=== PATIENT | male | born 1950 | race Caucasian/White ===

== ENCOUNTER 2017-08-27 09:49 | Day surgery (SDC) | payer OTHER ==
--- NOTE | 2017-08-22 14:22 | RAD REPORT ---
EXAM DESCRIPTION: Elier Mckenna And Cheyanne (2 Views)08/22/2017 2:11 pm CLINICAL HISTORY: Preop for bladder biopsy COMPARISON: None FINDINGS: Mild to moderate bilateral reticular opacities are present within the lungs. A lung consol idation is not seen. The heart is normal size IMPRESSION: Eizb-et-iidtpnsq bilateral interstitial lung opacities. These may be chronic or represen t an acute process such as pneumonitis. An unenhanced CT scan of the chest would be helpful for furth er evaluation
[2017-08-22 14:56] LABS: Urine Appearance CLEAR; Urine Bilirubin NEGATIVE (NEG); Urine Blood NEGATIVE (NEG); Urine Color YELLOW; Urine Glucose NEGATIVE (NEG); Urine Protein NEGATIVE (NEG); Urine Specific Gravity 1.015 (1.005-1.030); Urine pH 6.5 (5.0-7.0)
[2017-08-22 14:59] LABS: Urine Microscopic Reflex ORDER UMIC
[2017-08-22 15:00] LABS: Absolute Lymphocytes (CBC) 1.7 K/uL (0.7-4.9); Absolute Monocytes 0.5 K/uL (0.1-1.3); Absolute Neutrophil 4.6 K/uL (1.8-8.0); Basophils % 1.2 % (0-1.3); Eosinophils % 4.1 % (0-4.4); Hematocrit 49.5 % (39.6-49.0); Lymphocytes % 23.4 % (15.3-44.8); MCH 31.2 pg (27.0-35.0); MCV 94.6 fL (80-100); MPV 9.7 fL (7.6-11.3); Monocytes % 6.9 % (3.3-12.3); RBC Red Blood Cell Count 5.23 M/uL (4.33-5.43)
[2017-08-22 15:04] LABS: Protime INR 1.05
[2017-08-22 15:16] LABS: Potassium 4.8 mmol/L (3.5-5.1)
[2017-08-22 15:21] LABS: Urine Bacteria <20 /HPF (NONE SEEN); Urine Culture Reflex Order NOT NEEDED; Urine Mucus 1+ /HPF (NONE SEEN); Urine RBC <5 /HPF (NONE SEEN)
--- NOTE | 2017-08-23 06:26 | EKG ---
Test Date: 2017-08-22 Test Time: 13:44:54 [employer]er Operator: MEMO MEASUREMENT RESULTS: Intervals: Rate: 57 NH: 172 QRSD: 98 QT: 442 QTc: 430 [place]: P: 31 NH: 172 QRS: -9 T: 37 INTERPRETIVE STATEMENTS: Sinus bradycardia Otherwise normal ECG Compared to ECG 04/07/1991 08:19:00 T-wave abnormality no longer present Electronically Signed On 08-23-17 06:25:26 CDT by Jose Linton
[~2017-08-27 09:49] MED LIST: GENTAMICIN 100 MG/100 ML BAG 100 MG/100 ML BAG IV SCH
--- OUTSIDE RECORDS SUMMARY | 2017-08-27 10:08 | XMS REPORT | Clinical Summary ---
:1950 Author Organization [facility] Address [address] [place] [address] Care Team Providers Name Role Phone Rae Spann MD Primary Care Provider Allergies Active Allergy Reactions Severity Noted Date Comments Penicillins 09/28/2016 Only tablet form Current Medications Prescription Sig. Disp. Refills Start Date End Date Status citalopram (CeleXA) 20 MG Take 20 mg by Active tablet mouth daily. aspirin (ECOTRIN) 81 MG Take 81 mg by Active enteric coated tablet mouth daily. Active Problems Problem Noted Date Sleep apnea in adult 09/28/2016 Encounters Date Type Specialty Care Team Description 09/28/2016 Office Visit Otolaryngology Vu Castro MD Sleep apnea in adult (Primary Dx) after 08/26/2016 Social History Tobacco Use Types Packs/Day Years Used Date Current Every Day Smoker Alcohol Use Drinks/Week oz/Week Comments No Sex Assigned at Date Recorded Not on file Last Filed Vital Signs Vital Sign Reading Time Taken Blood Pressure 150/76 09/28/2016 11:59 AM CDT Pulse 55 09/28/2016 11:59 AM CDT Temperature - - Respiratory Rate - - Oxygen Saturation - - Inhaled Oxygen Concentration - - Weight 89.4 kg (197 lb) 09/28/2016 11:59 AM CDT Height 167.6 cm (5' 6") 09/28/2016 11:59 AM CDT Body Mass Index 31.8 09/28/2016 11:59 AM CDT Plan of Treatment Health Maintenance Due Date Last Done Comments COLON CANCER SCREENING 12/22/1999 SHINGRIX VACCINE (#1) 12/22/1999 ZOSTER VACCINE 2009 PNEUMOCOCCAL POLYSACCHARIDE VACCINE AGE 65 AND OVER 2014 PNEUMOCOCCAL-13 2014 INFLUENZA VACCINE 09/25/2017 Results Not on fileafter 08/26/2016 Insurance Payer Benefit Plan / Group Subscriber ID Type Phone Address AETNA AETNA HMO,POS,EPO, MC/EC xxxxxxxxx O MEDICARE MEDICARE PART A AND B xxxxxxxxxx Medicare [place], [place] Home: [facility] ALAN LUDWIG [phone] [place], [place] [phone]
[2017-08-27] MEDS ORDERED: Ringers Lactate 1,000 ML IV ONE (10:12)
[2017-08-27] MEDS ORDERED: GENTAMICIN 100 MG/100 ML BAG 100 MG/100 ML BAG IV ONE (10:12)
[2017-08-27] MEDS ORDERED: mitoMYcin 40 MG in WATER FOR INJ,STERILE 50 ML IRR ONE (11:00)
[2017-08-27] MEDS ORDERED: PROPOFOL 200 MG/20 ML VIAL IV ONE ×3 (11:09→12:02)
[2017-08-27] MEDS ORDERED: MIDAZOLAM HCL 2 MG/2 ML INJ ONE ×2 (11:10→11:31)
[2017-08-27] MEDS ORDERED: FENTANYL CITR 100 MCG/2 ML ONE ×2 (11:10→11:31)
[2017-08-27] MEDS ORDERED: LIDOCAINE 2% MPF 5 ML VIAL ONE (11:31)
[2017-08-27] MEDS ORDERED: ONDANSETRON HCL 40 MG/20 ML VIAL ONE (11:31)
[2017-08-27] MEDS ORDERED: GLYCOPYRROLATE 0.2 MG/ML SYR ONE (12:04)
[2017-08-27] MEDS ORDERED: EPHEDRINE SULF 50 MG/5 ML SYR ONE (12:05)
[2017-08-27] MEDS ORDERED: OXYBUTYNIN CHLORIDE 5 MG TAB ONE (13:29)
[2017-08-27] MEDS ORDERED: HYDROCODONE/APAP 5/325 MG TAB ONE (13:29)
== END 2017-08-27 14:40 | disposition home or self-care (01) ==
LOC: OR 09:49
PROVIDERS: ATTEND Urology
PROC: 0TBB8ZX Excision of Bladder, Via Natural or Artificial Opening Endoscopic, Diagnostic (ICD-10-PCS; principal; 2017-08-27 11:00)
DX: C67.4 Malignant neoplasm of posterior wall of bladder (principal); N32.81 Overactive bladder; R97.20 Elevated prostate specific antigen [PSA]; I10 Essential (primary) hypertension; G47.33 Obstructive sleep apnea (adult) (pediatric); I69.898 Other sequelae of other cerebrovascular disease; Z87.891 Personal history of nicotine dependence; Z88.0 Allergy status to penicillin
CPT/HCPCS: 36415; 52240; 71046; 80048; 85025; 85610; 85730; 87086; 87088; 88305; 93005; J1580; J2250; J2405; J3010; J9280; 81003; 81015

== ENCOUNTER 2020-06-09 10:50 | Day surgery (SDC) | payer OTHER ==
[2020-06-08 13:05] LABS: Absolute Lymphocytes (CBC) 1.5 K/uL (0.7-4.9); Basophils % 0.6 % (0-1.3); Lymphocytes % 13.6 % (15.3-44.8); MPV 7.9 fL (7.6-11.3); RBC Red Blood Cell Count 4.05 M/uL (4.33-5.43)
[2020-06-08 13:31] LABS: Potassium 4.2 mmol/L (3.5-5.1)
[2020-06-09] MEDS ORDERED: Ringers Lactate 1,000 ML IV ONE (11:28)
[2020-06-09] MEDS ORDERED: LIDOCAINE 1% MPF 5 ML VIAL ONE (11:37)
[2020-06-09] MEDS ORDERED: dexAMETHasone 10 MG/ML VIAL ONE (11:37)
[2020-06-09] MEDS ORDERED: ROCURONIUM 50 MG/5 ML VIAL IV ONE (11:37)
[2020-06-09] MEDS ORDERED: propofoL 200 MG/20 ML VIAL IV ONE (11:37)
[2020-06-09] MEDS ORDERED: FENTANYL CITR 250 MCG/5 ML ONE (11:37)
[2020-06-09] MEDS ORDERED: MIDAZOLAM HCL 2 MG/2 ML INJ ONE (11:37)
[2020-06-09] MEDS: CEFAZOLIN/SWI 1gm 1 GM/10 ML SYR ONE ×2 (11:51→12:00)
[2020-06-09] MEDS ORDERED: NA CHLORIDE 0.9% 1,000 ML ONE (12:02)
[2020-06-09] MEDS: BUPIVACAINE 0.25% PF 30 ML VIAL ONE ×2 (12:10→12:17)
[2020-06-09] MEDS ORDERED: EPHEDRINE SULF 50 MG/ML VIAL ONE (12:24)
--- NOTE | 2020-06-09 12:34 | P.OP ---
Preoperative diagnosis: End Stage Renal Disease Postoperative diagnosis: End Stage Renal Disease Primary procedure: Laparoscopic Peritoneal Dialysis Catheter placement Anesthesia: GETA + Local Estimated blood loss: <5cc Specimen: none Findings: minimal adjhesions Complications: None Drain(s): Other (Harden Double Cuff Peritoneal Dialysis Catheter) Transferred to: Recovery Room Condition: Good
[2020-06-09] MEDS ORDERED: GLYCOPYRROLATE 0.2 MG/ML SYR ONE (12:48)
[2020-06-09] MEDS ORDERED: NEOSTIGMINE 1 MG/ML -5 ML ONE (12:48)
[2020-06-09] MEDS ORDERED: ONDANSETRON 4 MG/2 ML VIAL ONE (13:11)
--- NOTE | 2020-06-09 13:47 | RAD REPORT ---
EXAM DESCRIPTION: Elier Single View06/09/2020 1:22 pm CLINICAL HISTORY: Abdominal pain COMPARISON: 2019 FINDINGS: Pneumoperitoneum is present. Bilateral pulmonary opacities without obvious change. Heart is normal size IMPRESSION: Pneumoperitoneum. The patient is status post recent peritoneal dialysis catheter placeme nt which could explain the pneumoperitoneum
[2020-06-09 14:07] VITALS: BP 122/56; TEMP 97.6; O2SAT 99
--- NOTE | 2020-06-09 14:59 | OP ---
Date of Procedure: 06/09/2020 Surgeon: Donato Montes MD, Preoperative Diagnosis: End-stage renal disease. Postoperative Diagnosis: End-stage renal disease. Procedure Performed: Laparoscopic peritoneal dialysis catheter placement. Anesthesia: General endotracheal plus local 0.25% Marcaine. Estimated Blood Loss: Less than 5 mL. Specimen: None. Findings: Minimal adhesions. Complication: None. Drains: Merit double-cuffed peritoneal dialysis catheter. Disposition: The patient was transferred to recovery room in good condition. Procedure In Detail: After informed consent was obtained, the patient was brought to the operating r oom, prepped and draped in the usual sterile fashion. After adequate anesthesia achieved, the left u pper quadrant area was anesthetized with 0.25% Marcaine, sharply incised and a 5 mm 0-degree optical trocar was introduced into the abdomen without evidence of complication. Insufflation was obtained a t 15 mmHg at this time. The abdomen was inspected and found to have minimal adhesions at this point. A stent was placed on the patient and sized appropriately preoperatively and I had marked the inser tion site on the patient at this point. I made a daniele incision overlying this pre-stenciled sanya on the right periumbilical area down through subcutaneous tissues. I then placed the introducer sheath into the abdomen at a 45-degree angle placing toward the patient's coccyx and removed the introducer sheath. At this point, I dilated the tract using the prefab dilator. I then placed the catheter ont o the introducer trocar and advanced this through the introducer sheath to place the first cuff into the rectus muscle at this point with good tissue apposition. I tested the tube at this point and was found to curl in the pelvis appropriately and flushed quite easily with the stripe pointing posterio rly and the tube curling to the right. At this point, I placed the tunneling device on to the cathet er distal aspect and brought it through a right upper quadrant incision, which was pre-stenciled as w ell using the 2 passing devices. At this point, I pulled the second cuff in and tested the system on ce again and fluid flushed quite easily into the abdomen. It was withdrawn quite easily. At this po int, the procedure was complete and I decompressed the abdomen under direct visualization without love dence of complication. I then copiously irrigated both skin incisions and closed with an interrupted 3-0 Vicryl suture and the skin was closed with 4-0 Monocryl in a running fashion. Dermabond placed over top. The patient's tube had a cap placed on the end as well and was functioning quite well at t he end of the procedure. The patient tolerated the procedure well without evidence of complication a nd transferred to PACU in good condition. All counts were correct at the end of the case. LEXIE/KAR Voice ID: [id number] Report ID: [id number]
[2020-06-13 19:19] LABS: HBsAG Nonreactive (Nonreactive)
== END 2020-06-09 13:53 | disposition home or self-care (01) ==
LOC: OR 10:50
PROVIDERS: ATTEND Surgery
PROC: 0WHG43Z Insertion of Infusion Device into Peritoneal Cavity, Percutaneous Endoscopic Approach (ICD-10-PCS; principal; 2020-06-09 12:30)
DX: N18.6 End stage renal disease (principal); Z20.822 Contact with and (suspected) exposure to COVID-19
CPT/HCPCS: 85025; 80048; 36415; 80074; 71045; 49324; U0003; J2704; J2250; J3010; J1100; J2710; J0690; J7120; J7030; J2405

== ENCOUNTER 2020-09-29 09:20 | Day surgery (SDC) | payer OTHER ==
[2020-09-29 10:10] LABS: Absolute Lymphocytes (CBC) 1.4 K/uL (0.7-4.9); Basophils % 0.9 % (0-1.3); Hematocrit 33.3 % (39.6-49.0); Lymphocytes % 18.7 % (15.3-44.8); MPV 7.3 fL (7.6-11.3); RBC Red Blood Cell Count 3.71 M/uL (4.33-5.43)
[2020-09-29 10:28] LABS: Potassium 4.2 mmol/L (3.5-5.1)
[2020-09-29] MEDS ORDERED: CEFAZOLIN/SWI 2gm 2 GM/20 ML SYR ONE (10:37)
[2020-09-29] MEDS ORDERED: Ringers Lactate 1,000 ML IV ONE (10:37)
[2020-09-29] MEDS ORDERED: propofoL 200 MG/20 ML VIAL IV ONE (13:10)
[2020-09-29] MEDS ORDERED: FENTANYL CITR 100 MCG/2 ML ONE (13:10)
[2020-09-29] MEDS ORDERED: ROCURONIUM 50 MG/5 ML VIAL IV ONE (13:11)
[2020-09-29] MEDS ORDERED: LIDOCAINE 1% MPF 5 ML VIAL ONE (13:11)
[2020-09-29] MEDS ORDERED: BUPIVACAINE 0.25% PF 30 ML VIAL ONE ×2 (13:26→13:47)
[2020-09-29] MEDS ORDERED: NS 0.9% VIAL 0 ML ONE (13:26)
[2020-09-29] MEDS ORDERED: HEPARIN 500 UNIT/5 ML SYR IV ONE (13:35)
[2020-09-29] MEDS ORDERED: NS 0.9% VIAL 10 ML ONE (13:45)
[2020-09-29] MEDS ORDERED: HEPARIN 5000 UNIT/ML 1 ML VIAL ONE (13:46)
[2020-09-29] MEDS ORDERED: NA CHLORIDE 0.9% 100 ML IV ONE (13:46)
[2020-09-29] MEDS ORDERED: ETOMIDATE 20 MG/10 ML VIAL IV ONE (13:49)
[2020-09-29] MEDS: HEPARIN 5000 UNIT/ML 1 ML VIAL ONE ×2 (14:10→14:25)
[2020-09-29] MEDS ORDERED: NA CHLORIDE 0.9% 1,000 ML ONE (14:26)
[2020-09-29] MEDS ORDERED: EPHEDRINE SULF 50 MG/ML VIAL ONE (14:36)
--- NOTE | 2020-09-29 15:00 | RAD REPORT ---
EXAM DESCRIPTION: RAD - Fluoroscopy <1 Hour - 09/29/2020 2:33 pm FINDINGS: There were 9 portable fluoroscopic C-arm views obtained during fluoroscopic assisted place ment of a right-sided dialysis catheter. No suspicious or unexpected findings observed. Fluoro time was 1.2 minutes. Cumulative dose was 7.48 mGy.
--- NOTE | 2020-09-29 15:04 | P.OP ---
Preoperative diagnosis: End Stage Renal Disease / Peritoneal Dialysis Catheter Dysfunction Postoperative diagnosis: End Stage Renal Disease / Peritoneal Dialysis Catheter Dysfunction Primary procedure: Laparoscopic Peritoneal Dialysis catheter replacement / revision Secondary procedure: Placement of Tunnelled RIGHT internal jugular HD catheter using ultrasound Other procedure(s): Flouroscopy used Anesthesia: GETA Estimated blood loss: <10cc Specimen: none Findings: Dark, non-pulsatile blood returned, catheter placed, 900 cc returned Complications: None Drain(s): Other (Harden PD Catheter) Implants: 24cm Hemosplit HD catheter Transferred to: Recovery Room Condition: Good
[2020-09-29] MEDS ORDERED: SUGAMMADEX SODIUM 200 MG/2 ML VIAL IV ONE (15:23)
--- NOTE | 2020-09-29 16:10 | RAD REPORT ---
EXAM DESCRIPTION: RAD - Chest Single View - 09/29/2020 3:36 pm CLINICAL HISTORY: S/P HEMODIALYSIS CATHETER PLACEMENT COMPARISON: June 09 TECHNIQUE: AP portable chest image was obtained 09/29/2020 3:36 pm . FINDINGS: Exam is limited by technique and shallow inspiration. No pneumothorax is identified. Right-sided double-lumen dialysis catheter has been placed. Short arm is in the mid SVC with the long arm at the SVC atrial junction. Heart and vasculature are normal. No measurable pleural effusion and no pneumothorax. No acute bony abnormality seen. Pneumoperitoneum again noted. This was present on t may study and attributed to peritoneal dialysis. IMPRESSION: Right-sided double-lumen dialysis catheter in satisfactory position. No pneumothorax. Pneumoperitoneum is evident. This was present on the May study and attributed to peritoneal dialysi s. This needs clinical correlation.
[2020-09-29 16:52] VITALS: BP 134/66; TEMP 97.1; O2SAT 97
--- NOTE | 2020-09-29 16:57 | OP ---
Date of Procedure: 09/29/2020 Surgeon: Altagracia Montes MD, Indications: The patient is a 69-year-old male who had a peritoneal dialysis catheter placed several months ago. It was functioning well, but he noted erosion of the cuff shortly after initiation of h emodialysis as it got tugged on several times, several traction injuries occurred, and the cuff was e xposed at the skin level. He continued to receive peritoneal dialysis through this. He did not have any intraabdominal complaints, but started to have some redness and cellulitis at the skin level. A s such, I decided to revise the catheter with an exposed cuff to replace the catheter at this point a nd remove this previously placed Merit peritoneal dialysis catheter. In addition, we opted to start hemodialysis in the interim as the patient now has become hemodialysis dependent and as such, I discu ssed placement of a tunneled hemodialysis catheter and peritoneal dialysis catheter with the patient and they agreed to proceed. Preoperative Diagnosis: End-stage renal disease/peritoneal dialysis catheter dysfunction. Postoperative Diagnosis: End-stage renal disease/peritoneal dialysis catheter dysfunction. Procedures Performed: 1.Laparoscopic peritoneal dialysis catheter placement/revision. 2.Placement of tunneled right internal jugular hemodialysis catheter using ultrasound and fluoroscop y. Anesthesia: General endotracheal. Estimated Blood Loss: Less than 10 mL. Specimen: None. Findings: Dark nonpulsatile blood return. Catheter placed. 900 mL and 1 L were returned from the p eritoneal cavity with testing. Complications: None. Drains: Merit peritoneal dialysis catheter. Implants: 24 cm HemoSplit hemodialysis catheter in the right internal jugular vein. Disposition: The patient was transferred to the recovery room in good condition. Procedure In Detail: After informed consent was obtained, the patient was brought to the operating r oom, prepped and draped in the usual sterile fashion after adequate anesthesia was achieved. I place d the patient in steep Trendelenburg position. Using ultrasound guidance, I cannulated the right int ernal jugular vein on the first attempt with a microintroducer set. A microwire was advanced at this point. Fluoroscopy confirmed position of the superior vena cava. At this point, I made a small nghia k incision overlying the wire insertion site and then placed a microintroducer set at this point. Th e wire was found to be in good anatomic position in the internal jugular vein to the confluence of th e SVC. The microwire was removed. Once the microintroducer sheath was removed, a standard wire was advanced at this point under fluoroscopic guidance into the superior vena cava without evidence of co mplication. At this point, I anesthetized the tract on the chest wall to the right side. I then adv anced the catheter using the tunneling device to the insertion site at this point, which was a 24 cm HemoSplit catheter. At this point, sequential dilatation was performed using Seldinger technique ove r the standard wire. The standard wire was removed and the introducer sheath was placed and the gwyn dard wire was removed. I then placed the catheter in through the introducer sheath and removed the s radha at this point, confirmed position with fluoroscopy and the confluence of the superior vena cava . Dark red nonpulsatile blood returned from both ports and it was flushed quite easily with heparini zed saline until clear. At this point, I then packed both catheter ports with heparin super flush, c apped the areas, and the patient was taken out of Trendelenburg position. At this point, all skin in cisions were copiously irrigated and the insertion site at the neck was closed with a single interrup altagracia 2-0 nylon suture and a sterile dressing placed over top. The catheter was then secured to the sk in with the same said 2-0 nylon suture and sterile dressing placed over top. The patient tolerated t he procedure at this point well without evidence of complication. The patient was in neutral positio n. I then turned my attention to the abdominal aspect of the operation. I then re-prepped and drape d at this point and made a small stab incision in the right upper quadrant as the patient had a right upper quadrant peritoneal dialysis catheter placed from previous surgical procedure. The 5 mm optic al trocar was then advanced into the peritoneal cavity without evidence of complication. Insufflatio n was obtained to 15 mmHg at this time. There was no injury to vital structures upon entry into the abdomen. The previously placed catheter was in good anatomic position and still functional; however, due to the cuff erosion, I opted to remove this catheter at the end of the procedure. At this point , I had previously stenciled the patient's abdomen using the preset Merit standard catheter stencil w ith the left abdominal exit. I made a small daniele incision following the stencil set and placed the i ntroducer sheath at an angle toward the patient's sacrococcygeal region. I then performed dilatation over the introducer sheath and advanced the catheter into the peritoneal cavity and into the pelvis at this point with a soft curl to the right toward the midline. I then tunneled the catheter out thr ough the pre-mapped site in the left abdomen using the tunneling device and capped the catheter at th is point. As the patient received previous peritoneal dialysis, some effluent was present in the bod y and easily flushed out through the procedure prior to any intervention. At this point, I placed th e cap on the newly placed peritoneal dialysis catheter and began running 1 L of saline into the patie nt's abdomen at this point. I received back approximately 900 mL of this fluid quite easily without any specific interventions. At this point, the catheter was found to be in good position in the pelv is and I opted to cap the catheter at this point and irrigated the skin incisions and closed them wit h a combination of deep dermal sutures of 3-0 Vicryl and the skin was closed with 4-0 Monocryl in a r unning fashion. At this point, I opted to remove the other previously placed catheter. This one cup was completely exposed and as such did not require intervention. I then cut down on the previously placed cuff in the right lower abdomen. I cut through the previous incision and exposed the catheter at this point. I cut free the cuff, which was well ingrown at this point and cut the catheter in julian lf removing the skin side so as not to track to the body and I then removed the intraperitoneal porti on and the catheter found to be intact at this point on the back table. At this point, I irrigated t he skin incisions copiously and closed the deep peritoneal cuff catheter site using a Simeon-Inocencio suture passer with a #1 Vicryl in interrupted fashion and good approximation tissues. I then irriga atlagracia the track site and exit site copiously and packed this with quarter-inch iodoform packing and a s terile dressing placed on this. At this point, the peritoneal cavity was completely decompressed und er direct visualization and the remaining trocars removed. The skin incision was then copiously irri gated and closed with 4-0 Monocryl in a running fashion. Dermabond placed over top. The patient eric erated the procedure well without evidence of complication and transferred to PACU in good condition. All counts were correct at the end of the case. A stat chest x-ray will be performed to verify the position of the hemodialysis catheter placement. LEXIE/KAR Voice ID: [id number] Report ID: [id number]
== END 2020-09-29 17:16 | disposition home or self-care (01) ==
LOC: OR 09:20
PROVIDERS: ATTEND Surgery
PROC: 0JHD3XZ Insertion of Tunneled Vascular Access Device into Right Upper Arm Subcutaneous Tissue and Fascia, Percutaneous Approach (ICD-10-PCS; 2020-09-29)
PROC: 0WPGX3Z Removal of Infusion Device from Peritoneal Cavity, External Approach (ICD-10-PCS; principal; 2020-09-29 11:30)
DX: N18.6 End stage renal disease (principal); Z45.2 Encounter for adjustment and management of vascular access device; Z20.822 Contact with and (suspected) exposure to COVID-19
CPT/HCPCS: 49422; 36558; 76937; 85025; 80048; 36415; 71045; U0003; J2704; J3010; J1644; J1642; J0690; J7120; J7030; C1752; 76000

== ENCOUNTER 2020-10-01 14:55 | Emergency (ER) | payer OTHER ==
--- OUTSIDE RECORDS SUMMARY | 2020-10-01 14:58 | XMS REPORT | Continuity of Care Document ---
:1950 Author Organization [facility] t Address [address] [place] [address] Care Team Providers Name Role Phone LissetteBradford aguilar Primary Care Physician Kanika BUSBY Attending Clinician Unavailable SCAR Attending Clinician Unavailable Delaney FREIRE Attending Clinician Unavailable SCAR Attending Clinician Unavailable SCAR Admitting Clinician Unavailable Payers Payer Name Policy Type Policy Number Effective Date Expiration Date S evelyn MEDICARE PLAN PPO - [id number] AETNA MEDICARE PART A \\T\\ [id number] - MEDICARE Problems Condition Condition Condition Status Onset Resolution Last Treating Co mments Source Name Details Category Date Date Treatment Clinician Date Bladder Bladder Disease Active [facility] Sleep Sleep Disease Active [facility] apnea in apnea in 09-28 st adult adult 00:00: Hospita 00 l Allergies, Adverse Reactions, Alerts Allergy Allergy Status Severity Reaction(s) Onset Inactive Treating Comm ents Source Name Type Date Date Clinician Penicill Drug Active Other (See Oral [facility] Intol[facility] Comments) 10-01 penicilli Krissy kes - nce 00:00: ns cause Medical 00 hiccups Center Penicill Propensi Active Only Method i ins ty to 09-[address] adverse 00:00: form Hospita reaction 00 l s to drug Social History Social Habit Start Date Stop Date Quantity Comments Source Sex Assigned At [facility] St Krissy zimmer [facility] Cigarettes smoked 2017-10-02 2017-10-02 ABELARDO Sams - current (pack per 00:00:00 00:00:00 Medical Center day) - Reported Cigarette 2017-10-02 2017-10-02 ABELARDO Sams - pack-years 00:00:00 00:00:00 Medical Center Tobacco use and 2017-10-02 2017-10-02 Never used ABELARDO Scanlon - exposure 00:00:00 00:00:00 [facility] Alcohol intake 2017-10-02 2017-10-02 Current drinker ABELARDO Grijalva - 00:00:00 00:00:00 of alcohol [facility] (finding) Alcohol Comment 2017-10-01 2017-10-01 "very rare" ABELARDO Trinidad - 00:00:00 00:00:00 [facility] History of tobacco 2017-09-25 [facility] use [facility]00 [facility] Smoking Status Start Date Stop Date Source Former smoker 2017-10-02 00:00:00 2017-10-02 00:00:00 [facility] [address] Kasie castelan - [facility] Current every day 2016-09-28 00:00:00 [facility] smoker Medications Ordered Filled Start Stop Current Ordering Indication Dosage Frequency Signature Comments Components Source Medication Medication Date Date Medication? Clinician (SIG) Name Name levothyroxi Yes 175ug QD Take [address] ne 8-08 mcg by [facility] - (SYNTHROID, 15:53: mouth Medic al LEVOTHROID) [address] 175 MCG tablet sertraline Yes 100mg QD Take [address] (ZOLOFT) 8-08 mg by [facility] - 100 MG 15:53: mouth Medical tablet 34 nightly . [place] citalopram Yes 40mg QD Take [address] (CELEXA) 40 8-08 by mouth Luke s - MG tablet 15:53: nightly . Med ical 34 [place] atenolol Yes 50mg QD Take [address] (TENORMIN) 8-08 by mouth [facility] - 50 MG 15:53: nightly . Medical tablet 34 [place] cholecalcif Yes QD Take by [facility], 8-08 mouth [facility] - vitamin D3, 15:53: nightly . [place] [facility]iano 2,000 unit 34 Center Cap traMADol Yes 100mg Take [address] (ULTRAM) 50 8-08 tablets [facility] - mg tablet 00:00: (100 mg Medic al 00 total) by Center mouth every 6 (six) hours as needed for Pain. Max Daily Amount: 400 mg citalopram Yes 20mg QD Take 20 mg M ethodi (CeleXA) 20 8-[address] MG tablet 17:01: daily. Hospit a 51 l aspirin Yes 81mg QD Take 81 mg Meth westley (ECOTRIN) 8-[address] 81 MG 17:01: daily. Hospita enteric 51 l coated tablet Procedures This patient has no known procedures. Plan of Care Planned Activity Planned Date Details Comments Source Future Scheduled 2020-10-[address] [facility] - Test 00:00:00 (Season Ended) [code = Medic al Center INFLUENZA VACCINE (Season Ended)] Future Scheduled 2020-02-[address] [facility] - Test 00:00:00 (12+) [code = Medical Center DEPRESSION SCREENING (12+)] Future Scheduled 2015-11-[address] [facility] - Test 00:00:00 WELLNESS (YEAR 2 or Medical Center FIRST YEAR if no IPPE) [code = MEDICARE ANNUAL WELLNESS (YEAR 2 or FIRST YEAR if no IPPE)] Future Scheduled 2014 PNEUMOCOCCAL 65+ YRS [facility] - Test 00:00:00 (1 of 1 - Medical Center [id number]) [code = PNEUMOCOCCAL 65+ YRS (1 of 1 - [id number] PCV13)] Future Scheduled 1999-12-22 SHINGLES VACCINES ([address] [facility] - Test 00:00:00 of 2) [code = SHINGLES Medic al Center VACCINES (1 of 2)] Future Scheduled 1968 DTAP/TDAP/TD VACCINES [facility] - Test 00:00:00 (1 - Tdap) [code = Medical C enter DTAP/TDAP/TD VACCINES (1 - Tdap)] Future Scheduled 1967-12-22 HEPATITIS C SCREENING [facility] - Test 00:00:00 [code = HEPATITIS C Medical Center SCREENING] Future Scheduled 1961 COVID-19 VACCINE (1) [facility] - Test 00:00:00 [code = COVID-[address] VACCINE (1)] Future Scheduled [address] [facility] - Test 00:00:00 malignant neoplasm of Medica l Center colon (procedure) [code = 048825866] Future Scheduled [facility] [code = COLONOSCOPY SCREENING] Future Scheduled SHINGLES VACCINES (#1) [facility] Test [code = SHINGLES VACCINES (#1)] Future Scheduled 65+ [facility]UMOCOCCAL [facility] Test VACCINE (1 of 1 - PPSV23) [code = 65+ PNEUMOCOCCAL VACCINE (1 of 1 - PPSV23)] Future Scheduled INFLUENZA VACCINE [facility] Test [code = INFLUENZA VACCINE] Future Scheduled COVID-19 VACCINE (1) [facility] Test [code = COVID-19 VACCINE (1)] Encounters Start End Encounter Admission Attending Care Care Encounter Source Date/Time Date/Time Type Type Clinicians Facility Department ID 2020-09-08 2020-09-08 Outpatient [facility] [id number] [facility] 11:52:06 11:52:06 [facility] 2020-09-01 2020-09-01 Outpatient [facility] [id number] [facility] 11:51:06 16:51:45 [facility] 2020-08-25 2020-08-25 Outpatient [facility] [id number] [facility] 11:46:42 14:30:58 [facility] 2020-08-17 2020-08-17 Outpatient [facility] [id number] [facility] 13:16:39 16:40:55 AURELIO [facility] 2020-04-29 2020-04-29 Transition Italo Baltazar [id number] 00:00:00 00:00:00 of Care Constance Thompson [id number] Genevieve [id number] Results Test Description Test Time Test Comments Results Result [facility] e Comments CT, ABDOMEN 2019-02-03 FINAL REPORT PATIENT 15:15:00 ID: [id number] ABDOMINAL AND PELVIS CT DATED 02/03/2019 CLINICAL INFORMATION: Prostate cancer History of bladder cancer Malignant neoplasm of urinary bladder TECHNIQUE: Axial images of the abdomen and pelvis were obtained from diaphragm to the pubic symphysis without GI or intravenous contrast. This exam was performed according to our departmental dose-optimization program, which includes automated exposure control, adjustment of the mA and/or kV according to patient size and/or use of interactive reconstruction technique. COMMENT: Liver and spleen are normal in size without focal abnormality. Gallbladder is contracted. No gallstone or biliary dilatation is noted. Pancreas and adrenals are unremarkable. Left kidney is atrophic. Right kidney is normal in size. No hydronephrosis, hydroureter, urolithiasis is seen. Diverticular disease is seen in the large bowel without diverticulitis. The small bowel and appendix are normal in caliber. Atherosclerotic calcification is seen in the abdominal aorta and bilateral iliac arteries. Prostate is normal in size. The urinary bladder is contracted. No mass, adenopathy or ascites is present. IMPRESSION: 1. Atrophic left kidney.2. Diverticulosis without diverticulitis.3. No mass or adenopathy in the abdomen or pelvis. Signed: Gwen Espitia MDReport Verified Date/Time: 02/03/2019 15:15:07 Reading Location: [address] Radiology Reading Room -CREATININE 2019-02-03 11:56:00 Test Item Value Reference Range Interpretation Comme [facility] (test 4.0 mg/dL 0.6-1.[address] [facility] 6720 code = 1859) [facility] [address] POC-EGFR (BEAKER) (test code = 15 mL/min/1.73M2 1860) TISSUE [id number] 17:04:00Surgical Pathology Report Case: [id number] Authorizing Provider: Aurelio Calvillo MD Collected: 10/02/2017 1123 Ordering Location: [facility] PERIOPERATIVE Received: 10/02/2017 1403 SERVICES Pathologist: Girish Whiteside MD Specimens: A) -Bladder Tumor, Posterior Wall Tumor B) - Ureter, Right, Right Mid-ureter Lesion A. 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 URETER, RIGHT MID- URETER LESION, BIOPSY: - BLOOD CLOT. - NO UROTHELIUM IDENTIFIED. Signing Pathologist Direct Phone Line: [phone] signed by Girish Whiteside MD on 10/03/2017 at 5:04 [id number], [id number] in situ of bladder A. Posterior wall tumor bladder tumor. B. Right mid ureter lesion Specimen is received intwo containers of formalin both labeled with the patient's information.Specimen A: Labeled "bladder tumor posterior wall" consists of two fragments of multiple arnold hemorrhagic soft tissue measuring 2.5x 2.5 x 1 cm in aggregate submitted entirely in A1 and A2.Specimen B: Labeled "right mid ureter lesion" consists of a 0.1 cm fragment of red soft tissue submitted in B1. CG/ew A-B. Performed.[place], SOCIAL SERVICE DIRECTOR IN OR/30 MINUTE INCREMENTS 2017-10-02 14:44:00Reason for exam:->Intraoperative UseFINAL REPORT Fluoroscopy 70 views intraoperative 10/02/2017 2:43 PM CLINICAL HIS TORY: Instrument localization COMPARISON: None available IMPRESSION: Please correlate imaging reportfindings with the procedure note prepared by Dr. Calvillo, as an intra-procedure imaging consultation was not requested. Reported fluoroscopy time: 96 seconds. Signed: Devin Ramirez Verified Abdiel e/Time: 10/02/2017 14:44:28 Reading Location: [address] Neuro Reading Room
[2020-10-01 18:22] LABS: Absolute Lymphocytes (CBC) 1.2 K/uL (0.7-4.9); Basophils % 0.9 % (0-1.3); Hematocrit 29.6 % (39.6-49.0); Lymphocytes % 20.3 % (15.3-44.8); MPV 7.1 fL (7.6-11.3)
[2020-10-01 18:30] LABS: Protime INR 1.09
--- NOTE | 2020-10-01 18:37 | RAD REPORT ---
EXAM DESCRIPTION: RAD - Chest Single View - 10/01/2020 6:25 pm CLINICAL HISTORY: DYSPNEA COMPARISON: Chest Single View dated 09/29/2020; Chest Single View dated 06/09/2020; Chest Pa And Lat (2 Views) dated 05/13/2018; Chest Pa And Lat (2 Views) dated 08/22/2017; Fluoroscopy <1 Hour dated 09/30/19 21 FINDINGS: Right IJ approach dialysis catheter with tip overlying the SVC. Cardiomegaly. No edema or pneumonia is identified. No fractures are identified. Question small volume of pneumoperitoneum benea th the right hemidiaphragm which was present on prior exams. IMPRESSION: No acute cardiopulmonary disease.
[2020-10-01 18:48] LABS: ALT/SGPT 7 U/L (12-78); AST/SGOT 13 U/L (15-37); Albumin 2.6 g/dL (3.4-5.0); Alkaline Phosphatase 102 U/L (45-117); BUN Blood Urea Nitrogen 47 mg/dL (7-18); Bicarbonate 24 mmol/L (21-32); Bilirubin Direct < 0.1 mg/dL (0-0.2); Bilirubin Total 0.2 mg/dL (0.2-1.0); Glucose Level 83 mg/dL (74-106); Magnesium 2.1 mg/dL (1.8-2.4); NT PRO-BNP 2778 pg/mL (<125); Potassium 4.2 mmol/L (3.5-5.1); Protein, Total 6.9 g/dL (6.4-8.2); Sodium Level 137 mmol/L (136-145); Troponin (Emerg Dept Use Only) < 0.02 ng/mL (0.0-0.045)
--- NOTE | 2020-10-01 21:23 | ER ---
Nurse's Notes [facility] Name: Grady Dasilva Age: 69 yrs Sex: Male : 1950 Arrival Date: 10/01/2020 Time: 14:56 Bed IV Therapy Private MD: Diagnosis: End stage renal disease-on HD;Other complication of vascular dialysis catheter-BLOCKED PORT, UNBLOCKED;Anemia, unspecified Presentation: 10/01 15:04 Chief complaint: Patient states: Sent over by Dr. Amos sent him over because his kg dialysis port is clotted off and unable to do dialysis today. Coronavirus screen: Client denies travel out of the [place] in the last 14 days. At this time, unable to obtain information related to travel outside the [place] At this time, the client does not indicate any symptoms associated with coronavirus-19. Ebola Screen: Patient negative for fever greater than or equal to 101.5 degrees Fahrenheit, and additional compatible Ebola Virus Disease symptoms Patient denies exposure to infectious person. Patient denies travel to an Ebola-affected area in the 21 days before illness onset. Initial Sepsis Screen: Does the patient meet any 2 criteria? No. Patient's initial sepsis screen is negative. Does the patient have a suspected source of infection? No. Patient's initial sepsis screen is negative. Risk Assessment: Do you want to hurt yourself or someone else? Patient reports no desire to harm self or others. Onset of symptoms was October 01, 2020. 15:04 Method Of Arrival: Ambulatory kg 15:04 Acuity: MADI 4 kg 15:37 Acuity: MADI 3 iw Triage Assessment: 15:06 General: Appears in no apparent distress. Behavior is calm, cooperative, appropriate kg for age, quiet. Pain: Denies pain. Historical: - Allergies: 15:06 PENICILLINS; kg 15:06 Codeine; kg - Home Meds: 15:06 levothyroxine 200 mcg tab 1 tab once daily [Active]; citalopram 40 mg tab 1 tab once kg daily [Active]; carvedilol 12.5 mg oral tab 2 times per day [Active]; amlodipine 10 mg tab 1 tab once daily [Active]; simvastatin 10 mg Oral tab 1 tab once daily [Active]; aspirin 81 mg Oral TbEC 1 tab once daily [Active]; Lasix 10 mg/mL oral soln once daily [Active]; Bactrim DS 800-160 mg Oral tab 1 tab once daily [Active]; Vitamin D3 125 mcg (5,000 unit) oral tab daily [Active]; 15:13 Reglan 5 mg Oral tab 1 tab once daily [Active]; kg - PMHx: 15:06 Bladder CA; Prostate CA; kg - PSHx: 15:06 PD dialysis cather placement; HD cathater placement; kg - Immunization history:: Adult Immunizations up to date, Client reports having NOT received the Covid vaccine. - Social history:: Smoking status: Patient reports the use of cigarette tobacco products, smokes one-half pack cigarettes per day. - Family history:: not pertinent. Screenin:12 Abuse screen: Denies threats or abuse. Denies injuries from another. Nutritional kg screening: No deficits noted. Tuberculosis screening: No symptoms or risk factors identified. Fall Risk None identified. No fall in past 12 months (0 pts). No secondary diagnosis (0 pts). No IV (0 pts). Ambulatory Aid- None/Bed Rest/Nurse Assist (0 pts). Gait- Normal/Bed Rest/Wheelchair (0 pts) Mental Status- Oriented to own ability (0 pts). Total Lezama Fall Scale indicates No Risk (0-24 pts). Assessment: 17:15 General: Appears in no apparent distress. comfortable, Behavior is calm, cooperative. iw Pain: Denies pain. Neuro: Level of Consciousness is awake, alert, obeys commands, Oriented to person, place, time, situation, Moves all extremities. Full function. Cardiovascular: Patient's skin is warm and dry. Respiratory: Respiratory effort is even, unlabored, Respiratory pattern is regular, symmetrical. Derm: Skin is intact, is healthy with good turgor. Musculoskeletal: Range of motion: intact in all extremities. 18:17 Reassessment: Patient appears in no apparent distress at this time. Patient and/or iw family updated on plan of care and expected duration. Pain level reassessed. Patient is alert, oriented x 3, equal unlabored respirations, skin warm/dry/pink. 18:39 Reassessment: pt transported to 2nd floor for 90 minute dialysis to make sure port is iw functioning, with pt. Pt will be brought back to ER for discharge after completion of dialysis. 20:58 Reassessment: patient back from dialysis. ms4 Vital Signs: 15:04 BP 144 / 70; Pulse 73; Resp 20; Temp 99.1(TE); Pulse Ox 100% on R/A; Weight 72.12 kg; kg Height 5 ft. 6 in. (167.64 cm); Pain 0/10; 21:41 BP 160 / 74; Pulse 84; Resp 18; Temp 97.4; Pulse Ox 97% ; Pain 0/10; ms4 15:04 Body Mass Index 25.66 (72.12 kg, 167.64 cm) kg ED Course: 14:56 Patient arrived in ED. as 15:06 Triage completed. kg 15:06 Arm band placed on left wrist. kg 15:12 Patient has correct armband on for positive identification. kg 15:12 No provider procedures requiring assistance completed. kg 17:14 Raman Chen MD is Attending Physician. yadi 18:16 Awilda Johnson, RN is Primary Nurse. iw 18:25 XRAY Chest (1 view) In Process Unspecified. EDMS 18:40 Patient did not have IV access during this emergency room visit. iw Administered Medications: No medications were administered Outcome: 21:22 Discharge ordered by . cp 21:42 Discharged to home ambulatory. ms4 21:42 Condition: stable 21:42 Discharge instructions given to patient, Instructed on discharge instructions, follow up and referral plans. Demonstrated understanding of instructions, follow-up care. 21:42 Patient left the ED. ms4 Signatures: Dispatcher [employer] EDWI Raman Chen MD MD cha Martinez, Amelia as Awilda Johnson, RN RN iw Raman Kwon PA PA cp Graham, Kristen, RN RN kg Michelle Davis RN RN ms4
--- NOTE | 2020-10-01 21:23 | EDPHYS ---
Physician Documentation [facility] Name: Grady Dasilva Age: 69 yrs Sex: Male : 1950 Arrival Date: 10/01/2020 Time: 14:56 Bed IV Therapy Private MD: ED Physician Raman Chen HPI: 10/01 17:35 This 69 yrs old Male presents to ER via Ambulatory with complaints of chemo yadi port clogged. 17:35 steven on , blocked today, khadijah dowell. Onset: The symptoms/episode yadi began/occurred 1 day(s) ago. Severity of symptoms: At their worst the symptoms were very mild in the emergency department the symptoms are unchanged. The patient has not experienced similar symptoms in the past. Historical: - Allergies: 15:06 PENICILLINS; kg 15:06 Codeine; kg - Home Meds: 15:06 levothyroxine 200 mcg tab 1 tab once daily [Active]; citalopram 40 mg tab 1 tab once kg daily [Active]; carvedilol 12.5 mg oral tab 2 times per day [Active]; amlodipine 10 mg tab 1 tab once daily [Active]; simvastatin 10 mg Oral tab 1 tab once daily [Active]; aspirin 81 mg Oral TbEC 1 tab once daily [Active]; Lasix 10 mg/mL oral soln once daily [Active]; Bactrim DS 800-160 mg Oral tab 1 tab once daily [Active]; Vitamin D3 125 mcg (5,000 unit) oral tab daily [Active]; 15:13 Reglan 5 mg Oral tab 1 tab once daily [Active]; kg - PMHx: 15:06 Bladder CA; Prostate CA; kg - PSHx: 15:06 PD dialysis cather placement; HD cathater placement; kg - Immunization history:: Adult Immunizations up to date, Client reports having NOT received the Covid vaccine. - Social history:: Smoking status: Patient reports the use of cigarette tobacco products, smokes one-half pack cigarettes per day. - Family history:: not pertinent. ROS: 17:35 Constitutional: Negative for fever, chills, and weight loss, Eyes: Negative for injury, yadi pain, redness, and discharge, ENT: Negative for injury, pain, and discharge, Neck: Negative for injury, pain, and swelling, Cardiovascular: Negative for chest pain, palpitations, and edema, Respiratory: Negative for shortness of breath, cough, wheezing, and pleuritic chest pain, Abdomen/GI: Negative for abdominal pain, nausea, vomiting, diarrhea, and constipation, Back: Negative for injury and pain, : Negative for injury, bleeding, discharge, and swelling, MS/Extremity: Negative for injury and deformity, Skin: Negative for injury, rash, and discoloration, Neuro: Negative for headache, weakness, numbness, tingling, and seizure, Psych: Negative for depression, anxiety, suicide ideation, homicidal ideation, and hallucinations, Allergy/Immunology: Negative for hives, rash, and allergies, Endocrine: Negative for neck swelling, polydipsia, polyuria, polyphagia, and marked weight changes, Hematologic/Lymphatic: Negative for swollen nodes, abnormal bleeding, and unusual bruising. Exam: 17:35 Constitutional: This is a well developed, well nourished patient who is awake, alert, yadi and in no acute distress. Head/Face: Normocephalic, atraumatic. Eyes: Pupils equal round and reactive to light, extra-ocular motions intact. Lids and lashes normal. Conjunctiva and sclera are non-icteric and not injected. Cornea within normal limits. Periorbital areas with no swelling, redness, or edema. ENT: Nares patent. No nasal discharge, no septal abnormalities noted. Tympanic membranes are normal and external auditory canals are clear. Oropharynx with no redness, swelling, or masses, exudates, or evidence of obstruction, uvula midline. Mucous membranes moist. Neck: Trachea midline, no thyromegaly or masses palpated, and no cervical lymphadenopathy. Supple, full range of motion without nuchal rigidity, or vertebral point tenderness. No Meningismus. Chest/axilla: Normal chest wall appearance and motion. Nontender with no deformity. No lesions are appreciated. Cardiovascular: Regular rate and rhythm with a normal S1 and S2. No gallops, murmurs, or rubs. Normal PMI, no JVD. No pulse deficits. Abdomen/GI: Soft, non-tender, with normal bowel sounds. No distension or tympany. No guarding or rebound. No evidence of tenderness throughout. Back: No spinal tenderness. No costovertebral tenderness. Full range of motion. Male : Normal genitalia with no discharge or lesions. Skin: Warm, dry with normal turgor. Normal color with no rashes, no lesions, and no evidence of cellulitis. MS/ Extremity: Pulses equal, no cyanosis. Neurovascular intact. Full, normal range of motion. Neuro: Awake and alert, GCS 15, oriented to person, place, time, and situation. Cranial nerves II-XII grossly intact. Motor strength 5/5 in all extremities. Sensory grossly intact. Cerebellar exam normal. Normal gait. Psych: Awake, alert, with orientation to person, place and time. Behavior, mood, and affect are within normal limits. 17:35 Respiratory: the patient does not display signs of respiratory distress, Respirations: normal, Breath sounds: bronchial sounds, that are mild, rhonchi, that are mild. Vital Signs: 15:04 BP 144 / 70; Pulse 73; Resp 20; Temp 99.1(TE); Pulse Ox 100% on R/A; Weight 72.12 kg; kg Height 5 ft. 6 in. (167.64 cm); Pain 0/10; 21:41 BP 160 / 74; Pulse 84; Resp 18; Temp 97.4; Pulse Ox 97% ; Pain 0/10; ms4 15:04 Body Mass Index 25.66 (72.12 kg, 167.64 cm) kg MDM: 17:14 Patient medically screened. [facility] 17:38 Data reviewed: vital signs, nurses notes, lab test result(s), EKG, radiologic studies, yadi plain films. Data interpreted: groundwater monitoring technician: rate is 73 beats/min, rhythm is regular, Pulse oximetry: on room air is 100 %. Test interpretation: by ED physician or midlevel provider: ECG, plain radiologic studies. Counseling: I had a detailed discussion with the patient and/or guardian regarding: the historical points, exam findings, and any diagnostic results supporting the discharge/admit diagnosis, lab results, radiology results, the need for outpatient follow up, for definitive care, 10/01 17:30 Order name: Basic Metabolic Panel; Complete Time: 19:33 [facility] 10/01 20:41 Interpretation: Reviewed. 10/01 17:30 Order name: CBC with Diff; Complete Time: 18:34 [facility] 10/01 20:42 Interpretation: Reviewed. 10/01 17:30 Order name: LFT's; Complete Time: 19:33 [facility] 10/01 20:42 Interpretation: Reviewed. 10/01 17:30 Order name: Magnesium; Complete Time: 19:33 [facility] 10/01 20:42 Interpretation: Reviewed. 10/01 17:30 Order name: NT PRO-BNP; Complete Time: 19:33 [facility] 10/01 20:42 Interpretation: Reviewed. 10/01 17:30 Order name: PT-INR; Complete Time: 19:30 [facility] 10/01 20:43 Interpretation: Reviewed. 10/01 17:30 Order name: Troponin (emerg Dept Use Only); Complete Time: 19:33 [facility] 10/01 20:43 Interpretation: Reviewed. 10/01 17:30 Order name: XRAY Chest (1 view); Complete Time: 19:30 [facility] 10/01 17:30 Order name: EKG; Complete Time: 17:31 [facility] 10/01 17:30 Order name: Cardiac monitoring; Complete Time: 07:52 [facility] 10/01 17:30 Order name: EKG - Nurse/Tech; Complete Time: 07:52 [facility] 10/01 18:56 Order name: Hep B Surface AG w/ Confirm EDTN 10/01 18:56 Order name: Hepatitis B Core IgM Antibody [facility] 10/01 18:56 Order name: Hepatitis B Surface Ab,Quant EDTN 10/01 17:30 Order name: IV Saline Lock; Complete Time: 07:52 [facility] 10/01 17:30 Order name: Labs collected and sent; Complete Time: 18:18 [facility] 10/01 17:30 Order name: O2 Per Protocol; Complete Time: 18:18 [facility] 10/01 17:30 Order name: O2 Sat Monitoring; Complete Time: 18:18 [facility] 10/01 17:35 Order name: Misc. Order: flush cath; Complete Time: 07:52 [facility] Administered Medications: No medications were administered Disposition Summary: 10/01/20 21:22 Discharge Ordered Location: Home cp Problem: new cp Symptoms: have improved cp Condition: Stable cp Diagnosis - End stage renal disease - on HD cp - Other complication of vascular dialysis catheter - BLOCKED PORT, UNBLOCKED cp - Anemia, unspecified cp Followup: yadi - With: Emergency Department - When: 2 - 3 days - Reason: Recheck today's complaints, Continuance of care, Re-evaluation by your physician Discharge Instructions: - Discharge Summary Sheet yadi - Anemia yadi - Dialysis yadi - Vascular Access for Hemodialysis yadi - Hemodialysis yadi - Hemodialysis, Care After yadi - Peritoneal Dialysis Catheter Placement yadi - Hemodialysis, [id number] yadi Forms: - Medication Reconciliation Form cp - Thank You Letter cp - Antibiotic Education cp - Prescription Opioid Use cp Signatures: Dispatcher [employer] Raman Henning MD MD cha Page, Corey, PA PA Julieth Posadas, RN RN kg
[2020-10-01 21:56] VITALS: BP 160/74; TEMP 97.4; O2SAT 97
[2020-10-05 18:57] LABS: HBsAG Nonreactive (Nonreactive)
== END 2020-10-01 21:42 | disposition home or self-care (01) ==
LOC: ER 14:55
DX: T82.49XA Other complication of vascular dialysis catheter, initial encounter (principal); N18.6 End stage renal disease; Z99.2 Dependence on renal dialysis; D64.9 Anemia, unspecified; Z79.82 Long term (current) use of aspirin; Z85.46 Personal history of malignant neoplasm of prostate; Z85.51 Personal history of malignant neoplasm of bladder; Z88.0 Allergy status to penicillin; Z88.5 Allergy status to narcotic agent
CPT/HCPCS: 85025; 80048; 36415; 83735; 85610; 80076; 84484; 86705; 86317; 83880; 87340; 71045; 99283; J1644 ×2

== ENCOUNTER 2021-08-23 13:31 | Inpatient (IN) | payer OTHER ==
--- NOTE | 2021-08-23 14:33 | RAD REPORT ---
EXAM DESCRIPTION: [place] Single View08/23/2021 2:23 pm CLINICAL HISTORY: Bladder cancer. Syncope COMPARISON: none FINDINGS: The lungs appear clear of acute infiltrate. The heart is mildly enlarged IMPRESSION: No acute abnormalities displayed
[2021-08-23] MEDS ORDERED: NA CHLORIDE 0.9% 1,000 ML ONE (14:43)
[2021-08-23] MEDS ORDERED: PANTOPRAZOLE 40 MG INJ ONE (14:43)
[2021-08-23 14:57] LABS: Absolute Lymphocytes (CBC) 1.6 K/uL (0.7-4.9); Hematocrit 41.9 % (39.6-49.0); Lymphocytes % 10.8 % (15.3-44.8); MCV 96.4 fL (80-100); MPV 8.3 fL (7.6-11.3); RBC Red Blood Cell Count 4.34 M/uL (4.33-5.43)
--- NOTE | 2021-08-23 14:57 | RAD REPORT ---
EXAM DESCRIPTION: CT - Head C Spine Cap Wo Con - 08/23/2021 2:31 pm CLINICAL HISTORY: Syncope. Head and neck injury with chest and abdominal pain status post fall TECHNIQUE: Computed axial tomography of head, neck, chest, abdomen and pelvis obtained. IV and oral contrast not requested. Coronal and sagittal reconstruction performed. All CT scans are performed using dose optimization technique as appropriate and may include automated exposure control or mA/KV adjustment according to patient size. COMPARISON: CT abdomen 2020 FINDINGS: An intracranial bleed is not seen. The ventricles are normal in caliber. An extra-axial fluid collection is not noted. . Fluid within the sinuses/mastoids is not seen. A cervical fracture is not seen. No dislocation is noted. Spondylosis involves The evaluation of mediastinum, ubaldo, vessels, solid organs and bowel are limited secondary to the lac k of contrast administration. A mediastinal hematoma is not noted. A pleural effusion is not seen. A lung contusion is not present. Moderate pulmonary fibrosis. The liver,spleen, pancreas, adrenals,kidneys and bladder do not demonstrate a traumatic injury Small amount of ascites. This was also present on the prior exam. Peritoneal dialysis catheter in denice ce. Small inguinal hernias. Small left kidney IMPRESSION: No acute intracranial abnormality is seen. A cervical fracture is not visualized. If the patient continues have symptoms to suggest intracrania l/spinal cord pathology MRI be recommended No traumatic abnormality involving the chest/abdomen/pelvis.
[2021-08-23 15:03] LABS: Protime INR 1.05
[2021-08-23 15:23] LABS: ALT/SGPT 11 U/L (12-78); AST/SGOT 6 U/L (15-37); Albumin 2.6 g/dL (3.4-5.0); Alkaline Phosphatase 103 U/L (45-117); BUN Blood Urea Nitrogen 34 mg/dL (7-18); Bicarbonate 26 mmol/L (21-32); Bilirubin Total 0.3 mg/dL (0.2-1.0); Glomerular Filtration Rate 5 ml/min (=/>90); Glucose Level 78 mg/dL (74-106); Lipase 218 U/L (73-393); Magnesium 2.5 mg/dL (1.8-2.4); NT PRO-BNP 949 pg/mL (<125); Potassium 3.8 mmol/L (3.5-5.1); Protein, Total 7.2 g/dL (6.4-8.2); Sodium Level 137 mmol/L (136-145); Troponin High Sensitivity 19.2 pg/mL (<58.9)
[2021-08-23 15:24] LABS: Bilirubin Direct < 0.1 mg/dL (0-0.2)
--- NOTE | 2021-08-23 15:59 | EDPHYS ---
Physician Documentation [facility] Name: Grady Dasilva Age: 70 yrs Sex: Male : 1950 Arrival Date: 08/23/2021 Time: 13:42 Bed 4 Private MD: KIRBY Physician Raman Chen HPI: 08/23 15:46 This 70 yrs old Male presents to ER via EMS with complaints of Syncope. yadi 15:46 The patient has experienced syncope, became unresponsive. Onset: The symptoms/episode yadi began/occurred today. Duration: The patient has had multiple episodes, that last 20 second(s). Context: the episode(s) was witnessed, by family, . Associated injury: The patient did not suffer any apparent associated injury. Associated signs and symptoms: Pertinent positives: weakness. Current symptoms: Currently, the patient is not experiencing any symptoms, the patient feels back to baseline, no decreased level of consciousness, no confusion, no dysphasia, no headache, no paralysis. The patient has experienced similar episodes in the past, several times, but today's symptoms are worse, lasting longer. Historical: - Allergies: 13:45 Codeine; ap3 13:45 PENICILLINS; ap3 - PMHx: 13:45 Bladder CA; PROSTATE CA; End stage renal disease; Possible Brain CA; Hypothyroidism; ap3 - PSHx: 13:45 HD cathater placement; PD dialysis cather placement; ap3 - Immunization history:: Client reports receiving the 2nd dose of the Covid vaccine. - Social history:: Smoking status: Patient reports the use of cigarette tobacco products, smokes one-half pack cigarettes per day. - Family history:: not pertinent. ROS: 15:46 Constitutional: Negative for fever, chills, and weight loss, Eyes: Negative for injury, yadi pain, redness, and discharge, ENT: Negative for injury, pain, and discharge, Neck: Negative for injury, pain, and swelling, Cardiovascular: Negative for chest pain, palpitations, and edema, Respiratory: Negative for shortness of breath, cough, wheezing, and pleuritic chest pain, Abdomen/GI: Negative for abdominal pain, nausea, vomiting, diarrhea, and constipation, Back: Negative for injury and pain, : Negative for injury, bleeding, discharge, and swelling, MS/Extremity: Negative for injury and deformity, Skin: Negative for injury, rash, and discoloration, Psych: Negative for depression, anxiety, suicide ideation, homicidal ideation, and hallucinations, Allergy/Immunology: Negative for hives, rash, and allergies, Endocrine: Negative for neck swelling, polydipsia, polyuria, polyphagia, and marked weight changes, Hematologic/Lymphatic: Negative for swollen nodes, abnormal bleeding, and unusual bruising. 15:46 Neuro: Positive for syncope, weakness. Exam: 15:46 Constitutional: This is a well developed, well nourished patient who is awake, alert, yadi and in no acute distress. Head/Face: Normocephalic, atraumatic. Eyes: Pupils equal round and reactive to light, extra-ocular motions intact. Lids and lashes normal. Conjunctiva and sclera are non-icteric and not injected. Cornea within normal limits. Periorbital areas with no swelling, redness, or edema. ENT: Nares patent. No nasal discharge, no septal abnormalities noted. Tympanic membranes are normal and external auditory canals are clear. Oropharynx with no redness, swelling, or masses, exudates, or evidence of obstruction, uvula midline. Mucous membranes moist. Neck: Trachea midline, no thyromegaly or masses palpated, and no cervical lymphadenopathy. Supple, full range of motion without nuchal rigidity, or vertebral point tenderness. No Meningismus. Chest/axilla: Normal chest wall appearance and motion. Nontender with no deformity. No lesions are appreciated. Cardiovascular: Regular rate and rhythm with a normal S1 and S2. No gallops, murmurs, or rubs. Normal PMI, no JVD. No pulse deficits. Respiratory: Lungs have equal breath sounds bilaterally, clear to auscultation and percussion. No rales, rhonchi or wheezes noted. No increased work of breathing, no retractions or nasal flaring. Abdomen/GI: Soft, non-tender, with normal bowel sounds. No distension or tympany. No guarding or rebound. No evidence of tenderness throughout. Back: No spinal tenderness. No costovertebral tenderness. Full range of motion. Male : Normal genitalia with no discharge or lesions. Skin: Warm, dry with normal turgor. Normal color with no rashes, no lesions, and no evidence of cellulitis. MS/ Extremity: Pulses equal, no cyanosis. Neurovascular intact. Full, normal range of motion. Neuro: Awake and alert, GCS 15, oriented to person, place, time, and situation. Cranial nerves II-XII grossly intact. Motor strength 5/5 in all extremities. Sensory grossly intact. Cerebellar exam normal. Normal gait. Psych: Awake, alert, with orientation to person, place and time. Behavior, mood, and affect are within normal limits. 15:46 ECG was reviewed by the Attending Physician. Vital Signs: 13:42 BP 144 / 84; Pulse 61; Temp 97.8; Pulse Ox 98% ; ap3 13:49 Weight 73.03 kg; Height 5 ft. 6 in. (167.64 cm); ap3 14:30 BP 122 / 85; Pulse 65; Resp 18 S; Pulse Ox 98% on R/A; aa5 15:54 BP 175 / 93; Pulse 65; Resp 13; Pulse Ox 97% on R/A; ld1 17:51 BP 150 / 68; Pulse 65; Resp 18; Pulse Ox 100% on R/A; ld1 18:38 BP 186 / 86; Pulse 77; Resp 18; Pulse Ox 97% on R/A; ld1 13:49 Body Mass Index 25.99 (73.03 kg, 167.64 cm) ap3 MDM: 14:01 Patient medically screened. yadi 15:50 Differential Diagnosis: cardiac arrhythmia, cerebrovascular accident, GI bleed, yadi idiopathic syncope, pseudo seizure, seizure, transient ischemic attack, vasovagal episode. Data reviewed: vital signs, nurses notes, lab test result(s), EKG, radiologic studies, CT scan, plain films. Data interpreted: quality assurance monitor: rate is 65 beats/min, rhythm is regular, Pulse oximetry: on room air is 98 %. Test interpretation: by ED physician or midlevel provider: ECG, plain radiologic studies. Counseling: I had a detailed discussion with the patient and/or guardian regarding: the historical points, exam findings, and any diagnostic results supporting the discharge/admit diagnosis, lab results, radiology results, the need for further work-up and treatment in the hospital. 08/23 14:05 Order name: Basic Metabolic Panel; Complete Time: 15:45 yadi 08/23 14:05 Order name: CBC with Diff; Complete Time: 15:07 [facility] 08/23 14:05 Order name: LFT's; Complete Time: 15:45 [facility] 08/23 14:05 Order name: Magnesium; Complete Time: 15:45 08/23 14:05 Order name: NT PRO-BNP; Complete Time: 15:45 08/23 14:05 Order name: PT-INR; Complete Time: 15:07 08/23 14:05 Order name: Troponin HS; Complete Time: 15:45 08/23 14:05 Order name: Lipase; Complete Time: 15:45 08/23 14:05 Order name: Type And Screen; Complete Time: 15:45 [facility] 08/23 14:05 Order name: SARS-COV-2 RT PCR (Document "Date of Onset" if Symptomatic) [facility] 08/23 16:11 Order name: CBC with Automated Diff [facility] 08/23 16:11 Order name: CBC with Automated Diff [facility] 08/23 16:11 Order name: Comprehensive Metabolic Panel [facility] 08/23 16:11 Order name: Comprehensive Metabolic Panel [facility] 08/23 14:05 Order name: XRAY Chest (1 view); Complete Time: 15:07 [facility] 08/23 14:05 Order name: EKG; Complete Time: 14:06 [facility] 08/23 14:05 Order name: Cardiac monitoring; Complete Time: 14:41 [facility] 08/23 14:05 Order name: EKG - Nurse/Tech; Complete Time: 14:51 08/23 14:05 Order name: IV Saline Lock; Complete Time: 14:41 08/23 14:05 Order name: Labs collected and sent; Complete Time: 14:51 [facility] 08/23 14:05 Order name: O2 Per Protocol; Complete Time: 14:51 08/23 14:05 Order name: O2 Sat Monitoring; Complete Time: 14:51 [facility] 08/23 14:05 Order name: CT Traumagram (Head C Spine CAP wo con); Complete Time: 15:07 [facility] 08/23 15:59 Order name: Echo w/ Doppler [facility] 08/23 16:11 Order name: Renal EDFL 08/23 16:11 Order name: Carotid Artery Bilateral [facility] 08/23 16:12 Order name: CONS Physician Consult EDMS EC:46 Rate is 57 beats/min. QRS [place] is Normal. [place] interval is normal. QRS interval is yadi normal. QT interval is normal. No Q waves. T waves are Normal. ST Segment is depressed in leads I, aVL. Clinical impression: NSR w/ Non-specific ST/T Changes, LVH, and No evidence of ischemia. Interpreted by me. Reviewed by me. Administered Medications: 14:51 Drug: NS 0.9% 1000 ml Route: IV; Rate: 125 ml/hr; Site: right antecubital; aa5 19:36 Follow up: IV Status: Infusion continued kd3 14:51 Drug: ProTONIX (pantoprazole) 40 mg Route: IVP; Site: right antecubital; aa5 18:31 Follow up: Response: No adverse reaction ss Disposition Summary: 08/23/21 15:59 Hospitalization Ordered Hospitalization Status: Observation yadi Provider: Mk Funez cha Location: Telemetry/MedSurg (observation) yadi Condition: Fair yadi Problem: new yadi Symptoms: have improved yadi Bed/Room Type: Standard yadi Room Assignment: 203(08/23/21 19:20) eb1 Diagnosis - Syncope Near yadi - End stage renal disease - on PD yadi Forms: - Medication Reconciliation Form yadi - SBAR form yadi Signatures: Dispatcher [employer] EDRaman Ross MD MD cha Calderon, Audri, RN RN aa5 Lory Neal RN RN ap3 Marjan Ramos RN RN eb1 Katina Ann RN, Kyli RN kd3 Corrections: (The following items were deleted from the chart) 19:20 15:59 yadi eb1
--- NOTE | 2021-08-23 15:59 | ER ---
Nurse's Notes [facility] Name: Grady Dasilva Age: 70 yrs Sex: Male : 1950 Arrival Date: 08/23/2021 Time: 13:42 Bed 4 Private MD: Diagnosis: Syncope Near;End stage renal disease-on PD Presentation: 08/23 13:42 Chief complaint: EMS states: they were called to the patients home by the . It is ap3 reported the patient had 2 syncopal episodes that began around noon. Patient was guided easily to the floor by his that was nearby. Coronavirus screen: At this time, the client does not indicate any symptoms associated with coronavirus-19. Ebola Screen: No symptoms or risks identified at this time. Initial Sepsis Screen: Does the patient meet any 2 criteria? No. Patient's initial sepsis screen is negative. Does the patient have a suspected source of infection? No. Patient's initial sepsis screen is negative. Risk Assessment: Do you want to hurt yourself or someone else? Patient reports no desire to harm self or others. Onset of symptoms was August 23, 2021 at 12:00. Care prior to arrival: IV initiated. 18 GA, in the right antecubital area. 13:42 Method Of Arrival: EMS: [facility] ap3 13:42 Acuity: MADI 3 ap3 Triage Assessment: 13:46 General: Appears in no apparent distress. Behavior is calm, cooperative. Pain: Denies ap3 pain. Neuro: Level of Consciousness is awake, alert, obeys commands, Oriented to person, place, time, situation, Speech is normal. Neuro: Reports dizziness, a syncopal episode. Cardiovascular: Patient's skin is warm and dry. Respiratory: Airway is patent Respiratory effort is even, unlabored, Respiratory pattern is regular, symmetrical. Historical: - Allergies: 13:45 Codeine; ap3 13:45 PENICILLINS; ap3 - PMHx: 13:45 Bladder CA; PROSTATE CA; End stage renal disease; Possible Brain CA; Hypothyroidism; ap3 - PSHx: 13:45 HD cathater placement; PD dialysis cather placement; ap3 - Immunization history:: Client reports receiving the 2nd dose of the Covid vaccine. - Social history:: Smoking status: Patient reports the use of cigarette tobacco products, smokes one-half pack cigarettes per day. - Family history:: not pertinent. Screenin:47 Abuse screen: Denies threats or abuse. Tuberculosis screening: No symptoms or risk ap3 factors identified. Fall Risk Fall in past 12 months (25 points). Secondary diagnosis (15 points) IV access (20 points). Ambulatory Aid- None/Bed Rest/Nurse Assist (0 pts). Gait- Weak (10 pts.). Mental Status- Oriented to own ability (0 pts). Total Lezama Fall Scale indicates High Risk Score (45 or more points). Fall prevention measures have been instituted. Side Rails Up X 2 Placed Close to Nursing Station Frequent Obs/Assessments Occuring Family Present and informed to notify staff if the need to leave the bedside As available patient and family educated on Fall Prevention Program and Strategies. 19:35 Nutritional screening: No deficits noted. kd3 Assessment: 14:30 General: Appears comfortable, Behavior is calm, cooperative. Pain: Denies pain. Neuro: aa5 Level of Consciousness is awake, alert, obeys commands, Oriented to person, place, time, situation, Research Test Engine Operator are equal bilaterally Moves all extremities. Speech is normal, Facial symmetry appears normal, Pupils are PERRLA. Cardiovascular: Denies chest pain, Heart tones S1 S2 present Rhythm is sinus rhythm. Respiratory: Airway is patent Respiratory effort is even, unlabored, Respiratory pattern is regular, symmetrical, Breath sounds are clear bilaterally. GI: Abdomen is round non-distended, Peritoneal dialysis catheter noted Bowel sounds present X 4 quads. Abd is soft and non tender X 4 quads. Patient currently denies diarrhea, nausea, vomiting. : No signs and/or symptoms were reported regarding the genitourinary system. EENT: No signs and/or symptoms were reported regarding the EENT system. Derm: Skin is pink, warm \T\ dry. Musculoskeletal: Range of motion: intact in all extremities. 14:30 Reassessment: Pt back from CT scan. aa5 Vital Signs: 13:42 BP 144 / 84; Pulse 61; Temp 97.8; Pulse Ox 98% ; ap3 13:49 Weight 73.03 kg; Height 5 ft. 6 in. (167.64 cm); ap3 14:30 BP 122 / 85; Pulse 65; Resp 18 S; Pulse Ox 98% on R/A; aa5 15:54 BP 175 / 93; Pulse 65; Resp 13; Pulse Ox 97% on R/A; ld1 17:51 BP 150 / 68; Pulse 65; Resp 18; Pulse Ox 100% on R/A; ld1 18:38 BP 186 / 86; Pulse 77; Resp 18; Pulse Ox 97% on R/A; ld1 13:49 Body Mass Index 25.99 (73.03 kg, 167.64 cm) ap3 ED Course: 13:42 Patient arrived in ED. ap3 13:45 Triage completed. ap3 13:46 Arm band placed on right wrist. ap3 13:46 Patient has correct armband on for positive identification. Bed in low position. Call ap3 light in reach. Side rails up X2. Adult w/ patient. residential monitor on. Pulse ox on. NIBP on. Door closed. Noise minimized. Warm blanket given. 13:58 Martha Mccann, MOUNA is Primary Nurse. aa5 14:01 Raman Chen MD is Attending Physician. yadi 14:25 XRAY Chest (1 view) In Process Unspecified. EDMS 14:33 CT Traumagram (Head C Spine CAP wo con) In Process Unspecified. EDMS 14:38 Maintain EMS IV. Good blood return noted. Site clean \T\ dry. Gauge \T\ site: 18G R AC. aa 5 14:38 Initial lab(s) drawn, by vt, sent to lab. aa5 14:52 COVID swab sent to lab. aa5 15:54 Mk Funez MD is Hospitalizing Provider. [facility] 16:06 Primary Nurse role handed off by Martha Mccann RN ld1 16:06 Ann Marie Shi, MOUNA is Primary Nurse. ld1 19:35 No provider procedures requiring assistance completed. Patient admitted, IV remains in kd3 place. Administered Medications: 14:51 Drug: NS 0.9% 1000 ml Route: IV; Rate: 125 ml/hr; Site: right antecubital; aa5 19:36 Follow up: IV Status: Infusion continued kd3 14:51 Drug: ProTONIX (pantoprazole) 40 mg Route: IVP; Site: right antecubital; aa5 18:31 Follow up: Response: No adverse reaction ss Medication: 19:36 VIS not applicable for this client. kd3 Outcome: 15:59 Decision to Hospitalize by Provider. yadi 19:35 Admitted to Med/surg room 210. kd3 19:35 Condition: stable 19:35 Discharge instructions given to patient, Instructed on the need for admit, Demonstrated understanding of instructions. 19:51 Patient left the ED. cindy Signatures: Dispatcher [employer] EDMS Raman Chen MD MD cha Ballard, Brenda RN RN bb Martha Mccann RN RN aa5 Katina Ann RN RN ss Prokisch, Amanda, RN RN ap3 Ann Marie Shi RN RN ld1 Kaity Sheffield RN RN kd3 Corrections: (The following items were deleted from the chart) 14:56 14:52 Pulse 65bpm; Resp 18bpm; Spontaneous; Pulse Ox 98% RA; aa5 aa5 14:56 14:52 BP 122 / 85; Pulse 65bpm; Resp 18bpm; Spontaneous; Pulse Ox 98% RA; aa5 aa5
[2021-08-23] MEDS ORDERED: ONDANSETRON 4 MG/2 ML VIAL IV PRN (16:06)
[2021-08-23] MEDS ORDERED: ACETAMINOPHEN 500 MG TAB PO PRN (16:06)
--- NOTE | 2021-08-23 16:59 | RAD REPORT ---
EXAM DESCRIPTION: USCarotid Artery Bilateral08/23/2021 4:44 pm CLINICAL HISTORY: syncope COMPARISON: None FINDINGS: The velocity of the right internal carotid artery equals 169 cm/sec. The right ICA/CCA rat io 2.6 The right common carotid artery is tortuous The velocity of the left internal carotid artery equals 196 cm/sec. The left ICA/CCA ratio 5 Appears to be mild to moderate plaque within internal carotid arteries Plaque within the left external carotid artery results in a moderate stenosis. Right vertebral artery demonstrates antegrade flow. Left ovary not seen. IMPRESSION: There has been mild to moderate plaque within the internal carotid arteries. However, th e velocities indicate moderate stenosis. It is recommended that patient have an MRA of the neck for f urther evaluation NASCET criteria used. Mild 0-49% stenosis Moderate 50-69% stenosis Severe 70-99% stenosis
[2021-08-23] MEDS ORDERED: NA CHLORIDE 0.9% 1,000 ML IV SCH (17:00)
[2021-08-23 20:28] VITALS: BMI 25.9
[2021-08-23] MEDS ORDERED: CETIRIZINE HCL 5 MG TABLET PO PRN (20:51)
[2021-08-23] MEDS: ATORVASTATIN 40 MG TAB PO SCH (22:26)
[2021-08-23] MEDS: TAMSULOSIN 0.4 MG SR CAP PO SCH (22:27)
[2021-08-23] MEDS: CALCITROL 0.25 MCG CAP PO SCH (22:27)
[2021-08-23] MEDS: VITAMIN D 5,000 UNIT CAP PO SCH (22:28)
[2021-08-24 05:44] LABS: Absolute Lymphocytes (CBC) 2.5 K/uL (0.7-4.9); Hematocrit 34.5 % (39.6-49.0); Lymphocytes % 23.5 % (15.3-44.8); MCV 96.2 fL (80-100); MPV 8.6 fL (7.6-11.3); RBC Red Blood Cell Count 3.58 M/uL (4.33-5.43)
[2021-08-24 06:06] LABS: AST/SGOT 5 U/L (15-37); Albumin 2.3 g/dL (3.4-5.0); Alkaline Phosphatase 87 U/L (45-117); BUN Blood Urea Nitrogen 42 mg/dL (7-18); Bicarbonate 26 mmol/L (21-32); Bilirubin Total 0.3 mg/dL (0.2-1.0); Glomerular Filtration Rate 4 ml/min (=/>90); Glucose Level 91 mg/dL (74-106); Potassium 3.6 mmol/L (3.5-5.1); Sodium Level 137 mmol/L (136-145)
[2021-08-24 06:07] LABS: ALT/SGPT < 10 U/L (12-78)
[2021-08-24] MEDS: LEVOTHYROXINE SOD 0.1 MG TAB PO SCH (08:17)
[2021-08-24] MEDS: CITALOPRAM 10 MG TABLET PO SCH (08:17)
[2021-08-24] MEDS: TAMSULOSIN 0.4 MG SR CAP PO SCH (08:18)
[2021-08-24] MEDS: CALCITROL 0.25 MCG CAP PO SCH (08:18)
[2021-08-24] MEDS: ATORVASTATIN 40 MG TAB PO SCH (08:18)
[2021-08-24] MEDS: VITAMIN D 5,000 UNIT CAP PO SCH (08:18)
[2021-08-24] MEDS ORDERED: carvediloL 6.25 MG TAB PO SCH (09:00)
[2021-08-24] MEDS ORDERED: HYDRALAZINE HCL 20 MG/ML VIAL IV PRN (11:48)
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
[2021-08-24] MEDS ORDERED: FUROSEMIDE 40 MG/4 ML VIAL IV ONE (13:00)
--- NOTE | 2021-08-24 13:40 | ECHO ---
HEIGHT: 5 ft 6 in WEIGHT: 161 lb 0 oz DATE OF STUDY: 08/24/[address]: Raman Chen MD 2-DIMENSIONAL: YES M.MODE: YES DOPPLER: YES COLOR FLOW: YES TDS: YES PORTABLE: YES DEFINITY: NO BUBBLE STUDY: NO DIAGNOSIS: SYNCOPE CARDIAC HISTORY: CATHERIZATION: NO SURGERY: NO PROSTHETIC VALVE: NO PACEMAKER: NO MEASUREMENTS (cm) DIASTOLIC (NORMALS) SYSTOLIC (NORMALS) IVSd 1.0 (0.6-1.2) LA Diam 2.2 (1.9-4.0) LVEF 59% LVIDd 4.9 (3.5-5.7) LVIDs 3.4 (2.0-3.5) %FS 31% LVPWd 1.0 (0.6-1.2) Ao Diam 2.6 (2.0-3.7) 2 DIMENSIONAL ASSESSMENT: RIGHT ATRIUM: NORMAL LEFT ATRIUM: NORMAL RIGHT VENTRICLE: NORMAL LEFT VENTRICLE: NORMAL TRICUSPID VALVE: NORMAL MITRAL VALVE: NORMAL PULMONIC VALVE: NORMAL AORTIC VALVE: NORMAL PERICARDIAL EFFUSION: NONE AORTIC ROOT: NORMAL LEFT VENTRICULAR WALL MOTION: NORMAL. DOPPLER/COLOR FLOW: NORMAL. COMMENTS: NORMAL LEFT VENTRICULAR EJECTION FRACTION 55-60%. NORMAL WALL MOTION. TECHNOLOGIST: EVIN RAMOS
--- NOTE | 2021-08-24 14:52 | RAD REPORT ---
EXAM DESCRIPTION: CT - Head angio - 08/24/2021 2:33 pm CLINICAL HISTORY: blockage Headache, drowsiness COMPARISON: Neck Angio dated 08/24/2021; Carotid Artery Bilateral dated 08/23/2021 TECHNIQUE: CT angiography of the head was performed with MIPs. All CT scans are performed using dose optimization technique as appropriate and may include automated exposure control or mA/KV adjustment according to patient size. FINDINGS: No evidence of aneurysm is detected. No flow-limiting stenosis or vascular malformation id entified. Antegrade flow is seen in the vertebral arteries. The vertebral arteries are codominant. The visualized dural venous sinuses are patent. IMPRESSION: No significant flow abnormality is detected.
--- NOTE | 2021-08-24 15:03 | RAD REPORT ---
EXAM DESCRIPTION: CT - Neck Angio - 08/24/2021 2:33 pm CLINICAL HISTORY: carotid artery stenosis Headache, drowsiness COMPARISON: No comparisons TECHNIQUE: CT angiography of the neck vessels was performed with MIPs. All CT scans are performed using dose optimization technique as appropriate and may include automated exposure control or mA/KV adjustment according to patient size. FINDINGS: A left aortic arch is identified with normal three vessel configuration of the great vesse ls. Heavy atherosclerosis is present involving both distal common carotid artery is possible artery bulbs . The left proximal internal carotid artery demonstrates near occlusion with reconstitution flow distal to bulbar level. The right proximal internal carotid artery demonstrates moderate stenosis proximall y estimated at 70% based on NASCET criteria. The proximal right internal carotid artery distal to the bulb level demonstrates severe stenosis estimated at 95%. Normal flow is seen within both vertebral arteries. IMPRESSION: There is significant bilateral carotid stenosis identified as detailed. Near occlusion i s present of the proximal left ICA with reconstitution of flow noted. Severe stenosis estimated 95% is present of the post bulbar right ICA.
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
--- NOTE | 2021-08-24 15:49 | P.PN ---
Subjective Date of Service: 08/24/21 Imaging reports are coming back. Patient with severe carotid artery stenosis. 90% of the right carotid artery. Echocardiogram is unremarkable. MRI of the pituitary is pending as patient was having visual problems we will consult cardiology and will discuss with nephrology. Patient will probably need tra nsfer to a tertiary care facility for evaluation of carotid artery stent Review of Systems 10-point ROS is otherwise unremarkable Physical Examination - Vital Signs Temperature: 98.0 F Blood Pressure: 181/96 Pulse: 62 Respirations: 16 Pulse Ox (%): 98 - Physical Exam General: Alert, In no apparent distress HEENT: Atraumatic, PERRLA, EOMI Neck: Supple, JVD not distended Respiratory: Clear to auscultation bilaterally, Normal air movement Cardiovascular: Regular rate/rhythm, Normal S1 S2 Gastrointestinal: Normal bowel sounds, No tenderness Musculoskeletal: No tenderness Integumentary: No rashes Neurological: Normal speech, Normal tone, Normal affect Lymphatics: No axilla or inguinal lymphadenopathy - Studies Medications List Reviewed: Yes Assessment & Plan - Problems (Diagnosis) (1) Near syncope Current Visit: Yes Status: Acute (2) ESRD (end stage renal disease) Current Visit: Yes Status: Acute (3) Peritoneal dialysis status Current Visit: Yes Status: Acute (4) Blindness Current Visit: Yes Status: Acute - Plan Plan: Continue with plan of care as mentioned below: 1. Carotid Doppler revealed moderate stenosis; will get CT angio of the neck 2. Echocardiogram with no significant abnormalities 3. Monitor on telemetry 4. Serial troponins and EKG have been unremarkable 5. Monitor hemodynamics closely 6. GI and DVT prophylaxis Discharge Plan: Home Plan to discharge in: Greater than 2 days - Advance Directives Does patient have a Living Will: No Does patient have a Durable POA for Healthcare: No - Code Status/Comfort Care Code Status: Full Code
--- NOTE | 2021-08-24 17:20 | RAD REPORT ---
EXAM DESCRIPTION: MRI - Pituitary W O Cont - 08/24/2021 4:23 pm CLINICAL HISTORY: BRAIN MASS/SYNCOPE Headache COMPARISON: Head angio dated 08/24/2021 FINDINGS: Moderate brain atrophy is seen. Sella turcica is normal in size. The pituitary gland is gr ossly normal in size. Without contrast, full pituitary evaluation is limited. IMPRESSION: Limited examination without evidence of a pituitary mass grossly seen.
[2021-08-24] MEDS: carvediloL 3.125 MG TAB PO SCH (21:19)
[2021-08-25 03:01] VITALS: O2SAT 98
[2021-08-25] MEDS: CITALOPRAM 10 MG TABLET PO SCH (08:12)
[2021-08-25] MEDS: VITAMIN D 5,000 UNIT CAP PO SCH (08:12)
[2021-08-25] MEDS: ATORVASTATIN 40 MG TAB PO SCH (08:13)
[2021-08-25] MEDS: carvediloL 3.125 MG TAB PO SCH ×2 (08:13→17:52)
[2021-08-25] MEDS: CALCITROL 0.25 MCG CAP PO SCH (08:13)
[2021-08-25] MEDS: LEVOTHYROXINE SOD 0.1 MG TAB PO SCH (08:14)
--- NOTE | 2021-08-25 09:54 | EKG ---
Test Date: 2021-08-23 Test Time: 14:47:38 Container Finishing Inspector: PAULINA MEASUREMENT RESULTS: Intervals: Rate: 57 HI: 154 QRSD: 90 QT: 546 QTc: 531 [place]illiam: P: 41 HI: 154 QRS: 11 T: 164 INTERPRETIVE STATEMENTS: Sinus bradycardia Moderate voltage criteria for LVH, may be normal variant ST & T wave abnormality, consider lateral ischemia Prolonged QT Abnormal ECG Compared to ECG 08/22/2017 13:44:54 Left ventricular hypertrophy now present ST (T wave) deviation now present Possible ischemia now present Prolonged QT interval now present Electronically Signed On 08-25-21 09:49:03 CDT by Rajinder Teran
[2021-08-25] MEDS ORDERED: AMLODIPINE 10 MG TAB PO ONE (10:18)
--- NOTE | 2021-08-25 11:26 | P.PN ---
Date of Service: 08/25/21 Vital Signs Temp Pulse Resp BP Pulse Ox 97.9 F 65 16 196/95 H 98 08/25/21 08:00 08/25/21 08:00 08/25/21 08:00 08/25/21 08:00 08/25/21 08:00 Medications Acetaminophen (Acetaminophen 500 Mg Tab) 500 mg PO Q6H PRN PRN Reason: TEMP > 100.4' F OR MILD PAIN Atorvastatin Calcium (Atorvastatin 40 Mg Tab) 40 mg PO DAILY [facility] Last Admin: 08/25/21 08:13 Dose: 40 mg Documented by: Calcitriol (Calcitrol 0.25 Mcg Cap) 0.25 mcg PO DAILY [facility] Last Admin: 08/25/21 08:13 Dose: 0.25 mcg Documented by: Carvedilol (Carvedilol 3.125 Mg Tab) 3.125 mg PO BID [facility] Last Admin: 08/25/21 08:13 Dose: 3.125 mg Documented by: Cetirizine HCl (Cetirizine Hcl 5 Mg Tablet) 10 mg PO DAILYPRN PRN PRN Reason: ALLERGIES Cholecalciferol (Vitamin D 5,000 Unit Cap) 5,000 unit PO DAILY [facility] Last Admin: 08/25/21 08:12 Dose: 5,000 unit Documented by: Citalopram Hydrobromide (Citalopram 10 Mg Tablet) 40 mg PO DAILY [facility] Last Admin: 08/25/21 08:12 Dose: 40 mg Documented by: Hydralazine HCl (Hydralazine Hcl 20 Mg/Ml Vial) 5 mg IV Q4HP PRN PRN Reason: Indicated for SBP > 170 Levothyroxine Sodium (Levothyroxine Sod 0.1 Mg Tab) 0.2 mg PO ACB [facility] Last Admin: 08/25/21 08:14 Dose: 0.2 mg Documented by: Losartan Potassium (Losartan Potassium 50 Mg Tablet) 50 mg PO DAILY [facility] Ondansetron HCl (Ondansetron 4 Mg/2 Ml Vial) 4 mg IV Q8H PRN PRN Reason: NAUSEA / VOMITING Sodium Chloride (Flush Normal Saline 10 Ml) 10 ml IV BID [facility] Last Admin: 08/25/21 08:14 Dose: 10 ml Documented by: Tamsulosin HCl (Tamsulosin 0.4 Mg Sr Cap) 0.4 mg PO BEDTIME [facility] Last Admin: 08/24/21 21:26 Dose: 0.4 mg Documented by: Assessment/ Plan: (S) Pt was able to do CCPD last night without issues. BP remains elevated with pt supine in bed, orthostatic vitals not checked. CTA neck studies and findings discussed with pt and Dr. Funez General: Alert, In no apparent distress, Oriented x3 HEENT: Atraumatic, Normocephalic, EOMI Neck: Supple Respiratory: Clear to auscultation bilaterally, Normal air movement Cardiovascular: No edema, Normal pulses, Regular rate/rhythm, Normal S1 S2 Gastrointestinal: Normal bowel sounds, Soft and benign, Non-distended (PD catheter present in LLQ, exit site c/d) Musculoskeletal: No clubbing, No swelling Integumentary: No rashes, No breakdown Neurological: Normal speech, Normal affect Laboratory Data (last 24 hrs) Reviewed in EMR Conclusions/Impression: 1. ESRD 2. Syncope with findings of severe b/l carotid stenosis 3. Labile BP, possible secondary HTN unspecified 4. Relative hypotension, other 5. Abnormality of albumin -Pt's metab panel shows acceptable profile and lytes within normal limits and were unlikely to have been contributory to pt's episode Wed. No signs of volume overload on exam or imaging, pt did not complete CCPD night before last but did complete it last night as he had brought in their [employer] cycler and supplies. -Pt' syncope appears to be 2nd to severe b/l carotid stenosis. Case discussed with Dr. Funez, he has reached out to pt's Supervisor [employer] to review, discussed the possibility of transfer to tertiary center with pt and Dr. Funez as well. Episodes of lightheadedness could also be 2nd to meds, he is on Coreg and Tamsulosin both of which are associated with orthostatic hypotension and we also discussed ultrafiltration on CCPD and switching to lower dextrose containing solution such as 1.5% yellow bags when his BP is low. Did adjust Coreg dosing and encourage pt to take with meals, did move alpha nam to bedtime dosing. -Current BP is actually elevated, did add Hydralazine IV PRN and will add ARB. As an OP, may need to investigate for secondary causes of HTN including KARRI (even as a ESRD pt). Daniel Spann MD, [facility]
[2021-08-25] MEDS ORDERED: LOSARTAN POTASSIUM 50 MG TABLET PO SCH ×2 (12:00→12:14)
[2021-08-25] MEDS ORDERED: TAMSULOSIN 0.4 MG SR CAP PO SCH (21:00)
--- NOTE | 2021-08-26 07:13 | P.PN ---
Date of Service: 08/25/21 Subjective Patient blood pressure has been labile. We will keep him in the hospital overnight to make sure it is stable prior to discharging in the morning. Review of Systems 10-point ROS is otherwise unremarkable Physical Examination - Vital Signs Reviewed - Physical Exam General: Alert, In no apparent distress Respiratory: Clear to auscultation bilaterally, Normal air movement Cardiovascular: Regular rate/rhythm, Normal S1 S2 Gastrointestinal: Normal bowel sounds, No tenderness Neurological: Normal speech, Normal tone, Normal affect Assessment & Plan - Problems (Diagnosis) (1) Near syncope Current Visit: Yes Status: Acute (2) ESRD (end stage renal disease) Current Visit: Yes Status: Acute (3) Peritoneal dialysis status Current Visit: Yes Status: Acute (4) Blindness Current Visit: Yes Status: Acute (5) labile hypertension Current Visit: Yes Status: Acute - Plan Plan: Continue with plan of care as mentioned below: 1. Carotid Doppler revealed moderate stenosis; will get CT angio of the neck- revealed 95% lesion. Spoke with cardiology of the patient, Dr. Pereira, who recommended outpatient carotid angiogram which she will schedule on Saturday and plan on doing this on Saturday. Advised discharge with outpatient follow-up 2. Echocardiogram with no significant abnormalities 3. Monitor on telemetry 4. Serial troponins and EKG have been unremarkable 5. Monitor hemodynamics closely; once blood pressure is better controlled then anticipate discharge in the morning. 6. GI and DVT prophylaxis Discharge Plan: Home Plan to discharge in: Greater than 2 days - Advance Directives Does patient have a Living Will: No Does patient have a Durable POA for Healthcare: No - Code Status/Comfort Care Code Status: Full Code
[2021-08-26 08:57] VITALS: BP 125/66; TEMP 97.4
[2021-08-26] MEDS: CALCITROL 0.25 MCG CAP PO SCH (08:59)
[2021-08-26] MEDS: VITAMIN D 5,000 UNIT CAP PO SCH (08:59)
[2021-08-26] MEDS: CITALOPRAM 10 MG TABLET PO SCH (08:59)
[2021-08-26] MEDS: ATORVASTATIN 40 MG TAB PO SCH (09:00)
[2021-08-26] MEDS: LEVOTHYROXINE SOD 0.1 MG TAB PO SCH (09:01)
[2021-08-26] MEDS: carvediloL 3.125 MG TAB PO SCH (09:01)
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
== END 2021-08-26 13:12 | disposition home or self-care (01) | DRG 67 ==
LOC: ER 13:31 → ERHOLD 16:07 → 2ND 19:35 → OBSVTOIN 08-24 15:40
PROVIDERS: ADMIT Hospitalist; ATTEND Hospitalist
DX: I65.23 Occlusion and stenosis of bilateral carotid arteries (principal); N18.6 End stage renal disease; I12.0 Hypertensive chronic kidney disease with stage 5 chronic kidney disease or end stage renal disease; H54.7 Unspecified visual loss; E03.9 Hypothyroidism, unspecified; I95.89 Other hypotension; R09.89 Other specified symptoms and signs involving the circulatory and respiratory systems; Z99.2 Dependence on renal dialysis; Z87.891 Personal history of nicotine dependence; Z88.0 Allergy status to penicillin; Z20.822 Contact with and (suspected) exposure to COVID-19
CPT/HCPCS: 36415; 70450; 70496; 70498; 70551; 71045; 71250; 72125; 80048; 80053; 80076; 83690; 83735; 83880; 84484; 85025; 85610; 86850; 86900; 86901; 93005; 93306; 93880; 96361; 96374; 99285; C9113; G0378; J1940; J7030; Q9967; U0003

== ENCOUNTER 2022-01-04 13:19 | Emergency (ER) | payer OTHER ==
--- OUTSIDE RECORDS SUMMARY | 2022-01-04 13:23 | XMS REPORT | Continuity of Care Document ---
:1950 Author Organization [facility] t Address [address] [place] [address] Care Team Providers Name Role Phone NATANAEL VANESSA FUENTES Primary Care Physician Unavailable GWEN HWANG Attending Clinician Unavailable KAYLEE GARCIA Attending Clinician Unavailable Gwen Hwang MD Attending Clinician [phone] PUNEET CALVILLO Attending Clinician Unavailable Puneet Calvillo MD Attending Clinician Doctor Unassigned, [place] Attending Clinician Unavailable Mikayla Castillo RN Attending Clinician DOUGLAS NEVAREZ Attending Clinician Unavailable Douglas Nevarez MD Attending Clinician Cecilia Lamb MD Attending Clinician CECILIA LAMB Attending Clinician Unavailable Mc Kimbrough MD Attending Clinician Girish Murphy MD Attending Clinician Beena Diaz Attending Clinician [phone] BEENA HALL Attending Clinician Unavailable Danish Cuba MD Attending Clinician Liu MD, Fito Go Attending Clinician Shiv JENNINGS, Mayra Haynes Attending Clinician JAREN BUSBY Attending Clinician Unavailable Delaney FREIRE, Constance Attending Clinician Unavailable PUNEET CALVILLO Attending Clinician Unavailable GWEN HWANG Admitting Clinician Unavailable KAYLEE GARCIA Admitting Clinician Unavailable DOUGLAS NEVAREZ Admitting Clinician Unavailable PUNEET CALVILLO Admitting Clinician Unavailable Payers Payer Name Policy Type Policy Number Effective Date Expiration Date S evelyn MEDICARE A B [id number] 2014 00:00:00 [employer] INDEMNITY [id number] 2015 NON CONTR 00:00:00 AETNA MEDICARE ADV [id number] 2020 00:00:00 [employer]ETNA MEDICARE HMO [id number] 2021 POS 00:00:00 MEDICARE PLAN PPO [id number] AETNA MEDICARE PART A [id number] \\T\\ B - MEDICARE Problems Condition Condition Condition Status Onset Resolution Last Treating Co mments Source Name Details Category Date Date Treatment Clinician Date Carotid Carotid Disease Active [facility] stenosis, stenosis, 08-31 [facility] asymptomat asymptomat 00:00: Me dical ic ic 00 Center Bilateral Bilateral Disease Active [facility] carotid carotid 08-30 [facility] artery artery 00:[facility]: Medical stenosis stenosis 00 Center Prostate Prostate Disease [facility] cancer [facility] Hypothyroi Hypothyroi Disease Active [facility] d d 08-30 [facility] Essential Essential Disease Active [facility] hypertensi hypertensi 08-30 Krissy kes on on 00:00: Medical 00 Center Hyperlipid Hyperlipid Disease Active [facility] emia emia 08-30 [facility] 00[facility] 00 Center Carotid Carotid Disease Active [facility] artery artery 08-30 [facility] stenosis stenosis 00:00: Medica l 00 Center 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 00:00: Hospita neuropathy neuropathy 00 l 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 [facility] scotoma scotoma 2-16 st 00:00: Hospita 00 l Disorder Disorder Disease Active 2020-02 [facility] di of globe of globe 2-16 st 00:00: Hospita 00 l 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 00:00: Hospita 00 l Relative Relative Disease Active 2020-02 [facility] afferent afferent 216 pupillary pupillary 00:00: Hosp jay defect defect 00 l Sector Sector Disease Active 2020-02 [facility] visual visual 216 field field 00:00: Hospita defect defect 00 l Smoker Smoker Disease Active 2020-02 [facility] 2[facility] 00:00: Hospita 00 l Subjective Subjective Disease Active 2020-02 M ethodi visual visual 216 disturbanc disturbanc 00:00: Ho spita e e 00 l Allergic Allergic Disease Active [facility] rhinitis rhinitis 3 due to due to 00:00: Hospita pollen pollen 00 l Benign Benign Disease Active [facility] prostatic prostatic 3 hyperplasi hyperplasi 00:00: Ho spita a with a with 00 l lower lower urinary urinary tract tract symptoms symptoms Cerebrovas Cerebrovas Disease Active M ethodi cular cular [address] [facility] disease disease 00:00: Hospita 00 l Hypothyroi Hypothyroi Disease Active M ethodi dism due dism due 3 st to defect to defect 00:00: Hosp jay in thyroid in thyroid 00 l hormone hormone synthesis synthesis Impaired Impaired Disease Active Meth[facility] di fasting fasting 05-21 glucose glucose 00:00: Hospita 00 l Nephrogeno Nephrogeno Disease Active M ethodi us us 3 st proteinuri proteinuri 00:00: Ho spita a a 00 l Hypertensi Hypertensi Disease Active M ethodi ve heart ve heart 3 st and and 00:00: Hospita chronic chronic 00 l kidney kidney disease disease without without heart heart failure, failure, with stage with stage 5 chronic 5 chronic kidney kidney disease, disease, or end or end stage stage renal renal disease disease Tobacco Tobacco Disease Active Methodi use use 3 st disorder, disorder, 00:00: Hosp jay continuous continuous 00 l Nephrolith Nephrolith Disease Active M ethodi iasis iasis 05-21 00:00: Hospita 00 l Vitamin D Vitamin D Disease Active Met hodi deficiency deficiency 05-21 , , 00:00: Hospita unspecifie unspecifie 00 l d d Hypertensi Hypertensi Disease Active U nivers ve urgency ve urgency 04-28 it y of 00:00: [address] Branch History of History of Disease Active M ethodi bladder bladder 08-20 st cancer cancer 00:00: Hospita 00 l Bladder Bladder Disease Active [facility] cancer cancer 10-02 [facility] 00:[facility] Medical [facility] Center Atypical Atypical Disease Active [facility] di angina angina 09-26 00:00: Hospita 00 l Preoperati Preoperati Disease Active M ethodi ve ve 09-26 evaluation evaluation 00:00: Ho spita to rule to rule 00 l out out surgical surgical contraindi contraindi cation cation Sleep Sleep Disease Active Methodi apnea in apnea in 09-28 adult adult 00:00: Hospita 00 l ESRD on ESRD on Disease Active [facility] St peritoneal peritoneal Krissy kes dialysis dialysis Medica l Center Allergies, Adverse Reactions, Alerts Allergy Allergy Status Severity Reaction(s) Onset Inactive Treating Comm ents Source Name Type Date Date Clinician Penicill Drug Active Other (See Oral [facility] ins Intolera Comments) 10-01 penicilli Krissy kes nce 00:00: ns cause [facility] PENICILL Allergy Active Other [facility] INS 10-01 00:00: 00 Penicill Propensi Active Only Method i ins ty to 09-[address] adverse 00:00: form Hospita reaction 00 l s to drug Penicill Propensi Active Only Method i ins ty to 09-[address] adverse 00:00: form Hospita reaction 00 l s to drug NO KNOWN Drug Active Univers ALLERGIE Class ity of S [facility] Family History Family Member Diagnosis Comments Start Date Stop Date Source Natural brother Heart attack [facility] Natural father Coronary artery [facility] Natural father Heart failure [facility] Natural mother Coronary artery [facility] Natural sister Coronary artery [facility] Social History Social Habit Start Date Stop Date Quantity Comments Source Exposure to Not sure University SARS-CoV-2 (event) [facility] History SDOH [facility] Alcohol Frequency Medical Center History SDIL [facility] Alcohol Std Drinks Medica l Center History SDOH [facility] Alcohol Binge Medical [address] [facility] History SDIL [facility] Housing Places Medical Ce nter Lived Cigarettes smoked 2021-08-30 2021-08-[address] [facility] current (pack per 00:00:00 00:00:00 Medical Center day) - Reported Cigarette 2021-08-30 2021-08-[address] [facility] pack-years 00:00:00 00:00:00 Medical Center Tobacco use and 2021-08-30 2021-08-[address] Krissy kes exposure 00:00:00 00:00:00 Medical Center History [facility] 2021-08-30 2021-08-[address] [facility] Housing Unable to 00:00:00 00:00:00 Medical Center Pay History [facility] 2021-08-30 2021-08-[address] [facility] Housing Homeless 00:00:00 00:00:00 Medical Center Last Year Alcohol intake 2021-02-23 2021-02-23 Current [place] 00:00:00 00:00:00 non-drinker of Hospital alcohol (finding) History [facility] 2017-10-01 2017-10-01 "very rare" [facility] Alcohol Comment 00:00:00 00:00:00 Medical C enter History of tobacco 2017-09-[address] [facility] use 00:00:00 day smoker Medical Center Sex Ass[birth year] At [birth year] [facility] 00:00:00 00:00:00 Hospital Smoking Status Start Date Stop Date Source Current every day smoker 2021-08-30 00:00:[address] [facility] [address] [facility] Never smoked tobacco [facility] Medications Ordered Filled Start Stop Current Ordering Indication Dosage Frequency Signature Comments Components Source Medication Medication Date Date Medication? Clinician (SIG) Name Name citalopram Yes 40mg QD Take [address] (CELEXA) 40 7-21 by mouth Luke s MG tablet 12:55: nightly . Med ical Center atorvastati Yes 40mg Q24H Take [address] n (LIPITOR) 7-21 by mouth Luke s 40 MG 12:55: daily. Medical tablet 44 Center carvediloL Yes 6.25mg Q.5D Take 6.[address] (COREG) 7-21 mg by [facility] 6.25 MG 12:55: mouth 2 Medical tablet 44 (two) Center times daily. levothyroxi Yes 250ug Take [address] ne 7-21 mcg by [facility] (SYNTHROID, 12:55: mouth Medic al LEVOTHROID) 44 Every Center 200 MCG morning on tablet an empty stomach. tamsulosin Yes .4mg QD Take 0.[address] (FLOMAX) 7-21 mg by [facility] 0.4 mg Cap 12:55: mouth Medica l 24 hr 44 daily. [place] capsule aspirin 81 Yes 81mg QD Take [address] MG EC 7-21 by mouth [facility] tablet 12:55: daily. Medical 44 [place] sertraline 2021- No 100mg QD Take [address] (ZOLOFT) 08-30 07-06 mg by [facility] 100 MG 09:50: 00:00 mouth Medical tablet 34 :00 nightly . [place] levothyroxi 2021- No 175ug QD Take [address] ne 08-30 07-06 mcg by Lukes (SYNTHROID, 09:41: 00:00 mouth Medi ameena LEVOTHROID) 15 :[address] 175 MCG tablet cholecalcif 2021- No QD Take by [facility] perri, 08-30- mouth [facility] vitamin D3, 09:41: 00:00 nightly . Medical 2,000 unit 05 :00 [place] Cap atenolol 2021- No 50mg QD Take [address] (TENORMIN) 08-30 by mouth Luke s 50 MG 09:40: 00:00 nightly . Medica l tablet 50 :00 [place] clopidogreL Yes 75mg QD Take [address] (PLAVIX) 75 7-01 by mouth Luke s mg tablet 00:00: daily. Medica l 00 [place] ergocalcife Yes [id number] Q7D Take [facility] rol 5-24 50,000 [facility] (ERGOCALCIF 00:00: Units by Mo dical PERRI) 1,250 00 mouth once Ce nter mcg (50,000 a week . unit) capsule pyrazinamid 1500mg Take 3 M ethodi e 500 mg 02-[address] tablet 00:00: 05:59 (1,500 mg Hospi ta 00 :00 total) by l mouth Every Saturday, Saturday, and Saturday for 30 days. pyridoxine, 50mg QD Take 1 Met hodi vitamin B6, 02-25 tablet (50 s t (vitamin 00:00: 04:59 mg total) Hos tyree B-6) 50 MG 00 :00 by mouth l tablet daily for 180 days. isoniazid 300mg QD Take 1 Meth westley (NYDRAZID) 02-[address] 300 MG 00:00: 05:59 (300 mg Hospita tablet 00 :00 total) by l mouth daily for 30 days. riFAMpin 600mg QD Take 2 Metho di (RIFADIN) 02-[address] 300 MG 00:00: 05:59 (600 mg Hospita capsule 00 :00 total) by l mouth daily for 30 days. moxifloxaci 400mg QD Take 1 Me thodi n (AVELOX) 02-[address] 400 mg 00:00: 05:59 (400 mg Hospita tablet 00 :00 total) by l mouth daily for 30 days. vit B comp 2020-02 Yes 1{tbl} QD Take 1 Met hodi no.3-folic- 2-[address] C-biotin 09:57: mouth Hospita (NEPHRO-VIT 10 daily. l E RX) 1-60-300 mg-mg-mcg tablet aspirin 2020-02 Yes 81mg QD Take 81 mg Meth westley (ECOTRIN) 2-[address] 81 MG 09:56: daily. Hospita enteric 49 l coated tablet amLODIPine 2020-02 Yes 10mg QD Take 10 mg M ethodi (NORVASC) 2-[address] 10 mg 09:56: daily. Hospita tablet 49 l atorvastati 2020-02 Yes 40mg QD Take 40 mg Methodi n (LIPITOR) 2-[address] 40 mg 09:56: daily. Hospita tablet 49 l calcitrioL 2020-02 Yes .25ug QD Take 0.25 M ethodi (ROCALTROL) 2-[address] 0.25 MCG 09:56: mouth Hospita capsule 49 daily. l carvediloL 2020-02 Yes 6.25mg Q.5D Take 6.25 Methodi (COREG) 2-[address] 6.25 MG 09:56: mouth 2 Hospita tablet 49 (two) l times a day with meals. levothyroxi 2020-02 Yes 300ug QD Take 300 M ethodi ne 2-[address] (SYNTHROID) 09:56: mouth Hospi ta 200 mcg 49 daily. l tablet tamsulosin 2020-02 Yes .4mg QD Take 0.4 Met hodi (FLOMAX) 2-[address] 0.4 mg 09:56: mouth Hospita capsule 49 daily with l dinner. acetaminoph 2020-02 Yes acetaminop Methodi en-codeine 2-[address] (TYLENOL 09:56: mg-codeine Hos tyree WITH 49 30 mg l CODEINE #3) tablet 300-30 mg per tablet atenoloL 2020-02 Yes 50mg Take 50 mg Met hodi (TENORMIN) 2-[address] 50 MG 09:56: Hospita tablet 49 l ezetimibe 2020-02 Yes Zetia Methodi (ZETIA 2-30 st ORAL) 09:56: Hospita 49 l HYDROcodone 2020-02 Yes hydrocodon Methodi -acetaminop 2-[address] (NORCO) 09:56: mg-acetami Hospita 5-325 mg 49 nophen 325 l per tablet mg tablet isosorbide 2020-02 Yes Q24H daily. Metho di mononitrate 2-30 st (IMDUR) 30 09:56: Hospita MG 24 hr 49 l tablet mupirocin 2020-02 Yes mupirocin Met hodi (BACTROBAN) 2-30 2 % st 2 % 09:56: topical Hospita ointment 49 ointment l sertraline 2021-1 Yes 100mg Take 100 Me thodi (ZOLOFT) 2-[address] 100 MG 09:56: mouth. Hospita tablet 49 l sulfamethox 2020-02 Yes sulfametho Methodi azole-trime 2-[address] thoprim 09:56: mg-trimeth Hosp jay (BACTRIM 49 oprim 160 l DS) 800-160 mg tablet mg per tablet triamcinolo 2020-02 Yes triamcinol Methodi ne 2-[address] (KENALOG) 09:56: acetonide Hos tyree 0.5 % cream 49 0.5 % l topical cream citalopram 2020-02- No 20mg QD Take 20 mg Methodi (CeleXA) 20 2-30 12-[address] MG tablet 09:55: 00:00 daily. Hospi ta 37 :00 l calcium 2020-02 Yes 1{tbl} QD Take [address] acetate,nanda 2-13 tablet by Damian es sphat bind, 00:00: mouth Medic al (PHOSLO) 00 daily . Center 667 mg capsule calcium 2020-02 Yes Methodi acetate,nanda 2-13 st sphat bind, 00:00: Hospit a (PHOSLO) 00 l 667 mg capsule citalopram 2020-02 Yes Methodi (CeleXA) 40 2-10 st MG tablet 00:00: Hospita 00 l ondansetron 2020-02 Yes Method i (ZOFRAN) 4 0-18 st MG tablet 00:00: Hospita 00 l metoclopram Yes metoclopra Methodi javed 6-[address] (REGLAN) 5 00:00: tablet Hospi ta MG tablet 00 l amLODIPine 2020- No [id number] 10mg Take 1 Univers 10 mg 3-05 04-05 tablet by ity of tablet 00:00: 04:59 mouth [place] 00 :00 daily for Medical 30 days. Branch aspirin 81 Yes 81mg Take 81 mg U nivers mg EC 3-04 by mouth. ity of tablet 23:06: [place] 19 Medical Branch Cholecalcif Yes Take by Uni vers perri, 3-04 mouth. ity of Vitamin D3, 23:06: [place] 50 [facility] 19 Medical (2,000 Branch unit) capsule citalopram Yes 40mg Take 40 mg U nivers 40 mg 3-04 by mouth. ity of tablet 23:06: [place] 19 Medical Branch levothyroxi Yes levothyrox Univers ne 175 mcg 3-04 ine 175 ity of tablet 23:06: mcg tablet [place] [id number] Take 1 Medical tablet Branch every day by oral route. citalopram Yes 40mg Take 40 mg U nivers 40 mg 3-04 by mouth. ity of tablet 17:06: [place] [id number] Medical Branch levothyroxi Yes levothyrox Univers ne 175 mcg 3-04 ine 175 ity of tablet 17:06: mcg tablet [place] [id number] Take 1 Medical tablet Branch every day by oral route. aspirin 81 Yes 81mg Take 81 mg U nivers mg EC 3-04 by mouth. ity of tablet 17:06: [address] Cholecalcif Yes Take by Uni vers perri, 3-04 mouth. ity of Vitamin D3, 17:06: [place] 50 [facility] 19 Medical (2,000 Branch unit) capsule carvediloL 2020- No [id number] 3.125mg Take 1 Univers 3.125 mg 3-04 -04 tablet by ity o f tablet 00:00: 04:59 mouth 2 [place] 00 :00 (two) Medical times Branch daily with meals for 30 days. traMADoL Yes 100mg Take 100 Meth [facility] (ULTRAM) 50 8-[address] mg tablet 00:00: mouth. Hospit a 00 l traMADol 2021- No 100mg Take 2 [facility] t (ULTRAM) 50 8-08 07-06 tablets Luke s mg tablet 00:00: 00:00 (100 mg Medi ameena 00 :00 total) by Center mouth every 6 (six) [...] daily. Hospita enteric 51 l coated tablet Vital Signs Vital Name Observation Time Observation Value Comments Source HEIGHT 2021-09-14 12:42:00 167.6 cm WEIGHT 2021-09-14 12:42:00 72.122 kg HEIGHT 2021-09-14 12:42:00 167.6 cm WEIGHT 2021-09-14 12:42:00 72.122 kg WEIGHT 2021-08-31 18:28:00 74.8 kg HEIGHT 2021-08-30 15:42:00 167.6 cm WEIGHT 2021-08-30 15:42:00 74.844 kg WEIGHT 2021-08-31 18:28:00 74.8 kg HEIGHT 2021-08-30 15:42:00 167.6 cm WEIGHT 2021-08-30 15:42:00 74.844 kg WEIGHT 2021-08-31 18:28:00 74.8 kg HEIGHT 2021-08-30 15:42:00 167.6 cm WEIGHT 2021-08-30 15:42:00 74.844 kg HEIGHT 2021-08-30 09:14:00 167.6 cm WEIGHT 2021-08-30 09:14:00 74.844 kg HEIGHT 2021-08-30 09:14:00 167.6 cm WEIGHT 2021-08-30 09:14:00 74.844 kg HEIGHT 2021-08-30 09:14:00 167.6 cm WEIGHT 2021-08-30 09:14:00 74.844 kg Systolic blood 2021-09-14 12:42:00 112 mm[Hg] [facility] Diastolic blood 2021-09-14 12:42:00 59 mm[Hg] [facility] rate 2021-09-14 12:42:00 85 /min [facility] Body temperature 2021-09-14 12:42:00 36.28 Nancy [facility] Respiratory rate 2021-09-14 12:42:00 15 /min [facility] Body height 2021-09-14 12:42:00 167.6 cm [facility] Body weight 2021-09-14 12:42:00 72.122 kg [facility] BMI 2021-09-14 12:42:00 25.66 kg/m2 [facility] Oxygen saturation in 2021-09-14 12:42:00 98 /min [facility] Arterial blood by Medical Ce nter Pulse oximetry Systolic blood 2021-02-23 15:52:00 145 mm[Hg] [facility] Hospital pressure Diastolic blood 2021-02-23 15:52:00 80 mm[Hg] [facility] pressure Heart rate 2021-02-23 15:52:00 72 /min [facility] Body height 2021-02-23 15:52:00 167.6 cm [facility] Body weight 2021-02-23 15:52:00 70.943 kg [facility] BMI 2021-02-23 15:52:00 25.24 kg/m2 [facility] Procedures Procedure Date / Time Performing Clinician Source Performed CAROTID DOPPLER 2021-12-14 11:00:00 Unknown, Hl7 Doctor [facility] CULTURE, 2021-10-18 11:35:55 [facility] ge of URINE/SENSITIVITY ON ALL Medicin e CYSTOSCOPY 2021-10-18 10:30:00 [facility] BLADDER WASHINGS 2021-10-18 10:22:59 [facility] ege of CYTOLOGY X2 Medicine POCT URINALYSIS DIPSTICK 2021-10-18 00:00:00 [facility] EXTERNAL PROVIDER 2021-09-05 05:01:00 Doctor Unassigned, No Univ [facility] RECORDS Name Medical Branch BASIC METABOLIC PANEL 2021-09-01 05:49:00 Cecilia Lamb CH I [facility] CBC W/PLT COUNT & AUTO 2021-09-01 05:49:00 Cecilia Lamb C [facility] DIFFERENTIAL Center MAGNESIUM 2021-09-01 05:49:00 Cecilia Lamb [facility] CBC W/PLT COUNT & AUTO 2021-09-01 05:49:00 Cecilia Lamba C [facility] DIFFERENTIAL Center SODIUM NA-STAT LAB 2021-08-31 14:58:00 Guerra [facility] POTASSIUM-STAT LAB 2021-08-31 14:58:00 [facility] CALCIUM, IONIZED 2021-08-31 14:58:00 [facility] GLUCOSE-STAT LAB 2021-08-31 14:58:00 [facility] HGB/HCT (H&H) - STAT LAB 2021-08-31 14:58:00 [facility] TISSUE EXAM 2021-08-31 12:29:00 Eri [facility] ABORH, MANUAL 2021-08-31 11:56:00 Glenny Fernández [facility] ENDARTERECTOMY, CAROTID 2021-08-31 11:02:00 Eri [facility] BASIC METABOLIC PANEL 2021-08-31 05:38:00 Cecilia Lamb I [facility] CBC W/PLT COUNT & AUTO 2021-08-31 05:38:00 AdonisCecilia hopper [facility] MAGNESIUM 2021-08-31 05:38:00 [facility] 2021-08-31 05:38:00 Adonis [facility] TSH/FREE T4 IF INDICATED 2021-08-31 05:38:00 Adonis [facility] T4, FREE 2021-08-31 05:38:00 Adonis [facility] CBC W/PLT COUNT & AUTO 2021-08-31 05:38:00 AdonisCeciliaa C [facility] CAROTID DOPPLER 2021-08-30 14:31:00 Beena Hall [facility] ECG 12-LEAD 2021-08-30 10:29:37 Gwen Hwang [facility] ECG 12-LEAD 2021-08-30 10:29:37 Unknown, Hl7 Doctor [facility] BASIC METABOLIC PANEL 2021-08-30 10:28:00 Beena Hall CH I [facility] CBC W/PLT COUNT & AUTO 2021-08-30 10:28:00 Beena Hall [facility] DIFFERENTIAL Center PROTHROMBIN TIME/INR 2021-08-30 10:28:00 Beena Hall [facility] TYPE AND SCREEN, 2021-08-30 10:28:00 Beena Hall [facility] AUTOMATED Center CBC W/PLT COUNT & AUTO 2021-08-30 10:28:00 Beena Hall [facility] DIFFERENTIAL Center SARS-COV2/RT-PCR ([facility] & 2021-08-30 10:17:00 Gwen Hwang [facility] REF LABS) [facility] CT CHEST WO CONTRAST 2021-03-06 15:49:00 Danish Cuba [facility] XR CHEST 2 VW 2021-02-23 17:30:00 Danish [place] [facility] COMPREHENSIVE METABOLIC 2021-02-23 16:51:00 [facility] PANEL CBC WITH PLATELET AND 2021-02-23 16:51:00 [facility] DI[facility] OCT, OPTIC NERVE - OU - 2021-02-13 21:49:[address] [facility] BOTH EYES [facility] AUTOMATED VISUAL FIELD, 2021-02-13 21:49:[address] [facility] EXTENDED - OS - LEFT EYE [place] AUTOMATED VISUAL FIELD, 2021-02-13 21:49:[address] [facility] EXTENDED - OD - RIGHT [place] EYE BLADDER WASHINGS 2021-02-01 11:48:21 [facility] Kris ege of CYTOLOGY X2 Medicine CYSTOSCOPY 2021-02-01 10:47:37 [facility] POCT URINALYSIS DIPSTICK 2021-02-01 00:00:00 [facility] Plan of Care Planned Activity Planned Date Details Comments Source Future Scheduled 2021-12-[address] [facility] Test 01:38:25 (1 of 3 - 3-dose series) [code = HEPATITIS B VACCINES (1 of 3 - 3-dose series)] Future Scheduled 2021-12-28 65+ PNEUMOCOCCAL [facility] Test 01:38:25 VACCINE (1 - PCV) [code = 65+ PNEUMOCOCCAL VACCINE (1 - PCV)] Future Scheduled 2021-12-28 Hepatitis C screening [facility] Test 01:38:25 (procedure) [code = 139764903] Future Scheduled 2021-12-28 SHINGLES VACCINES (1 [facility] Test 01:38:25 of 2) [code = SHINGLES VACCINES (1 of 2)] Future Scheduled 2021-12-28 COLONOSCOPY SCREENING [facility] Test 01:38:25 [code = COLONOSCOPY SCREENING] Future Scheduled 2021-12-28 COVID-19 VACCINE (3 - [facility] Test 01:38:25 Booster for Moderna series) [code = COVID-19 VACCINE (3 - Booster for Moderna series)] Future Scheduled 2021-12-28 INFLUENZA VACCINE Method ist Hospital Test 01:38:25 [code = INFLUENZA VACCINE] Future Scheduled 2021-10-26 INFLUENZA VACCINE (#1) [facility] Test 00:00:00 [code = INFLUENZA Medical Ce nter VACCINE (#1)] Future Scheduled [address] [facility] Test 00:00:00 aneurysm screening Medical C enter (procedure) [code = 685330721] Future Scheduled 1999-12-[address] [facility] Test 00:00:00 malignant neoplasm of Medica l Center lung (procedure) [code = 651672979] Future Scheduled 1999-12-22 SHINGLES VACCINES ([address] [facility] Test 00:00:00 of 2) [code = SHINGLES Medic al Center VACCINES (1 of 2)] Future Scheduled 1968 DTAP/TDAP/TD VACCINES [facility] Test 00:00:00 (1 - Tdap) [code = Medical C enter DTAP/TDAP/TD VACCINES (1 - Tdap)] Future Scheduled 1967-12-22 HEPATITIS C SCREENING [facility] Test 00:00:00 [code = HEPATITIS C Medical Center SCREENING] Future Scheduled 1955-12-22 PNEUMOCOCCAL 65+ YRS [facility] Test 00:00:00 (1 - PCV) [code = Medical Ce nter PNEUMOCOCCAL 65+ YRS (1 - PCV)] Future Scheduled 1950-06-21 COVID-19 VACCINE (#1) [facility] Test 00:00:00 [code = COVID-[address] VACCINE (#1)] Future Scheduled [address] [facility] Test 00:00:00 (combo) [code = CT Medical C enter Colonography (combo)] Future Scheduled [address] [facility] colon (procedure) [code = 322340741] Future Scheduled [address] [facility] Test 00:00:00 [facility] colon (procedure) [code = 487138649] Future Scheduled [address] [facility] Test 00:00:00 [facility] colon (procedure) [code = 043723799] Future Scheduled [address] [facility] Test 00:00:00 [facility] colon (procedure) [code = 285113859] Future Scheduled 1949 Sigmoidoscopy [facility]code = [facility] Medical Cent[facility] r Future Scheduled SHINGLES VACCINES (#1) [facility] [code = SHINGLES VACCINES (#1)] Future Scheduled 65+ [facility] Test VACCINE (1 of 1 - PPSV23) [code = 65+ PNEUMOCOCCAL VACCINE (1 of 1 - PPSV23)] Future Scheduled INFLUENZA VACCINE [facility] [code = INFLUENZA VACCINE] Future Scheduled COVID-19 VACCINE (1) [facility] Test [code = COVID-19 VACCINE (1)] Future Scheduled COLONOSCOPY SCREENING [facility] Test [code = COLONOSCOPY SCREENING] Encounters Start End Encounter Admission Attending Care Care Encounter Source Date/Time Date/Time Type Type Clinicians Facility Department ID 2021-08-30 Inpatient ERI PERRI Surgery [id number] [facility] 10:17:58 GWEN 2020-04-27 Inpatient X JOSE DELMATRACI [facility] [id number] [facility] 12:26:00 KAYLEE bryan [facility] 2021-12-29 2021-12-29 Outpatient EL ERI [facility] [id number] [facility] 16:48:12 16:48:12 GWEN 2021-12-28 2021-12-[address] [facility] [id number] [facility] 14:47:25 14:47:25 Colleaj e of Medicin e 2021-12-14 2021-12-14 Outpatient YULI GARCIA [facility] [id number] [facility] 00:00:00 00:00:00 GWEN 2021-12-14 2021-12-14 Orders Eri, [facility] [id number] 00:00:00 00:00:00 Only [facility] 2021-10-18 2021-10-[address] [facility] [id number] [facility] 09:52:56 13:45:27 PUNEET de [place] of Medicin e 2021-10-18 2021-10-18 Outside Calvillo, [facility] [id number] 00:00:00 00:00:00 Orders [facility] 2021-09-15 2021-09-15 Orders Eri, [facility] [id number] 00:00:00 00:00:00 Only [facility] 2021-09-15 2021-09-15 Orders Eri, [facility] [id number] 00:00:00 00:00:00 Only [facility] 2021-09-15 2021-09-15 Orders Eri, [facility] [id number] 00:00:00 00:00:00 Only [facility] 2021-09-14 2021-09-14 Office Eri, [facility] [id number] 13:00:00 13:30:00 Visit [facility] 2021-09-14 2021-09-14 Outpatient YULI GARCIA SLEKiera [id number] SLE 12:40:51 12:40:51 GWEN 2021-09-05 2021-09-05 Orders Doctor LUONG 1.2.840.114 [id number] Univers 00:00:00 00:00:00 Only SheelassRUBEN fontaine 350.1.13.[address] [facility] 4.2.7.2.686 [facility] as [phone] [place] [address] [address] 2021-09-03 2021-09-03 Telephone Mikayla Castillo [facility] [id number] 00:00[facility]00 00:00:00 [facility] 2021-08-30 2021-09-01 Hospital Douglas Nevarez [facility] [id number] 15:08:00 16:25:00 Encounter Cecilia Lamb [facility] 2021-08-30 2021-09-01 Inpatient EL ADONIS [facility] Surgery [id number] SLE 15:08:00 16:25:00 CECILIA 2021-08-31 2021-08-31 Anesthesia Mc Kimbrough [facility] [id number] 11:19:00 14:45:[address] [facility] 2021-08-31 2021-08-31 Surgery [facility] [id number] 11:15:00 14:38:00 [facility] 2021-08-30 2021-08-[address] [facility] [id number] [place] [address] 15:08:00 23:59:00 Jas 2021-08-30 2021-08-30 [facility] Juan Miguelradha [facility] [id number] 13:51:53 15:07:00 Encounter Beena [facility] 2021-08-30 2021-08-30 Outpatient LALITHA [facility] [id number] SLE 13:51:53 15:07:00 BEENA 2021-08-30 2021-08-30 Office Eri [facility] [id number] 09:30:00 10:00:00 Visit Qing [facility] 2021-08-30 2021-08-30 Outpatient ETHAN MARTINEZWESTLEY [facility] [id number] SLE 09:10:32 09:10:32 GWEN 2021-08-30 2021-08-30 Outpatient ETHAN HWANG, [facility] [id number] SLE 00:00:00 00:00:00 GWEN 2021-08-30 2021-08-30 Orders [facility] [id number] 00:00:00 00:00:[address] [facility] 2021-03-06 2021-03-06 [facility], 1.2.840.1 [id number] Methodi 09:40:18 23:59:00 Encounter Siraya [address]19.1.[address] 3.430.2.7 Hospit a .3.355544 l .8 2021-03-06 2021-03-06 Outpatient [facility] [id number] [place] 00:00:00 00:00:[address] 2021-03-06 2021-03-06 Travel 1.2.840.1 1.2.195.851 [id number] Methodi 00:00:00 00:00:[address] 3.430.2.7 0.2.7.3.698 spita .3.212150 084.8 l .8 2021-02-23 2021-02-23 [facility], 1.2.840.1 [id number] Methodi 11:21:36 23:59:00 Encounter Siraya 30863.1.[address] 3.430.2.7 Hospit a .3.567154 l .8 2021-02-23 2021-02-23 [facility], 1.2.840.1 [id number] Methodi 10:00:00 11:00:00 Visit Siraya 76361.1.[address] 3.430.2.7 Hospit a .3.248009 l .8 2021-02-23 2021-02-23 [facility] [id number] [place] 00:00:00 00:00:00 SIRAYA [address] 2021-02-23 2021-02-23 Outpatient JULISSA [facility] [id number] [place] 00:00:00 00:00:00 SIRAYA 991 Method i 2021-02-23 2021-02-23 Outpatient JULISSA [facility] [id number] [place] 00:00:00 00:00:00 SIRAYA 252 Method i 2021-02-23 2021-02-23 Travel 1.2.840.1 1.2.486.888 [id number] Methodi 00:00:00 00:00:[address] 3.430.2.7 0.2.7.3.698 Ho spita .3.558359 084.8 l .8 2021-02-22 2021-02-22 Documentat Liu Fito 1.2.840.1 [id number] Methodi 00:00:00 00:00:00 ion Go 64155.1.[address] 3.430.2.7 Hospit a .3.199478 l .8 2021-02-13 2021-02-21 Office Shiv, 1.2.840.1 [id number] Methodi 14:15:00 09:34:12 Visit Peter 66141.1.[address] [place] 3.430.2.7 Hospit a .3.842585 l .8 2021-02-13 2021-02-13 Outpatient SHIV [facility] [id number] [place] 00:00:00 00:00:00 MAYRA 898 Method i 2021-02-13 2021-02-13 Travel 1.2.840.1 1.2.815.541 [id number] Methodi 00:00:00 00:00:[address] 3.430.2.7 0.2.7.3.698 Ho spita .3.157289 084.8 l .8 2021-02-01 2021-02-01 Outpatient CLAIRE CALVILLO Pelon [id number] [facility] 10:47:36 13:24:19 PUNEET Kris ege of Medicin e 2020-12-02 2020-12-02 Outpatient SHIV, [facility] [id number] [place] 00:00:00 00:00:00 MAYRA 689 Method i 2020-12-02 2020-12-02 Outpatient SHIV, [facility] 2100 [id number] [place] 00:00:00 00:00:00 MAYRA 691 Method i 2020-11-18 2020-11-18 Outpatient SHIV, [facility] 2100 [id number] [place] 00:00:00 00:00:00 MAYRA [address] 2020-11-18 2020-11-18 Outpatient SHIV, [facility] [id number] [id number] [place] 00:00:00 00:00:00 MAYRA 861 Method i 2020-11-18 2020-11-18 Outpatient SHIV, [facility] 2100 [id number] [place] 00:00:00 00:00:00 MAYRA 756 Method i 2020-11-18 2020-11-18 Outpatient SHIV, [facility] 2100 [id number] [place] 00:00:00 00:00:00 MAYRA 454 Method i 2020-09-08 2020-09-08 Outpatient KEHINDE, [facility] [id number] [facility] 11:52:06 11:52:06 JAREN [facility]in e 2020-09-01 2020-09-01 Outpatient KEHINDE, [facility] [id number] [facility] 11:51:06 16:51:45 JAREN [employer] [facility] 2020-08-25 2020-08-25 Outpatient KEHINDE, [facility] [id number] [facility] 11:46:42 14:30:58 JAREN [employer] [facility]in [facility] 2020-08-17 2020-08-17 Outpatient SCAR, [facility] [id number] [facility] 13:16:39 16:40:55 PUNEET Ponce ege of Medicin e 2020-04-29 2020-04-29 Transition Italo Baltazar 1.2.840.114 [id number] [facility] 00:00:00 00:00:00 of Narda Thompson 350.1.13.10 it [place] [phone] [facility] ameena [address] 2020-04-29 2020-04-29 Transition Italo Baltazar 1.2.840.114 [id number] [id number] 00:00:00 00:00:00 of Care Constance Thompson 350.1.13.10 [place] 4.2.7.2.686 [id number] Results Test Description Test Time Test Comments Results Result Sourc e Comments Carotid doppler 2021-12-[address] [facility]y k[facility] bilateral 17:45:28 [facility] ECHO Medical HEARTLAB [facility] Tissue Exam 2021-09-06 10:48:08 Test Item Value Reference Range Interpretation Comme nts Case Report (test code = 104) Surgical Pathology Report Case: [id number] Authorizing Provider: Gwen Hwang MD Collected: 08/31/2021 12:29 PM Ordering Location: [facility] Received: 08/31/2021 02:30 PM PERIOPERATIVE SERVICES Pathologist: Raegan Man MD Specimen: Plaque, Left Carotid Plaque DIAGNOSIS (test code = 3220) w8usbTVjEZQsz3upPRTezXDfLjNjYuFeBoXlCk pc dWMxIHtccnRmMVxlcGljOTYwMlxhbnNpXHNwbHRw H8HcgvlnVQlaPX6tAA6zwAncfCVwdGBhEJPhWiJs p8eiw871eHNjp9suOGGCvvtxaMm4vQtgD03pt7Y5 TjohG20exKOmYIF9NRQaYAXzcQCyZIVrIBP8GUEf pVKcI0ecRRNnVU1pzlibRAzwHIjxGIMiwJL8QHVd bPRmP4PeZIWoGJjgZETtant3RfJmVg1uhWXelMab MFxwYXJkXHBsYWluXGZzMjAgTEVGVCBDQVJPVElE FRTJUEHPYLglIB3EZBVSGKFXJ7DGSCd9BXsmpjXc UO6pY0BWB4wJMXQKQIHJYDZMX08KDR2NPzGDSQHA MQGamXFprTiqyyKeQFwut8JsGNedPQQaVZ4wvKic VILyOG1aYLQuW3lliC5grqh4ZdAnKULoCdK0KGSr psZ6Syt6WBNqNJyxb7bpw5KgHUHtQUr3wYhyBhWs ASSaf5gjbmXaYmCeJLIdRWBtUEPfrHNlI619d9qa t9hjbjNdgNK6TPUoXQR4PMhyoxOtwnB1CTstiIPn NrF2BHbhmmNuBBdoeuRxqmCqCku5OOBxM799XDZ5 bFocf6khLNY4UKHfZUVpQhUkAc0ggXFdF401YWKr HOJEOIVcaIk3XLTahtVtxjFkaPGXa650N273x3nv MMIptuYbpZjSifvic8cxE863MEZibQZylbOhBpJb UFZhhFQcqJR3WAUhEG2gzqmsCUuwDRhyPGXuvpM2 YVPbdTLnN1RzLBNeBF9gczrgKUL2KHwhKIJpZUN2 IrPpQCYsq9Okkyc4LgQtld5dep54VGX6l8RkyWoi NUM6ARG5ZlUtDk1hmDFoHXCjAZ5wGvYtvWXtWPDv oy37wIwmAPwqYFE7ZEAwcxJdj4Dqm4ysZmKmvmIr M9fqZ7CuYNLzWXVbNJYdRwElydDil3Ofz3NkmVEv hXm6j1wkGJWqRRWpqEqhi8zgMMB4XYXpvFAnN5ay lS2nISAcXD3lzylpe9ncFAshNBhxNUMsdKK7kgQ2 WHGjkKYhB1AgcT8oISCsKRupTVQfkra1SgWiGh1z dGVyeTcyMFxzYmtwYWdlXHBnbmNvbnRccGduZGVj XHBsYWluXHBsYWluXGYwXGZzMjRccWxcbGFuZzEw ZaHivBtirFhjQNdnZqMiJJIzOFwiZ7dwEdQgXbMv Sax8LYVcsZSvNIOfIzx0WURcaZIrPWBIhIuxnW5t YDFgaWllsB3moZV2WKCbiiQxrLSLiG7oNPLSlD7r YsL1AHKoMyk8TCA5ZgRbbACvcL2= CPT Code(s) (test code = 3357) s3zzgXPqJPIwnVM7VgSjLDKmt2dgk5AgrIDx cGFy VMgsmOXrnzRsdj91wSU1rP96KB3iAENwGyJ9EZLl nbF5Jbn8TAWqERKzrJNoH329k2cjg3jgkqQzaOJ5 cSxzLOFztwoqIzN4JSszDBZmzwwiYZv3YSquWXFn dWR2QQZhrYCiU7XcPAZfUD6shlv9RAI7UUcdLCVm RpA3CUYyjUZzPQNgsJwwLYqxr191ERK2QqArSKUe qeHqnYvqvM6lRyLjPQI3PUHnOUfmEGpzYVPxyTXq fQ== CLINICAL HISTORY (test code = 3356) i6rwkLFiSFVjqTF1TvLhKBFtm0yyu0H sdHBncGFy KFxxiUUxjlEifo51eNS2yP72RI2eIDFrLaU9TGBr ufN9Wxc1SVLeFORecPSlE486j8qhz4hutaTyrJU9 zQukSZIvwclrEjW1KUlbKRLvsyjxDVf2VWprUXRb uMI4YMFicXTdF3KmZWZuHG8mlzz8WGE9NGjxQRZp TdE7BKXmlBYsUUOkgCpxARmtn436JGU8EuRkROGd loGewZqpeZ7wBpXaLIZYTUT3CFAlcw10zBSuo5Ri ev5tpGNduEEjfS== SPECIMEN SOURCE (test code = 3377) e1lenAPgWWJvwYZ8PpXvYBMib0nex2Cg dHBncGFy KSlsxRFkdpYlav78mRS1pV11QF6yCPQjPzB6EISf vcS2Mjp0LKXjCPYyxVSpV250r5sxc5oqzcHbqCE4 nSymXJTfsweqXiJ2WZgpJIWlawhgQVt3GSebFXTb qZH2TXTsxCRuM3GxOGZmIU0wfjh7TFU8BBtpBPBa LiX5YMLtyIYxLDJobKqbUVlms850XQI1VpNzZVYw jwKcnRidwP9fJdImMVFJION3OMYhdo73jTPumDxg cXVlXHBhcn0= GROSS DESCRIPTION (test code = m9cpvHRhVKWcsUWXIZAnL6jeqlEzBEZyuZYe [facility] [id number]) wdkzQRfdDZ1vUY2ypJltoAZbjLCxSC8SFZVqAzBu KAQgqZXugpOfJsAeAZOqrHMnzGE2TNIvJH8ekmsw XNrjCJymFGWozyZ5EDUglXEuE5JoVXCsAI4cdayu XBU3UErewD1rogHPOxraVp0gcAConAnaLeHlKhRp VZVnKKXhNKTwaTvtXLCqJQu3hX6WHlrtT49vh4Q5 Ten7EMIdTKUxW4HdPO7oUFJioEJqX51YIgciWCS6 PMAIHdmnSZBuNF2Wl2iaLIZjrXDzRKS9FRyqpGHx FYJbOIIhRRi2AGMaLOzjfGMlFH9bqMwaDzvdxHfd t0RttIVeUAftNMApKSDbHSxsVEXiLB2JJzGcQQO0 Xtg2MhRdQCr8QHi1YT3JKkMfAKLhGFXcBGOiQkEt WRe7KPflXS2QZPM2Etx8NuQwGWQ0VNVzQRReMCAj WxOfORExQQSaXCypITyomEVoLZ5utNypeSXvdbUR LiBQbGFxdWUuXHBhciANClxlcGljTmVzdERvYzEg DQpcbHRycGFyXGxpbjBccmluMCANClxsdHJjaFxj ZjFcZnMyMCBSZWNlaXZlZCBmcmVzaCBsYWJlbGVk WYzroFcytCvtPNKznFgixuYgN5N5tsLnFL9lJNHS Go1rSV9zZSUxaWFyvDUeHSwwTLOdtQKaahglwFZr iRZxkkGid2JoVAK1SkAdCHHyoO0tcRppghSyLsH4 JVdkw1umagBwHPLbFAV0ZMFdMVPdfIRkryfmTa4n RQmbBR1uMEmxLH24VGTqSqh+FLLcHAUxrKJovS5i ktAmweOgOKJyKRzdiLAzNOH4zE3gBEEvrX3sxbY8 YQGqUURejSTaNxwjJKJou43xPZ8vSJU5zlbcYsT5 wMG9fbOeAdAyP18fmE2plKseZ0zlYBFsOym+IFJl dBSzq0KmpAS3jYMuRUPeD9Thd47lHLRlFOVhvGQd rNS5ENIspZ4nGYXlCDKruEdur4wqZnBlJGRvlLNt EksaQRIqx94sMRPotrGFGsabJZQdUXhvX9MyPPAy VvXwYXmdVSILMPC7oWOojpSqNMbcnEbtwH2yLXQt R44rk0OVa4XsTOFlTYjeg3fueXjef9HvxLVmACwg GVSktEBfBIrfhO1oCrUwf2rthZe4MAgnmwI5IUMs ra0TZkdpkY9kDoJyu6hogRz0KKEAXbdejjD6j4hz iSkhc2KtiDTtDU5NOo4= MICROSCOPIC DESCRIPTION (test code = n8nufGTxLUEtqYO6NoJhWLLin7ilt4 BsdHBncGFy 3371) UHcjpQPxnrUuei60hVS3iR12FB4wCMEjRiN8PSKg mgX0Usu0EETdRZEakLBzD120i3dly8dbnnGcwUZ5 nGtpXTEkweekCfT4DMkcYIGvcjscZQw9JVctRSVj yMD8UJYitMQjL6ZlJPHbFS9ojme4DYQ6ZWnpDIXw GyB8JFTuhVHrYODkiSjgUTsmi971KAA4CtNvAHGz tiWytMbkpB9jXiJlVPNZXESiq9TvQZTnjZNavC== Gross assessment was performed at (test [facility] enter, code = 2777) Department of Pathology, [address] [place] [address] 17926, Technical component was performed at [facility] er, (test code = 2778) Department of Pathology, [address] [place] [address] 99992, Professional component was performed at [facility] enter, (test code = 2779) Department of Pathology, [address] [place] [address] 34091, [facility] [id number] 10:48:08Surgical Pathology Report Case: [id number] Authorizing Provider: Gwen Hwang MD Collected: 08/31/2021 12:29 PM Ordering Location: [facility] Received: 08/31/2021 02:30 PM PERIOPERATIVE SERVICES Pathologist: Raegan Mna MD Specimen: Plaque, Left Carotid Plaque LEFT CAROTID PLAQUE, ENDARTERECTOMY: - CALCIFIED ATHEROMATOUS PLAQUE Signing Pathologist Direct Phone Line: [phone], [phone] carotid stenosisLeft carotid plaqueA. Plaque.Received fresh labeled with the patient's name, DON and "plaque" bry previously incised tubular portion of yellow-red plaque measuring 3.0 x 1.2 x 0.9 cm. The specimenis serially sectioned to reveal calcifications measuring up to 0.4 cm in thickness. [employer] sections are submitted in A1, following decalcification.KANU PATEL Student PerformedBaUSC [facility], Department of Pathology, [address] [place] [address] 92094, [facility], [facility] of Pathology, [address] [place] [address] 46674, [facility], Department of Pathology, [address] [place] [address] 20588, QCSWB METABOLIC PANEL 2021-09-01 08:03:24 Test Item Value Reference Range Interpretation Comments SODIUM (BEAKER) 135 meq/L 136-145 L (test code = 381) POTASSIUM (BEAKER) 3.7 meq/L 3.5-5.1 (test code = 379) CHLORIDE (BEAKER) 100 meq/L 98-107 (test code = 382) CO2 (BEAKER) (test 24 meq/L 22-29 code = 355) BLOOD UREA NITROGEN 42 mg/dL 7-21 H (BEAKER) (test code = 354) CREATININE (BEAKER) 10.59 mg/dL 0.57-1.25 H (test code = 358) GLUCOSE RANDOM 147 mg/dL 70-105 H (BEAKER) (test code = 652) CALCIUM (BEAKER) 8.3 mg/dL 8.4-10.2 L (test code = 697) EGFR (BEAKER) (test 5 mL/min/1.73 ESTIMAT ED GFR IS code = 1092) sq m NOT ACCURATE CREATININE CLEARANCE IN PREDICTING GLOMERULAR FILTRATION RATE . ESTIMATED GFR I S NOT APPLICABLE FOR DIALYSIS PATIEN TS. Harness Fitter ID - ABE [id number] 07:48:51 Test Item Value Reference Range Interpretation Comments MAGNESIUM (BEAKER) (test code = 1.8 mg/dL 1.6-2.6 627) Harness Fitter ID - ABE MCBC W/PLT COUNT & AUTO [id number] 07:13:26 Test Item Value Reference Range Interpretation Comments WHITE BLOOD CELL COUNT (BEAKER) 15.3 K/ L 3.5-10.5 H (test code = 775) RED BLOOD CELL COUNT (BEAKER) 3.23 M/ L 4.63-6.08 L (test code = 761) HEMOGLOBIN (BEAKER) (test code = 10.4 GM/DL 13.7-17.5 L 410) HEMATOCRIT (BEAKER) (test code = 31.7 % 40.1-51.0 L 411) MEAN CORPUSCULAR VOLUME (BEAKER) 98.1 fL 79.0-92.2 H (test code = 753) MEAN CORPUSCULAR HEMOGLOBIN 32.2 pg 25.7-32.2 (BEAKER) (test code = 751) MEAN CORPUSCULAR HEMOGLOBIN CONC 32.8 GM/DL 32.3-36.5 (BEAKER) (test code = 752) RED CELL DISTRIBUTION WIDTH 14.3 % 11.6-14.4 (BEAKER) (test code = 412) PLATELET COUNT (BEAKER) (test 213 K/CU MM 150-450 code = 756) MEAN PLATELET VOLUME (BEAKER) 10.7 fL 9.4-12.4 (test code = 754) NUCLEATED RED BLOOD CELLS 0 /100 WBC 0-0 (BEAKER) (test code = 413) NEUTROPHILS RELATIVE PERCENT 85 % (BEAKER) (test code = 429) LYMPHOCYTES RELATIVE PERCENT 7 % (BEAKER) (test code = 430) MONOCYTES RELATIVE PERCENT 7 % (BEAKER) (test code = 431) EOSINOPHILS RELATIVE PERCENT 0 % (BEAKER) (test code = 432) BASOPHILS RELATIVE PERCENT 0 % (BEAKER) (test code = 437) NEUTROPHILS ABSOLUTE COUNT 12.95 K/ L 1.78-5.38 H (BEAKER) (test code = 670) LYMPHOCYTES ABSOLUTE COUNT 1.10 K/ L 1.32-3.57 L (BEAKER) (test code = 414) MONOCYTES ABSOLUTE COUNT (BEAKER) 1.12 K/ L 0.30-0.82 H (test code = 415) EOSINOPHILS ABSOLUTE COUNT 0.01 K/ L 0.04-0.54 L (BEAKER) (test code = 416) BASOPHILS ABSOLUTE COUNT (BEAKER) 0.02 K/ L 0.01-0.08 (test code = 417) IMMATURE GRANULOCYTES-RELATIVE 1 % 0-1 PERCENT (BEAKER) (test code = 2801) HGB/HCT (H&H)-Stat [id number] 15:10:00 Test Item Value Reference Range Interpretation Comments Hemoglobin (test code = 11.5 See_Comment L [Au tomated message] 786-4) The system [employer] generated this result transmitted ref erence range: 13.0 - 1 6.8 GM/DL. The refe rence range was not u sed to interpret this result as normal/abnor mal. Hematocrit (test code = 34.0 % 40.0-50.0 L 4544-3) Lab Interpretation (test Abnormal code = 68689-0) [facility] CenterGlucose-Stat [id number] 15:10:00 Test Item Value Reference Range Interpretation Comments Glucose (test code = 2345-7) 119 mg/dL 70-110 H Lab Interpretation (test code = Abnormal 01106-2) [place] [facility] CenterCALCIUM, [id number] 15:10:00 Test Item Value Reference Range Interpretation Comments CALCIUM IONIZED (BEAKER) (test 1.04 mmol/L 1.12-1.27 L code = 698) PH, BLOOD (BEAKER) (test code = 7.31 1810) GLUCOSE-STAT [id number] 15:10:00 Test Item Value Reference Range Interpretation Comments GLUCOSE RANDOM (BEAKER) (test code 119 mg/dL 70-110 H = 652) HGB/HCT (H&H) - STAT [id number] 15:10:00 Test Item Value Reference Range Interpretation Comments HEMOGLOBIN (BEAKER) (test code = 11.5 GM/DL 13.0-16.8 L 410) HEMATOCRIT (BEAKER) (test code = 34.0 % 40.0-50.0 L 411) Sodium Na-Stat [id number] 15:09:21 Test Item Value Reference Range Interpretation Comments Sodium (test code = 2951-2) 138 meq/L 136-145 Lab Interpretation (test code = Normal 10949-2) [facility] [id number] 15:09:21 Test Item Value Reference Range Interpretation Comments Potassium (test code = 2823-3) 3.8 meq/L 3.6-5.5 Lab Interpretation (test code = Normal 49843-5) [facility] [id number] 15:09:21 Test Item Value Reference Range Interpretation Comments SODIUM (BEAKER) (test code = 381) 138 meq/L 136-145 POTASSIUM-STAT [id number] 15:09:21 Test Item Value Reference Range Interpretation Comments POTASSIUM (BEAKER) (test code = 3.8 meq/L 3.6-5.5 379) T4, [id number] 07:52:33 Test Item Value Reference Range Interpretation Comments FREE T4 (BEAKER) (test code = 655) 0.84 ng/dL 0.70-1.48 [employer] ID - DARLYN LBASIC METABOLIC [id number] 07:07:41 Test Item Value Reference Range Interpretation Comments SODIUM (BEAKER) 140 meq/L 136-145 (test code = 381) POTASSIUM (BEAKER) 3.3 meq/L 3.5-5.1 L (test code = 379) CHLORIDE (BEAKER) 103 meq/L 98-107 (test code = 382) CO2 (BEAKER) (test 24 meq/L 22-29 code = 355) BLOOD UREA NITROGEN 44 mg/dL 7-21 H (BEAKER) (test code = 354) CREATININE (BEAKER) 11.01 mg/dL 0.57-1.25 H (test code = 358) GLUCOSE RANDOM 129 mg/dL 70-105 H (BEAKER) (test code = 652) CALCIUM (BEAKER) 8.8 mg/dL 8.4-10.2 (test code = 697) EGFR (BEAKER) (test 5 mL/min/1.73 ESTIMAT ED GFR IS code = 1092) sq m NOT ACCURATE CREATININE CLEARANCE IN PREDICTING GLOMERULAR FILTRATION RATE . ESTIMATED GFR I S NOT APPLICABLE FOR DIALYSIS PATIEN TS. [employer] ID - DARLYN [id number] 07:04:02 Test Item Value Reference Range Interpretation Comments PHOSPHORUS (BEAKER) (test code = 6.3 mg/dL 2.3-4.7 H 604) [employer] ID - DARLYN [id number] 07:04:01 Test Item Value Reference Range Interpretation Comments MAGNESIUM (BEAKER) (test code = 1.9 mg/dL 1.6-2.6 627) [employer] ID - DARLYN LTSH/FREE T4 IF [id number] 06:52:38 Test Item Value Reference Range Interpretation Comments THYROID STIMULATING HORMONE 20.818 uIU/mL 0.350-4.940 H (BEAKER) (test code = 772) [employer] ID - DARLYN LCBC W/PLT COUNT & AUTO [id number] 06:12:32 Test Item Value Reference Range Interpretation Comments WHITE BLOOD CELL COUNT (BEAKER) 10.3 K/ L 3.5-10.5 (test code = 775) RED BLOOD CELL COUNT (BEAKER) 3.67 M/ L 4.63-6.08 L (test code = 761) HEMOGLOBIN (BEAKER) (test code = 11.9 GM/DL 13.7-17.5 L 410) HEMATOCRIT (BEAKER) (test code = 36.0 % 40.1-51.0 L 411) MEAN CORPUSCULAR VOLUME (BEAKER) 98.1 fL 79.0-92.2 H (test code = 753) MEAN CORPUSCULAR HEMOGLOBIN 32.4 pg 25.7-32.2 H (BEAKER) (test code = 751) MEAN CORPUSCULAR HEMOGLOBIN CONC 33.1 GM/DL 32.3-36.5 (BEAKER) (test code = 752) RED CELL DISTRIBUTION WIDTH 14.2 % 11.6-14.4 (BEAKER) (test code = 412) PLATELET COUNT (BEAKER) (test 229 K/CU MM 150-450 code = 756) MEAN PLATELET VOLUME (BEAKER) 10.3 fL 9.4-12.4 (test code = 754) NUCLEATED RED BLOOD CELLS 0 /100 WBC 0-0 (BEAKER) (test code = 413) NEUTROPHILS RELATIVE PERCENT 63 % (BEAKER) (test code = 429) LYMPHOCYTES RELATIVE PERCENT 20 % (BEAKER) (test code = 430) MONOCYTES RELATIVE PERCENT 8 % (BEAKER) (test code = 431) EOSINOPHILS RELATIVE PERCENT 8 % (BEAKER) (test code = 432) BASOPHILS RELATIVE PERCENT 1 % (BEAKER) (test code = 437) NEUTROPHILS ABSOLUTE COUNT 6.51 K/ L 1.78-5.38 H (BEAKER) (test code = 670) LYMPHOCYTES ABSOLUTE COUNT 2.06 K/ L 1.32-3.57 (BEAKER) (test code = 414) MONOCYTES ABSOLUTE COUNT (BEAKER) 0.81 K/ L 0.30-0.82 (test code = 415) EOSINOPHILS ABSOLUTE COUNT 0.85 K/ L 0.04-0.54 H (BEAKER) (test code = 416) BASOPHILS ABSOLUTE COUNT (BEAKER) 0.07 K/ L 0.01-0.08 (test code = 417) IMMATURE GRANULOCYTES-RELATIVE 0 % 0-1 PERCENT (BEAKER) (test code = 2801) SARS-CoV2/RT-PCR ([facility])2021-08-30 14:03:43 Test Item Value Reference Interpretation Comments Range SARS-COV2/RT-PCR Negative Negative The SARS-Co V-2 (test code = target nucleic 54668-9) acids are not detected in thi s specimen. Negat jana results do not preclude SARS-C oV-2 infection and should not be u sed as the sole bas is for patient management decisions. Nega tive results must be combined with clinical observations, patient history , and epidemiolog ical information. A false negative result may occu r if a specimen is improperly collected, transported or handled. This S ARS CoV-2 test is a rapid, real-hilaria e RT-PCR test intended for th e qualitative detection of nucleic acid fr om SARS-CoV-2 in a nasopharyngeal swab specimen [facility] from individual s suspected of COVID-19 by the ir healthcare provider. LUIS ARMANDO (test code = This test has been LUIS ARMANDO) authorized by FDA under an EUA for use by authorized laboratories. This test is only authorized for the duration of the declaration that circumstances exist justifying the authorization of emergency use of in vitro diagnostic tests for detection and/or diagnosis of COVID-19 under Section 564(b)(1) of the Federal Food, Drug and Cosmetic Act, 21 U.S.C. 360bbb-3(b)(1), unless the authorization is terminated or revoked sooner. Fact Sheet for Healthcare Providers: https://www.[employer]/Documents/Xp ert%20Xpress%20SAR S%20CoV-2/Fact%20S heets/302-3802%20S ARS-COV-2%20HEALTH CARE%20PROVIDERS%2 0FACT%20SHEET.pdf Fact Sheet for Healthcare Patients: https://www.Get In/Documents/Xp ert%20Xpress%20SAR S%20CoV-2/Fact%20S heets/302-3801%20S ARS-COV-2%20PATIEN T%20FACT%20SHEET.p df Lab Interpretation Normal (test code = 10928-3) [facility]2021-08-30 14:03:43 Test Item Value Reference Range Interpretation Comments SARS-COV2/RT-PCR Negative Negative The SARS-Co V-2 target (test code = nucleic acids a re not [id number]) detected in thi s specimen. Negative result s do not preclude SARS-C oV-2 infection and s hould not be used as the krupa e basis for patient managem ent decisions. Nega tive results must be combine d with clinical observ ations, patient history , and epidemiological information. A false negativ e result may occur if a spec imen is improperly kris ected, transported or handled. This SARS CoV-2 test is a rapid, real-time RT-PC R test intended for th e qualitative detection of nu cleic acid from SARS-CoV-2 in a nasopharyngeal swab specimen collected from individuals suspected of CO VID-19 by their healthcar e provider. This test has been authorized by FDA under an EUA for use by authorized laboratories. This test is only authorized for the duration of the declaration that circumstances exist justifying the authorization of emergency use of in vitro diagnostic tests for detection and/or diagnosis of COVID-19 under Section 564(b)(1) of the Federal Food, Drug and Cosmetic Act, 21 U.S.C. 360bbb-3(b)(1), unless the authorization is terminated or revoked sooner. Fact Sheet for Healthcare Providers: https://www.[employer] m/Documents/Xpert%20Xpress%20SARS%20CoV-2/Fact%20Sheets/302-3802%40BVGM-OTA-1%20 HEALTHCARE%20PROVIDERS%20FACT%20SHEET.pdf Fact Sheet for Healthcare Patients: https://www.[employer]/Documents/Xpert%20Xp ress%20SARS%20CoV-2/Fact%20Sheets/302-3801%58LEIT-CWV-5%20PATIENT%20FACT%20SHEET .pdfBASAINT JO[facility]PH [facility] [id number] 11:13:22 Test Item Value Reference Range Interpretation Comments SODIUM (BEAKER) 140 meq/L 136-145 (test code = 381) POTASSIUM (BEAKER) 4.1 meq/L 3.5-5.1 (test code = 379) CHLORIDE (BEAKER) 99 meq/L 98-107 (test code = 382) CO2 (BEAKER) (test 28 meq/L 22-29 code = 355) BLOOD UREA NITROGEN 41 mg/dL 7-21 H (BEAKER) (test code = 354) CREATININE (BEAKER) 11.43 mg/dL 0.57-1.25 H (test code = 358) GLUCOSE RANDOM 99 mg/dL 70-105 (BEAKER) (test code = 652) CALCIUM (BEAKER) 9.1 mg/dL 8.4-10.2 (test code = 697) EGFR (BEAKER) (test 4 mL/min/1.73 ESTIMAT ED GFR IS code = 1092) sq m NOT ACCURATE CREATININE CLEARANCE IN PREDICTING GLOMERULAR FILTRATION RATE . ESTIMATED GFR I S NOT APPLICABLE FOR DIALYSIS PATIEN TS. Harness Fitter ID - PIAYA LPROTHROMBIN [id number] 10:43:35 Test Item Value Reference Range Interpretation Comments PROTIME (BEAKER) 13.9 seconds 11.9-14.2 (test code = 759) INR (BEAKER) (test 1.09 See_Comment [Automat ed message] code = 370) The system [employer] generated this result transmitted ref erence range: <=5.90. The reference range was not used to int erpret this result as normal/abnormal . RECOMMENDED COUMADIN/WARFARIN INR THERAPY RANGESSTANDARD DOSE: 2.0 - 3.0 Includes: PROPHYLAXIS for venous thrombosis, systemic embolization; TREATMENT for venous thrombosis and/or pulmonary embolus.HIGH RISK: Target INR is 2.5-3.5 for patients with mechanical heart valves.CBC W/PLT COUNT & AUTO [id number] 10:40:47 Test Item Value Reference Range Interpretation Comments WHITE BLOOD CELL COUNT (BEAKER) 13.2 K/ L 3.5-10.5 H (test code = 775) RED BLOOD CELL COUNT (BEAKER) 4.02 M/ L 4.63-6.08 L (test code = 761) HEMOGLOBIN (BEAKER) (test code = 12.8 GM/DL 13.7-17.5 L 410) HEMATOCRIT (BEAKER) (test code = 39.7 % 40.1-51.0 L 411) MEAN CORPUSCULAR VOLUME (BEAKER) 98.8 fL 79.0-92.2 H (test code = 753) MEAN CORPUSCULAR HEMOGLOBIN 31.8 pg 25.7-32.2 (BEAKER) (test code = 751) MEAN CORPUSCULAR HEMOGLOBIN CONC 32.2 GM/DL 32.3-36.5 L (BEAKER) (test code = 752) RED CELL DISTRIBUTION WIDTH 14.1 % 11.6-14.4 (BEAKER) (test code = 412) PLATELET COUNT (BEAKER) (test 254 K/CU MM 150-450 code = 756) MEAN PLATELET VOLUME (BEAKER) 10.0 fL 9.4-12.4 (test code = 754) NUCLEATED RED BLOOD CELLS 0 /100 WBC 0-0 (BEAKER) (test code = 413) NEUTROPHILS RELATIVE PERCENT 65 % (BEAKER) (test code = 429) LYMPHOCYTES RELATIVE PERCENT 17 % (BEAKER) (test code = 430) MONOCYTES RELATIVE PERCENT 8 % (BEAKER) (test code = 431) EOSINOPHILS RELATIVE PERCENT 8 % (BEAKER) (test code = 432) BASOPHILS RELATIVE PERCENT 1 % (BEAKER) (test code = 437) NEUTROPHILS ABSOLUTE COUNT 8.61 K/ L 1.78-5.38 H (BEAKER) (test code = 670) LYMPHOCYTES ABSOLUTE COUNT 2.25 K/ L 1.32-3.57 (BEAKER) (test code = 414) MONOCYTES ABSOLUTE COUNT (BEAKER) 1.10 K/ L 0.30-0.82 H (test code = 415) EOSINOPHILS ABSOLUTE COUNT 1.10 K/ L 0.04-0.54 H (BEAKER) (test code = 416) BASOPHILS ABSOLUTE COUNT (BEAKER) 0.12 K/ L 0.01-0.08 H (test code = 417) IMMATURE GRANULOCYTES-RELATIVE 0 % 0-1 PERCENT (BEAKER) (test code = 2801) CT, [id number] 15:15:00FINAL REPORT ABDOMINAL AND PELVIS CT DATED 02/03/2019 CLINICAL [...] Right kidney is normal in size. No hydronephrosis,hydroureter, urolithiasis is seen. Diverticular disease is seen [...] MDReport Verified Date/Time: 02/03/2019 15:15:07 Reading Location: [address] Radiology Reading Room [id number] 11:56:00 Test Item Value Reference Range Interpretation Comments POC-CREATININE 4.0 mg/dL 0.6-1.[address] [facility] [address] ([facility]) (test [place] code = 1859) [address] POC-EGFR (AKER) 15 mL/min/1.73M2 (test code = 1860) TISSUE [id number] 17:04:00Surgical Pathology Report Case: [id number] Authorizing Provider: Puneet Calvillo MD Collected: 10/02/2017 1123 Ordering Location: [facility] PERIOPERATIVE Received: 10/02/2017 1403 SERVICES Pathologist: Girish Doyle MD Specimens: A) - Bladder Tumor, Posterior Wall Tumor B) - Ureter, Right, Right Mid-ureter Lesion A. 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 URETER, RIGHT MID-URETERLESION, BIOPSY: - BLOOD CLOT. - NO UROTHELIUM IDENTIFIED. Signing Pathologist Direct Phone Line: [phone] signed by Girish Whiteside MD on 10/03/2017 at 5:04 [id number], [id number] in situ of bladder A. Posterior wall tumor bladder tumor. B. Right mid ureter lesion Specimen isreceived in two containers of formalin both labeled with the patient's information.Specimen A: Labeled "bladder tumor posterior wall" consists of two fragments of multiple arnold hemorrhagic soft tissue measuring 2.5 x 2.5 x 1 cm in aggregate submitted entirely in A1 and A2.Specimen B: Labeled "right midureter lesion" consists of a 0.1 cm fragment of red soft tissue submitted in B1. CG/ew A-B. Performed.UT, TUBE WINDER IN OR/30 MINUTE INCREMENTS 2017-10-02 14:44:00Reason for exam:->Intraoperative UseFINAL REPORT Fluoroscopy 70 views intraoperative 10/02/2017 2:43 PM CLINICAL HISTO RY: Instrument localization COMPARISON: None available IMPRESSION: Please correlate imaging report findings with the procedure note prepared by Dr. Calvillo, as an intra-procedure imaging consultation wasnot requested. Reported fluoroscopy time: 96 seconds. Signed: Rodolfo Ramirez Verified Date/ Time: 10/02/2017 14:44:28 Reading Location: [facility] C0[facility] Neuro Reading Room
[2022-01-04] MEDS ORDERED: ONDANSETRON 4 MG/2 ML VIAL ONE (13:39)
[2022-01-04 13:52] LABS: Absolute Lymphocytes (CBC) 1.4 K/uL (0.7-4.9); Hematocrit 35.1 % (39.6-49.0); Lymphocytes % 10.5 % (15.3-44.8); MCV 98.6 fL (80-100); MPV 7.5 fL (7.6-11.3); RBC Red Blood Cell Count 3.56 M/uL (4.33-5.43)
--- NOTE | 2022-01-04 14:15 | RAD REPORT ---
EXAM DESCRIPTION: CTAbdomen Pelvis Wo Contrast - 01/04/2022 1:55 pm CLINICAL HISTORY: peritoneal dialysis, weakness, vomiting COMPARISON: Abdomen Pelvis Wo Contrast dated 02/14/2021; Abdomen Pelvis Wo Contrast dated 020; Abdomen Pelvis W/Wo Contrast dated 09/20/2017; CTSTONE PROTOCOL dated 05/28/2014 TECHNIQUE: CT of the abdomen and pelvis was performed without contrast. All CT scans are performed using dose optimization technique as appropriate and may include automated exposure control or mA/KV adjustment according to patient size. FINDINGS: Lower chest: Chronic interstitial lung changes. Multi-vessel coronary artery disease . Liver: No acute abnormality or suspicious lesions. Biliary: No biliary ductal dilatation. Stomach: No significant focal abnormality. Duodenum: No significant focal abnormality. Pancreas: No significant abnormality. Spleen: No significant abnormality. Adrenal: No suspicious lesions. Kidney/ureter: No hydronephrosis. No renal calculi. Atrophic kidneys, left greater than right. Bilate ral renal vascular calcifications. Retroperitoneum: No retroperitoneal adenopathy. Vascular: No aneurysm. Bowel: Diverticulosis. No evidence of acute diverticulitis.. Normal appendix. Peritoneum: Free fluid likely dialysate. Peritoneal dialysis catheter. Bladder: Grossly unremarkable. Reproductive: No adnexal masses. Bones: No acute fracture. Other: n/a IMPRESSION: No acute intra-abdominal or pelvic finding. Incidental findings as noted above.
[2022-01-04 14:18] LABS: Albumin 2.5 g/dL (3.4-5.0); Bilirubin Total 0.5 mg/dL (0.2-1.0); Potassium 3.2 mmol/L (3.5-5.1); Protein, Total 7.6 g/dL (6.4-8.2); Troponin High Sensitivity 17.3 pg/mL (<58.9)
--- NOTE | 2022-01-04 14:36 | RAD REPORT ---
EXAM DESCRIPTION: RAD - Chest Single View - 01/04/2022 2:30 pm CLINICAL HISTORY: weakness COMPARISON: Chest Single View dated 08/23/2021; Chest Single View dated 10/01/2020; Chest Single View d ated 09/29/2020; Chest Single View dated 06/09/2020 FINDINGS: Lines: None. Lungs: Coarsening of the pulmonary interstitium. Pleural: No significant pleural effusions or pneumothorax. Cardiac: The heart size is within normal limits. Mediastinum: Within normal limits. Bones: No acute fractures. Other: None IMPRESSION: Nonspecific coarsening of the pulmonary interstitium could reflect mild infection or inf lammation. No consolidative airspace disease.
[2022-01-04 14:39] LABS: SARS-COV-2 RT PCR NEGATIVE (NEGATIVE)
[2022-01-04 15:49] LABS: Urine Blood 2+ (Negative); Urine Glucose Negative (Negative); Urine Protein 3+ (Negative)
[2022-01-04 16:18] LABS: Urine Bacteria <20 /HPF (<20); Urine RBC 21-50 /HPF (None Seen); Urine WBC Clump Many /HPF (None Seen)
--- NOTE | 2022-01-04 17:12 | ER ---
Nurse's Notes [facility] Name: Grady Dasilva Age: 71 yrs Sex: Male : 1950 Arrival Date: 01/04/2022 Time: 13:27 Bed 2 Private MD: Diagnosis: UTI/ Urinary tract infection, site not specified Presentation: 01/04 13:20 Chief complaint: Patient states: patient states felt dizzy today checked BP and it was db low. states last ate yesterday and did peritoneal dialysis last night. EMS states: Blood glucose 132. patient BP 150's systolic. Coronavirus screen: Vaccine status: Patient reports receiving the 2nd dose of the covid vaccine. Client denies travel out of the [place] in the last 14 days. At this time, the client does not indicate any symptoms associated with coronavirus-19. Ebola Screen: Patient negative for fever greater than or equal to 101.5 degrees Fahrenheit, and additional compatible Ebola Virus Disease symptoms Patient denies exposure to infectious person. Patient denies travel to an Ebola-affected area in the 21 days before illness onset. No symptoms or risks identified at this time. Initial Sepsis Screen: Does the patient meet any 2 criteria? No. Patient's initial sepsis screen is negative. Does the patient have a suspected source of infection? No. Patient's initial sepsis screen is negative. Risk Assessment: Do you want to hurt yourself or someone else? Patient reports no desire to harm self or others. Onset of symptoms was January 04, 2022. 13:20 Method Of Arrival: EMS: [facility] db 13:20 Acuity: MADI 2 db Triage Assessment: 13:34 General: Appears in no apparent distress. comfortable, Behavior is calm, cooperative, db appropriate for age, quiet. Pain: Denies pain. Historical: - Allergies: 13:34 Codeine; db 13:34 PENICILLINS; db - PMHx: 13:34 Bladder CA; End stage renal disease; Hypothyroidism; Possible Brain CA; PROSTATE CA; db - PSHx: 13:34 HD cathater placement; PD dialysis cather placement; db - Immunization history:: Adult Immunizations unknown, Client reports receiving the 2nd dose of the Covid vaccine. - Social history:: Smoking status: Patient reports the use of cigarette tobacco products, smokes one-half pack cigarettes per day. - Family history:: not pertinent. - Hospitalizations: : No recent hospitalization is reported. Screenin:19 Abuse screen: Denies threats or abuse. Denies injuries from another. Nutritional kb3 screening: No deficits noted. Tuberculosis screening: No symptoms or risk factors identified. Fall Risk None identified. No fall in past 12 months (0 pts). No secondary diagnosis (0 pts). IV access (20 points). Ambulatory Aid- None/Bed Rest/Nurse Assist (0 pts). Gait- Normal/Bed Rest/Wheelchair (0 pts) Mental Status- Oriented to own ability (0 pts). Total Lezama Fall Scale indicates No Risk (0-24 pts). Assessment: 13:37 Reassessment: Patient appears in no apparent distress at this time. see triage for db initial assessment. 15:00 Reassessment: Patient appears in no apparent distress at this time. No changes from kb3 previously documented assessment. Patient and/or family updated on plan of care and expected duration. Pain level reassessed. Patient is alert, oriented x 3, equal unlabored respirations, skin warm/dry/pink. General: Appears in no apparent distress. comfortable, Behavior is calm, cooperative, appropriate for age. Neuro: No deficits noted. Level of Consciousness is awake, alert, obeys commands, Oriented to person, place, time, situation, Appropriate for age Speech is normal, Facial symmetry appears normal. 16:00 Reassessment: Patient appears in no apparent distress at this time. No changes from db previously documented assessment. Patient and/or family updated on plan of care and expected duration. Pain level reassessed. Patient is alert, oriented x 3, equal unlabored respirations, skin warm/dry/pink. Patient states feeling better. 17:00 Reassessment: Patient appears in no apparent distress at this time. No changes from db previously documented assessment. Patient and/or family updated on plan of care and expected duration. Pain level reassessed. Patient is alert, oriented x 3, equal unlabored respirations, skin warm/dry/pink. 18:00 Reassessment: Patient appears in no apparent distress at this time. No changes from db previously documented assessment. Patient and/or family updated on plan of care and expected duration. Pain level reassessed. Patient is alert, oriented x 3, equal unlabored respirations, skin warm/dry/pink. 18:00 Reassessment: Patient appears in no apparent distress at this time. No changes from db previously documented assessment. Patient and/or family updated on plan of care and expected duration. Pain level reassessed. Patient is alert, oriented x 3, equal unlabored respirations, skin warm/dry/pink. General: Appears in no apparent distress. comfortable. 19:05 General: discharge pending antibiotic administration . as6 Vital Signs: 13:20 BP 181 / 83; Pulse 82; Resp 20; Temp 98.3; Pulse Ox 99% on R/A; Weight 74.84 kg; Height db 5 ft. 6 in. (167.64 cm); Pain 0/10; 14:00 BP 153 / 80; Pulse 72; Resp 20; Pulse Ox 96% ; kb3 15:00 BP 163 / 88; Pulse 80; Resp 18; Pulse Ox 96% ; kb3 16:30 BP 155 / 90; Pulse 79; Resp 18; Pulse Ox 100% on R/A; db 17:00 BP 167 / 89; Pulse 76; Resp 16; Pulse Ox 98% on R/A; db 18:19 BP 176 / 100; Pulse 88; Resp 16; Temp 98.2(O); Pulse Ox 100% ; db 13:20 Body Mass Index 26.63 (74.84 kg, 167.64 cm) db ED Course: 13:27 Patient arrived in ED. rn 13:27 Craig Lorenz MD is Attending Physician. rn 13:32 Dominique Andrews, MOUNA is Primary Nurse. db 13:34 Triage completed. db 13:34 Arm band placed on left wrist. Patient placed in an exam room. db 13:36 Maintain EMS IV. Site clean \T\ dry. Gauge \T\ site: 18G Right AC. IV is intact, Flushed db right antecubital. 13:56 Abdomen In Process Unspecified. EDMS 14:32 XRAY Chest (1 view) In Process Unspecified. EDMS 15:19 Patient has correct armband on for positive identification. Bed in low position. Call kb3 light in reach. Side rails up X 1. Client placed on continuous cardiac and pulse oximetry monitoring. NIBP monitoring applied. 18:00 No provider procedures requiring assistance completed. db 19:28 IV discontinued, intact, bleeding controlled, No redness/swelling at site. Pressure as6 dressing applied. Administered Medications: 13:35 Drug: Zofran (Ondansetron) 4 mg Route: IVP; Site: right antecubital; db 17:44 Follow up: Response: No adverse reaction db 17:59 Drug: LevaQUIN (levofloxacin) 750 mg Volume: 150 ml; Route: IVPB; Infused Over: 90 db mins; Site: right antecubital; 19:28 Follow up: Response: No adverse reaction; IV Status: Completed infusion; IV Intake: as6 150ml Medication: 18:01 VIS not applicable for this client. db Intake: 19:28 IV: 150ml; Total: 150ml. as6 Outcome: 17:11 Discharge ordered by . rn 18:00 Discharged to home ambulatory, with family. db 18:00 Condition: stable 18:00 Discharge instructions given to patient, significant other, Instructed on discharge instructions, follow up and referral plans. Demonstrated understanding of instructions, Prescriptions given X 1. 19:28 Patient left the ED. as6 Signatures: Dispatcher [employer] EDMS Craig Lorenz MD MD rn Slawson, Ashby, RN RN as6 Farida Merino, RN RN kb3 Dominique Andrews, MOUNA RN db
--- NOTE | 2022-01-04 17:12 | EDPHYS ---
Physician Documentation [facility] Name: Grady Dasilva Age: 71 yrs Sex: Male : 1950 Arrival Date: 01/04/2022 Time: 13:27 Bed 2 Private MD: ED Physician Craig Lorenz HPI: 01/04 14:59 This 71 yrs old Male presents to ER via EMS with complaints of dizziness, weakness. rn 15:01 Pt reports generalized weakness, lightheaded, BP was low but report "low" was 110 rn systolic. NO fever. NO chest pain/sob/abd pain. Vomited once last night but reports emesis every now and then without etiology or diagnosis. No rash. . . Onset: The symptoms/episode began/occurred yesterday. Severity of symptoms: At their worst the symptoms were mild in the emergency department the symptoms have improved. The patient has experienced similar episodes in the past. The patient has not recently seen a physician. Denies abd pain. No change in effluent. . Historical: - Allergies: 13:34 Codeine; db 13:34 PENICILLINS; db - PMHx: 13:34 Bladder CA; End stage renal disease; Hypothyroidism; Possible Brain CA; PROSTATE CA; db - PSHx: 13:34 HD cathater placement; PD dialysis cather placement; db - Immunization history:: Adult Immunizations unknown, Client reports receiving the 2nd dose of the Covid vaccine. - Social history:: Smoking status: Patient reports the use of cigarette tobacco products, smokes one-half pack cigarettes per day. - Family history:: not pertinent. - Hospitalizations: : No recent hospitalization is reported. ROS: 15:01 Constitutional: Negative for fever, chills, and weight loss, Eyes: Negative for injury, rn pain, redness, and discharge, Neck: Negative for injury, pain, and swelling, Cardiovascular: Negative for chest pain, palpitations, and edema, Respiratory: Negative for shortness of breath, cough, wheezing, and pleuritic chest pain, Abdomen/GI: Negative for abdominal pain, diarrhea, and constipation, Back: Negative for injury and pain, MS/Extremity: Negative for injury and deformity, Skin: Negative for injury, rash, and discoloration, Neuro: Negative for headache, numbness, tingling, and seizure. Exam: 15:01 Constitutional: This is a well developed, well nourished patient who is awake, alert, rn and in no acute distress. Head/Face: Normocephalic, atraumatic. Eyes: Periorbital areas with no swelling, redness, or edema. ENT: dry MM Cardiovascular: Regular rate and rhythm. No pulse deficits. Respiratory: No increased work of breathing, no retractions or nasal flaring. Abdomen/GI: Soft, non-tender, no distension Skin: Warm, dry MS/ Extremity: Pulses equal, no cyanosis. Neuro: Awake and alert, GCS 15, oriented to person, place, time, and situation. Cranial nerves II-XII grossly intact. Motor strength 5/5 in all extremities. Sensory grossly intact. 17:22 ECG was reviewed by the Attending Physician. rn Vital Signs: 13:20 BP 181 / 83; Pulse 82; Resp 20; Temp 98.3; Pulse Ox 99% on R/A; Weight 74.84 kg; Height db 5 ft. 6 in. (167.64 cm); Pain 0/10; 14:00 BP 153 / 80; Pulse 72; Resp 20; Pulse Ox 96% ; kb3 15:00 BP 163 / 88; Pulse 80; Resp 18; Pulse Ox 96% ; kb3 16:30 BP 155 / 90; Pulse 79; Resp 18; Pulse Ox 100% on R/A; db 17:00 BP 167 / 89; Pulse 76; Resp 16; Pulse Ox 98% on R/A; db 18:19 BP 176 / 100; Pulse 88; Resp 16; Temp 98.2(O); Pulse Ox 100% ; db 13:20 Body Mass Index 26.63 (74.84 kg, 167.64 cm) db MDM: 13:28 Patient medically screened. rn 17:10 Differential Diagnosis flu, UTI, bacterial infection, pneumonia, cancer, electrolyte rn disorder, dehydration. Data reviewed: vital signs, nurses notes, lab test result(s), EKG, radiologic studies, CT scan, and as a result, I will discharge patient. Counseling: I had a detailed discussion with the patient and/or guardian regarding: the historical points, exam findings, and any diagnostic results supporting the discharge/admit diagnosis, lab results, radiology results, the need for outpatient follow up, to return to the emergency department if symptoms worsen or persist or if there are any questions or concerns that arise at home. Response to treatment: the patient's symptoms have markedly improved after treatment, and as a result, I will discharge patient. Special discussion: I discussed with the patient/guardian in detail that at this point there is no indication for admission to the hospital. It is understood, however, that if the symptoms persist or worsen the patient needs to return immediately for re-evaluation. 01/04 13:29 Order name: CBC with Diff; Complete Time: 14:48 rn 01/04 13:29 Order name: CMP; Complete Time: 14:48 rn 01/04 13:29 Order name: Lipase; Complete Time: 14:48 rn 01/04 13:29 Order name: Urine Microscopic Only; Complete Time: 17:08 01/04 13:29 Order name: COVID-19/FLU A+B/RSV (Document "Date of Onset" if Symptomatic); Complete rn Time: 14:48 01/04 13:29 Order name: BNP; Complete Time: 14:48 01/04 13:29 Order name: XRAY Chest (1 view); Complete Time: 14:48 01/04 13:29 Order name: Troponin High Sensitivity; Complete Time: 14:48 01/04 13:56 Order name: Abdomen ; Complete Time: 14:48 [facility] 01/04 15:49 Order name: Urine Dipstick-Ancillary; Complete Time: 17:08 [facility] 01/04 16:21 Order name: Urine Culture [facility] 01/04 13:29 Order name: IV Saline Lock; Complete Time: 13:36 01/04 13:29 Order name: Labs collected and sent; Complete Time: 14:14 01/04 13:29 Order name: Urine Dipstick-Ancillary (obtain specimen); Complete Time: 16:14 01/04 13:29 Order name: EKG; Complete Time: 13:30 rn 01/04 13:29 Order name: EKG - Nurse/Tech; Complete Time: 14:14 rn EC:22 Rate is 72 beats/min. Rhythm is regular. QRS [place] is Normal. DC interval is normal. QRS rn interval is normal. QT interval is normal. No Q waves. T waves are Normal. No ST changes noted. Clinical impression: NSR w/ Non-specific ST/T Changes. Interpreted by me. Reviewed by me. Administered Medications: 13:35 Drug: Zofran (Ondansetron) 4 mg Route: IVP; Site: right antecubital; db 17:44 Follow up: Response: No adverse reaction db 17:59 Drug: LevaQUIN (levofloxacin) 750 mg Volume: 150 ml; Route: IVPB; Infused Over: 90 db mins; Site: right antecubital; 19:28 Follow up: Response: No adverse reaction; IV Status: Completed infusion; IV Intake: as6 150ml Disposition Summary: 01/04/22 17:11 Discharge Ordered Location: Home rn Problem: new rn Symptoms: have improved rn Condition: Stable rn Diagnosis - UTI/ Urinary tract infection, site not specified rn Followup: rn - With: Private Physician - When: 5 - 6 days - Reason: Recheck today's complaints, Re-evaluation by your physician Discharge Instructions: - Discharge Summary Sheet rn - Urinary Tract Infection, Adult rn Forms: - Medication Reconciliation Form rn - Thank You Letter rn - Antibiotic email marketing intern - Prescription Opioid Use rn Prescriptions: - levofloxacin 500 mg Oral Tablet - take 1 tablet by ORAL route once daily for 10 days; 10 tablet; Refills: 0, rn Product Selection Permitted Signatures: Dispatcher [employer] EDCraig Gonzalez MD MD rn Benton, Danielle, RN RN Carlito Murray RN as6 Corrections: (The following items were deleted from the chart) 13:56 13:33 Abdomen Pelvis W [id number] ordered. EDMS EDMS
[2022-01-04] MEDS ORDERED: levoFLOXacin 750 MG TAB ONE (17:50)
[2022-01-04] MEDS ORDERED: Levofloxacin 750mg IV 750 MG/150 ML BAG IV ONE (17:53)
[2022-01-04 19:58] VITALS: BP 176/100; TEMP 98.2; O2SAT 100
--- NOTE | 2022-01-05 15:59 | EKG ---
Test Date: 2022-01-04 Test Time: 13:34:17 [facility]: [facility]URE[employer] MEASUREMENT RESULTS: Intervals: Rate: 72 CO: 158 QRSD: 94 QT: 464 QTc: 508 [place]: P: 42 CO: 158 QRS: -1 T: 109 INTERPRETIVE STATEMENTS: Normal sinus rhythm ST & T wave abnormality, consider lateral ischemia Prolonged QT Abnormal ECG Compared to ECG 08/23/2021 14:47:38 Sinus bradycardia no longer present Left ventricular hypertrophy no longer present ST (T wave) deviation still present Possible ischemia still present Electronically Signed On 01-05-22 15:57:50 TRACK REPAIR SUPERVISOR by Srikanth Faye
== END 2022-01-04 19:28 | disposition home or self-care (01) ==
LOC: ER 13:19
DX: N39.0 Urinary tract infection, site not specified (principal); E03.9 Hypothyroidism, unspecified; Z85.51 Personal history of malignant neoplasm of bladder; Z85.46 Personal history of malignant neoplasm of prostate; F17.210 Nicotine dependence, cigarettes, uncomplicated; Z20.822 Contact with and (suspected) exposure to COVID-19; Z88.6 Allergy status to analgesic agent; Z88.0 Allergy status to penicillin
CPT/HCPCS: 96365; 93005; 87088; 85025; 87086; 36415; 84484; 83690; 80053; 83880; 0241U; 74176; 71045; 96375; 99284; J2405; 81003; 81015

== ENCOUNTER 2022-04-23 11:54 | Emergency (ER) | payer OTHER ==
--- OUTSIDE RECORDS SUMMARY | 2022-04-23 12:31 | XMS REPORT | Continuity of Care Document ---
:[address] [facility] t Address [address] [place] [address] Care Team Providers Name Role Phone Rae Spann Primary Care Physician PUNEET CALVILLO Attending Clinician Unavailable GWEN HWANG Attending Clinician Unavailable KAYLEE GARCIA Attending Clinician Unavailable Puneet Calvillo MD Attending Clinician Jerry Rodriguez MD Attending Clinician Raegan Augustin CRNA Attending Clinician Arleen Taylor RN Attending Clinician Unavailable Jono Maradiaga MD Attending Clinician PUNEET CALVILLO Attending Clinician Unavailable Gwen Hwang MD Attending Clinician [phone] Doctor Unassigned, [place] Attending Clinician Unavailable Mikayla Castillo RN Attending Clinician Douglas Nevarez MD Attending Clinician Cecilia Lamb MD Attending Clinician CECILIA LAMB Attending Clinician Unavailable Mc Kimbrough MD Attending Clinician Jeffrey JENNINGS, Girish Easley Attending Clinician BEENA HALL Attending Clinician Unavailable Beena Diaz Attending Clinician [phone] Bereket JENNINGS, Danish Attending Clinician Liu JENNINGS, Fito Ford Attending Clinician Shiv JENNINGS, Mayra Haynes Attending Clinician [phone] JAREN BUSBY Attending Clinician Unavailable Delaney FREIRE, Constance Attending Clinician Unavailable PUNEET CALVILLO Admitting Clinician Unavailable GWEN HWANG Admitting Clinician Unavailable KAYLEE GARCIA Admitting Clinician Unavailable DOUGLAS NEVAREZ Admitting Clinician Unavailable Payers Payer Name Policy Type Policy Number Effective Date Expiration Date S evelyn [employer]ETNA MEDICARE HMO [id number] 2021 POS 00:00:00 MEDICARE A B [id number] 2014 00:00:00 [employer]ETNA INDEMNITY [id number] 2015 NON CONTR 00:00:00 AETNA MEDICARE ADV [id number] 2020 00:00:00 MEDICARE PLAN PPO [id number] AETNA MEDICARE PART A [id number] \\T\\ B - MEDICARE Problems Condition Condition Condition Status Onset Resolution Last Treating Co mments Source Name Details Category Date Date Treatment Clinician Date Bladder Bladder Disease [facility] Carotid Carotid Disease Active [facility] stenosis, [...] emia emia 08-30 [facility] 00 Carbon Carotid Carotid Disease Active [facility] artery artery 08-30 [facility] stenosis stenosis 00:00: Medica l 00 Center 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 [facility] scotoma [...] Disease Active 2020-02 [facility] visual visual [address] field field 00:00: Hospita defect defect 00 l Smoker Smoker Disease Active 2020-02 [facility] 00:00: Hospita 00 l Subjective Subjective Disease Active 2020-02 M ethodi visual visual [address] disturbanc disturbanc 00:00: Ho spita e e 00 l 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 00:00: Hospita neuropathy neuropathy 00 l Benign Benign Disease Active [facility] prostatic prostatic 3 st hyperplasi hyperplasi 00:00: Ho spita a with a with 00 l lower lower urinary urinary tract tract symptoms symptoms Cerebrovas Cerebrovas Disease Active M ethodi cular cular [address] disease disease 00:00: Hospita 00 l Hypothyroi Hypothyroi Disease Active M ethodi dism due dism due 05-21 st to defect to defect 00:00: Hosp jay in thyroid in thyroid 00 l hormone hormone synthesis synthesis Impaired Impaired Disease Active [facility] di fasting fasting 3 st glucose glucose 00:00: Hospita 00 l Nephrogeno Nephrogeno Disease Active M ethodi us us 3-27 st proteinuri proteinuri 00:00: Ho spita a [...] Tobacco Tobacco Disease Active [facility] use use 05-21 disorder, disorder, 00:00: Hosp jay continuous continuous 00 l Nephrolith Nephrolith Disease Active M ethodi iasis iasis 05-21 00:00: Hospita 00 l Vitamin D Vitamin D Disease Active Met hodi deficiency deficiency 05-21 , , 00:00: Hospita unspecifie unspecifie 00 l d d Allergic Allergic Disease Active [facility] di rhinitis rhinitis 05-21 due to due to 00:00: Hospita pollen pollen 00 l Hypertensi Hypertensi Disease Active U nivers ve urgency ve urgency 04-28 it y of 00:00: [address] Branch Encounter Encounter Disease Active 2019-02 [facility] 03-29 [place] follow-up follow-up 00:00: of surveillan surveillan 00 Me dicin ce of ce of e prostate prostate cancer cancer Malignant Malignant Disease Active [facility] neoplasm neoplasm 11-24 Colleg e of urinary of urinary 00:00: of bladder bladder 00 Medicin e History of History of Disease Active M [...] out surgical surgical contraindi contraindi cation cation Intraepith Intraepith Disease Active Jennyfer 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 00:00: of 00 Medicin e Encounter Encounter Disease Active [facility] for 09-24 [place] follow-up follow-up 00:00: of surveillan surveillan 00 Me dicin ce of ce of e bladder bladder cancer cancer Prostate Prostate Disease Active [facility] r cancer cancer 09-24 [place] 00:00: of 00 Medicin e Sleep Sleep Disease Active [facility] apnea in apnea in 04 st adult adult 00:00: Hospita 00 l ESRD on ESRD on Disease Active [facility] St peritoneal peritoneal [facility] k[facility] dialysis dialysis Medica l Center ESRD (end ESRD (end Disease Active [facility] stage stage [facility] renal renal Medical disease) disease) Center on on dialysis dialysis Allergies, Adverse Reactions, Alerts Allergy Allergy Status Severity Reaction(s) Onset Inactive Treating Comm ents Source Name Type Date Date Clinician Sulfa Propensi Active Other (See Bayl or Antibiot ty to Comments) 05-24 Colle ge ics adverse 00:00: of reaction 00 Medicin s to e drug PENICILL Allergy Active Other [facility] INS 10-01 00:00: 00 Penicill Drug Active Other (See Oral [facility] ins Intolera Comments) 10-01 penicilli Krissy kes nce 00:00: ns cause Medical 00 hiccups Center Penicill Drug Active Other (See Oral [facility] ins Intolera Comments) 10-01 penicilli Krissy kes nce 00:00: ns cause Medical 00 hiccups Center Penicill Propensi Active Other (See HICCUP [facility] ins ty to Comments) 09-24 College adverse 00:00: of reaction 00 Medicin s to e drug Penicill Propensi Active Only Method i ins ty to [address] adverse 00:00: form Hospita reaction 00 l s to drug Penicill Propensi Active Only Method i ins ty to [address] adverse 00:00: form Hospita reaction 00 l s to drug NO KNOWN Drug Active Univers ALLERGIE Class ity of S [facility] Family History Family Member Diagnosis Comments Start Date Stop Date Source Natural brother Heart attack [facility] Natural father Coronary artery [facility] disease [facility] Natural father Heart failure [facility] Natural mother Coronary artery [facility] disease [facility] Natural sister Coron[facility] artery [facility] S t [facility] Social History Social Habit Start Date Stop Date Quantity Comments Source History of tobacco Cigarette Smoker [facility] use of Medicine History SDOH [facility] Alcohol Frequency Medical Center History SDOH [facility] Alcohol Std Drinks Medica l Center History SDOH [facility] Alcohol Binge Medical [facility] History SDOH [facility] Transport Non-Med Medical Center Alcohol intake 2022-04-04 2022-04-04 [facility]00 of alcohol Medical Center (finding) Exposure to 2022-03-23 2022-04-[address] [facility] SARS-CoV-2 (event) 00:00:00 12:18:00 Medica l Center History [facility] 2022-04-02 2022-04-[address] [facility] Transport Med 00:00:00 00:00:[address] History [facility] 2022-04-02 2022-04-[address] [facility] Housing Unable to 00:00:00 00:00:00 Medical Center Pay History [facility] 2022-04-02 2022-04-[address] [facility] Housing Places 00:00:00 00:00:00 Medical Ce nter Lived History [facility] 2022-04-02 2022-04-[address] [facility] Housing Homeless 00:00:00 00:00:00 Medical Center Last Year Cigarettes smoked 2021-08-30 2021-08-[address] [facility] current (pack per 00:00:00 00:00:00 Medical Center day) - Reported Cigarette 2021-08-30 2021-08-[address] [facility] pack-years 00:00:00 00:00:00 Medical Center Tobacco use and 2021-08-30 2021-08-[address] [facility] exposure 00:00:00 00:00:00 Medical Center History [facility] 2017-10-01 2017-10-01 "very rare" [facility] Alcohol Comment 00:00:00 00:00:00 Medical C enter Sex Assigned At [address] [facility] kes 00:00:00 00:00:00 Medical Center Smoking Status Start Date Stop Date Source Current every day smoker 2021-08-30 00:00:[address] [facility] [address] kes [facility] Never smoked tobacco [facility] Medications Ordered Filled Start Stop Current Ordering Indication Dosage Frequency Signature Comments Components Source Medication Medication Date Date Medication? Clinician (SIG) Name Name citalopram Yes 40mg QD Take [address] (CELEXA) 40 2-08 by mouth Luke s MG tablet 18:22: nightly . Med ical 58 Center atorvastati 0 Yes 40mg Q24H Take [address] n (LIPITOR) 2-08 by mouth Luke s 40 MG 18:22: daily. Medical tablet 58 Center carvediloL 0 Yes 6.25mg Q.5D Take 6.[address] (COREG) 2-08 mg by [facility] 6.25 MG 18:22: mouth 2 Medical tablet 58 (two) Center times daily. levothyroxi 0 Yes 250ug Take [address] ne 2-08 mcg by [facility] (SYNTHROID, 18:22: mouth Medic al LEVOTHROID) 58 Every Center 200 MCG morning on tablet an empty stomach. tamsulosin 0 Yes .4mg QD Take 0.[address] (FLOMAX) 2-08 mg by [facility] 0.4 mg Cap 18:22: mouth Medica l 24 hr 58 daily. Center capsule aspirin 81 0 Yes 81mg QD Take [address] MG EC 2-08 by mouth [facility] tablet 18:22: daily. Medical 58 Center acetaminoph 0 2022- Yes 650mg Take [address] en 2-08 03-10 tablets [facility] (TYLENOL) 00:00: 23:59 (650 mg Medi ameena 325 MG 00 :00 total) by Center tablet mouth every 6 (six) hours as needed for Pain for up to 30 days. oxybutynin 0 2022- No 5mg Take [address] (DITROPAN) 2-08 02-11 tablet (5 Damian es 5 MG tablet 00:00: 23:59 mg total) Medical 00 :00 by mouth 3 Center (three) times daily as needed (for bladder spasms or bladder pain) for up to 3 days. Aspirin 81 0 Yes 81mg Take 81 mg B aylor MG tablet 1-18 by mouth. Colle ge 15:42: of 50 Medicin e carvedilol Yes 6.25mg 6.25 mg. B aylor (COREG) 25 1-18 College MG tablet 15:42: of 50 Medicin e clopidogrel 0 Yes 75mg Take 75 mg [facility] (PLAVIX) 75 1-18 by mouth Kris ege MG Tablet 15:42: daily. of 50 Medicin e Calcium 2023-0 Yes Take by [facility] Acetate, 1-18 mouth. [place] Phos 15:42: of [place], 667 50 Medicin MG CAPS e citalopram Yes 40mg QD Take [address] (CELEXA) 40 7-21 by mouth Luke s MG tablet 12:55: nightly . Med ical 44 Carbon atorvastati Yes 40mg Q24H Take 40 mg [...] mouth Medica l 24 hr 44 daily. Carbon capsule aspirin 81 Yes 81mg QD Take [address] MG EC 7-21 by mouth [facility] tablet 12:55: daily. Medical 44 Carbon sertraline 2021- No 100mg QD Take [address] (ZOLOFT) 7-06 07-06 mg by [facility] 100 MG 09:50: 00:00 mouth Medical tablet 34 :00 nightly . Carbon sertraline 2021- No 100mg QD Take [address] (ZOLOFT) 7-06 07-06 mg by [facility] 100 MG 09:50: 00:00 mouth Medical tablet 34 :00 nightly . Carbon levothyroxi 2021- No 175ug QD Take [address] ne 7- 07-06 mcg by [facility]ukes (SYNTHROID, 09:41: 00:00 mouth Medi ameena LEVOTHROID) 15 :[address] 175 MCG tablet levothyroxi 2021- No 175ug QD Take [address] ne 7- 07-06 mcg by [facility] (SYNTHROID, 09:41: 00:00 mouth Medi ameena LEVOTHROID) 15 :[address] 175 MCG tablet cholecalcif 2021-0 2021- No QD Take by [facility] perri, 08-30 mouth [facility] vitamin D3, 09:41: 00:00 nightly . Medical 2,000 unit 05 :00 Center Cap cholecalcif 2021-0 2- No QD Take by [facility] perri, 08-30 mouth [facility] vitamin D3, 09:41: 00:00 nightly . Medical 2,000 unit 05 :00 Center Cap atenolol 2021-0 202- No 50mg QD Take [address] (TENORMIN) 08-30 by mouth Luke s 50 MG 09:40: 00:00 nightly . Medica l tablet 50 :00 Center atenolol 2021-0 202- No 50mg QD Take [address] (TENORMIN) 08-30 by mouth Luke s 50 MG 09:40: 00:00 nightly . Medica l tablet 50 :00 Center clopidogreL 0 Yes 75mg QD Take [address] (PLAVIX) 75 7-01 by mouth Luke s mg tablet 00:00: daily. Medica l 00 Center clopidogreL 2021-0 Yes 75mg QD Take [address] (PLAVIX) 75 7-01 by mouth Luke s mg tablet 00:00: daily. Medica l 00 Center ergocalcife 2021-0 Yes [id number] Q7D Take [facility] rol 5-24 50,000 [facility] (ERGOCALCIF 00:00: Units by Pr dical PERRI) 1,250 00 mouth once Ce nter mcg (50,000 a week . unit) capsule ergocalcife 2021-0 Yes [id number] Q7D Take [facility] ro[facility] 5-24 50,000 [facility] (ERGOCALCIF 00:00: Units by Pr dical PERRI) 1,250 00 mouth once Ce nter mcg (50,000 a week . unit) capsule pyrazinamid 2021-0 2022- No 1500mg Take 3 M ethodi e 500 mg 02-27 02-[address] tablet 00:00: 05:59 (1,500 mg Hospi ta 00 :00 total) by l mouth Every Saturday, Saturday, and Saturday for 30 days. pyridoxine, No 50mg QD Take 1 Met hodi vitamin B6, 02-25 tablet (50 s t (vitamin 00:00: 04:59 mg total) Hos tyree B-6) 50 MG 00 :00 by mouth l tablet daily for 180 days. pyridoxine, No 50mg QD Take 1 Met hodi vitamin B6, 02-25 tablet (50 s t (vitamin 00:00: 04:59 mg total) Hos tyree B-6) 50 MG 00 :00 by mouth l tablet daily for 180 days. riFAMpin No 600mg QD Take 2 Metho di (RIFADIN) 02-[address] 300 MG 00:00: 05:59 (600 mg Hospita capsule 00 :00 total) by l mouth daily for 30 days. moxifloxaci No 400mg QD Take 1 Me thodi n (AVELOX) 02-[address] 400 mg 00:00: 05:59 (400 mg Hospita tablet 00 :00 total) by l mouth daily for 30 days. isoniazid No 300mg QD Take 1 Meth westley (NYDRAZID) 02-[address] 300 MG 00:00: 05:59 (300 mg Hospita tablet 00 :00 total) by l mouth daily for 30 days. vit B comp 2020-02 Yes 1{tbl} QD Take 1 Met hodi no.3-folic- 2-[address] C-biotin 09:57: mouth Hospita (NEPHRO-VIT 10 daily. l E RX) 1-60-300 mg-mg-mcg tablet vit B comp 2020-02 Yes 1{tbl} QD [...] topical Hospita ointment 49 ointment l sertraline 2020-02 Yes 100mg Take 100 Me thodi (ZOLOFT) [...] cream 49 0.5 % l topical cream aspirin 2020-02 Yes 81mg QD Take 81 [...] topical Hospita ointment 49 ointment l sertraline 2020-02 Yes 100mg Take 100 Me thodi (ZOLOFT) [...] 49 0.5 % l topical cream citalopram 2020-02 No 20mg QD Take 20 mg [facility] (CeleXA) 20 2-30 12-[address] MG tablet 09:55: 00:00 daily. Hospi ta 37 :00 l calcium 2020-02 Yes [facility] acetate,nanda 2-13 st sphat bind, 00:00: Hospit a (PHOSLO) 00 l 667 mg capsule calcium 2020-02 Yes 1{tbl} QD Take [address] acetate,nanda 2-13 tablet by Damian es sphat bind, 00:00: mouth Medic al (PHOSLO) 00 daily . Center 667 mg capsule calcium 2020-02 Yes Methodi acetate,nanda 2-13 st sphat bind, 00:00: Hospit a (PHOSLO) 00 l 667 mg capsule calcium 2020-02 Yes 1{tbl} QD Take [address] acetate,nanda 2-13 tablet by Damian es sphat bind, 00:00: mouth Medic al (PHOSLO) 00 daily . Carbon 667 mg capsule citalopram 2020-02 Yes [facility] (CeleXA) 40 2-10 st MG tablet 00:00: Hospita 00 l citalopram 2020-02 Yes [facility] (CeleXA) 40 2-10 st MG tablet 00:00: Hospita 00 l ondansetron 2020-02 Yes Method i (ZOFRAN) 4 0-18 st MG tablet 00:00: Hospita 00 l ondansetron 2020-02 Yes Method i (ZOFRAN) 4 0-18 st MG tablet 00:00: Hospita 00 l levothyroxi 0 Yes [facility] ne 6-21 College (SYNTHROID) 00:00: of 200 MCG 00 Medicin tablet e metoclopram Yes [facility] javed 6-02 College (REGLAN) 5 00:00: of MG tablet 00 Medicin e metoclopram Yes metoclopra Methodi javed 6-[address] (REGLAN) 5 00:00: tablet Hospi ta MG tablet 00 l metoclopram Yes metoclopra Methodi javed 6-[address] (REGLAN) 5 00:00: tablet Hospi ta MG tablet 00 l Tamsulosin 0 Yes [facility] HCl 0.4 MG 5-10 College CAPS 00:00: of 00 Medicin e citalopram Yes [facility] (CELEXA) 40 5-05 College MG tablet 00:00: of 00 Medicin e amlodipine 0 Yes [facility] (NORVASC) 4-05 College 10 MG 00:00: of tablet 00 Medicin e atorvastati Yes atorvastat [facility] n (LIPITOR) 3-17 in 40 mg Kris ege 40 MG 00:00: tablet of tablet 00 Take 1 Medicin tablet e every day by oral route. amLODIPine 2020- No [id number] 10mg Take 1 Univers 10 mg 3-05 04-05 tablet by ity of tablet 00:00: 04:59 mouth [place] 00 :00 daily for Medical 30 days. Branch aspirin 81 0 Yes 81mg Take 81 mg U nivers mg EC 3-04 by mouth. ity of tablet 23:06: [address] Cholecalcif Yes Take by Uni vers perri, 3-04 mouth. ity of Vitamin D3, 23:06: [place] 50 mcg 19 Medical (2,000 Branch unit) capsule citalopram Yes 40mg Take 40 mg U nivers 40 mg 3-04 by mouth. ity of tablet 23:06: [address] levothyroxi Yes levothyrox Univers ne 175 mcg 3-04 ine 175 ity of tablet 23:06: mcg tablet Take 1 Medical tablet Branch every day by oral route. aspirin 81 Yes 81mg Take 81 mg U nivers mg EC 3-04 by mouth. ity of tablet 17:06: [address] Cholecalcif Yes Take by Uni vers perri, 3-04 mouth. ity of Vitamin D3, 17:06: [place] 50 mcg 19 Medical (2,000 Branch unit) capsule citalopram Yes 40mg Take 40 mg U nivers 40 mg 3-04 by mouth. ity of tablet 17:06: [address] levothyroxi Yes levothyrox Univers ne 175 mcg -04 ine 175 ity of tablet 17:06: mcg tablet Take 1 Medical tablet Branch every day by oral route. carvediloL 2020- No [id number] 3.125mg Take 1 Univers 3.125 mg 3-04 04-04 tablet by ity o f tablet 00:00: 04:59 mouth 2 [place] 00 :00 (two) Medical times [place] daily with meals for 30 days. traMADoL 0 Yes 100mg Take 100 Meth [facility] (ULTRAM) 50 8-[address] mg tablet 00:00: mouth. Hospit a 00 l traMADoL Yes 100mg Take 100 [facility] (ULTRAM) 50 8-[address] mg tablet 00:00: mouth. Hospit a 00 l traMADol No 100mg Take 2 [facility] (ULTRAM) 50 8-08 07-06 tablets Luke s mg tablet 00:00: 00:00 (100 mg Medi ameena 00 :00 total) by Center mouth every 6 (six) hours as needed for Pain. Max Daily Amount: 400 mg traMADol No 100mg Take 2 [facility] (ULTRAM) 50 8-08 07-06 tablets Luke s mg tablet 00:00: 00:00 (100 mg Medi ameena 00 :00 total) by Center mouth every 6 (six) hours as needed for Pain. Max Daily Amount: 400 mg citalopram Yes 20mg QD Take 20 mg M ethodi (CeleXA) [address] MG tablet 17:01: daily. Hospit a 51 l aspirin Yes 81mg QD Take 81 mg [facility] (ECOTRIN) [address] 81 MG 17:01: daily. Hospita enteric 51 l coated tablet Vital Signs Vital Name Observation Time Observation Value Comments Source WEIGHT 2022-04-03 22:00:00 74.4 kg WEIGHT 2022-04-02 18:26:00 74.4 kg HEIGHT 2022-04-02 12:00:00 167.6 cm WEIGHT 2022-04-02 12:00:00 74.39 kg WEIGHT 2022-04-03 22:00:00 74.4 kg WEIGHT 2022-04-02 18:26:00 74.4 kg HEIGHT 2022-04-02 12:00:00 167.6 cm WEIGHT 2022-04-02 12:00:00 74.39 kg WEIGHT 2022-04-03 22:00:00 74.4 kg WEIGHT 2022-04-02 18:26:00 74.4 kg HEIGHT 2022-04-02 12:00:00 167.6 cm WEIGHT 2022-04-02 12:00:00 74.39 kg Systolic blood 2022-03-14 21:41:00 147 mm[Hg] [facility] Diastolic blood 2022-03-14 21:41:00 84 mm[Hg] [facility] Medicine Heart rate 2022-03-14 21:41:00 91 /min [facility] HEIGHT 2021-09-14 12:42:00 167.6 cm WEIGHT 2021-09-14 [...] 167.6 cm WEIGHT 2021-08-30 09:14:00 74.844 kg Heart rate 2022-04-04 16:08:59 79 /min [facility] Respiratory rate 2022-04-04 16:08:59 20 /min [facility] Oxygen saturation in 2022-04-04 16:08:59 95 /min [facility] Arterial blood by Medical Ce nter Pulse oximetry Systolic blood 2022-04-04 16:08:00 165 mm[Hg] [facility] Diastolic blood 2022-04-04 16:08:00 88 mm[Hg] [facility] Body temperature 2022-04-04 16:07:23 36.44 Nancy [facility] Body weight 2022-04-03 22:00:00 74.4 kg [facility] BMI 2022-04-03 22:00:00 26.47 kg/m2 [facility] Body height 2022-04-02 12:00:00 167.6 cm [facility] Systolic blood 2021-09-14 12:42:00 112 mm[Hg] [facility] Diastolic blood 2021-09-14 12:42:00 59 mm[Hg] [facility] Heart rate 2021-09-14 12:42:00 85 /min [facility] Body temperature 2021-09-14 12:42:00 36.28 Nancy [facility] Respiratory rate 2021-09-14 12:42:00 15 /min [facility] Body height 2021-09-14 12:42:00 167.6 cm [facility] Body weight 2021-09-14 12:42:00 72.122 kg [facility] BMI 2021-09-14 12:42:00 25.66 kg/m2 [facility] Oxygen saturation in 2021-09-14 12:42:00 98 /min [facility] Arterial blood by Medical Ce nter Pulse oximetry Systolic blood 2021-02-23 15:52:00 145 mm[Hg] [facility] pressure Diastolic blood 2021-02-23 15:52:00 80 mm[Hg] [facility] pressure Heart rate 2021-02-23 15:52:00 72 /[facility] height 2021-02-23 15:52:00 167[facility]6 [facility] weight 2021-02-23 15:52:00 70.943 kg [facility] BMI 2021-02-23 15:52:00 25.24 kg/m2 [facility] Procedures Procedure Date / Time Performing Source Performed Clinician CBC W/PLT COUNT & AUTO 2022-04-04 04:54:00 Dewey Bond [facility] BASIC METABOLIC PANEL 2022-04-04 04:54:00 Varun [facility] MAGNESIUM 2022-04-04 04:54:[facility] 2022-04-04 04:54:00 [facility] W/PLT COUNT & AUTO 2022-04-04 04:54[facility] 2022-04-03 14:15:00 Puneet Calvillo [facility] CYSTOSCOPY, USING BLUE LIGHT 2022-04-03 12:49:00 Arely Calvillo [facility] AND INTRAVESICULAR Medical Cente r HEXAMINOLEVULINATE CYSTOSCOPY,TRANS URETHRAL 2022-04-03 12:49:00 Puneet Calvillo [facility] BLADDER RESECTION, BIPOLAR Medic al Center SALINE CBC W/PLT COUNT & AUTO 2022-04-03 04:39:00 Varun [facility] BASIC METABOLIC PANEL 2022-04-03 04:39:00 [facility] 2022-04-03 04:39:00 [facility] 2022-04-03 04:39:00 [facility] LIPID PANEL 2022-04-03 04:39:00 Dani Ordonez [facility] CBC W/PLT COUNT & AUTO 2022-04-03 04:39:00 Cecil Dorantes [facility] URINALYSIS W/ REFLEX URINE 2022-04-02 23:05:00 Cecil Dorantes [facility] CULTURE [facility] URINE CULTURE 2022-04-02 23:05:00 Cecil Dorantes [facility] 2D ECHO W/ DOPPLER 2022-04-02 16:35:33 John Sargent [facility] (CW/PW/COLOR) [facility] CBC W/PLT COUNT & AUTO 2022-04-02 15:53:[address] [facility] BASIC METABOLIC PANEL 2022-04-02 15:53:00 Dani Ordonez VMeaghan [facility] MAGNESIUM 2022-04-02 15:53:00 [facility] PHOS[facility]US 2022-04-02 15:53:00 [place] [facility] PT/APTT 2022-04-02 15:53:00 Tomas [place] [facility] CBC W/PLT COUNT & AUTO 2022-04-02 15:53:[address] [facility] 2D ECHO W/ DOPPLER 2022-04-02 15:27:55 Bond [facility] (CW/PW/COLOR) [facility] ECG 12-LEAD 2022-04-02 11:17:21 Varun Palomo [facility] SARS-COV2/RT-PCR ([facility] & REF 2022-04-02 07:31:00 Arely Calvillo [facility] POCT URINALYSIS DIPSTICK 2022-03-14 22:08:00 Puneet Calvillo [facility] PROTIME-INR 2022-03-14 17:17:00 [facility] APTT 2022-03-14 17:17:00 [facility] CBC W/AUTO DIFF WITH 2022-03-14 17:17:00 [facility] PLATELETS [facility] COMPREHENSIVE METABOLIC 2022-03-14 17:17:00 [facility] URINE CULTURE,COMPREHENSIVE 2022-03-14 16:58:29 [facility] PROTIME-INR 2022-03-14 16:58:29 [facility] APTT 2022-03-14 16:58:29 [facility] CBC W/AUTO DIFF WITH 2022-03-14 16:58:29 [facility] PLATELETS [facility] COMPREHENSIVE METABOLIC 2022-03-14 16:58:29 [facility] POCT URINALYSIS DIPSTICK 2022-03-14 16:08:[address] [facility] CAROTID DOPPLER BILATERAL 2021-12-14 11:00:00 Unknown, Hl7 Do[facility] r [facility] CULTURE, URINE/SENSITIVITY 2021-10-18 11:35:55 B [facility] ALL Medicine CYSTOSCOPY 2021-10-18 10:30:00 [facility] BLADDER WASHINGS CYTOLOGY X2 2021-10-18 10:22:59 [facility] POCT URINALYSIS DIPSTICK 2021-10-18 00:00:[address] [facility] EXTERNAL PROVIDER RECORDS 2021-09-05 05:01:00 Doctor Unassigned, [facility] MAGNESIUM 2021-09-01 05:49:00 Cecilia Lamb [facility] CBC W/PLT COUNT & AUTO 2021-09-01 05:49:00 Cecilia Lamb [facility] BASIC METABOLIC PANEL 2021-09-01 05:49:00 Cecilia Lamb [facility] CBC W/PLT COUNT & AUTO 2021-09-01 05:49:00 Cecilia Lamb [facility] SODIUM NA-STAT LAB 2021-08-31 14:58:00 [facility] POTASSIUM-STAT LAB 2021-08-31 14:58:00 [facility] CALCIUM, IONIZED 2021-08-31 14:58:00 [facility] GLUCOSE-STAT LAB 2021-08-31 14:58:00 [facility] HGB/HCT (H&H) - STAT LAB 2021-08-31 14:58:00 [facility] TISSUE EXAM 2021-08-31 12:29:00 Eri [facility] ABORH, MANUAL 2021-08-31 11:56:00 Glenny Fernández [facility] ENDARTERECTOMY, CAROTID 2021-08-31 11:02:00 Eri [facility] CBC W/PLT COUNT & AUTO 2021-08-31 05:38:00 Cecilia Lamb [facility] BASIC METABOLIC PANEL 2021-08-31 05:38:00 Isaura, Cecilia [facility] CBC W/PLT COUNT & AUTO 2021-08-31 05:38:00 Isaura, Cecilia Johnston C [facility] MAGNESIUM 2021-08-31 05:38:00 [facility] 2021-08-31 05:38:00 Isaura, [facility] TSH/FREE T4 IF INDICATED 2021-08-31 05:38:00 Isaura, [facility] T4, FREE 2021-08-31 05:38:00 Isaura, [facility] CAROTID DOPPLER BILATERAL 2021-08-30 14:31:00 Beena Hall [facility] ECG 12-LEAD 2021-08-30 10:29:37 Eri, [facility] ECG 12-LEAD 2021-08-30 10:29:37 Unknown, Hl7 [facility] ECG 12-LEAD 2021-08-30 10:29:37 Unknown, Hl7 [facility] TYPE AND SCREEN, AUTOMATED 2021-08-30 10:28:00 Beena Hall [facility] CBC W/PLT COUNT & AUTO 2021-08-30 10:28:00 Beena Hall [facility] BASIC METABOLIC PANEL 2021-08-30 10:28:00 Beena Hall [facility] CBC W/PLT COUNT & AUTO 2021-08-30 10:28:00 Beena Hall [facility] PROTHROMBIN TIME/INR 2021-08-30 10:28:00 Beena Hall [facility] SARS-COV2/RT-PCR (HS & REF 2021-08-30 10:17:00 Eri [facility] LABS) [facility] CHEST WO CONTRAST 2021-03-06 15:49:00 [facility]ST 2 VW 2021-02-23 17:30:00 [facility] COMPREHENSIVE METABOLIC 2021-02-23 16:51:00 [place] [facility] PANEL CBC WITH PLATELET AND 2021-02-23 16:51:00 [facility] DIFFERENTIAL OCT, OPTIC NERVE - OU - BOTH 2021-02-13 21:49:19 Richard Galvan [facility] EYES [facility] AUTOMATED VISUAL FIELD, 2021-02-13 21:49:15 Mayra Galvan Met [facility] EXTENDED - OS - LEFT EYE [facility] AUTOMATED VISUAL FIELD, 2021-02-13 21:49:09 Mayra Galvan Met [facility] EXTENDED - OD - RIGHT EYE [place] BLADDER WASHINGS CYTOLOGY X2 2021-02-01 11:48:21 [facility] CYSTOSCOPY 2021-02-01 10:47:37 [facility] POCT URINALYSIS DIPSTICK 2021-02-01 00:00:[address] [facility] Plan of Care Planned Activity Planned Date Details Comments Source Future Scheduled 2022-04-23 65+ PNEUMOCOCCAL [facility] Test 12:16:33 VACCINE (1 - PCV) Hospital [code = 65+ PNEUMOCOCCAL VACCINE (1 - PCV)] Future Scheduled 2022-04-23 Hepatitis C [facility] 12:16:33 screening Hospital (procedure) [code = 398563233] Future Scheduled 2022-04-23 SHINGLES VACCINES (1 [facility] Test 12:16:33 of 2) [code = Hospital SHINGLES VACCINES (1 of 2)] Future Scheduled 2022-04-23 COLONOSCOPY [facility] 12:16:33 SCREENING [code = Hospital COLONOSCOPY SCREENING] Future Scheduled 2022-04-23 COVID-19 VACCINE (3 [facility] Test 12:16:33 - Booster for Hospital Moderna series) [code = COVID-19 VACCINE (3 - Booster for Moderna series)] Future Scheduled 2022-04-23 INFLUENZA VACCINE Method ist Test 12:16:33 [code = INFLUENZA Hospital VACCINE] Future Scheduled 2022-03-28 PHI PANEL (URO DEPT) Expected: [facility] Test 00:00:00 [code = 50393] 03/28/2022 of Medicine (Approximate), Expires: 04/13/2022 Future Scheduled 2022-03-14 URINE Ordered: [facility] Test 16:58:29 CULTURE,COMPREHENSIV 03/14/2022 of Medi cine E [code = NOCPT] Future Scheduled 2022-03-14 PROTIME-INR [code = Ordered: [employer] Test 16:58:29 5902-2] 03/14/2022 of Medicine Future Scheduled 2022-03-14 APTT [code = Ordered: [facility] Test 16:58:29 87880-9] 03/14/2022 of Medicine Future Scheduled 2022-03-14 CBC W/AUTO DIFF WITH Ordered: [employer] Test 16:58:29 PLATELETS [code = 03/14/2022 of Medicin e 24079-7] Future Scheduled 2022-03-14 COMPREHENSIVE Ordered: [facility] Test 16:58:29 METABOLIC PANEL 03/14/2022 of Medicine [code = 07063-0] Future Scheduled 2022-03-14 MRI PROSTATE W/WO 1 Occurrences [employer] Test 16:58:29 CONTRAST [code = starting of Medicine 32448] 03/14/2022 until 03/14/2023 Future Scheduled 2022-03-14 Screening for [facility] Test 16:55:33 malignant neoplasm of Medici ne of colon (procedure) [code = 380746462] Future Scheduled 2022-03-14 COVID-19 Vaccine [facility] Test 16:55:33 (#1) [code = of Medicine COVID-19 Vaccine (#1)] Future Scheduled 2022-03-14 Pneumococcal 65+ (1 [employer] Test 16:55:33 - PCV) [code = of Medicine Pneumococcal 65+ (1 - PCV)] Future Scheduled 2022-03-14 TETANUS SHOT (ADULT) [employer] Test 16:55:33 [code = TETANUS SHOT of Medi cine (ADULT)] Future Scheduled 2022-03-14 BMI Follow Up Plan [employer] Test 16:55:33 [code = BMI Follow of Medici ne Up Plan] Future Scheduled 2022-03-14 Hepatitis C [facility] Test 16:55:33 screening of Medicine (procedure) [code = 329278399] Future Scheduled 2022-03-14 ZOSTER VACCINE (1 of [facility] Test 16:55:33 2) [code = ZOSTER of Medicin e VACCINE (1 of 2)] Future Scheduled 2022-03-14 Abdominal aortic [facility] Test 16:55:33 aneurysm screening of Medici ne (procedure) [code = 156007263] Future Scheduled 2022-03-14 Medicare Awv [facility] Kris [facility]ge Test 16:55:33 (Initial) [code = of Medicin e Medicare Awv (Initial)] Future Scheduled 2022-03-14 Screening for [facility] Test 16:55:33 malignant neoplasm of Medici ne of lung (procedure) [code = 188681744] Future Scheduled 2022-03-14 Fall Screen [code = [facility] Test 16:55:33 Fall Screen] of Medicine Future Scheduled 2022-02-[address] [facility] Test 00:00:00 WELLNESS (YEAR 2 or Medical Center FIRST YEAR if no IPPE) [code = MEDICARE ANNUAL WELLNESS (YEAR 2 or FIRST YEAR if no IPPE)] Future Scheduled 2022-02-[address] [facility] Test 00:00:00 (12+) [code = Medical Center DEPRESSION SCREENING (12+)] Future Scheduled 2022-02-25 FALLS RISK SCREENING [facility] Test 00:00:00 [code = FALLS RISK Medical C enter SCREENING] Future Scheduled 2021-12-28 HEPATITIS B VACCINES [facility] Test 01:38:25 (1 of 3 - 3-dose Hospital series) [code = HEPATITIS B VACCINES (1 of 3 - 3-dose series)] Future Scheduled 2021-12-28 65+ PNEUMOCOCCAL [facility] Test 01:38:25 VACCINE (1 - PCV) Hospital [code = 65+ PNEUMOCOCCAL VACCINE (1 - PCV)] Future Scheduled 2021-12-28 Hepatitis C [facility] 01:38:25 screening Hospital (procedure) [code = 920514974] Future Scheduled 2021-12-28 SHINGLES VACCINES (1 [facility] Test 01:38:25 of 2) [code = Hospital SHINGLES VACCINES (1 of 2)] Future Scheduled 2021-12-28 COLONOSCOPY [facility] 01:38:25 SCREENING [code = Hospital COLONOSCOPY SCREENING] Future Scheduled 2021-12-28 COVID-19 VACCINE (3 [facility] Test 01:38:25 - Booster for Hospital Moderna series) [code = COVID-19 VACCINE (3 - Booster for Moderna series)] Future Scheduled 2021-12-28 INFLUENZA VACCINE Method ist Test 01:38:25 [code = INFLUENZA Hospital VACCINE] Future Scheduled 2021-10-[address] [facility] Test 00:00:00 (#1) [code = Medical Center INFLUENZA VACCINE (#1)] Future Scheduled 2021-10-[address] [facility] Test 00:00:00 (#1) [code = [facility] INFLUENZA VACCINE (#1)] Future Scheduled 2020-12-09 COVID-19 VACCINE ([address] [facility] Test 00:00:00 - Moderna risk Medical Cente r series) [code = COVID-19 VACCINE (3 - Moderna risk series)] Future Scheduled [address] [facility] Test 00:00:00 aneurysm screening Medical C enter (procedure) [code = 844660592] Future Scheduled [address] [facility] Test 00:00:00 aneurysm screening Medical C enter (procedure) [code = 701898821] Future Scheduled 1999-12-[address] [facility] Test 00:00:00 malignant neoplasm Medical C enter of lung (procedure) [code = 235236994] Future Scheduled 1999-12-22 SHINGLES VACCINES ([address] [facility] Test 00:00:00 of 2) [code = [facility] SHINGLES VACCINES (1 of 2)] Future Scheduled 1999-12-[address] [facility] Test 00:00:00 malignant neoplasm Medical C enter of lung (procedure) [code = 748851165] Future Scheduled 1999-12-22 SHINGLES VACCINES ([address] [facility] Test 00:00:00 of 2) [code = Medical Center SHINGLES VACCINES (1 of 2)] Future Scheduled 1968 DTAP/TDAP/TD [facility] Test 00:[facility] VACCINES (1 - Tdap) [facility] [code = DTAP/TDAP/TD VACCINES (1 - Tdap)] Future Scheduled 1968 DTAP/TDAP/TD [facility] Test 00:00:00 VACCINES (1 - Tdap) [facility] [code = DTAP/TDAP/TD VACCINES (1 - Tdap)] Future Scheduled 1967-12-[address] [facility] Test 00:00:00 SCREENING [code = Medical Ce nter HEPATITIS C SCREENING] Future Scheduled 1967-12-[address] [facility] Test 00:00:00 SCREENING [code = Medical Ce nter HEPATITIS C SCREENING] Future Scheduled [address] [facility] Test 00:00:00 Counseling and Medical Cente r Screening (12+) [code = Tobacco Cessation Counseling and Screening (12+)] Future Scheduled 1955-12-22 PNEUMOCOCCAL 65+ YRS [facility] Test 00:00:00 (1 - PCV) [code = Medical Ce nter PNEUMOCOCCAL 65+ YRS (1 - PCV)] Future Scheduled 1955-12-22 PNEUMOCOCCAL 65+ YRS [facility] Test 00:00:00 (1 - PCV) [code = Medical Ce nter PNEUMOCOCCAL 65+ YRS (1 - PCV)] Future Scheduled 1950-06-21 COVID-[address] [facility] Test 00:00:00 (#1) [code = Medical Center COVID-19 VACCINE (#1)] Future Scheduled [address] [facility] Test 00:00:00 (combo) [code = CT Medical C enter Colonography (combo)] Future Scheduled [address] [facility] Test 00:00:00 malignant neoplasm Medical C enter of colon (procedure) [code = 261037459] Future Scheduled [address] [facility] Test 00:00:00 malignant neoplasm Medical C enter of colon (procedure) [code = 022095862] Future Scheduled [address] [facility] Test 00:00:00 malignant neoplasm Medical C enter of colon (procedure) [code = 786329520] Future Scheduled [address] [facility] Test 00:00:00 malignant neoplasm Medical C enter of colon (procedure) [code = 141416958] Future Scheduled 1949 Sigmoidoscopy [code [facility] Test 00:00:00 = Sigmoidoscopy] Medical [facility] Future Scheduled [address] [facility] Test 00:00:00 (combo) [code = CT Medical C enter Colonography (combo)] Future Scheduled [address] [facility] Test 00:00:00 malignant neoplasm Medical C enter of colon (procedure) [code = 394406883] Future Scheduled [address] [facility] Test 00:00:00 malignant neoplasm Medical C enter of colon (procedure) [code = 621690141] Future Scheduled [address] [facility] Test 00:00:00 malignant neoplasm Medical C enter of colon (procedure) [code = 761609562] Future Scheduled [address] [facility] Test 00:00:00 malignant neoplasm Medical C enter of colon (procedure) [code = 210952333] Future Scheduled 1949 Sigmoidoscopy [code [facility] Test 00:00:00 = Sigmoidoscopy] Medical [facility] Future Scheduled SHINGLES VACCINES Method ist Test (#1) [code = Hospital SHINGLES VACCINES (#1)] Future Scheduled 65+ PNEUMOCOCCAL [facility]i [facility] Test VACCINE (1 of - Hospital PPSV23) [code = 65+ PNEUMOCOCCAL VACCINE (1 of - PPSV23)] Future Scheduled INFLUENZA VACCINE Method ist Test [code = INFLUENZA Hospital VACCINE] Future Scheduled COVID-19 VACCINE (1) [facility] Test [code = COVID-19 Hospital VACCINE (1)] Future Scheduled COLONOSCOPY [facility] SCREENING [code = Hospital COLONOSCOPY SCREENING] Encounters Start End Encounter Admission Attending Care Care Encounter Source Date/Time Date/Time Type Type Clinicians Facility Department ID 2022-03-27 Outpatient [facility] Surgery [id number] [facility] 11:08:11 [facility] 2022-03-16 [facility] Surgery [id number] SLE 15:40:33 [facility] 2021-08-[address] [facility] Surgery [id number] SLE 10:17:58 GWEN 2020-04-27 Inpatient X JOSE DCTRACI [facility] [id number] Univers 12:26:00 KAYLEE bryan [facility] 2022-04-02 2022-04-04 Hospital Scar [facility] [id number] 08:18:00 18:22:00 Encounter [facility] 2022-04-02 2022-04-04 Outpatient UR YULI CALVILLO Surgery [id number] [facility] 08:18:00 18:22:00 [facility] 2022-04-03 2022-04-03 Anesthesia Jerry Rodriguez [facility] [id number] 13:04:00 14:45:00 Event Raegan Augustin [facility] 2022-04-03 2022-04-03 Surgery Scar [facility] [id number] 11:30:00 14:17:00 [facility] 2022-04-02 2022-04-02 Clinical Puneet Calvillo [facility] [id number] 07:15:00 07:30:00 Support Claudia [facility] 2022-04-02 2022-04-02 Outpatient ETHAN ROLDAN [facility] [id number] SLE 07:09:05 07:09:05 2022-04-02 2022-04-02 Travel [facility] [id number] [facility] 00:[facility] 00[facility]00 [facility] 2022-03-27 2022-03-27 Anesthesia Ashwini [facility] [id number] 23:59:59 23:59:59 Event [facility] 2022-03-14 2022-03-14 Office SCAR CLAIRE [id number] [facility] 15:30:06 16:54:51 Visit [facility] AMBULATOR 350.1.13.21 College Y 0.2.7.2.686 [facility] [id number] Medi efra 300 e 2021-12-29 2021-12-29 Outpatient YULI ACEVEDO [facility] [id number] [facility] 16:48:12 16:48:12 GWEN 2021-12-28 2021-12-28 Outpatient [facility] [id number] [facility] 14:47:25 14:47:25 Colleg zaina of Medicin e 2021-12-14 2021-12-14 Office Eri [facility] [id number] 13:30:00 14:00:00 Visit [facility] 2021-12-14 2021-12-14 [facility] Eri, [facility] [id number] 11:00:00 11:00:00 Encounter [facility] 2021-12-14 2021-12-14 Outpatient ERI, [facility] SLE [id number] [facility] 00:00:00 00:00:00 GWEN 2021-12-14 2021-12-14 Orders Eri, [facility] [id number] 00:00:00 00:00:00 Only [facility] 2021-12-14 2021-12-14 Orders Eri, [facility] [id number] 00:00:00 00:00:00 Only [facility] 2021-10-18 2021-10-18 Outpatient [facility] [id number] [facility] 09:52:56 13:45:27 [facility] ege of Medicin e 2021-10-18 2021-10-18 Outside [facility], [facility] [id number] 00:00:00 00:00:00 Orders [facility] 2021-10-18 2021-10-18 Outside [facility], [facility] [id number] 00:00:00 00:00:00 Orders [facility] 2021-09-15 2021-09-15 Orders Eri, [facility] [id number] 00:00:00 00:00:00 Only [facility] 2021-09-15 2021-09-15 Orders Eri, [facility] [id number] 00:00:00 00:00:00 Only [facility] 2021-09-15 2021-09-15 Orders Eri, [facility] [id number] 00:00:00 00:00:00 Only [facility] 2021-09-15 2021-09-15 Orders Eri, [facility] [id number] 00:00:00 00:00:00 Only [facility] 2021-09-15 2021-09-15 Orders Eri [facility] [id number] 00:00:00 00:00:00 Only [facility] 2021-09-15 2021-09-15 Orders Eri [facility] [id number] 00:00:00 00:00:00 Only [facility] 2021-09-14 2021-09-14 Office Eri, [facility] [id number] 13:00:00 13:30:00 Visit [facility] 2021-09-14 2021-09-14 Office Eri, [facility] [id number] 13:00:00 13:30:00 Visit [facility] 2021-09-14 2021-09-14 Outpatient ERI [facility] SLE [id number] SLE 12:40:51 12:40:51 [facility] 2021-09-05 2021-09-05 Orders Doctor AG [id number] [facility] 00:00:00 00:00:00 Only Unassigned, RUBEN 350.1.13.10 ity of [place] [facility] 4.2.7.2.686 Dylan as [id number] [place] [address] [place] 2021-09-03 2021-09-03 Telephone Mikayla Castillo [facility] [id number] 00:00:00 00:00:00 [facility] 2021-09-03 2021-09-03 Telephone Mikayla Castillo [facility] [id number] 00:00:00 00:00:00 [facility] 2021-08-30 2021-09-01 Hospital Douglas Christensen [facility] [id number] 15:08:00 16:25:[address] [facility] 2021-08-30 2021-09-01 Hospital Douglas Nevarez [facility] [id number] 15:08:00 16:25:00 Encounter Cecilia Lamb [facility] 2021-08-30 2021-09-01 Inpatient PERRI ROBLERO Surgery [id number] SLE 15:08:00 16:25:00 CECILIA 2021-08-31 2021-08-31 Anesthesia Luis E Mc [facility] [id number] 11:19:00 14:45:00 Event Jeffrey [facility] 2021-08-31 2021-08-31 Anesthesia Luis E Mc [facility] [id number] 11:19:00 14:45:00 Event Jeffrey [facility] 2021-08-31 2021-08-31 Surgery Eri, [facility] [id number] 11:15:00 14:38:00 [facility] 2021-08-31 2021-08-31 Surgery Eri [facility] [id number] 11:15:00 14:38:00 [facility] 2021-08-30 2021-08-30 Outpatient [facility] [id number] [facility] 15:08:00 23:59:00 Jas 2021-08-30 2021-08-30 Outpatient LALITHA [facility] [id number] SLE 13:51:53 15:07:00 BEENA 2021-08-30 2021-08-30 [facility] Lalitha [facility] [id number] 13:51:53 15:07:[address] [facility] 2021-08-30 2021-08-30 [facility] Lalitha [facility] [id number] 13:51:53 15:07:[address] [facility] 2021-08-30 2021-08-30 Office Gwen Acevedo [facility] [id number] 09:30:00 10:00:00 Visit Qing [facility] 2021-08-30 2021-08-30 Office Gwen Hwang [facility] [id number] 09:30:00 10:00:00 Visit Qing [facility] 2021-08-30 2021-08-30 Outpatient PERRI ACEVEDO SLE [id number] [facility] 09:10:32 09:10:32 GWEN 2021-08-30 2021-08-30 Outpatient YULI ACEVEDO SLE [id number] [facility] 00:00:00 00:00:00 [facility] 2021-08-30 2021-08-30 Orders [facility] [id number] 00:00:00 00:00:00 [facility] 2021-08-30 2021-08-30 Orders [facility] [id number] 00:00:00 00:00:00 [facility] 2021-03-06 2021-03-06 [facility], 1.2.840.1 [id number] Methodi 09:40:18 23:59:00 Encounter Siraya [address]306.1.[address] 3.430.2.7 Hospit a .3.758749 l .8 2021-03-06 2021-03-06 Travel 1.2.840.1 [id number] [id number] Methodi 00:00:00 00:00:[address] 3.430.2.7 0.2.7.3.698 Ho spita .3.569544 084.8 l .8 2021-02-23 2021-02-23 [facility], 1.2.840.1 [id number] Methodi 11:21:36 23:59:00 Encounter Siraya 66040.1.[address] 3.430.2.7 Hospit a .3.787382 l .8 2021-02-23 2021-02-23 Office Bereket, 1.2.840.1 [id number] Methodi 10:00:00 11:00:00 Visit Danish [address]754.1.[address] 3.430.2.7 Hospit a .3.933506 l .8 2021-02-23 2021-02-23 [facility] [id number] [place] 00:00:00 00:00:[address] 2021-02-23 2021-02-23 Travel 1.2.840.1 1.2.968.448 [id number] Methodi 00:00:00 00:00:[address] 3.430.2.7 0.2.7.3.698 Ho spita .3.437084 084.8 l .8 2021-02-22 2021-02-22 Documentat Fito Hatfield 1.2.840.1 [id number] Methodi 00:00:00 00:00:00 ion Logan 66247.1.[address] 3.430.2.7 Hospit a .3.449241 l .8 2021-02-13 2021-02-21 Office Shiv, 1.2.840.1 [id number] Methodi 14:15:00 09:34:12 Visit Mayra 20555.1.[address] [place] 3.430.2.7 Hospit a .3.882522 l .8 2021-02-13 2021-02-13 Travel 1.2.840.1 1.2.465.515 [id number] Methodi 00:00:00 00:00:[address] 3.430.2.7 0.2.7.3.698 Ho spita .3.157975 084.8 l .8 2021-02-01 2021-02-01 Outpatient CLAIRE CALVILLO [place] [id number] [facility] 10:47:36 13:24:19 PUNEET Kris ege of Medicin e 2020-12-02 2020-12-02 Outpatient SHIV, [facility] [id number] [place] 00:00:00 00:00:00 MAYRA 689 Method i 2020-12-02 2020-12-02 Outpatient SHIV, [facility] [id number] [place] 00:00:00 00:00:00 MAYRA 691 Method i 2020-11-18 2020-11-18 Outpatient SHIV, [facility] [id number] [place] 00:00:00 00:00:00 MAYRA 818 Method i 2020-11-18 2020-11-18 Outpatient SHIV, [facility] 2100 [id number] [place] 00:00:00 00:00:00 MAYRA 861 [employer] i 2020-11-18 2020-11-18 Outpatient SHIV, [facility] 2100 [id number] [place] 00:00:00 00:00:00 MAYRA 756 [employer] 2020-11-18 2020-11-18 Outpatient SHIV, [facility] 2100 [id number] [place] 00:00:00 00:00:00 MAYRA 454 [employer] 2020-09-08 2020-09-08 Outpatient KEHINDE, [facility] [id number] [facility] 11:52:06 11:52:06 [facility] [employer] 2020-09-01 2020-09-01 Outpatient KEHINDE, [facility] [id number] [facility] 11:51:06 16:51:45 [facility] [employer] 2020-08-25 2020-08-25 Outpatient KEHINDE, [facility] [id number] [facility] 11:46:42 14:30:58 JAREN [employer] 2020-08-17 2020-08-17 Outpatient [facility], [facility] [id number] 3 [facility] 13:16:39 16:40:55 [facility] 2020-04-29 2020-04-29 Transition Italo Baltazar 1.2.840.114 [id number] 00:00:00 00:00:00 of Narda Thompson 350.1.13.10 Genevieve 4.2.7.2.686 [phone] [facility] 2020-04-29 2020-04-29 Transition Italo Baltazar 1.2.840.114 822 [id number] Univers 00:00:00 00:00:00 of Narda Thompson 350.1.13.10 it y of Genevieve 4.2.7.2.686 Luis law [id number] [facility] [address] Results Test Description Test Time Test Comments Results Result Comments Source Tissue Exam 2022-04-10 20:11:29 Test Item Value Reference Range Interpretation Comme nts Case Report (test code = 104) Surgical Pathology Report Case: [id number] Authorizing Provider: Puneet Calvillo MD Collected: 04/03/2022 02:15 PM Ordering Location: [facility] PERIOPERATIVE Received: 04/03/2022 03:11 PM SERVICES Pathologist: Reena Lucio MD Specimen: Bladder Biopsy, Wall, Left posterior bladder wall DIAGNOSIS (test code = 3220) y2bceQWjTPMgo9rmZOGurKTaQoXeZoRkLfGhPi pc dWMxIHtccnRmMVxlcGljOTYwMlxhbnNpXHNwbHRw N1VbijqySQrdXM6rRX3wqWbzoOYnaCSvBONsAhHc c8xpr006tFAno7lcMSMRosbuxXp3yTsdT66ow7Z2 OuiwK49iaKBgAIR7YMXcUHBouBSyIOKxERS0CDWp zADfC6waFLXcTB3kbatiZXoyHAeqZHZanFC9RUEp zKRfN7IxWOIgVTmzEPAlywc7EfMiCy3ewMAufHdo MFxwYXJkXHBsYWluXGZzMjAgVVJJTkFSWSBCTEFE AZTFXNVOWWJALGHZN2CNKfbBUhMFIEaEKNWPUH6V L7jspRHtYVVoITMiKUDrDCSwVYKzXkMOFVPCZ3DC OMAhHIZEPx3DLLwcUKWeVIPaKOIaBJKpWNNzBP1G L0BPHTnRFJDFOhAHBUEvNOUUSOyWTUuUUJKNHHDP C5YfB5yOSJVQUBDGVhsLDFsOUedBQA5HOTvXRvRQ WqPwuXZtBUXjGbXwIpBSM4WFLsBrZLWGYFnQLBjR JSIUEYUUJ4NUIAVducQkAIAlFEBmYSIkMMKgTRDM M3WCRTaGOWxADH1VHDpFMgmQCXvSFTlyGX9XOPYG EX5TEYEODKNGDMcQG7zIFRTwxzFiGMKwUMAvXYKe BOYwCX7KT0SYAAGEVFVeHROZJFFUPMHBCBLOUSaK BXJVPMSoqp27QZH4KcJka1W8BRY7OGHxVNIjk1fw LZMxzVHkJuEmQcDgOxImWoqykXEeVVZhWzDdg1jp e690rPWye2rqCFEsLwL0mYApTVGbwVXcI046YBIy NLkfe7cfq1XdBYHpqRYuk5U7LOJUjkxiiUo2iWgi K43cy5J8QrkjT1aeQREoTUYmB8ShRU2dUETqUwe7 OSR0EVU5FIKrRBAnH6PyXO6bLSRbbNEhPCw9m3zh vTfdWFRjHUX4q7iiMVicnyGoJE6dmh0ujOo1k6ct joKtOFNwDUWprIZXCZRpR7HvpDyyFg4fpHo4eWvu AhosFMJ4Irl2NZ6cfr02kvf4tHkcYGXjsxpjEaH6 ATktJCSqgurhHLq0ICjzSVFufAP6NIYomOHrV5We GXNkVY9rpui8WJF1TIinRWWwPuI7MSNngDVxFDPm mWokLTvgo988BVZ3EqGiIE3uS9Kwq9I4hT8jcANc KZHmfXBvIdNcTFNley2vgNWpUQbrc7UvSGS3pgZ6 qBSduIMsGNCyWdB3SSxnPD9vax90RHNfTBC6ne9w xYHcjMchdwPnnBPlPAdpK7ZjIWHrj388EGBqX0Rb VAYtz5M4clZgOpFeCUKiiFV6ztD7YEQeKM7ilfru f9hwVDtsDUptUQIidhY6zwL2CQDseJZvN3XyhC7l CSIkPX7iiphnr4laGHR1TExdXWOlEWD7AlHaODEy g7Fppxj1DrFnk5BgmJJmGTxhT41bp168MOVgyvPb J0hpeXTebuqepYCberwzMBjfooC7XMYfFAprujns JHXkXGpyM8inMySrMHIjuGfcFEakw5OlCDSsNUEs JwTrmDYrQXKqAhz9VZKaaDPiBDHhGeEqT3giugmg QfLKXCQsc4qfS1fvcSXChEArE3BgPQqllbBxKZyf GBteRyDuETr8YA45UuSvXWTdcd17 CPT Code(s) (test code = 3357) d5oxlHYaFNHosXD5HbTiKNKdm1sfy2QjjTCc cGFy AMwzgPCjnoFjol47wMO9hC01ZY8qBXGtDbU5HNQa xcZ4Tan2WHZjNMMjvJBhQ165z3jdt2rqzwZwyPW3 lZucCMGqzslaFrX4EHvtUCZllxzgSRl7SYvvGNLn uVV5SCSypVKpA8HqBNCuWZ7muly9UZJ6SQutQQDz FxZ7ZNAdiATdNARpwLqdNOlnd126PQI2RmMmSZYq agJxxSepeK1cPuUnRZY2ZJSgGZN3MLE8LuV5APJ9 HIW5PgujWKB7 CLINICAL HISTORY (test code = 3356) r3vxvIYrCQQhuNR5NrYmZXKcv8egp6A sdHBncGFy ENstaXRelbEall14xST9iA89QL0lLNUmWxY1EQCq gxS7Mhz9DUSzEXSwsUHdD848b9jeh2scwuLflUF3 AZKtASQkW2VgGU2mWZHxxYEgB67qdZQoVNC9PJSz BAYnzQIvKFLoFWL8LZNqyWAsN4eiVYIiTD6duhkm JEofEJgmQPAkfNV5ZTWdkKOsR3CsZGGqRCxzKQMf osu2AeQyHs5rlOEljIneBYcyNYZmQJKkOZudzWWf khlnicNvYEGyIVQXEFhbF83wqiRebzVwqFqit56c k2LgVmulAAVolbQ9IQcqDCFtja3= GROSS DESCRIPTION (test code = a3jgoIIrEREboPIBVNEzG9nkzcCmAPBkeFWy [facility] [id number]) nefqNKunYM3yGO4psQyoxBWwqPFbGQ7BMLVeAkKo PIRmwMQgubBcCcUvREQlgEQfwES1RJOkVZ1szwoy GRutDOyxNAFkvpF4BKKzxEVsG2IqAMNmZB8vfkdz DPA1CXtmnL5vqmJQRmauKs1cpWAhsOedSkRaWzHq SZYfMMRiKFUcuQemYQDgGPz0jM6NFhexULI2EWYA XwcbDTQhQI7Og2vsGEHscNTeFVS1PQeqxQGiNQId AVEoKPl4PNIyVAfgwOEhJO5nkQazWjvxkZvdm2Oe kXEfGAdxVWMbBYBfPNbdNQZvHF5UCuKxMUxdBXCl YiDqNDf5TEg2LJ9NIbUfWGXaWyH7EMf6NbWpFAc9 ZXzwOE4SAXL1OYBfQwRfPOH7KMOuOLVwDCWmYjDd WZUiIWOyILthGKzqjAZuKN4nlVtgjBObyyXVFtVH dFKfTAYhNBGmu1FadWliH3HquT5puLUcUL0AAKLf lYAHRJH5JL3uTHBSWzmiaDIuPDDxeOpbHOyanI3d HB0ZWUj5ddChIUPbLeUuIvUdOMo9FFTqvW5gBo4q bXNguY0fjISkJHnpTGH6cWGvhRD4yYPsdSxgZF7l dNElPDCkM9Qdd3xclcQxyF6hJIRcBQ9gILUsNSH8 HRUtp8CetqhrlfCovOAvDDNbOOhykSybLZdwPIGx Gl5qNMjmYN5bPSbbII8mYYOkZAEyP7PxB5G7YMKw ZeY9HE0bzfBdLnHjxZH6wRJgqPNfCGxcxWWnISbb SOSouMBdrcHwKKOyCZSyiXSjoOT9ZQGqoO0mqZ24 heIfxqGPMQ2fmCrxGXAhuIznXZCHwLvekmHReav3 ZWxsZXMsIFBBLCBIVCAoQVNDUCkNClxwbGFpblxl mPtzNnQzgYOySaDoxCtkdW94GSDxoBBxHXN2NB3h GAFgyrtqNDFaJCUyBEL7RTvrlK46rFVlWGKqUORr eHQwiC1YOQMkTAI6ONrolI31cJMgUF4GNSIzJKZ0 XHEnnTOyIVD0UK6uwE9IyL== MICROSCOPIC DESCRIPTION (test code = q7oykIAgFROdyDE3KpZvWCTjz0ora1 BsdHBncGFy 0583) [file] qOPvvEXyiiMeRymhKU9auIJquH== SPECIAL STUDIES (test code = 3376) p4zwxVJwLSGvw3daDDFrtYJqTzApPlXw ZnRuYmpc hCOxMPjypaCaVExgc4FcK7SvGsVfWEzuvaFmRNUb RngorbwaKZDmJYW8niFeOQRgNUvuLXXkLMntIa8g mJIfqZliMcNmZPArg4xkuvNDmkqlkIo3p8pcFJAu UnN2lCIdQYohC2viruJutLHiJ9BoeWPhrHl8b8gb TfRgFtY5lZGyCSqiS4nojlNkwITtBSBwKNl2sL11 VZVymR6ysQEkNWbcmcXsRfA9YNvnGPGkBaJ5FAJc qRMcJFWvQ1zcCYHiJZekTKSdJBdtvAYmTEU3tQcw o2K7jBYxhVJohIfoAtDzZjOqAeVPs6SmEQt6sTfj D9ZnZAXsFoR7aQYaEYLtXDwsHLLuUUEcxjI5kPnb rwYva50orZWlZITdLHRkYgNsnJflXLZwSRSDb1Id xQyvUYD4zTe8eDggKedgGBP4Ltd4ME3ksd78def7 mUmwTPJjrbaqLoY3VCjePCQxmyvwGMr2VAxkHCUe wGO2NNTlpTSaW1XrHQFvOV0ggsf5NDX8CRqoMJAa VpX8BPGokOVnCRWylXalCDcny893JWU4CcBtYO5r J4Xfs3N9lX9juEUlJQFtxLMxYnGaHMZecg9gdKJe NGphy7NrBGQ2wtB2yRLkuFUqIWJuTH78Mjqmm7Hw Ctgan4WsU44egNH4YJtzb7dnQR9kSvR7yqBePTxb j3gchQ8qLtA1TDtxZH4dIQ8qCMSclM1vswesQCZm LyJijaotCXHpsOtdloBcWv5ueIsvNTR7DFauR1rh rL5eTlP0DQbdW5pdkS8hVFp9SWyhfGM4VCPbcB1l UA8giyawp9tcOXvjQXvzKHNtkvE3jpV7JETibTLk C6VrfR1tSGQoER7qtoxbt7qxEBH3VEosDPRnQFA2 ZiEtGLMwd8Vpscs5YgNgl8NcsLVzWOxpT28yv336 ZXDttsUxD1aceAGwuneryDUxqbnpAApwhrC7VTPd XHBsYWluXGYxXGZzMjJcbGFuZzEwMzNcaGljaFxm PVyxZpHrQBLhOPtxJ9afGpPbE5ZdJGWhKbVcLRds NBbydKBftCQnuBL5nB9cMI9nUUDigTMqL9DlFLAm mtQjkROyYBP1fBQywWIkBB4aFOaedXTiq4mnd5Xh R6fvsEkpiOS5XQ8uHDMuXAKeKItjy9LjbQ7xPaqh zEPdbbisEJjoohInMIsbezexEDJwWAjqD1cwEsSh NHVwnSbcGDteu9NzPCVbCMIpExydusIuLRn1ojWi SMOguklvARUbcZdwnN4zIyRkFzIzYlpjNS5qEFAq M6lknOPjJOQmHYJrY2dqQzNwuL8rsKicJTtwIwHl TyEpWxJHn843yb4qHYWhnBCdwgKFzHOavC2gGQdf DDajVQxomYUcXOlsu1mrQEUmv4k1mAIbYQShbtLe u0cuFBqtrxCiKTIgyQXzxPTgKKFfw48uTOozfMfs wYzeOVTiu4EkdJbfv7TmPuPmQXpyq6OrB13sqVTc qOObyKsaAHZawtQuOKVju08cy5baGUCqViH8vWDq pHQ0nUGopXRag1WxzBtnSFHly9jzSSWfkn9ueccx aEOno9UdpP4aylbkJTuglKKgrsWiHQNzl5g1tZKe XWIjJOTyDMmyrCv9CCUdd392qv9docV2xGItXKS5 YWlsYWJsZSBhcmUgZXZhbHVhdGVkXHBsYWluXGYx XGZzMjJcbGFuZzEwMzNcaGljaFxmMVxkYmNoXGYx HIvhA2hmXnCiT8FfCXDmQoIvsXCtJ3byrAOvDSXg YWluXGYxXGZzMjJcbGFuZzEwMzNcaGljaFxmMVxk ZlVvTSAnZPjdA0wxFuDcW7DlCAQfDnQrXHdfjBWc cqfcROuthxLxYUukngosJYOrIWodS0jpJdFgRIFr gFdgTOqbu5DsSVTrACFhIuxexrCwJLa9esDgGSJm qgoghABgnshqOXmbunMeLQjhbkidGDMaJFfyV2wv [file] MzcjEPU7zA== Gross assessment was performed at (test [facility] enter, code = 2777) Department of Pathology, [address] [place] [address], Technical component was performed at [facility] er, (test code = 2778) Department of Pathology, [address] [place] [address], Professional component was performed at [facility] enter, (test code = 2779) Department of Pathology, [address] [place] [address], [facility] [id number] 20:11:29Surgical Pathology Report Case: [id number] Authorizing Provider: Puneet Calvillo MD Collected: 04/03/2022 02:15 PM Ordering Location: [facility] PERIOPERATIVE Received: 04/03/2022 03:11 PM SERVICES Pathologist: Reena Lucio MD Specimen: Bladder Biopsy, Wall, Left posterior bladder wall URINARY BLADDER, LEFT POSTERIOR WALL, BIOPSY - NEPHROGENIC ADENOMA -FOCALLY DENUDED UROTHELIAL MUCOSA WITH CHRONIC INFLAMMATION AND REACTIVE UROTHELIAL CHANGES -CYSTITIS GLANDULARIS WITH INTESTINAL METAPLASIA -MUSCULARIS PROPRIA IDENTIFIED Signing Pathologist Direct Phone Line: [phone] signed by BettyeL. Khadijah MD on 04/10/2022 at 8:11 [id number] [id number] [id number] neoplasm of bladder wallA. Bladder Biopsy, Wall.Received in formalin labeled the patient's name, accession number and "left posterior bladder wall" is a 2.3 x 1.2 x 0.3 cm aggregate of arnold rubbery tissue, which is filtered and submitted in toto in A1.KANU Carlson HT (ASCP)Sections of the left posterior wall biopsy have multiple pieces of urothelial mucosa with focally denuded urothelium. Where present, the urothelium shows reactive urothelial changes. There is increased chronic inflammation in the lamina propria. There is a focus of urothelial mucosa with small tubular glands, faint mucin and surrounding myxoid stroma. PAX8 and CAM5.2 were performed, and the small tubular glands are positive for both stains. Focal cystitis glandularis with intestinal metaplasia is seen. GATA3 was performed, with appropriate control, and highlights the remaining urothelium. No malignancy is identified.The interpretation of this case includedthe use of immunohistochemistry or special stains.Control Slides Examined: In-house known positive controls were evaluated along with the test tissue. These control slides run alongside of the patientssample show appropriate staining. Internal positive and negative controls when available are evaluated Immunohistochemistry technical testing was performed at [facility], Pathology Laboratory where it was developed and its performance characteristics were determined. It has not been cleared or approved by the U.S. Food and Drug Administration. The FDA has determined that such clearance or approval is not necessary. The test is used for clinical purposes. It should not be regarded as investigational or for research. This laboratory is certified under the Clinical Laboratory Improvement Amendments of 1988 (CLIA-88) as qualified to perform high complexity clinical laboratory testing.[facility], Department of Pathology, [address] [place], [place] [address], [facility], [facility] of Pathology, [address] [place] [address], [facility], Department of Pathology, [address] [place] [address], Oeefw [id number] 11:36:29 Test Item Value Reference Range Interpretation Comments Result (test code = 20-29,000 col/mL skin 6463-4) ashlyn [facility] Center[facility] MET[facility]OLIC [id number] 06:26:27 Test Item Value Reference Range Interpretation Comments SODIUM (BEAKER) 136 meq/L 136-145 (test code = 381) POTASSIUM 3.9 meq/L 3.5-5.1 (BEAKER) (test code = 379) CHLORIDE (BEAKER) 101 meq/L 98-107 (test code = 382) CO2 (BEAKER) 22 meq/L 22-29 (test code = 355) BLOOD UREA 43 mg/dL 7-21 H NITROGEN (BEAKER) (test code = 354) CREATININE 8.98 mg/dL 0.57-1.25 H (BEAKER) (test code = 358) GLUCOSE RANDOM 164 mg/dL 70-105 H (BEAKER) (test code = 652) CALCIUM (BEAKER) 9.0 mg/dL 8.4-10.2 (test code = 697) EGFR (BEAKER) 6 Interpretatio n of eGFR (test code = mL/min/1.73 values Stage De scription 1092) sq m Result G1 Meche l or high >=90 G2 Mildly decreased 60-89 G3a Mildl y to moderately 45-5 9 G3b Moderately to s everely 30-44 G4 Severl y decreased 15-29 G5 Kidney failure <15Reported eGF R is based on the CKD-EPI 2020 equation that d oes not use a race coefficientEsti mated GFR is not as accur ate as Creatinine Cristin arizmendi in predicting glom erular filtration rate . Estimated GFR is not appl icable for dialysis patien ts [facility] Marker ID - DAVID [id number] 06:25:36 Test Item Value Reference Range Interpretation Comments MAGNESIUM (BEAKER) (test code = 1.7 mg/dL 1.6-2.6 627) [facility] Marker ID - DAVID [id number] 06:25:36 Test Item Value Reference Range Interpretation Comments PHOSPHORUS (BEAKER) (test code = 5.1 mg/dL 2.3-4.7 H 604) [facility] Marker ID - DAVID GCBC W/PLT COUNT & AUTO [id number] 05:44:16 Test Item Value Reference Range Interpretation Comments WHITE BLOOD CELL COUNT (BEAKER) 11.3 K/ L 3.5-10.5 H (test code = 775) RED BLOOD CELL COUNT (BEAKER) 3.01 M/ L 4.63-6.08 L (test code = 761) HEMOGLOBIN (BEAKER) (test code = 9.5 GM/DL 13.7-17.5 L 410) HEMATOCRIT (BEAKER) (test code = 30.1 % 40.1-51.0 L 411) MEAN CORPUSCULAR VOLUME (BEAKER) 100 fL 79-92 H (test code = 753) MEAN CORPUSCULAR HEMOGLOBIN 31.6 pg 25.7-32.2 (BEAKER) (test code = 751) MEAN CORPUSCULAR HEMOGLOBIN CONC 31.6 GM/DL 32.3-36.5 L (BEAKER) (test code = 752) RED CELL DISTRIBUTION WIDTH 13.9 % 11.6-14.4 (BEAKER) (test code = 412) PLATELET COUNT (BEAKER) (test 423 K/CU MM 150-450 code = 756) MEAN PLATELET VOLUME (BEAKER) 10.0 fL 9.4-12.4 (test code = 754) NUCLEATED RED BLOOD CELLS 0 /100 WBC 0-0 (BEAKER) (test code = 413) NEUTROPHILS RELATIVE PERCENT 87 % (BEAKER) (test code = 429) LYMPHOCYTES RELATIVE PERCENT 8 % (BEAKER) (test code = 430) MONOCYTES RELATIVE PERCENT 4 % (BEAKER) (test code = 431) EOSINOPHILS RELATIVE PERCENT 0 % (BEAKER) (test code = 432) BASOPHILS RELATIVE PERCENT 0 % (BEAKER) (test code = 437) NEUTROPHILS ABSOLUTE COUNT 9.87 K/ L 1.78-5.38 H (BEAKER) (test code = 670) LYMPHOCYTES ABSOLUTE COUNT 0.88 K/ L 1.32-3.57 L (BEAKER) (test code = 414) MONOCYTES ABSOLUTE COUNT (BEAKER) 0.50 K/ L 0.30-0.82 (test code = 415) EOSINOPHILS ABSOLUTE COUNT 0.00 K/ L 0.04-0.54 L (BEAKER) (test code = 416) BASOPHILS ABSOLUTE COUNT (BEAKER) 0.01 K/ L 0.01-0.08 (test code = 417) IMMATURE GRANULOCYTES-RELATIVE 0.50 % 0.00-1.00 PERCENT (BEAKER) (test code = 2801) BASIC METABOLIC [id number] 06:15:16 Test Item Value Reference Range Interpretation Comments SODIUM (BEAKER) 138 meq/L 136-145 (test code = 381) POTASSIUM 3.5 meq/L 3.5-5.1 (BEAKER) (test code = 379) CHLORIDE (BEAKER) 101 meq/L 98-107 (test code = 382) CO2 (BEAKER) 22 meq/L 22-29 (test code = 355) BLOOD UREA 37 mg/dL 7-21 H NITROGEN (BEAKER) (test code = 354) CREATININE 8.81 mg/dL 0.57-1.25 H (BEAKER) (test code = 358) GLUCOSE RANDOM 123 mg/dL 70-105 H (BEAKER) (test code = 652) CALCIUM (BEAKER) 9.1 mg/dL 8.4-10.2 (test code = 697) EGFR (BEAKER) 6 Interpretatio n of eGFR (test code = mL/min/1.73 values Stage De scription 1092) sq m Result G1 Meche l or high >=90 G2 Mildly decreased 60-89 G3a Mildl y to moderately 45-5 9 G3b Moderately to s everely 30-44 G4 Severl y decreased 15-29 G5 Kidney failure <15Reported eGF R is based on the CKD-EPI 2020 equation that d oes not use a race coefficientEsti mated GFR is not as accur ate as Creatinine Cristin kyleigh in predicting glom erular filtration rate . Estimated GFR is not appl icable for dialysis patien ts [facility] Marker ID - BSLIPID [id number] 06:11:06 Test Item Value Reference Range Interpretation Comments TRIGLYCERIDES (BEAKER) (test code = 86 mg/dL 540) CHOLESTEROL (BEAKER) (test code = 138 mg/dL 631) HDL CHOLESTEROL (BEAKER) (test code 23 mg/dL = 976) LDL CHOLESTEROL CALCULATED (BEAKER) 98 mg/dL (test code = 633) Triglyceride Reference Range: Low Risk <150 Borderline 150-199 High Risk 200- 499 Very High Risk >=500Cholesterol Reference Range: Low Risk <200 Borderline 200-239 High Risk >240HDL Cholesterol Reference Range: Low Risk >=60 High Risk <40LDL Cholesterol Reference Range: Optimal <100 Near Optimal 100-129 Borderline 130-159 High 160-189 Very High >=190 [facility] Marker ID - [id number] 06:11:05 Test Item Value Reference Range Interpretation Comments MAGNESIUM (BEAKER) (test code = 1.8 mg/dL 1.6-2.6 627) [facility] Marker ID - [id number] 06:11:05 Test Item Value Reference Range Interpretation Comments PHOSPHORUS (BEAKER) (test code = 5.9 mg/dL 2.3-4.7 H 604) [facility] Marker ID - BSCBC W/PLT COUNT & AUTO [id number] 05:18:40 Test Item Value Reference Range Interpretation Comments WHITE BLOOD CELL COUNT (BEAKER) 11.4 K/ L 3.5-10.5 H (test code = 775) RED BLOOD CELL COUNT (BEAKER) 2.98 M/ L 4.63-6.08 L (test code = 761) HEMOGLOBIN (BEAKER) (test code = 9.4 GM/DL 13.7-17.5 L 410) HEMATOCRIT (BEAKER) (test code = 29.7 % 40.1-51.0 L 411) MEAN CORPUSCULAR VOLUME (BEAKER) 100 fL 79-92 H (test code = 753) MEAN CORPUSCULAR HEMOGLOBIN 31.5 pg 25.7-32.2 (BEAKER) (test code = 751) MEAN CORPUSCULAR HEMOGLOBIN CONC 31.6 GM/DL 32.3-36.5 L (BEAKER) (test code = 752) RED CELL DISTRIBUTION WIDTH 13.9 % 11.6-14.4 (BEAKER) (test code = 412) PLATELET COUNT (BEAKER) (test 453 K/CU MM 150-450 H code = 756) MEAN PLATELET VOLUME (BEAKER) 9.7 fL 9.4-12.4 (test code = 754) NUCLEATED RED BLOOD CELLS 0 /100 WBC 0-0 (BEAKER) (test code = 413) NEUTROPHILS RELATIVE PERCENT 70 % (BEAKER) (test code = 429) LYMPHOCYTES RELATIVE PERCENT 16 % (BEAKER) (test code = 430) MONOCYTES RELATIVE PERCENT 8 % (BEAKER) (test code = 431) EOSINOPHILS RELATIVE PERCENT 5 % (BEAKER) (test code = 432) BASOPHILS RELATIVE PERCENT 0 % (BEAKER) (test code = 437) NEUTROPHILS ABSOLUTE COUNT 8.00 K/ L 1.78-5.38 H (BEAKER) (test code = 670) LYMPHOCYTES ABSOLUTE COUNT 1.78 K/ L 1.32-3.57 (BEAKER) (test code = 414) MONOCYTES ABSOLUTE COUNT (BEAKER) 0.94 K/ L 0.30-0.82 H (test code = 415) EOSINOPHILS ABSOLUTE COUNT 0.53 K/ L 0.04-0.54 (BEAKER) (test code = 416) BASOPHILS ABSOLUTE COUNT (BEAKER) 0.05 K/ L 0.01-0.08 (test code = 417) IMMATURE GRANULOCYTES-RELATIVE 0.70 % 0.00-1.00 PERCENT (BEAKER) (test code = 2801) Urinalysis w/Microscopic + Reflex to [id number] 23:30:13 Test Item Value Reference Range Interpretation Comments Color, UA (test code Yellow = 5778-6) Clarity, UA (test Clear code = 5767-9) Specific [place], UA 1.018 1.001-1.035 (test code = 5811-5) pH, UA (test code = 7.5 5.0-8.0 5803-2) Protein, UA (test 300 mg/dL Negative A code = 69173-2) Glucose, UA (test 100 mg/dL Negative A code = 365) Ketones, UA (test Negative Negative code = 2514-8) Bilirubin, UA (test Negative Negative code = 70289-2) Blood, UA (test code Negative Negative = 99198-2) Nitrite, UA (test Negative Negative code = 5802-4) Leukocytes, UA (test Small Negative A code = 5799-2) Urobilinogen, UA 0.2 0.2-1.0 (test code = 19559-9) RBC, UA (test code = 1 See_Comment [Autom ated 23036-6) message] The system which generated this result transmit altagracia reference range : /HPF. The reference range was not used to interpret this result as normal/abnormal . WBC, UA (test code = 11 See_Comment [Autom ated 5821-4) message] The system which generated this result transmit altagracia reference range : /HPF. The reference range was not used to interpret this result as normal/abnormal . Squam Epithel, UA 1 See_Comment [Automate d (test code = 06810-5) messag e] The system which generated this result transmit altagracia reference range : /HPF. The reference range was not used to interpret this result as normal/abnormal . Yeast (test code = Rare 30588-0) Specimen Source (test code = 2795) LUIS ARMANDO (test code = LUIS ARMANDO) [facility] Marker ID - [auto][facility] Marker ID - tech Lab Interpretation Abnormal (test code = 64928-1) [facility] [id number] 23:30:13 Test Item Value Reference Range Interpretation Comments COLOR (BEAKER) (test code = 470) Yellow CLARITY (BEAKER) (test code = 469) Clear SPECIFIC GRAVITY UA (BEAKER) (test 1.018 1.001-1.035 code = 468) PH UA (BEAKER) (test code = 467) 7.5 5.0-8.0 PROTEIN UA (BEAKER) (test code = 300 mg/dL Negative A 464) GLUCOSE UA (BEAKER) (test code = 100 mg/dL Negative A 365) KETONES UA (BEAKER) (test code = Negative Negative 371) BILIRUBIN UA (BEAKER) (test code = Negative Negative 462) BLOOD UA (BEAKER) (test code = 461) Negative Negative NITRITE UA (BEAKER) (test code = Negative Negative 465) LEUKOCYTE ESTERASE UA (BEAKER) Small Negative A (test code = 466) UROBILINOGEN UA (BEAKER) (test code 0.2 0.2-1.0 = 463) RBC UA (BEAKER) (test code = 519) 1 /HPF WBC UA (BEAKER) (test code = 520) 11 /HPF SQUAMOUS EPITHELIAL (BEAKER) (test 1 /HPF code = 516) YEAST (BEAKER) (test code = 1585) Rare SOURCE(BEAKER) (test code = 2795) [facility] Mark[facility] ID - [auto][facility] Marker ID - [email or web address] Echo W/Doppler(CW/PW/Color)2022-04-02 17:09:24Ejection FractionSLEH ECHO HEARTLAB MKCKESSON [facility]CH[facility]/[id number] 16:35:56 Test Item Value Reference Range Interpretation Comments PROTIME (BEAKER) (test code = 14.9 seconds 11.9-14.2 H 759) INR (BEAKER) (test code = 370) 1.24 <=5.90 PARTIAL THROMBOPLASTIN TIME 31.7 seconds 22.5-36.0 (BEAKER) (test code = 760) RECOMMENDED COUMADIN/WARFARIN INR THERAPY RANGESSTANDARD DOSE: 2.0 - 3.0 Includes: PROPHYLAXIS for venous thrombosis, systemic embolization; TREATMENT for venous thrombosis and/or pulmonary embolus.HIGH RISK: Target INR is 2.5-3.5 for patients with mechanical heart valves.BASIC METABOLIC [id number] 16:29:26 Test Item Value Reference Range Interpretation Comments SODIUM (BEAKER) 139 meq/L 136-145 (test code = 381) POTASSIUM 3.6 meq/L 3.5-5.1 (BEAKER) (test code = 379) CHLORIDE (BEAKER) 102 meq/L 98-107 (test code = 382) CO2 (BEAKER) 25 meq/L 22-29 (test code = 355) BLOOD UREA 39 mg/dL 7-21 H NITROGEN (BEAKER) (test code = 354) CREATININE 9.04 mg/dL 0.57-1.25 H (BEAKER) (test code = 358) GLUCOSE RANDOM 96 mg/dL 70-105 (BEAKER) (test code = 652) CALCIUM (BEAKER) 8.8 mg/dL 8.4-10.2 (test code = 697) EGFR (BEAKER) 6 Interpretatio n of eGFR (test code = mL/min/1.73 values Stage De scription 1092) sq m Result G1 Meche l or high >=90 G2 Mildly decreased 60-89 G3a Mildl y to moderately 45-5 9 G3b Moderately to s everely 30-44 G4 Severl y decreased 15-29 G5 Kidney failure <15Reported eGF R is based on the CKD-EPI 2021 equation that d oes not use a race coefficientEsti mated GFR is not as accur ate as Creatinine Cristin kyleigh in predicting glom erular filtration rate . Estimated GFR is not appl icable for dialysis patien ts [facility] Marker ID - [id number] 16:25:56 Test Item Value Reference Range Interpretation Comments PHOSPHORUS (BEAKER) (test code = 5.7 mg/dL 2.3-4.7 H 604) [facility] Marker ID - [id number] 16:25:55 Test Item Value Reference Range Interpretation Comments MAGNESIUM (BEAKER) (test code = 1.8 mg/dL 1.6-2.6 627) [facility] Marker ID - BSCBC W/PLT COUNT & AUTO [id number] 16:04:53 Test Item Value Reference Range Interpretation Comments WHITE BLOOD CELL COUNT (BEAKER) 8.5 K/ L 3.5-10.5 (test code = 775) RED BLOOD CELL COUNT (BEAKER) 2.93 M/ L 4.63-6.08 L (test code = 761) HEMOGLOBIN (BEAKER) (test code = 9.2 GM/DL 13.7-17.5 L 410) HEMATOCRIT (BEAKER) (test code = 29.3 % 40.1-51.0 L 411) MEAN CORPUSCULAR VOLUME (BEAKER) 100 fL 79-92 H (test code = 753) MEAN CORPUSCULAR HEMOGLOBIN 31.4 pg 25.7-32.2 (BEAKER) (test code = 751) MEAN CORPUSCULAR HEMOGLOBIN CONC 31.4 GM/DL 32.3-36.5 L (BEAKER) (test code = 752) RED CELL DISTRIBUTION WIDTH 13.9 % 11.6-14.4 (BEAKER) (test code = 412) PLATELET COUNT (BEAKER) (test 367 K/CU MM 150-450 code = 756) MEAN PLATELET VOLUME (BEAKER) 9.3 fL 9.4-12.4 L (test code = 754) NUCLEATED RED BLOOD CELLS 0 /100 WBC 0-0 (BEAKER) (test code = 413) NEUTROPHILS RELATIVE PERCENT 72 % (BEAKER) (test code = 429) LYMPHOCYTES RELATIVE PERCENT 18 % (BEAKER) (test code = 430) MONOCYTES RELATIVE PERCENT 6 % (BEAKER) (test code = 431) EOSINOPHILS RELATIVE PERCENT 3 % (BEAKER) (test code = 432) BASOPHILS RELATIVE PERCENT 1 % (BEAKER) (test code = 437) NEUTROPHILS ABSOLUTE COUNT 6.09 K/ L 1.78-5.38 H (BEAKER) (test code = 670) LYMPHOCYTES ABSOLUTE COUNT 1.56 K/ L 1.32-3.57 (BEAKER) (test code = 414) MONOCYTES ABSOLUTE COUNT (BEAKER) 0.49 K/ L 0.30-0.82 (test code = 415) EOSINOPHILS ABSOLUTE COUNT 0.27 K/ L 0.04-0.54 (BEAKER) (test code = 416) BASOPHILS ABSOLUTE COUNT (BEAKER) 0.04 K/ L 0.01-0.08 (test code = 417) IMMATURE GRANULOCYTES-RELATIVE 0.50 % 0.00-1.00 PERCENT (BEAKER) (test code = 2801) SARS-CoV2/RT-PCR ([facility])2022-04-02 09:33:31 Test Item Value Reference Interpretation Comments Range SARS-COV2/RT-PCR Positive Negative AA The SARS-Co V-2 (test code = target nucleic 81750-4) acids are detec altagracia in this specime n. The presence SARS-CoV-2 nucl eic acids cannot ru le out co-infectio ns or disease caus ed by other viral or bacterial pathogens. As w ith any molecular t est, mutations withi n the target kacie ons of the Xpert Xp ress SARS-CoV-2 test could affect pr vicky and/or probe binding resulti ng in failure to detect the pres ence of virus or the virus being detected less predictably. Fa lse negative result s may occur if vi cristhian is present at levels below th e analytical limi t of detection. This SARS CoV-2 test is a rapid, real-t bobby RT-PCR test intended for th e qualitative detection of nucleic acid fr om SARS-CoV-2 in a nasopharyngeal swab specimen collec altagracia from individual s suspected of COVID-19 by the ir healthcare provider. Resul ts from the Xpert Xpress SARS-CoV -2 test should be correlated with the clinical histor y, epidemiological data, and other data available to the clinician evaluating the patient. Viral nucleic acid ma y persist in vivo , independent of virus viability . Detection of analyte target( s) does not imply that the correspondi ng virus(es) are infectious or a re the causative agents for clin ical symptoms. LUIS ARMANDO (test code = This test [...] revoked sooner. Fact Sheet for Healthcare Providers: https://www.[employer]/Documents/Xp ert%20Xpress%20SAR S%20CoV-2/Fact%20S heets/302-3802%20S ARS-COV-2%20HEALTH CARE%20PROVIDERS%2 0FACT%20SHEET.pdf Fact Sheet for Healthcare Patients: https://www.[employer]/Documents/Xp ert%20Xpress%20SAR S%20CoV-2/Fact%20S heets/302-3801%20S ARS-COV-2%20PATIEN T%20FACT%20SHEET.p df Lab Interpretation Abnormal (test code = 28391-2) [facility]2022-04-02 09:33:31 Test Item Value Reference Range Interpretation Comments SARS-COV2/RT-PCR Positive Negative AA The SARS-Co V-2 target (test code = nucleic acids a re detected 1771481) in this specime n. The presence SARS-C oV-2 nucleic acids cannot ru le out co-infections o r disease caused by other viral or bacterial patho gens. As with any molecular t est, mutations withi n the target regions of the Xpert Xpress SARS-CoV-2 test could affect primer and/or p robe binding resulting in fa ilure to detect the pres ence of virus or the virus be ing detected less predictabl y. False negative result s may occur if virus is pre sent at levels below e analytical limit of detect ion. This SARS CoV-2 test is a rapid, real-time RT-PC R test intended for e qualitative detection of nu cleic acid from SARS-CoV-2 in a nasopharyngeal swab specimen collected from individuals suspected of CO VID-19 by their healthcar e provider. Results from e Xpert Xpress SARS-CoV -2 test should be corre lated with the clinical hi story, epidemiological data, and other data avai lable to the clinician evalu ating the patient. Viral nucleic acid may persist in vivo, independent of virus viability. Dete ction of analyte target( s) does not imply that the corresponding virus(es) are i nfectious or are the causati ve agents for clinical sympto ms. This test has been authorized by FDA [...] revoked sooner. Fact Sheet for Healthcare Providers: https://www.[employer] m/Documents/Xpert%20Xpress%20SARS%20CoV-2/Fact%20Sheets/302-3802%34YCPU-NXO-5%20 HEALTHCARE%20PROVIDERS%20FACT%20SHEET.pdf Fact Sheet for Healthcare Patients: https://www.[employer]/Documents/Xpert%20Xp ress%20SARS%20CoV-2/Fact%20Sheets/302-3801%52OEFS-WWC-7%20PATIENT%20FACT%20SHEET .pdfPOCT URINALYSIS [id number] 00:00:00 Test Item Value Reference Range Interpretation Comments COLOR UA (test code = 5778-6) Margo YELLOW/STRAW CLARITY UA (test code = 79561-1) Clear CLEAR GLUCOSE UA (test code = 5792-7) Negative NEGATIVE BILIRUBIN UA (test code = 5770-3) Negative NEGATIVE KETONES UA (test code = 67778-8) Negative NEGATIVE SPECIFIC GRAVITY UA (test code = 1.005-1.035 5811-5) BLOOD UA (test code = 5794-3) Negative NEGATIVE PH UA (test code = 5803-2) 5-9 PROTEIN UA (test code = 5804-0) 3+ NEGATIVE UROBILINOGEN UA (test code = 0.02 E.U/DL NORMAL MG/DL 5818-0) LEUKOCYTE ESTERASE UA (test code Negative NEGATIVE = 5799-2) NITRITE UA (test code = 5802-4) Negative NEGATIVE REDUCING SUBSTANCES URINE (test Negative NEGATIVE code = 76279-9) [facility]ot[facility] doppler [id number] 17:45:28Ejection FractionSLEH ECHO HEARTLAB MKCKESSON CPACSCHI [facility] CenterCarotid doppler [id number] 17:45:28Ejection FractionSLE ECHO HEARTLAB [facility] [id number] 10:48:08 Test Item Value Reference Range Interpretation Comments Case Report (test code Surgical Pathology = 104) Report Case: [id number] Authorizing Provider: Gwen Hwang MD Collected: 08/31/2021 12:29 PM Ordering Location: [facility] Received: 08/31/2021 02:30 PM PERIOPERATIVE SERVICES Pathologist: Raegan Man MD Specimen: Plaque, Left Carotid Plaque DIAGNOSIS (test code = r1emvHUnWBQto9opFUEciGN 3220) uZzEwMzNcZnRuYmpcdWMxIH tccnRmMVxlcGljOTYwMlxhb xPrTMPnqMOdU7LztoofUBuk TS9zVS3vtSoqvEWszCQbAJT tEgAve7zjm358hYNip6maEW GGikfqiJj7nNriI13nw4C7I hzgB38zxUCgIPL1QGTfJPZp pTGtCXPuIVN0NVZgpBYsF0m yZMBzVM8elcwsDMruTKngBR VjaAR2TURyuGRmG4XcKLRhO XztDXAiyjh7EeRmTq7hqUFg eTcyMFxwYXJkXHBsYWluXGZ zMjAgTEVGVCBDQVJPVElEIF UTIXLVISkoLY5PIKPBCGCPR 6NSSCs6BMaivrAaZI6dA2NQ I3aQBNRQCNBOKKPJL79APC7 VUyBQTEFRVUVccGFyfXtccn FgPWsrp1IfWIezZFIeGB7xa TxaCGBaNL9gCGXiZ7gbuF0t hkc8IxGbSDGvNsI9HUUxyvS 3Arx5VNFhZUqxu4fuz9EsZW ViDRy0hSnkSdMwLVYzp8ogm yBcZmNoYXJzZXQwIEFyaWFs Z311v2ksk9kczzWbeKO2BPG iTDX5UXaqfjIsekQ3ILsitJ VxXhE9TEnjmgXpKPwoczNzc hOjSwk6LPTxZ368FGL6sDpm m6kaZJV6YSXaPXNgWiBaOa3 gbIZzZ164DBDeLQJKREFenD n2WZBnlaKbbsVgeGTGl386K 687d3lnLOOvjiOmfSqAplnb h1zoP756ZIQeiODfzuHuJtP kULXdsAKzvLE4AMDeJU6ehi xwHOpgSZwzTBWxmwT1CWLqy CQoL8HvSKJxSJ3zgcqpUGZ4 IGasLHSeFQW8XgBcGNSqk4N vrnt0YxCpsb8lhx66DDM8f7 WrpVvfXOY4XWN7HrMgOm4oh DZzOXYdQX8xOgIvcQMgWVXn bf86yKjtHOruLOQ6NPAzmxX sy5Vdy5srDmLrbaXiH9flA2 JyZHJoZWFkXHBnYnJkcmZvb 1Jou3KmzUXbzHc9e5daDZPz PGYndYvyi5voUIU6AGGjaIQ bY2tsbC5mALKnTE9ichtym0 owNPbdXLgjCQLrbET0vhW2E ODrbBPcW1FrgW4eBFVtXMur HFJlaop7IiXiZf5jgHDmkQu yMFxzYmtwYWdlXHBnbmNvbn RccGduZGVjXHBsYWluXHBsY WluXGYwXGZzMjRccWxcbGFu ZzEwMzNcaGljaFxmMVxkYmN mWQWuLYtbJ2zvNiPiFjMlDq f5ALDaoCQyNEOgUxr3WVJcu EToMQUAtRnhzB5lGVTswXqn tF9xwBB3AGJwbiYyuHSPvE0 kDUECeW6vQoL7QAViDjw9FL I0VcIohEWllG5= CPT Code(s) (test code w7jbzOJjSCRamVI5HjWmQCP = 3357) es3lto8FivFTvzFZeHOxgoB ShspRbjs28cOC2eR34JR4xS CVnHeG8XCSszaS6Itv1ZVUz SXTzgRAaJ097t4kuf0czenM zkCP8iDlgNUGvpwcvIyO0SN xkQILlvknaCXw6QMtwNNXgz TI9PYKahDGoR2ChRJZbKJ9x cts9LZY6UUqqPDUyCaX9XKH dsAAvBSLabQyyIWqak180JP D0ZbOrJAKvncLaoHxanQ7kI kGoREG4EYCdMQllSVpgTUVy cGFyfQ== CLINICAL HISTORY (test p3fqkNFkXXHixTN1RuWbQTE code = 3356) kf9cei2KkpTFxeOLyYXmrwV RtssLlsy86fXD8vH23KW9bO KGxKxV5FWPakhF3Loh6GXUn NDMujEHeF890t9tcq4enlsT leWK4cNorDXGdvydmBzU3NE dmVSQjthszHZt4SGbzGVQzu GB5BXGziDVyU4JgJEJwPU8x wfh1HGG9FMabXIJsDrW6XNY bzHYkLHIyzPflORktj319PY J6DnZsKMMzueTsjSfyzF5sO fZdVZFRFTA4SXTyke21aQCa b6Fjvc5wmDFhwXNnwN== SPECIMEN SOURCE (test r6papMLuWPSwtVV3WkCaLEY code = 3377) zd2azh0BxfRGqfMPgGLkctW MmrbCcwd09tIP3eU85YI1tE WOeHrY5BUAdmyY5Qzs0SQCn AXMfcVQlL933m7eoc5ofxkL liNM5tQkvPCDkgnakKzW9LD plRSIsuoskMYn8DLccYNVvu AG7NDYfcGDnO2IlCPQoEH5f rkm1OEU9NKfzPLXeDqN4SBC uxKZrYAGywQblTIyhi721ZG J5RdCkEGTkihCauVerqC2hM iAjFXMDUMA0HMNvar72sDHz cGxhcXVlXHBhcn0= GROSS DESCRIPTION e8eatNJgTHPerMWTQMQyI6f (test code = dxtRsWERllPQfV3ZnnyyfCG [id number]) daIB3aTN5wjEojdXFmaGMqL J0VGBPwEbFbQQBasSTuikZu TeDdQDAtoVAnjCH1YTViJP1 bvgkaCGlnIUtwJDVsbaI6EQ GxfRJuG3OeCFGjXC5bgdatC LN2HVcdqJ3idtUWByphPw1j dHRibHtcZjFcZmNoYXJzZXQ wKFDkvEepWZHrJNb6qL0JDn auS35qh9Z6Cpt7KHWvZJRsZ 0NvDF4jDKQjkPCnS32BJbsg DYJ4EUMUEmocPVUrRI2Kh1q yGTBojCHaXTQ6RJguzMFnQC AmMWNoMXk8SPDoGFiphHLlJ C9loMgkClynjLluw1PhjDVv XGlkIDUxMDAyIFxcZGIgIE9 SZvMuZLO5Uvn3FqGnSRy3RB l6ND9BTgJbWPNvDIRcUBMaT yMqCGp3LFbvBQ4SNUO6Jtz4 SqKmVOW9WPBsFGLaWUYzKoV cXGYgQXJpYWwgXFxmbCBcXG 5jfVxwbGFpbiBBLiBQbGFxd WUuXHBhciANClxlcGljTmVz dERvYzEgDQpcbHRycGFyXGx pbjBccmluMCANClxsdHJjaF xjZjFcZnMyMCBSZWNlaXZlZ CBmcmVzaCBsYWJlbGVkIHdp yKpilJcaUGHkmCowxiPpI7O 4gfSzIN8rZKMFNz9vWA2wAU JwbGFxdWUiIGlzIGEgcHJld pckdYNuaWCtmoLmk9SeVRY4 JjHnWHKvxZ7zxLnmraRtBwW 1HNphn1pdnhPhUXXqUMY8RJ CzQZCdcDGmgqwbNw9kQYveB R2xXCiqHZ53QFMqQpb+IFRo DLNqcZWywZ8pegWebdHdLTS wUPrqoWMwGLL4kM2aTNJcpF 7gugF9TPGvLVPtgSGdUsykA HWzj38kVO0wWWI6bliwShS2 fCG8woUjBaKqL33noT5uzCr iO0gqROIvKhr+IFJlcHJlc2 KifXR1mPBxZFFcW9Jqs39iG HFhOEHtyBQsvRY9NKTkfW8k WRIjVDVusDolm4hsFpYnABP xmWYpFfhnDQUdf48hUEJfua GNGrsrVHLmORldM5SuNLZlZ iQpDSzzZWHCWAD3zBPhihHa RAtqnWzrzY5nXXVqK65fk3W Wj9ClZWQaHFdwl5dwdGtkr6 VjdGVuZFxwYXJccGFyZFxzb I3cJqGec5rdlFn3DYlmyzY3 VFUjyl8UXvjabK2bOkBqc9w nlRq1QKKWJhlfgcU9j1fyiT eqh3IvcQEsLL2OUk2= MICROSCOPIC f0psaCAxLBBkbKG7SgFtOGZ DESCRIPTION (test code ca3lze4ZipFEueMKyGTtiaN = 3371) AaitDvuq98pWI7xY70QM3aT PDvJnU1VQQeizU2Jsq6XMYs SCSguQYmT983k9ins8rgprC dwGX2cOnlNBTxcvtoCjU8PC reEEKvqpbfGTk8HCipIZCrz AL1PAJfmIWpY4RjHBUnKH5r gvl8CCD6JDegGVWiQwH0VNY znQVaAFJguFqdIBwhw199RL L3HqHvQYDhtlRccZfbwV1xR uKfMOQWBIKsd5SyDZKyjLPh fQ== Gross assessment was [facility] performed at ([facility], code = 2777) Department of Pathology, [address] [place] [address], Technical component [facility] was performed at ([facility], code = 2778) Department of Pathology, [address] [place] [address], Professional component [facility] was performed at ([facility], code = 2779) Department of Pathology, [address] [place] [address], [facility] CenterT[facility] [id number] 10:48:08Surgical Pathology Report Case: [id number] Authorizing Provider: Gwen Hwang MD Collected: 08/31/2021 12:29 PM Ordering Location: [facility] Received: 08/31/2021 02:30 PM PERIOPERATIVE SERVICES Pathologist: Raegan Man MD Specimen: Plaque, Left Carotid Plaque LEFT CAROTID PLAQUE, ENDARTERECTOMY: - CALCIFIED ATHEROMATOUS PLAQUE Signing Pathologist Direct Phone Line: [phone] signed by Raegan Man MD on 09/06/2021 at 10:48 [id number], [id number] carotid stenosisLeft carotid plaqueA. Plaque.Received fresh labeled with the patient's name, MRN and "plaque" is apreviously incised tubular portion of yellow-red plaque measuring 3.0 x 1.2 x 0.9 cm. The specimen is serially sectioned to reveal calcifications measuring up to 0.4 cm in thickness. Relations Specialist sections are submitted in A1, following decalcification.KANU PATEL Student PerformedBarst[facility], Department of Pathology, [address] [place] [address], [facility]wyruA[facility], Department of Pathology, [address] [place] [address], [facility], Department of Pathology, [address] [place] [address], MVCWL METABOLIC PANEL 2021-09-01 08:03:24 Test Item Value [...] S NOT APPLICABLE FOR DIALYSIS PATIEN TS. Head Inspector And Center Marker ID - ABE [id number] 07:48:51 Test Item Value Reference Range Interpretation Comments MAGNESIUM (BEAKER) (test code = 1.8 mg/dL 1.6-2.6 627) Head Inspector And Center Marker ID - ABE MCBC W/PLT COUNT & AUTO [id number] 07:13:26 Test Item Value Reference Range Interpretation [...] % 0-1 PERCENT (BEAKER) (test code = 5391) HGB/HCT (H&H)-Stat [id number] 15:10:00 Test Item Value Reference Range Interpretation Comments Hemoglobin (test code = 11.5 See_Comment L [Au tomated message] 786-4) The system [employer] generated this result transmitted ref erence range: 13.0 - 1 6.8 GM/DL. The refe rence range was not u sed to interpret this result as normal/abnor mal. Hematocrit (test code = 34.0 % 40.0-50.0 L 4544-3) Lab Interpretation (test Abnormal code = 11773-9) [facility] CenterGlucose-Stat [id number] 15:10:00 Test Item Value Reference Range Interpretation Comments Glucose (test code = 2345-7) 119 mg/dL 70-110 H Lab Interpretation (test code = Abnormal 90385-2) [facility] CenterHGB/HCT (H&H)-Stat [id number] 15:10:00 Test Item Value Reference Range Interpretation Comments Hemoglobin (test code = 11.5 See_Comment L [Au tomated message] 786-4) The system [employer] generated this result transmitted ref erence range: 13.0 - 1 6.8 GM/DL. The refe rence range was not u sed to interpret this result as normal/abnor mal. Hematocrit (test code = 34.0 % 40.0-50.0 L 4544-3) Lab Interpretation (test Abnormal code = 78351-1) [facility] CenterGlucose-Stat [id number] 15:10:00 Test Item Value Reference Range Interpretation Comments Glucose (test code = 2345-7) 119 mg/dL 70-110 H Lab Interpretation (test code = Abnormal 15905-1) [facility] CenterCALCIUM, [id number] 15:10:00 Test Item Value Reference Range Interpretation Comments CALCIUM IONIZED (BEAKER) (test 1.04 mmol/L 1.12-1.27 L code = 698) PH, BLOOD (BEAKER) (test code = 7.31 1810) GLUCOSE-STAT [id number] 15:10:00 Test Item Value Reference Range Interpretation Comments GLUCOSE RANDOM (BEAKER) (test code 119 mg/dL 70-110 H = 652) HGB/HCT (H&H) - STAT [id number] 15:10:00 Test Item Value Reference Range Interpretation Comments HEMOGLOBIN (BEAKER) (test code = 11.5 GM/DL 13.0-16.8 L 410) HEMATOCRIT (BEAKER) (test code = 34.0 % 40.0-50.0 L 411) Sodium Na-Stat [id number] 15:09:21 Test Item Value Reference Range Interpretation Comments Sodium (test code = 2951-2) 138 meq/L 136-145 Lab Interpretation (test code = Normal 50861-0) [facility] Center[facility]assium-Stat [id number] 15:09:21 Test Item Value Reference Range Interpretation Comments Potassium (test code = 2823-3) 3.8 meq/L 3.6-5.5 Lab Interpretation (test code = Normal 18633-6) [facility] [id number] 15:09:21 Test Item Value Reference Range Interpretation Comments Sodium (test code = 2951-2) 138 meq/L 136-145 Lab Interpretation (test code = Normal 97670-4) [facility] CenterPotassium-Stat [id number] 15:09:21 Test Item Value Reference Range Interpretation Comments Potassium (test code = 2823-3) 3.8 meq/L 3.6-5.5 Lab Interpretation (test code = Normal 39399-9) [facility] NA-STAT [id number] 15:09:21 Test Item Value Reference Range Interpretation Comments SODIUM (BEAKER) (test code = 381) 138 meq/L 136-145 POTASSIUM-STAT [id number] 15:09:21 Test Item Value Reference Range Interpretation Comments POTASSIUM (BEAKER) (test code = 3.8 meq/L 3.6-5.5 379) T4, [id number] 07:52:33 Test Item Value Reference Range Interpretation Comments FREE T4 (BEAKER) (test code = 655) 0.84 ng/dL 0.70-1.48 Head Inspector And Center Marker ID - PIAYA LBASIC METABOLIC [id number] 07:07:41 Test Item Value Reference Range Interpretation [...] S NOT APPLICABLE FOR DIALYSIS PATIEN TS. Head Inspector And Center Marker ID - DARLYN [id number] 07:04:02 Test Item Value Reference Range Interpretation Comments PHOSPHORUS (BEAKER) (test code = 6.3 mg/dL 2.3-4.7 H 604) Head [facility] And Center Marker ID - PILU [id number] 07:04:01 Test Item Value Reference Range Interpretation Comments MAGNESIUM (BEAKER) (test code = 1.9 mg/dL 1.6-2.6 627) Head Inspector And Center Marker ID - DARLYN LTSH/FREE T4 IF [id number] 06:52:38 Test Item Value Reference Range Interpretation Comments THYROID STIMULATING HORMONE 20.818 uIU/mL 0.350-4.940 H (BEAKER) (test code = 772) Head Inspector And Center Marker ID - PILU LCBC W/PLT COUNT & AUTO [id number] 06:12:32 Test Item Value Reference Range Interpretation [...] PERCENT (BEAKER) (test code = 2801) SARS-CoV2/RT-PCR ([facility])2021-08-30 14:03:43 Test Item Value Reference Interpretation Comments Range SARS-COV2/RT-PCR Negative Negative The SARS-Co V-2 (test code = target nucleic 84040-1) acids are not detected in thi s [...] rapid, real-hilaria e RT-PCR test intended for e qualitative detection of nucleic acid fr om SARS-CoV-2 in a nasopharyngeal swab specimen collec altagracia from individual s suspected of COVID-19 by [...] revoked sooner. Fact Sheet for Healthcare Providers: https://www.[employer]/Documents/Xp ert%20Xpress%20SAR S%20CoV-2/Fact%20S heets/302-3802%20S ARS-COV-2%20HEALTH CARE%20PROVIDERS%2 0FACT%20SHEET.pdf Fact Sheet for Healthcare Patients: https://www.[employer]/Documents/Xp ert%20Xpress%20SAR S%20CoV-2/Fact%20S heets/302-3801%20S ARS-COV-2%20PATIEN T%20FACT%20SHEET.p df Lab Interpretation Normal (test code = 73417-0) [facility]2021-08-30 14:03:43 Test Item Value Reference Range Interpretation Comments SARS-COV2/RT-PCR Negative Negative The SARS-Co V-2 target (test code = nucleic acids a re not 6973131) detected in thi s specimen. Negative result [...] revoked sooner. Fact Sheet for Healthcare Providers: https://www.[employer] m/Documents/Xpert%20Xpress%20SARS%20CoV-2/Fact%20Sheets/302-3802%67ADWV-OQT-5%20 HEALTHCARE%20PROVIDERS%20FACT%20SHEET.pdf Fact Sheet for Healthcare Patients: https://www.[employer]/Documents/Xpert%20Xp ress%20SARS%20CoV-2/Fact%20Sheets/302-3801%54WPBV-YGM-0%20PATIENT%20FACT%20SHEET .pdfBASI METABOLIC [id number] 11:13:22 Test Item Value Reference Range Interpretation [...] S NOT APPLICABLE FOR DIALYSIS PATIEN TS. Head Inspector And Center Marker ID - PIAYA LPROTHROMBIN TIME/[id number] 10:43:35 Test Item Value Reference Range Interpretation Comments PROTIME (BEAKER) 13.9 seconds 11.9-14.2 (test code = 759) INR (BEAKER) (test 1.09 See_Comment [Automat ed message] code = 370) The system [employer] generated this result transmitted ref erence range: <=5.90. The reference range was not used to int erpret this result as normal/abnormal . RECOMMENDED COUMADIN/WARFARIN INR THERAPY RANGESSTANDARD DOSE: 2.0 - 3.0 Includes: PROPHYLAXIS for venous thrombosis, systemic embolization; TREATMENT for venous thrombosis and/or pulmonary embolus.HIGH RISK: Target INR is 2.5-3.5 for patients with mechanical heart valves.CBC W/PLT COUNT & AUTO [id number] 10:40:47 Test Item Value Reference Range Interpretation [...] PERCENT (BEAKER) (test code = 2801) CT, [id number] 15:15:00FINAL REPORT ABDOMINAL AND PELVIS CT DATED 02/03/2019 CLINICAL INFORMATION: Prostate cancer History of bladder cancer Malignant neoplasm of urinary bladder TECHNIQUE: Axial imagesof the abdomen and pelvis were obtained from [...] in the abdomen or pelvis. Signed: Gwen EspitiaMDReport Verified Date/Time: 02/03/2019 15:15:07 Reading Location: [address] Radiology Reading Room [id number] 11:56:00 Test Item Value Reference Range Interpretation Comments POC-CREATININE 4.0 mg/dL 0.6-1.3 H TESTED AT [facility] 6720 (BEAKER) (test [place] code = 1859) [address] POC-EGFR (BEAKER) 15 mL/min/1.73M2 (test code = 1860) TISSUE [id number] 17:04:00Surgical Pathology Report Case: [id number] Authorizing Provider: Puneet Calvillo MD Collected: 10/02/2017 1123 Ordering Location: [facility] PERIOPERATIVE Received: 10/02/2017 1403 SERVICES Pathologist: Girish Whiteside MD Specimens: A) - Bladder Tumor, Posterior Wall Tumor B) - Ureter, Right, Right Mid-ureter Lesion A. 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 URETER, RIGHT MID-URETER LESION, BIOPSY: - BLOOD CLOT. - NO UROTHELIUM IDENTIFIED. Signing Pathologist Direct Phone Line: [phone] signed by Girish Whiteside MD on 10/03/2017 at 5:04 [id number], [id number] in situ of bladder A. Posterior wall tumor bladder tumor. B. Right mid ureter lesion Specimen is received in two containers of formalin both labeled with the patient's information.Specimen A: Labeled "bladder tumor posterior wall" consists of two fragments of multiple arnold hemorrhagic soft tissue measuring 2.5 x 2.5 x 1 cm in aggregate submitted entirely in A1 and A2.Specimen B: Labeled "right mid ureter lesion" consists of a 0.1 cm fragment of red soft tissue submitted in B1. CG/ew A-B. 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 Calvillo, as an intra-procedure imaging consultation wasnot requested. Reported fluoroscopy time: 96 seconds. Signed: Rodolfo Ramirez Verified Date/ Time: 10/02/2017 14:44:28 Reading Location: [facility] C013V Neuro Reading Room
[2022-04-23 12:47] LABS: Absolute Lymphocytes (CBC) 1.5 K/uL (0.7-4.9); Lymphocytes % 13.4 % (15.3-44.8); RBC Red Blood Cell Count 3.19 M/uL (4.33-5.43)
[2022-04-23 13:13] LABS: Troponin High Sensitivity 24.3 pg/mL (<58.9)
[2022-04-23 13:14] LABS: Potassium 3.8 mmol/L (3.5-5.1)
--- NOTE | 2022-04-23 14:43 | RAD REPORT ---
[facility]24 [facility] CLINICAL HISTORY: MALAISE COMPARISON: Chest Single View dated 01/04/2022; Chest Single View dated 08/23/2021; Chest Single View dated 10/01/2020; Chest Single View dated 09/29/2020 TECHNIQUE: Portable AP view of the chest. FINDINGS: The lungs show no focal consolidation. Increasingly prominent interstitial thickening part icularly at the bases. No pneumothorax or effusion. The cardiomediastinal contours are unremarkable. IMPRESSION: Increasingly pronounced interstitial thickening, could reflect an atypical infectious or inflammatory process. No focal consolidation.
--- NOTE | 2022-04-23 14:56 | EDPHYS ---
Physician Documentation [facility] Name: Grady Dasilva Age: 71 yrs Sex: Male : 1950 Arrival Date: 04/23/2022 Time: 12:08 Bed 20 Private MD: ED Physician Raman Chen HPI: 04/23 12:10 This 71 yrs old Male presents to ER via EMS with complaints of syncopal episode. jh7 12:10 The patient has experienced syncope, lost consciousness. Onset: The symptoms/episode jh7 began/occurred acutely. Duration: This was a single episode, that lasted 1 second(s). Associated injury: The patient did not suffer any apparent associated injury. Associated signs and symptoms: The patient has no apparent associated signs or symptoms. 71-year-old male presents post syncopal episode occurring 20 minutes prior to arrival. The patient gets peritoneal dialysis every day at home. Reports that he passed out during a blood draw. When EMS arrived on scene the patient was awake and alert and oriented x4. They report that he was slightly pale but had no complaints. History of stage IV bladder and prostate cancer.. Historical: - Allergies: 12:14 Codeine; db 12:14 PENICILLINS; db 12:14 Sulfa (Sulfonamide Antibiotics); db - Home Meds: 12:14 aspirin 81 mg Oral TbEC 1 tab once daily [Active]; levothyroxine 200 mcg tab 1 tab once db daily [Active]; amlodipine 2.5 mg oral tab 1 tab once daily [Active]; carvedilol 6.25 mg oral tab 1 tab [Active]; - PMHx: 12:18 Chronic obstructive lung disease; Hypertensive disorder; bladder cancer; prostate db cancer; - PSHx: 12:14 HD cathater placement; PD dialysis cather placement; db - Immunization history:: Client reports receiving the 2nd dose of the Covid vaccine. - Social history:: Smoking status: Patient reports the use of cigarette tobacco products, smokes one-half pack cigarettes per day. ROS: 12:10 Constitutional: Negative for fever, chills, and weight loss, Eyes: Negative for injury, jh7 pain, redness, and discharge, Neck: Negative for injury, pain, and swelling, Cardiovascular: Negative for chest pain, palpitations, and edema, Respiratory: Negative for shortness of breath, cough, wheezing, and pleuritic chest pain, Abdomen/GI: Negative for abdominal pain, nausea, vomiting, diarrhea, and constipation, MS/Extremity: Negative for injury and deformity, Skin: Negative for injury, rash, and discoloration. 12:10 Neuro: Positive for syncope, Negative for altered mental status, headache, numbness, tingling. 12:10 All other systems are negative. Exam: 12:10 Head/Face: Normocephalic, atraumatic. Eyes: Pupils equal round and reactive to light, jh7 extra-ocular motions intact. Lids and lashes normal. Conjunctiva and sclera are non-icteric and not injected. Cornea within normal limits. Periorbital areas with no swelling, redness, or edema. Neck: Trachea midline, no thyromegaly or masses palpated, and no cervical lymphadenopathy. Supple, full range of motion without nuchal rigidity, or vertebral point tenderness. No Meningismus. Cardiovascular: Regular rate and rhythm with a normal S1 and S2. No gallops, murmurs, or rubs. Normal PMI, no JVD. No pulse deficits. Respiratory: Lungs have equal breath sounds bilaterally, clear to auscultation and percussion. No rales, rhonchi or wheezes noted. No increased work of breathing, no retractions or nasal flaring. Abdomen/GI: Soft, non-tender, with normal bowel sounds. No distension or tympany. No guarding or rebound. No evidence of tenderness throughout. Skin: Warm, dry with normal turgor. Normal color with no rashes, no lesions, and no evidence of cellulitis. MS/ Extremity: Pulses equal, no cyanosis. Neurovascular intact. Full, normal range of motion. Neuro: Awake and alert, GCS 15, oriented to person, place, time, and situation. Cranial nerves II-XII grossly intact. Motor strength 5/5 in all extremities. Sensory grossly intact. Cerebellar exam normal. Normal gait. 12:10 Constitutional: The patient appears alert, awake, tired appearing Vital Signs: 11:50 BP 149 / 85; Pulse 66; Resp 16; Temp 97.8(O); Pulse Ox 100% on R/A; Weight 70.31 kg; db Height 5 ft. 6 in. (167.64 cm); Pain 0/10; 12:50 BP 152 / 80 Supine; Pulse 66; Resp 16; Pulse Ox 100% on R/A; db 12:55 BP 148 / 83 Sitting; Pulse 76; db 13:00 BP 139 / 82 Standing; Pulse 72; db 14:30 BP 168 / 91; Pulse 76; Resp 16; Pulse Ox 98% on R/A; db 11:50 Body Mass Index 25.02 (70.31 kg, 167.64 cm) db NIH Stroke Scale Scores: 12:10 NIHSS Score: 0 [facility] MDM: 12:09 Patient medically screened. [facility] 15:00 Differential Diagnosis: cardiac arrhythmia, vasovagal episode, Acute OK. Data reviewed: [facility] vital signs, nurses notes, lab test result(s), EKG, radiologic studies, plain films. Historians other than the Patient: Spouse/Significant Other: . Care significantly affected by the following chronic conditions: Hypertension, Chronic Obstructive Pulmonary Disease, Cancer. Counseling: I had a detailed discussion with the patient and/or guardian regarding: the historical points, exam findings, and any diagnostic results supporting the discharge/admit diagnosis, to return to the emergency department if symptoms worsen or persist or if there are any questions or concerns that arise at home. Special discussion: Due to possible atypical processes seen on the chest x-ray will discharge with doxycycline. The patient denies any shortness of breath but does report a chronic cough.. ED course: Patient remained hemodynamically stable throughout the ER visit. Reviewed all labs and imaging. He stated that he felt much better at the time of discharge and felt comfortable going home. If he develops any new concerning symptoms, or previous symptoms return, he may return to the ER for further eval.. 04/23 12:10 Order name: Basic Metabolic Panel; Complete Time: 13:17 [facility] 04/23 12:10 Order name: CBC with Diff; Complete Time: 13:05 [facility] 04/23 12:10 Order name: Troponin HS; Complete Time: 13:17 [facility] 04/23 12:10 Order name: XRAY Chest (1 view); Complete Time: 14:47 [facility] 04/23 12:10 Order name: EKG; Complete Time: 12:11 [facility] 04/23 12:40 Order name: Glucose, Ancillary Testing; Complete Time: 12:46 [facility] 04/23 12:10 Order name: Cardiac monitoring; Complete Time: 12:30 [facility] 04/23 12:10 Order name: EKG - Nurse/Tech; Complete Time: 13:14 [facility] 04/23 12:10 Order name: IV Saline Lock; Complete Time: 12:30 [facility] 04/23 12:10 Order name: Labs collected and sent; Complete Time: 12:30 [facility] 04/23 12:10 Order name: O2 Per Protocol; Complete Time: 12:30 [facility] 04/23 12:10 Order name: O2 Sat Monitoring; Complete Time: 12: [facility] 04/23 12:10 Order name: Orthostatics; Complete Time: 13:24 [facility] 04/23 12:10 Order name: Blood Glucose Level; Complete Time: 12: [facility] EC:06 Rate is 63 beats/min. Rhythm is regular. QRS [place] is Normal. CT interval is normal at [facility] 154 msec. QRS interval is normal at 92 msec. QT interval is prolonged at 512 msec. No Q waves. T waves are Normal. No ST changes noted. Clinical impression: Normal Sinus Rhythm. Administered Medications: No medications were administered Disposition Summary: 04/23/22 14:55 Discharge Ordered Location: Home [facility] Problem: new [facility] Symptoms: have improved [facility] Condition: Stable [facility] Diagnosis - Syncope [facility] - Atypical pneumonia [facility] Followup: [facility] - With: Private Physician - When: 2 - 3 days - Reason: Recheck today's complaints Discharge Instructions: - Discharge Summary Sheet [facility] - Syncope [facility] Forms: - Medication Reconciliation Form [facility] - Thank You Letter [facility] - Antibiotic Education [facility] Prescriptions: - Tessalon Perles 100 mg Oral Capsule - take 1 capsule by ORAL route every 8 hours As needed; 15 capsule; Refills: 0, [facility] Product Selection Permitted - Doxycycline Hyclate 100 mg Oral Tablet - take 1 tablet by ORAL route every 12 hours for 7 days; 14 tablet; Refills: 0, [facility] Product Selection Permitted NIH Stroke Scale - NIH Stroke Score Date: 04/23/2022 Time: 12:10 Total Score = 0 1a. Level of Consciousness (LOC) - 0(Alert) 1b. Level of Consciousness (LOC) (Month \T\ Age) - 0(Both) 1c. LOC Commands (Open \T\ Closes Eyes/Manager Patient) - 0(Both) 2. Best Gaze (Lateral Gaze Paresis) - 0(Normal) 3. Visual Field Loss - 0(No visual loss) 4. Facial Palsy - 0(Normal) 5a. Left Arm: Motor (10-second hold) - 0(No drift) 5b. Right Arm: Motor (10-second hold) - 0(No drift) 6a. Left Leg: Motor (5-second hold - always test supine) - 0(No drift) 6b. Right Leg: Motor (5-second hold - always test supine) - 0(No drift) 7. Limb Ataxia (finger/nose \T\ heel/chapa - test with eyes open) - 0(Absent) 8. Sensory Loss (pinprick arms/legs/face) - 0(Normal) 9. Best Language: Aphasia (description/naming/reading) - 0(No aphasia) 10. Dysarthria (speech clarity - read or repeat words) - 0(Normal) 11. Extinction and Inattention (visual/tactile/auditory/spatial/personal) - 0(No abnormality) Initials: jhZiyad Signatures: Dispatcher [employer] EDSonya Correa, HAND COKE DRAWER HAND COKE DRAWER [facility] Dominique Andrews, RN RN db Corrections: (The following items were deleted from the chart) 12:17 12:14 PMHx: Bladder CA; db db 12:17 12:14 PMHx: PROSTATE CA; db db 12:17 12:14 PMHx: End stage renal disease; db db 12:17 12:14 PMHx: Possible Brain CA; db db 12:17 12:14 PMHx: Hypothyroidism; db db
--- NOTE | 2022-04-23 14:56 | ER ---
Nurse's Notes [facility] Name: Grady Dasilva Age: 71 yrs Sex: Male : 1950 Arrival Date: 04/23/2022 Time: 12:08 Bed 20 Private MD: Diagnosis: Syncope;Atypical pneumonia Presentation: 04/23 11:50 Chief complaint: EMS states: Patient brought in today after having a syncopal episode. db patient normally has peritoneal dialysis at home. Today was having a blood draw and passed out. Complained of N/V, and was pale. Patient upon arrival to ER is AOx4 . Pt with a hx of bladder and prostate cancer. Patient given 4mg Zofran IVP by EMS. Coronavirus screen: Vaccine status: Patient reports receiving the 2nd dose of the covid vaccine. Client denies travel out of the [place] in the last 14 days. At this time, the client does not indicate any symptoms associated with coronavirus-19. Ebola Screen: Patient negative for fever greater than or equal to 101.5 degrees Fahrenheit, and additional compatible Ebola Virus Disease symptoms Patient denies exposure to infectious person. Patient denies travel to an Ebola-affected area in the 21 days before illness onset. No symptoms or risks identified at this time. Initial Sepsis Screen: Does the patient meet any 2 criteria? No. Patient's initial sepsis screen is negative. Does the patient have a suspected source of infection? No. Patient's initial sepsis screen is negative. Risk Assessment: Do you want to hurt yourself or someone else? Patient reports no desire to harm self or others. Onset of symptoms was April 23, 2022. Care prior to arrival: IV initiated. 20 GA, in the right forearm. 11:50 Method Of Arrival: EMS: [facility] db 11:50 Acuity: MADI 2 db Triage Assessment: 12:14 General: Appears in no apparent distress. comfortable, Behavior is calm, cooperative. db Pain: Denies pain. Historical: - Allergies: 12:14 Codeine; db 12:14 PENICILLINS; db 12:14 Sulfa (Sulfonamide Antibiotics); db - Home Meds: 12:14 aspirin 81 mg Oral TbEC 1 tab once daily [Active]; levothyroxine 200 mcg tab 1 tab once db daily [Active]; amlodipine 2.5 mg oral tab 1 tab once daily [Active]; carvedilol 6.25 mg oral tab 1 tab [Active]; - PMHx: 12:18 Chronic obstructive lung disease; Hypertensive disorder; bladder cancer; prostate db cancer; - PSHx: 12:14 HD cathater placement; PD dialysis cather placement; db - Immunization history:: Client reports receiving the 2nd dose of the Covid vaccine. - Social history:: Smoking status: Patient reports the use of cigarette tobacco products, smokes one-half pack cigarettes per day. Screenin:18 [facility] ED Fall Risk Assessment (Adult) History of falling in the last 3 months, db including since admission No falls in past 3 months (0 pts) Confusion or Disorientation No (0 pts) Intoxicated or Sedated No (0 pts) Impaired Gait No (0 pts) Mobility Assist Device Used No (0 pt) Altered Elimination No (0 pt) Score/Fall Risk Level 0 - 2 = Low Risk Oriented to surroundings, Maintained a safe environment. Abuse screen: Denies threats or abuse. Denies injuries from another. Nutritional screening: No deficits noted. Tuberculosis screening: No symptoms or risk factors identified. Assessment: 12:17 Reassessment: Patient appears in no apparent distress at this time. Patient and/or db family updated on plan of care and expected duration. Pain level reassessed. Patient is alert, oriented x 3, equal unlabored respirations, skin warm/dry/pink. General: Appears in no apparent distress. comfortable, Behavior is calm, cooperative. Cardiovascular: Reports None. Respiratory: Airway is patent Respiratory effort is even, unlabored, Respiratory pattern is regular, symmetrical. 13:10 Reassessment: Patient appears in no apparent distress at this time. Patient and/or db family updated on plan of care and expected duration. Pain level reassessed. Patient is alert, oriented x 3, equal unlabored respirations, skin warm/dry/pink. Patient states feeling better. 14:30 Reassessment: Patient appears in no apparent distress at this time. Patient and/or db family updated on plan of care and expected duration. Pain level reassessed. Patient is alert, oriented x 3, equal unlabored respirations, skin warm/dry/pink. Patient states feeling better. Patient states symptoms have improved. 15:08 Reassessment: Patient appears in no apparent distress at this time. Patient and/or db family updated on plan of care and expected duration. Pain level reassessed. Patient is alert, oriented x 3, equal unlabored respirations, skin warm/dry/pink. Patient states symptoms have improved. Vital Signs: 11:50 BP 149 / 85; Pulse 66; Resp 16; Temp 97.8(O); Pulse Ox 100% on R/A; Weight 70.31 kg; db Height 5 ft. 6 in. (167.64 cm); Pain 0/10; 12:50 BP 152 / 80 Supine; Pulse 66; Resp 16; Pulse Ox 100% on R/A; db 12:55 BP 148 / 83 Sitting; Pulse 76; db 13:00 BP 139 / 82 Standing; Pulse 72; db 14:30 BP 168 / 91; Pulse 76; Resp 16; Pulse Ox 98% on R/A; db 11:50 Body Mass Index 25.02 (70.31 kg, 167.64 cm) db Vitals: 14:30 Cardiac Rhythm Assessment Regular Sinus rhythm. db NIH Stroke Scale Scores: 12:10 NIHSS Score: 0 [facility] ED Course: 12:08 Patient arrived in ED. db 12:09 Sonya Hooper FNP is PHCP. jh7 12:09 Raman Chen MD is Attending Physician. [facility] 12:14 Triage completed. db 12:17 Arm band placed on right wrist. Patient placed in an exam room, on a stretcher, on db monitor and storage bin tender, on pulse oximetry. 12:51 Dominique Andrews, RN is Primary Nurse. db 13:14 EKG done, by ED staff, reviewed by Sonya STANLEY. em1 13:26 XRAY Chest (1 view) In Process Unspecified. EDMS 15:08 Patient has correct armband on for positive identification. Bed in low position. Call db light in reach. Side rails up X 1. Client placed on continuous cardiac and pulse oximetry monitoring. NIBP monitoring applied. Warm blanket given. 15:08 No provider procedures requiring assistance completed. IV discontinued, intact, db bleeding controlled, No redness/swelling at site. Administered Medications: No medications were administered Medication: 15:07 VIS not applicable for this client. db Outcome: 14:55 Discharge ordered by . 7 15:08 Discharged to home ambulatory, with family. db 15:08 Condition: stable 15:08 Discharge instructions given to patient, family, Instructed on discharge instructions, follow up and referral plans. Prescriptions given X 2. 15:09 Patient left the ED. db NIH Stroke Scale - NIH Stroke Score Date: 04/23/2022 Time: 12:10 Total Score = 0 1a. Level of Consciousness (LOC) - 0(Alert) 1b. Level of Consciousness (LOC) (Month \T\ Age) - 0(Both) 1c. LOC Commands (Open \T\ Closes Eyes/Critical Care Physician Assistant) - 0(Both) 2. Best Gaze (Lateral Gaze Paresis) - 0(Normal) 3. Visual Field Loss - 0(No visual loss) 4. Facial Palsy - 0(Normal) 5a. Left Arm: Motor (10-second hold) - 0(No drift) 5b. Right Arm: Motor (10-second hold) - 0(No drift) 6a. Left Leg: Motor (5-second hold - always test supine) - 0(No drift) 6b. Right Leg: Motor (5-second hold - always test supine) - 0(No drift) 7. Limb Ataxia (finger/nose \T\ heel/chapa - test with eyes open) - 0(Absent) 8. Sensory Loss (pinprick arms/legs/face) - 0(Normal) 9. Best Language: Aphasia (description/naming/reading) - 0(No aphasia) 10. Dysarthria (speech clarity - read or repeat words) - 0(Normal) 11. Extinction and Inattention (visual/tactile/auditory/spatial/personal) - 0(No abnormality) Initials: [facility] Signatures: Dispatcher [employer] Mario Sosa em1 Sonya Hooper, LIZETH PRIMARY CARE NURSE 7 Dominique Andrews, RN RN db Corrections: (The following items were deleted from the chart) 12:17 12:14 PMHx: Bladder CA; db db 12:17 12:14 PMHx: PROSTATE CA; db db 12:17 12:14 PMHx: End stage renal disease; db db 12:17 12:14 PMHx: Possible Brain CA; db db 12:17 12:14 PMHx: Hypothyroidism; db db
[2022-04-23 15:28] VITALS: BP 168/91; O2SAT 98
--- NOTE | 2022-04-23 18:45 | EKG ---
Test Date: 2022-04-23 Test Time: 13:06:12 [employer] Good[employer] Cutter Finisher: MARILYN MEASUREMENT RESULTS: Intervals: Rate: 63 MO: 154 QRSD: 92 QT: 512 QTc: 523 Bennett: P: 37 MO: 154 QRS: -7 T: 56 INTERPRETIVE STATEMENTS: Normal sinus rhythm Voltage criteria for left ventricular hypertrophy Prolonged QT Abnormal ECG Compared to ECG 01/04/2022 13:34:17 Left ventricular hypertrophy now present ST (T wave) deviation no longer present Possible ischemia no longer present Electronically Signed On 04-23-22 18:42:10 [employer]ASSEM[employer] WIRER by Srikanth Faye
== END 2022-04-23 15:09 | disposition home or self-care (01) ==
LOC: ER 11:54
DX: J18.9 Pneumonia, unspecified organism (principal); I10 Essential (primary) hypertension; J44.9 Chronic obstructive pulmonary disease, unspecified; F17.210 Nicotine dependence, cigarettes, uncomplicated; Z85.51 Personal history of malignant neoplasm of bladder; Z85.46 Personal history of malignant neoplasm of prostate; Z79.82 Long term (current) use of aspirin; Z88.0 Allergy status to penicillin; Z88.2 Allergy status to sulfonamides; Z88.5 Allergy status to narcotic agent
CPT/HCPCS: 36415; 71045; 80048; 82947; 84484; 85025; 93005

== ENCOUNTER 2022-07-08 23:54 | Emergency (ER) | payer OTHER ==
--- OUTSIDE RECORDS SUMMARY | 2022-07-09 00:03 | XMS REPORT | Continuity of Care Document ---
:1950 Author Organization [facility] t Address [address] [place] [address] Care Team Providers Name Role Phone CALIVANESSA [facility] Primary Care Physician Unavailable PUNEET CALVILLO Attending Clinician Unavailable GWEN HWANG Attending Clinician Unavailable KAYLEE GARCIA Attending Clinician Unavailable Elyssa Pereira MD Attending Clinician ELYSSA PEREIRA Attending Clinician Unavailable Puneet Calvillo MD Attending Clinician 1.5, [facility] Rickey Mr Attending Clinician Unavailable PUNEET CALVILLO Attending Clinician Unavailable Jerry Rodriguez MD Attending Clinician Raegan Augustin CRNA Attending Clinician Arleen Taylor RN Attending Clinician Unavailable Jono Maradiaga MD Attending Clinician Gwen Hwang MD Attending Clinician [phone] Doctor Unassigned, [place] Attending Clinician Unavailable Mikayla Castillo RN Attending Clinician CECILIA LAMB Attending Clinician Unavailable Qing JENNINGS, Douglas Attending Clinician Isaura JENNINGS, Cecilia Johnston Attending Clinician Luis E JENNINGS, Mc Attending Clinician Jeffrey JENNINGS, Girish Easley Attending Clinician BEENA HALL Attending Clinician Unavailable Beena Diaz Attending Clinician [phone] [place]re[place] JENNINGS, Danish Attending Clinician Liu JENNINGS, Fito Ford Attending Clinician Shiv JENNINGS, Mayra Haynes Attending Clinician [phone] JAREN BUSBY Attending Clinician Unavailable ABEL RODRIGEZ Attending Clinician Unavailable Delaney FREIRE, Constance Attending Clinician Unavailable PUNEET CALVILLO Admitting Clinician Unavailable GWEN HWANG Admitting Clinician Unavailable KAYLEE GARCIA Admitting Clinician Unavailable ELYSSA PEREIRA Admitting Clinician Unavailable DOUGLAS NEVAREZ Admitting Clinician Unavailable Payers Payer Name Policy Type Policy Number Effective Date Expiration Date S evelyn [employer] MEDICARE HMO [id number] 2021 POS 00:00:00 MEDICARE A B [id number] 2014 00:00:00 [employer]NA INDEMNITY [id number] 2015 NON CONTR 00:00:00 [employer]ETNA MEDICARE ADV [id number] 2020 00:00:00 MEDICARE PLAN PPO [id number] - AETNA MEDICARE PART A [id number] \\T\\ [id number] - MEDICARE Problems Condition Condition Condition Status Onset Resolution Last Treating Co mments Source Name Details Category Date Date Treatment Clinician Date Carotid Carotid Disease Active [facility] stenosis stenosis [address] [facility] 00:00: Hospita 00 l Claudicati Claudicati Disease Active M ethodi on of both on of both 4-28 st lower lower 00:00: Hospita extremitie extremitie 00 l s s Bladder Bladder Disease Active [facility] Carotid Carotid Disease Active [facility] stenosis, stenosis, 08-31 [facility] asymptomat asymptomat 00:00: Me dical ic ic 00 Center Prostate Prostate Disease Recurre [facility] cancer cancer nce 08[facility] Bilateral Bilateral Disease Active [facility] carotid carotid 08-30 [facility] artery artery 00:00: Medical stenosis stenosis 00 Center Hypothyroi Hypothyroi Disease Active C [...] Disease Active 2020-02 Meth[facility] di afferent afferent 2-16 st pupillary pupillary 00:00: Hosp jay defect defect 00 l Sector Sector Disease Active 2020-02 [facility]i visual visual 2-16 st field field 00:00: Hospita defect defect 00 l Smoker Smoker Disease Active 2020-02 Methodi 2-16 [facility] 00:00: Hospita 00 l Subjective Subjective Disease Active 2020-02 M ethodi visual visual 2-16 st disturbanc disturbanc 00:00: Ho spita e e 00 l Allergic Allergic Disease Active [facility] di rhinitis rhinitis 3-27 st due to due to 00:00: Hospita pollen pollen 00 l Benign Benign Disease Active [facility]i prostatic prostatic 3-27 st hyperplasi hyperplasi 00:00: Ho spita a with a with 00 l lower lower urinary urinary tract tract symptoms symptoms Cerebrovas Cerebrovas Disease Active M ethodi cular cular 05-21 st disease disease 00:00: Hospita 00 l Hypothyroi Hypothyroi Disease Active M ethodi dism due dism due 05-21 to defect to defect 00:00: Hosp jay in thyroid in thyroid 00 l hormone hormone synthesis synthesis Impaired Impaired Disease Active Metho di fasting fasting 05-21 glucose glucose 00:00: Hospita 00 l Nephrogeno Nephrogeno Disease Active M ethodi us us 05-21 st proteinuri proteinuri 00:00: Ho spita a a 00 l Hypertensi Hypertensi Disease Active M ethodi ve heart ve heart 05-21 and and 00:00: Hospita chronic chronic 00 [...] Active U nivers ve urgency ve urgency 3-04 it y of 00:00: [address] Branch Encounter Encounter Disease Active 2019-02 [facility] for 03-29 [place] follow-up follow-up 00:00: of surveillan surveillan 00 Me haim ce of ce of e prostate prostate cancer cancer Malignant Malignant Disease Active [facility] neoplasm neoplasm [facility] urinary of urinary 00:00: of bladder bladder 00 Medicin e History of History of Disease Active M ethodi bladder bladder 08-20 st cancer cancer 00:00: Hospita 00 l Bladder Bladder Disease Recurre [facility] Center Atypical Atypical Disease Active [facility] di angina angina 09-26 st 00:00: Hospita 00 l Angina at Angina at Disease Active Met hodi rest rest 09-26 00:00: Hospita 00 l Preoperati Preoperati Disease Active M ethodi ve ve 09-26 evaluation evaluation 00:00: Ho spita to rule to rule 00 l out out surgical surgical contraindi contraindi cation cation Intraepith Intraepith Disease Active B tiffany torres 09-24 [place] carcinoma carcinoma 00:00: of 00 Medicin e Encounter Encounter Disease Active [facility] for for 09-24 [place] follow-up follow-up 00:00: of surveillan surveillan 00 Me dicin ce of ce of e bladder bladder cancer cancer Prostate Prostate Disease Active [facility] r cancer cancer 09-24 [place] 00:00: of 00 Medicin e Sleep Sleep Disease Active Methodi apnea in apnea in 09-28 adult adult 00:00: Hospita 00 l ESRD on ESRD on Disease Recurre [facility] peritoneal peritoneal nce [facility] dialysis dialysis Medica l Center ESRD (end ESRD (end Disease Recurre [facility] stage stage nce [facility] renal renal Medical disease) disease) Center on [...] Ba ylor ins ty to Comments) 09-24 [place] adverse 00:00: of reaction 00 Medicin s to e drug Penicill Propensi Active Only Method i ins ty to 09-[address] adverse 00:00: form Hospita reaction 00 l s to drug Penicill Propensi Active Only Method i ins ty to 8-[address] adverse 00:00: form Hospita reaction 00 l s to drug NO KNOWN Drug Active [facility] Family History Family Member Diagnosis Comments Start Date Stop Date Source Natural brother Heart attack [facility] Natural father [facility]ary [facility] Center Natural father Heart failure [facility] Natural mother Coronary artery [facility] disease [facility] Center Natural sister Coronary [facility] disease [facility] Center Social History Social Habit Start Date Stop Date Quantity Comments Source History of tobacco Cigarette Smoker [facility] use of Medicine History [facility] Alcohol Frequency Medical Center History [facility] Alcohol Std Drinks Medica l Center History [facility] Alcohol Binge Medical [facility] Gender identity [facility] Sexual orientation Method ist Hospital History [facility] Transport Non-Med Medical [facility] Exposure to 2022-04-08 2022-04-18 Not sure [facility] Colleaj e SARS-CoV-2 (event) 00:00:00 09:35:00 of Med icine Alcohol intake 2022-04-04 2022-04-04 [facility] of alcohol Medical Center (finding) History [facility] 2022-04-02 2022-04-[address] [facility] Transport Med 00:00:00 00:00:[address] History [facility] 2022-04-02 2022-04-[address] [facility] Housing Unable to 00:00:00 00:00:00 Medical Center Pay History [facility] 2022-04-02 2022-04-[address] [facility] Housing Places 00:00:00 00:00:00 Medical Ce nter Lived History [facility] 2022-04-02 2022-04-[address] [facility] Housing Homeless 00:00:00 00:00:00 Medical Center Last Year Cigarette 2021-08-30 2021-08-[address] [facility] pack-years 00:00:00 00:00:00 Medical Center Tobacco use and 2021-08-30 2021-08-[address] [facility] exposure 00:00:00 00:00:00 tobacco non-user Medical Center Cigarettes smoked 2021-08-30 2021-08-[address] [facility] current (pack per 00:00:00 00:00:00 Medical Center day) - Reported History of Social 2021-02-23 2021-02-[address] function 00:00:00 00:00:00 Hospital Alcohol Comment 2017-10-01 2017-10-01 "very rare" ABELARDO Zaragoza ukes 00:00:00 00:00:00 [facility] Center Sex Ass[birth year] At [birth year] ABELARDO Ritters 00:00:00 00:00:00 [facility] Center Smoking Status Start Date Stop Date Source Smokes tobacco daily 2021-08-30 00:00:00 [facility] Never smoked tobacco [facility] Medications Ordered Filled Start Stop Current Ordering Indication Dosage Frequency Signature Comments Components Source Medication Medication Date Date Medication? Clinician (SIG) Name Name clonIDINE Yes .1mg Q.5D Take 1 Method i (CATAPRES) 4-[address] 0.1 MG 15:30: (0.1 mg Hospita tablet 17 total) by l mouth 2 (two) times a day. losartan 0 Yes 50mg QD Take 1 Methodi (COZAAR) 50 4-29 tablet (50 st MG tablet 15:30: mg total) Hos tyree 17 by mouth l daily. NIFEdipine 2022-0 Yes 60mg QD Take 1 [facility] di ER 4-29 tablet (60 st (PROCARDIA- 15:30: mg total) H ospita XL) 60 MG 17 by mouth l 24 hr daily. tablet clopidogreL 0 Yes 75mg QD Take 1 [facility] (PLAVIX) 75 4-29 tablet (75 st mg tablet 15:30: mg total) Hos tyree 17 by mouth l daily. spironolact 0 Yes 25mg QD Take 1 [facility] one 4-29 tablet (25 st (ALDACTONE) 15:30: mg total) H ospita 25 MG 17 by mouth l tablet daily. benzonatate 2022-0 Yes 100mg Q.5D Take 1 Met hodi (TESSALON) 4-[address] 100 MG 15:30: (100 mg Hospita capsule 17 total) by l mouth 2 (two) times a day as needed for cough. cetirizine 0 Yes 10mg Q24H Take 1 Metho di (ZyrTEC) 10 4-29 tablet (10 st MG tablet 15:30: mg total) Hos tyree 17 by mouth l daily as needed for allergies. clopidogreL 2022- Yes 75mg QD Take 1 Met hodi (PLAVIX) 75 06-23 tablet (75 s t mg tablet 00:00: 04:59 mg total) Ho spita 00 :00 by mouth l daily for 120 doses. aspirin 2022- Yes 81mg QD Take 1 [facility]i (ECOTRIN) 06-23 tablet (81 st 81 MG 00:00: 04:59 mg total) Hospit a enteric 00 :00 by mouth l coated daily for tablet 120 doses. aspirin 0 Yes 81mg QD Take 1 [facility] (ECOTRIN) 06-22 tablet (81 st 81 MG 16:19: mg total) Hospita enteric 08 by mouth l coated daily. tablet atorvastati Yes 40mg QD Take 1 Meth [facility] n (LIPITOR) 06-22 tablet (40 st 40 mg 16:19: mg total) Hospita tablet 08 by mouth l daily. carvediloL Yes 6.25mg Q.5D Take 1 Met hodi (COREG) 06-[address] 6.25 MG 16:19: (6.25 mg Hospit a tablet 08 total) by l mouth 2 (two) times a day with meals. levothyroxi Yes 300ug QD Take 1.5 M ethodi ne - tablets st (SYNTHROID) 16:19: (300 mcg Ho spita 200 mcg 08 total) by l tablet mouth daily. tamsulosin Yes .4mg QD Take 0.4 Met hodi (FLOMAX) -[address] 0.4 mg 16:19: mouth Hospita capsule 08 daily with l dinner. vit B comp 2022- No 1{tbl} QD Take 1 Me thodi no.3-folic- 06-[address] C-biotin 07:05: 00:00 mouth Hospita (NEPHRO-VIT 45 :00 daily. l E RX) 1-60-300 mg-mg-mcg tablet sertraline 2022- No 100mg Take 100 M ethodi (ZOLOFT) 06-[address] 100 MG 07:05: 00:00 mouth. Hospita tablet 35 :00 l calcitrioL 2022- No .25ug QD Take 0.25 Methodi (ROCALTROL) 06-[address] 0.25 MCG 07:04: 00:00 mouth Hospita capsule 58 :00 daily. l atenoloL 2022- No 50mg Take 50 mg Me thodi (TENORMIN) 06-[address] 50 MG 07:04: 00:00 Hospita tablet 25 :00 l triamcinolo 2022- No triamcinol Methodi ne 06-[address] (KENALOG) 07:03: 00:00 acetonide Ho spita 0.5 % cream 08 :00 0.5 % l topical cream sulfamethox 2022- No sulfametho Methodi azole-trime 06-22 xazole 800 s t thoprim 07:03: 00:00 mg-trimeth Hos tyree (BACTRIM 01 :00 oprim 160 l DS) 800-160 mg tablet mg per tablet mupirocin 2022- No mupirocin Me thodi (BACTROBAN) 06-22 2 % st 2 % 07:02: 00:00 topical Hospita ointment 55 :00 ointment l isosorbide 2022- No Q24H daily. [facility] mononitrate 06-22 st (IMDUR) 30 07:02: 00:00 Hospit a MG 24 hr 33 :00 l tablet HYDROcodone 2022- No hydrocodon Methodi -acetaminop 06-[address] hen (NORCO) 07:02: 00:00 mg-acetami Hospita 5-325 mg 24 :00 nophen 325 l per tablet mg tablet ezetimibe 2022- No Zetia Method i (ZETIA 06-22 st ORAL) 07:02: 00:00 Hospita 17 :00 l amLODIPine 0 2022- No 10mg QD Take 10 mg Methodi (NORVASC) 06-[address] 10 mg 06:39: 00:00 daily. Hospita tablet 08 :00 l acetaminoph 2022-0 2022- No acetaminop Methodi en-codeine 06-[address] (TYLENOL 06:37: 00:00 mg-codeine Ho spita WITH 55 :00 30 mg l CODEINE #3) tablet 300-30 mg per tablet Aspirin 81 2022-0 Yes 81mg Take 81 mg [facility] MG tablet 04-25 by mouth. Colle ge 16:56: of 43 Medicin e carvedilol Yes 6.25mg 6.25 mg. [facility] (COREG) 25 04-25 College MG tablet 16:56: of 43 Medicin e clopidogrel Yes 75mg Take 1 [facility] (PLAVIX) 75 04-25 Tablet by Col lege MG Tablet 16:56: mouth of 43 daily. Medicin e Calcium 0 Yes Take by [facility] [place] Acetate, 04-25 mouth. College Phos 16:56: of Skip, [id number] 43 Medicin MG CAPS e citalopram 0 Yes 40mg QD Take 40 mg C [...] tablet 58 (two) Center times daily. levothyroxi 2022-0 Yes 250ug Take [address] ne 2-08 mcg by [facility] (SYNTHROID, 18:22: mouth Medic al LEVOTHROID) 58 Every Center 200 MCG morning on tablet an empty stomach. tamsulosin 2022-0 Yes .4mg QD Take 0.[address] (FLOMAX) 2-08 mg by [facility] 0.4 mg Cap 18:22: mouth Medica l 24 hr 58 daily. Center capsule aspirin 81 2022-0 Yes 81mg QD Take [address] MG EC 2-08 by mouth [facility] tablet 18:22: daily. [address] citalopram 2022-0 Yes 40mg QD Take [address] (CELEXA) 40 2-08 by mouth Luke s MG tablet 18:22: nightly . [address] atorvastati 2022-0 Yes 40mg Q24H Take [address] n (LIPITOR) 2-08 by mouth Luke s 40 MG 18:22: daily. Medical tablet 58 [place] carvediloL 2022-0 Yes 6.25mg Q.5D Take 6.[address] (COREG) 2-08 mg by [facility] 6.25 MG 18:22: mouth 2 Medical tablet 58 (two) Center times daily. levothyroxi 2022-0 Yes 250ug Take [address] ne 2-08 mcg by [facility] (SYNTHROID, 18:22: mouth Medic al LEVOTHROID) 58 Every Center 200 MCG morning on tablet an empty stomach. tamsulosin 2022-0 Yes .4mg QD Take 0.[address] (FLOMAX) 2-08 mg by [facility] 0.4 mg Cap 18:22: mouth Medica l 24 hr 58 daily. [place] capsule aspirin 81 2022-0 Yes 81mg QD Take [address] MG EC 2-08 by mouth [facility] tablet 18:22: daily. [address] citalopram 2022-0 Yes 40mg QD Take [address] (CELEXA) 40 2-08 by mouth Luke s MG tablet 18:22: nightly . [address] atorvastati 2022-0 Yes 40mg Q24H Take [address] n (LIPITOR) 2-08 by mouth Luke s 40 MG 18:22: daily. Medical tablet [address] [place] [address] carvediloL 2022-0 Yes 6.25mg Q.5D Take 6.[address] (COREG) 2-08 mg by [facility] 6.25 MG 18:22: mouth 2 Medical tablet 58 (two) Center times daily. levothyroxi 2022-0 Yes 250ug Take [address] ne 2-08 mcg by [facility] (SYNTHROID, 18:22: mouth Medic al LEVOTHROID) 58 Every Center 200 MCG morning on tablet an empty stomach. tamsulosin 2022-0 Yes .4mg QD Take 0.[address] (FLOMAX) 2-08 mg by [facility] 0.4 mg Cap 18:22: mouth Medica l 24 hr 58 daily. Center capsule aspirin 81 2022-0 Yes 81mg QD Take [address] MG EC 2-08 by mouth [facility] tablet 18:22: daily. Medical 58 Center acetaminoph 2022-0 3- No 650mg Take [address] en - 03-10 tablets [facility] (TYLENOL) 00:00: 23:59 (650 mg Medi ameena 325 MG 00 :00 total) by Center tablet mouth every 6 (six) hours as needed for Pain for up to 30 days. acetaminoph 2022-0 2023- No 650mg Take [address] en - 03-10 tablets [facility] (TYLENOL) 00:00: 23:59 (650 mg Medi ameena 325 MG 00 :00 total) by Center tablet mouth every 6 (six) hours as needed for Pain for up to 30 days. acetaminoph 2022-0 3- No 650mg Take [address] en 04-04 03-10 tablets [facility] (TYLENOL) 00:00: 23:59 (650 mg Medi ameena 325 MG 00 :00 total) by Center tablet mouth every 6 (six) hours as needed for Pain for up to 30 days. oxybutynin 3-0 3- No 5mg Take [address] (DITROPAN) 04-04-11 tablet (5 Damian es 5 MG tablet 00:00: 23:59 mg total) Medical 00 :00 by mouth 3 Center (three) times daily as needed (for bladder spasms or bladder pain) for up to 3 days. oxybutynin 3-0 2023- No 5mg Take [address] (DITROPAN) 04-04-11 tablet (5 Damian es 5 MG tablet 00:00: 23:59 mg total) Medical 00 :00 by mouth 3 Center (three) times daily as needed (for bladder spasms or bladder pain) for up to 3 days. oxybutynin 3-0 3- No 5mg Take [address] (DITROPAN) 04-04-11 tablet (5 Damian es 5 MG tablet [...] clopidogrel 0 Yes 75mg Take 75 mg [facility] [place] (PLAVIX) 75 -18 by mouth Kris ege MG Tablet 15:42: daily. of 50 Medicin e Calcium Yes Take by [facility] [place] Acetate, 1-18 mouth. College Phos 15:42: of [place], 667 50 Medicin MG CAPS e levothyroxi 2021-02 Yes [facility] [place] ne 2-28 [place] (SYNTHROID) 00:00: of 50 MCG 00 Medicin tablet e citalopram Yes 40mg QD Take [address] (CELEXA) 40 7-21 by mouth Luke s MG tablet 12:55: nightly . Med ical 44 [place] atorvastati Yes 40mg Q24H Take [address] n (LIPITOR) 7-21 by mouth Luke s 40 MG 12:55: daily. Medical tablet 44 [place] carvediloL Yes 6.25mg Q.5D Take 6.25 CHI [...] mouth Medica l 24 hr 44 daily. [place] capsule aspirin 81 0 Yes 81mg QD Take [address] MG EC 7-21 by mouth [facility] tablet 12:55: daily. Medical 44 Center sertraline 0 2- No 100mg QD Take [address] (ZOLOFT) 7-06 07-06 mg by [facility] 100 MG 09:50: 00:00 mouth Medical tablet 34 :00 nightly . [place] sertraline 2021-2021- No 100mg QD Take [address] (ZOLOFT) 7 07-06 mg by [facility] 100 MG 09:50: 00:00 mouth Medical tablet 34 :00 nightly . [place] sertraline 2021-2021- No 100mg QD Take [address] (ZOLOFT) 08-30 07-06 mg by [facility] 100 MG 09:50: 00:00 mouth Medical tablet 34 :00 nightly . [place] sertraline 2021-2021- No 100mg QD Take [address] (ZOLOFT) 08-30 07-06 mg by [facility] 100 MG 09:50: 00:00 mouth Medical tablet 34 :00 nightly . [place] levothyroxi 2021-2021- No 175ug QD Take [address] ne 08-30-06 mcg by [facility] (SYNTHROID, 09:41: 00:00 mouth Medi ameena LEVOTHROID) 15 :[address] 175 MCG tablet levothyroxi 2021-2021- No 175ug QD Take [address] ne 08-30-06 mcg by [facility]ukes (SYNTHROID, 09:41: 00:00 mouth Medi ameena LEVOTHROID) 15 :[address] 175 MCG tablet levothyroxi 2021-0 2021- No 175ug QD Take [address] ne 08-30-06 mcg by [facility]ukes (SYNTHROID, 09:41: 00:00 mouth Medi ameena LEVOTHROID) 15 :[address] 175 MCG tablet levothyroxi 2021-0 2021- No 175ug QD Take [address] ne 08-30-06 mcg by [facility]ukes (SYNTHROID, 09:41: 00:00 mouth Medi ameena LEVOTHROID) 15 :[address] 175 MCG tablet cholecalcif 2021-2021- No QD Take by [facility], 08-30 mouth [facility] vitamin D3, 09:41: 00:00 nightly . Medical 2,000 unit 05 :00 [place] Cap cholecalcif 2021-2021- No QD Take by [facility] perri, 08-30 mouth [facility] vitamin D3, 09:41: 00:00 nightly . Medical 2,000 unit 05 :00 Center Cap cholecalcif 2021-0 2021- No QD Take by [facility], 08-30 mouth [facility] vitamin D3, 09:41: 00:00 nightly . Medical 2,000 unit 05 :00 Center Cap cholecalcif 2021-0 2- No QD Take by [facility], 08-30 mouth [facility] vitamin D3, 09:41: 00:00 nightly . Medical 2,000 unit 05 :00 Center Cap atenolol 2021-0 2021- No 50mg QD Take [address] (TENORMIN) 08-30 by mouth Luke s 50 MG 09:40: 00:00 nightly . Medica l tablet 50 :00 Center atenolol 2021-0 2- No 50mg QD Take [address] (TENORMIN) 08-30 by mouth Luke s 50 MG 09:40: 00:00 nightly . Medica l tablet 50 :00 Center atenolol 2021-0 2- No 50mg QD Take [address] (TENORMIN) 08-30 by mouth Luke s 50 MG 09:40: 00:00 nightly . Medica l tablet 50 :00 Center atenolol 2021-0 2- No 50mg QD Take [address] (TENORMIN) 08-30 by mouth Luke s 50 MG 09:40: 00:00 nightly . Medica l tablet 50 :00 Center clopidogreL 2-0 Yes 75mg QD Take [address] (PLAVIX) 75 7-01 by mouth Luke s mg tablet 00:00: daily. Medica l 00 Center clopidogreL 2-0 Yes 75mg QD Take [address] (PLAVIX) 75 7-01 by mouth Luke s mg tablet 00:00: daily. Medica l 00 Center clopidogreL 2022-0 Yes 75mg QD Take [address] (PLAVIX) 75 7-01 by mouth Luke s mg tablet 00:00: daily. Medica l 00 Center clopidogreL 2-0 Yes 75mg QD Take [address] (PLAVIX) 75 7-01 by mouth Luke s mg tablet 00:00: daily. Medica l 00 Center ergocalcife 2021-0 Yes [id number] Q7D Take [facility] rol 5-24 50,000 [facility] (ERGOCALCIF 00:00: Units by Ny dical PERRI) 1,250 00 mouth once Ce nter mcg (50,000 a week . unit) capsule ergocalcife 2021-0 Yes [id number] Q7D Take [facility] ro[facility] 5-24 50,000 [facility] (ERGOCALCIF 00:00: Units by Me dical PERRI) 1,250 00 mouth once Ce nter mcg (50,000 a week . unit) capsule ergocalcife 2021-0 Yes [id number] Q7D Take [facility] ro[facility] 5-24 50,000 [facility] (ERGOCALCIF 00:00: Units by Me dical PERRI) 1,250 00 mouth once Ce nter mcg (50,000 a week . unit) capsule ergocalcife 2021-0 Yes [id number] Q7D Take [facility] ro[facility] 5-24 50,000 [facility] (ERGOCALCIF 00:00: Units by Ny dical PERRI) 1,250 00 mouth once Ce nter mcg (50,000 a week . unit) capsule pyrazinamid 2021- No 1500mg Take 3 M ethodi e 500 mg 02-[address] tablet 00:00: 05:59 (1,500 mg Hospi ta 00 :00 total) by l mouth Every Saturday, Saturday, and Saturday for 30 days. pyridoxine, 2021- No 50mg QD Take 1 Met hodi vitamin B6, 02-25 tablet (50 s t (vitamin 00:00: 04:59 mg total) Hos tyree B-6) 50 MG 00 :00 by mouth l tablet daily for 180 days. pyridoxine, 2021- No 50mg QD Take 1 Met hodi vitamin B6, 02-25 tablet (50 s t (vitamin 00:00: 04:59 mg total) Hos tyree B-6) 50 MG 00 :00 by mouth l tablet daily for 180 days. pyridoxine, 2021- No 50mg QD Take 1 Met hodi [...] 09:56: daily. Hospita tablet 49 l atorvastati 2021-1 Yes 40mg QD Take 40 mg Methodi [...] l 667 mg capsule calcium 2020-02 Yes Methodi acetate,nanda 2-13 st sphat bind, 00:00: Hospit a (PHOSLO) 00 l 667 mg capsule calcium 2020-02 Yes Methodi acetate,nanda 2-13 st sphat bind, 00:00: Hospit a (PHOSLO) 00 l 667 mg capsule calcium 2020-02 Yes 1{tbl} QD Take [address] acetate,nanda 2-13 tablet by Damian es sphat bind, 00:00: mouth Medic al (PHOSLO) 00 daily . Center 667 mg capsule calcium 2020-02 Yes 1{tbl} QD Take [address] acetate,nanda 2-13 tablet by Damian es sphat bind, 00:00: mouth Medic al (PHOSLO) 00 daily . Center 667 mg capsule calcium 2020-02 Yes 1{tbl} QD Take [address] acetate,nanda 2-13 tablet by Damian es sphat bind, 00:00: mouth Medic al (PHOSLO) 00 daily . Center 667 mg capsule calcium 2020-02 Yes 1{tbl} QD Take [address] acetate,nanda 2-13 tablet by Damian es sphat bind, 00:00: mouth Medic al (PHOSLO) 00 daily . Center 667 mg capsule calcium 2021-1 2023- No Methodi acetate,nanda 2-13 04-28 st sphat bind, 00:00: 00:00 Hospi ta (PHOSLO) 00 :00 l 667 mg capsule citalopram 2020-02 Yes [...] MG tablet 00:00: Hospita 00 l ondansetron 2020-02- No Metho di (ZOFRAN) 4 0-18 04-28 st MG tablet 00:00: 00:00 Hospita 00 :00 l levothyroxi 2020-[address] (SYNTHROID) 00:00: of 200 MCG 00 Medicin tablet e levothyroxi 2020-[address] (SYNTHROID) 00:00: of 200 MCG 00 Medicin tablet e metoclopram 2020-0 Yes [facility] 6-02 [place] (REGLAN) 5 00:00: of MG tablet 00 Medicin e metoclopram 2020-0 Yes [facility] 6-02 [place] (REGLAN) 5 00:00: of MG tablet 00 Medicin e metoclopram 2020-0 Yes metoclopra Methodi javed 6- mide [address] (REGLAN) 5 00:00: tablet Hospi ta MG tablet 00 l metoclopram 2020-0 Yes metoclopra Methodi javed 6- mide [address] (REGLAN) 5 00:00: tablet Hospi ta MG tablet 00 l metoclopram 2020-0 Yes metoclopra Methodi javed 6- mide [address] (REGLAN) 5 00:00: tablet Hospi ta MG tablet 00 l metoclopram 0 2022- No metoclopra Methodi javed 6- 04-[address] (REGLAN) 5 00:00: 00:00 tablet [facility] MG tablet 00 :00 l Tamsulosin 2020-0 Yes [place] HCl 0.4 MG 5-10 College CAPS 00:00: of 00 Medicin e Tamsulosin Yes [facility] HCl 0.4 MG 5-10 College CAPS 00:00: of 00 Medicin e citalopram 0 Yes [facility] (CELEXA) 40 5-05 College MG tablet 00:00: of 00 Medicin e citalopram 0 Yes [place] (CELEXA) 40 5-05 College MG tablet 00:00: of 00 Medicin e amlodipine Yes [facility] (NORVASC) 4-05 College 10 MG 00:00: of tablet 00 Medicin e amlodipine 0 Yes [facility] (NORVASC) 4-05 College 10 MG 00:00: of tablet 00 Medicin e atorvastati Yes atorvastat [facility] n (LIPITOR) 3-17 in 40 mg Kris [facility] 40 MG 00:00: tablet of tablet 00 Take 1 Medicin tablet e every day by oral route. atorvastati Yes atorvastat [facility] n (LIPITOR) 3-17 in 40 mg Kris e[facility] 40 MG 00:00: tablet of tablet 00 Take 1 Medicin tablet e every day by oral route. amLODIPine 0 2020- No [id number] 10mg Take 1 [facility] 10 mg 04-29 04-05 tablet by ity of tablet 00:00: 04:59 mouth [place] 00 :00 daily for Medical 30 days. Branch aspirin 81 2020-0 Yes 81mg Take 81 mg U nivers mg EC 04 by mouth. ity of tablet 23:06: [place] 19 Medical Branch Cholecalcif 2020-0 Yes Take by Uni vers perri, 3-04 mouth. ity of Vitamin D3, 23:06: [place] 50 mcg 19 Medical (2,000 Branch unit) capsule citalopram Yes 40mg Take 40 mg U nivers 40 mg 3-04 by mouth. ity of tablet 23:06: [address] Branch levothyroxi Yes levothyrox Univers ne 175 mcg 3-04 ine 175 ity of tablet 23:06: mcg tablet [place] [address] Take 1 Medical tablet Branch every day by oral route. aspirin 81 Yes 81mg Take 81 mg U nivers mg EC 3-04 by mouth. ity of tablet 17:06: [address] Cholecalcif Yes Take by Uni vers perri, 3-04 mouth. ity of Vitamin D3, 17:06: [place] 50 mcg 19 Medical (2,000 Branch unit) capsule citalopram Yes 40mg Take 40 mg U nivers 40 mg 3-04 by mouth. ity of tablet 17:06: [address] levothyroxi Yes levothyrox Univers ne 175 mcg 3-04 ine 175 ity of tablet 17:06: mcg tablet [place] [address] Take 1 Medical tablet Branch every day by oral route. carvediloL 2020- No [id number] 3.125mg Take 1 [facility] 3.125 mg 3-04 04-04 tablet by ity o f tablet 00:00: 04:59 mouth 2 [place] 00 :00 (two) Medical times Branch daily with meals for 30 days. traMADoL Yes 100mg Take 100 [facility] (ULTRAM) 50 8-[address] mg tablet 00:00: mouth. Hospit a l traMADoL Yes 100mg Take 100 [facility] (ULTRAM) 50 8-[address] mg tablet 00:00: mouth. Hospit a l traMADoL Yes 100mg Take 100 [facility] (ULTRAM) 50 8-[address] mg tablet 00:00: mouth. Hospit a 00 l traMADoL 2022- No 100mg Take 100 Met [facility] (ULTRAM) 50 8-08 04-[address] mg tablet 00:00: 00:00 mouth. Hospi ta 00 :00 l traMADol 2021- No 100mg [facility] 2 [facility] 8-08 07-06 tablets [facility] mg tablet 00:00: 00:00 (100 mg Medi ameena 00 :00 total) by Center mouth every 6 (six) hours as needed for Pain. Max Daily Amount: 400 mg traMADol No 100mg Take 2 [facility] (ULTRAM[facility] 50 10-02-06 tablets [facility] mg tablet 00:00: 00:00 (100 mg Medi ameena 00 :00 total) by Center mouth every 6 (six) hours as needed for Pain. Max Daily Amount: 400 mg traMADol No 100mg Take 2 [facility] (ULTRAM) 50 10-02- tablets [facility] mg tablet 00:00: 00:00 (100 mg Medi ameena 00 :00 total) by Center mouth every 6 (six) hours as needed for Pain. Max Daily Amount: 400 mg traMADol No 100mg Take 2 [facility] (ULTRAM) 50 10-02- tablets [facility] mg tablet 00:00: 00:00 (100 mg Medi ameena 00 :00 total) by Center mouth every 6 (six) hours as needed for Pain. Max Daily Amount: 400 mg citalopram Yes 20mg QD Take 20 mg M ethodi (CeleXA) 20 09-[address] MG tablet 17:01: daily. Hospit a 51 l aspirin Yes 81mg QD Take 81 mg [facility] (ECOTRIN) [address] 81 MG 17:01: daily. Hospita enteric 51 l coated tablet Vital Signs Vital Name Observation Time Observation Value Comments Source Body height 2022-04-25 22:31:00 167.6 cm [facility] Body weight 2022-04-25 22:31:00 70.308 kg [facility] BMI 2022-04-25 22:31:00 25.02 kg/m2 [facility] WEIGHT 2022-04-03 22:00:00 74.4 kg WEIGHT 2022-04-02 [...] kg Systolic blood 2022-03-14 21:41:00 147 mm[Hg] [facility] pressure Medicine Diastolic blood 2022-03-14 21:41:00 84 mm[Hg] [facility] pressure Medicine Heart rate 2022-03-14 21:41:00 91 /min [facility] HEIGHT 2021-09-14 12:42:00 167.6 cm [...] WEIGHT 2021-08-30 09:14:00 74.844 kg Systolic blood 2022-06-22 20:15:00 173 mm[Hg] [facility] pressure Diastolic blood 2022-06-22 20:15:00 84 mm[Hg] [facility] pressure Heart rate 2022-06-22 20:15:00 94 /min [facility] Respiratory rate 2022-06-22 20:15:00 18 /min [facility] Oxygen saturation in 2022-06-22 20:15:00 97 /min [facility] Arterial blood by Pulse oximetry Body height 2022-06-22 12:11:00 167.6 cm [facility] Body weight 2022-06-22 12:11:00 68.947 kg [facility] BMI 2022-06-22 12:11:00 24.53 kg/m2 [facility] Body temperature 2022-06-22 11:46:00 36.11 Nancy [facility] Heart rate 2022-04-04 16:08:59 79 /min [facility] Respiratory rate 2022-04-04 16:08:59 20 /min [facility] Oxygen saturation in 2022-04-04 16:08:59 95 /min [facility] Arterial blood by Medical Ce nter Pulse oximetry Systolic blood 2022-04-04 16:08:00 165 mm[Hg] [facility] Diastolic blood 2022-04-04 16:08:00 88 mm[Hg] [facility] Body temperature 2022-04-04 16:07:23 36.44 Nancy [facility] Body weight 2022-04-03 22:00:00 74.4 kg [facility] BMI 2022-04-03 22:00:00 26.47 kg/m2 [facility] Body height 2022-04-02 12:00:00 167.6 cm [facility] Systolic blood 2021-09-14 12:42:00 112 mm[Hg] [facility] Diastolic blood 2021-09-14 12:42:00 59 mm[Hg] [facility] Heart rate 2021-09-14 12:42:00 85 /min [facility] Body temperature 2021-09-14 12:42:00 36.28 Nancy [facility] Respiratory rate 2021-09-14 12:42:00 15 /min [facility] Body height 2021-09-14 12:42:00 167.6 cm [facility] Body weight 2021-09-14 12:42:00 72.122 kg [facility] BMI 2021-09-14 12:42:00 25.66 kg/m2 [facility] Oxygen saturation in 2021-09-14 12:42:00 98 /min [facility] Arterial blood by Medical Ce nter Pulse oximetry Systolic blood 2021-02-23 15:52:00 145 mm[Hg] [facility] pressure Diastolic blood 2021-02-23 15:52:00 80 mm[Hg] [facility] pressure Heart rate 2021-02-23 15:52:00 72 /min [facility] Body height 2021-02-23 15:52:00 167.6 cm [facility] Body weight 2021-02-23 15:52:00 70.943 kg [facility] BMI 2021-02-23 15:52:00 25.24 kg/m2 [facility] Procedures Procedure Date / Time Performing Source Performed Clinician ABO AND RH CONFIRMATION BY 2022-06-22 13:20:00 MononaElyssa [facility] PROTOCOL TYPE AND SCREEN 2022-06-22 11:41[facility] PELVIS WITH & WITHOUT IV 2022-05-22 14:01:00 Puneet Calvillo [facility] URINE CULTURE 2022-04-26 13:56:00 Puneet Calvillo [facility] URINE CULTURE 2022-04-26 07:56:00 [facility] POCT URINALYSIS DIPSTICK 2022-04-25 22:40:00 Puneet Calvillo [facility] POCT URINALYSIS DIPSTICK 2022-04-25 16:40:00 [facility] CBC W/PLT COUNT & AUTO 2022-04-04 04:54:00 Varun [facility] BASIC METABOLIC PANEL 2022-04-04 04:54:00 Varun [facility] MAGNESIUM 2022-04-04 04:54:00 Varun [facility] PHOSPHORUS 2022-04-04 04:54:00 Varun [facility] CBC W/PLT COUNT & AUTO 2022-04-04 04:54:00 Varun [facility] TISSUE EXAM 2022-04-03 14:15:00 Puneet Calvillo [facility] CYSTOSCOPY, USING BLUE LIGHT 2022-04-03 12:49:00 Arely Calvillo [facility] AND INTRAVESICULAR Medical Cente r HEXAMINOLEVULINATE CYSTOSCOPY,TRANS URETHRAL 2022-04-03 12:49:[address] [facility] BLADDER RESECTION, BIPOLAR Medic nj Center SALINE CBC W/PLT COUNT & AUTO 2022-04-03 04:39:00 Varun [facility] BASIC METABOLIC PANEL 2022-04-03 04:39:[facility]-04-03 04:39[facility] 2022-04-03 04:39[facility] LIP[facility]EL 2022-04-03 04:39:00 Dani [facility]donez [facility] CBC W/PLT COUNT & AUTO 2022-04-03 04:39:00 Cecil Dorantes [facility] URINE CULTURE 2022-04-02 23:05:00 Cecil Dorantes [facility] URINALYSIS W/ REFLEX URINE 2022-04-02 23:05:00 Cecil Dorantes [facility] 2D ECHO W/ DOPPLER 2022-04-02 16:35:33 [facility] (CW/PW/COLOR) [facility] CBC W/PLT COUNT & AUTO 2022-04-02 15:53:00 Tomas Ordonezronda RosaMeaghan [facility] BASIC METABOLIC PANEL 2022-04-02 15:53:00 José Luis, Dani Buenrostro [facility] MAGNESIUM 2022-04-02 15:53:00 Dani Ordonez VMeaghan [facility] PHOSPHORUS 2022-04-02 15:53:00 Tomas Ordonezsunnyvale Porter [facility] PT/APTT 2022-04-02 15:53:00 Tomas Ordonezronda Buenrostro [facility] CBC W/PLT COUNT & AUTO 2022-04-02 15:53:00 Tomas Ordonezronda Buenrostro [facility] 2D ECHO W/ DOPPLER 2022-04-02 15:27:55 Varun [facility] (CW/PW/COLOR) [facility] ECG 12-LEAD 2022-04-02 11:17:21 Dewey Bond [facility] SARS-COV2/RT-PCR (SLHS & REF 2022-04-02 07:31:00 Arely Calvillo [facility] POCT URINALYSIS DIPSTICK 2022-03-14 22:08:00 Puneet Calvillo [facility] PROTIME-INR 2022-03-14 17:17:00 [facility] APTT 2022-03-14 17:17:00 [facility] CBC W/AUTO DIFF WITH 2022-03-14 17:17:00 [facility] PLATELETS [facility] COMPREHENSIVE METABOLIC 2022-03-14 17:17:00 [facility] URINE CULTURE,COMPREHENSIVE 2022-03-14 16:58:29 [facility] PROTIME-INR 2022-03-14 16:58:29 [facility] APTT 2022-03-14 16:58:29 [facility] CBC W/AUTO DIFF WITH 2022-03-14 16:58:29 [facility] PLATELETS [facility] COMPREHENSIVE METABOLIC 2022-03-14 16:58:29 [facility] PANEL [facility] POCT URINALYSIS DIPSTICK 2022-03-14 16:08:00 [facility] CAROTID DOPPLER BILATERAL 2021-12-14 11:00:00 Unknown, Hl7 Docto r [facility] CULTURE, URINE/SENSITIVITY 2021-10-18 11:35:55 [facility] ALL Medicine CYSTOSCOPY 2021-10-18 10:30:00 [facility] BLADDER WASHINGS CYTOLOGY X2 2021-10-18 10:22:59 [facility] POCT URINALYSIS DIPSTICK 2021-10-18 00:00:00 [facility] EXTERNAL PROVIDER RECORDS 2021-09-05 05:01:00 Doctor Unassigned, [facility] MAGNESIUM 2021-09-01 05:49:00 Cecilia Lamb [facility] CBC W/PLT COUNT & AUTO 2021-09-01 05:49:00 Cecilia Lamb [facility] BASIC METABOLIC PANEL 2021-09-01 05:49:00 Cecilia Lamb [facility] CBC W/PLT COUNT & AUTO 2021-09-01 05:49:00 Cecilia Lamb [facility] SODIUM NA-STAT LAB 2021-08-31 14:58:00 [facility] POTASSIUM-STAT LAB 2021-08-31 14:58:00 [facility] CALCIUM, IONIZED 2021-08-31 14:58:00 [facility] GLUCOSE-STAT LAB 2021-08-31 14:58:00 [facility] HGB/HCT (H&H) - STAT LAB 2021-08-31 14:58:00 [facility] TISSUE EXAM 2021-08-31 12:29:00 [facility] ABORH, MANUAL 2021-08-31 11:56:00 Glenny Fernández [facility] ENDARTERECTOMY, CAROTID 2021-08-31 11:02:00 [facility] CBC W/PLT COUNT & AUTO 2021-08-31 05:38:00 IsauraCecilia hopper [facility] BASIC METABOLIC PANEL 2021-08-31 05:38:00 [facility] CBC W/PLT COUNT & AUTO 2021-08-31 05:38:00 IsauraCecilia hopper [facility] MAGNESIUM 2021-08-31 05:38:00 Isaura, [facility] PH[facility] 2021-08-31 05:38:00 Isaura, [facility] TSH/FREE T4 IF INDICATED 2021-08-31 05:38:00 Isaura, [facility] T4, FREE 2021-08-31 05:38:00 Isaura, [facility] CAROTID DOPPLER BILATERAL 2021-08-30 14:31:00 Beena Hall [facility] ECG 12-LEAD 2021-08-30 10:29:[address] [facility] ECG 12-LEAD 2021-08-30 10:29:37 Unknown, Hl7 [facility] ECG 12-LEAD 2021-08-30 10:29:37 Unknown, Hl7 [facility] TYPE AND SCREEN, AUTOMATED 2021-08-30 10:28:00 Beena Hall [facility] CBC W/PLT COUNT & AUTO 2021-08-30 10:28:00 Beena Hall [facility] BASIC METABOLIC PANEL 2021-08-30 10:28:[address] [facility] CBC W/PLT COUNT & AUTO 2021-08-30 10:28:00 Beena Hall [facility] PROTHROMBIN TIME/INR 2021-08-30 10:28:00 Beena Hall [facility] SARS-COV2/RT-PCR (HS & REF 2021-08-30 10:17:[address] [facility] LAB[facility]) [facility] CT CHEST WO CONTRAST 2021-03-06 15:49:00 Danish Cuba [facility] XR CHEST 2 VW 2021-02-23 17:30:00 [facility] COMPREHENSIVE METABOLIC 2021-02-23 16:51:00 Danish [place] [facility] PANEL CBC WITH PLATELET AND 2021-02-23 16:51:[address] [facility] DIFFERENTIAL OCT, OPTIC NERVE - OU - BOTH 2021-02-13 21:49:19 Richard Galvan [facility] EYES [facility] AUTOMATED VISUAL FIELD, 2021-02-13 21:49:15 Mayra Galvan [facility] EXTENDED - OS - LEFT EYE [place] AUTOMATED VISUAL FIELD, 2021-02-13 21:49:09 Mayra Galvan [facility] EXTENDED - OD - RIGHT EYE [place] BLADDER WASHINGS CYTOLOGY X2 2021-02-01 11:48:21 [facility] CYSTOSCOPY 2021-02-01 10:47:37 [facility] POCT URINALYSIS DIPSTICK 2021-02-01 00:00:00 [facility] Plan of Care Planned Activity Planned Date Details Comments Source Future Scheduled 2022-10-[address] [facility] Test 00:00:00 (Season Ended) [code Medical Center = INFLUENZA VACCINE (Season Ended)] Future Scheduled 2022-10-[address] [facility] Test 00:00:00 (Season Ended) [code Medical Center = INFLUENZA VACCINE (Season Ended)] Future Scheduled 2022-07-03 65+ PNEUMOCOCCAL [facility] Test 08:43:03 VACCINE (1 - PCV) Hospital [code = 65+ PNEUMOCOCCAL VACCINE (1 - PCV)] Future Scheduled 2022-07-03 Hepatitis C [facility] 08:43:03 screening Hospital (procedure) [code = 476587013] Future Scheduled 2022-07-03 SHINGLES VACCINES (1 Met [facility] Test 08:43:03 of 2) [code = Hospital SHINGLES VACCINES (1 of 2)] Future Scheduled 2022-07-03 COLONOSCOPY [facility] 08:43:03 SCREENING [code = Hospital COLONOSCOPY SCREENING] Future Scheduled 2022-07-03 COVID-19 VACCINE (3 Meth [facility] Test 08:43:03 - Booster for Hospital Moderna series) [code = COVID-19 VACCINE (3 - Booster for Moderna series)] Future Scheduled 2022-07-03 INFLUENZA VACCINE Method ist Test 08:43:03 [code = INFLUENZA Hospital VACCINE] Future Scheduled 2022-05-31 65+ PNEUMOCOCCAL [facility] Test 01:29:17 VACCINE (1 - PCV) Hospital [code = 65+ PNEUMOCOCCAL VACCINE (1 - PCV)] Future Scheduled 2022-05-31 Hepatitis C [facility] 01:29:17 screening Hospital (procedure) [code = 733829714] Future Scheduled 2022-05-31 SHINGLES VACCINES (1 Met [facility] Test 01:29:17 of 2) [code = Hospital SHINGLES VACCINES (1 of 2)] Future Scheduled 2022-05-31 COLONOSCOPY [facility] 01:29:17 SCREENING [code = Hospital COLONOSCOPY SCREENING] Future Scheduled 2022-05-31 COVID-19 VACCINE (3 Meth [facility]ist Test 01:29:17 - Booster for Hospital Moderna series) [code = COVID-19 VACCINE (3 - Booster for Moderna series)] Future Scheduled 2022-05-31 INFLUENZA VACCINE Method ist Test 01:29:17 [code = INFLUENZA Hospital VACCINE] Future Scheduled 2022-05-25 Screening for [facility] [place] [facility] Test 10:43:44 malignant neoplasm of Medici ne of colon (procedure) [code = 221710517] Future Scheduled 2022-05-25 COVID-19 Vaccine [facility] Test 10:43:44 (#1) [code = of Medicine COVID-19 Vaccine (#1)] Future Scheduled 2022-05-25 Pneumococcal 65+ (1 [facility] or [place] Test 10:43:44 - PCV) [code = of Medicine Pneumococcal 65+ (1 - PCV)] Future Scheduled 2022-05-25 TETANUS SHOT (ADULT) [employer] Test 10:43:44 [code = TETANUS SHOT of Medi cine (ADULT)] Future Scheduled 2022-05-25 BMI Follow Up Plan [facility] College Test 10:43:44 [code = BMI Follow of Medici ne Up Plan] Future Scheduled 2022-05-25 Hepatitis C [facility] Test 10:43:44 screening of Medicine (procedure) [code = 342973500] Future Scheduled 2022-05-25 ZOSTER VACCINE (1 of [facility] Test 10:43:44 2) [code = ZOSTER of Medicin e VACCINE (1 of 2)] Future Scheduled 2022-05-25 Abdominal aortic [facility] Test 10:43:44 aneurysm screening of Medici ne (procedure) [code = 891953258] Future Scheduled 2022-05-25 Medicare Awv [facility] [place] [facility] Test 10:43:44 (Initial) [code = of Medicin e Medicare Awv (Initial)] Future Scheduled 2022-05-25 Screening for [facility] [place] [facility] Test 10:43:44 malignant neoplasm of Medici ne of lung (procedure) [code = 500796549] Future Scheduled 2022-05-25 Fall Screen [code = [facility] Test 10:43:44 Fall Screen] of Medicine Future Scheduled 2022-04-23 65+ PNEUMOCOCCAL [facility] Test 12:16:33 VACCINE (1 - PCV) Hospital [code = 65+ PNEUMOCOCCAL VACCINE (1 - PCV)] Future Scheduled 2022-04-23 Hepatitis C [facility] 12:16:33 screening Hospital (procedure) [code = 275815634] Future Scheduled 2022-04-23 SHINGLES VACCINES (1 Met [...] Scheduled 2022-03-28 PHI PANEL (URO DEPT) Expected: [facility] Test 00:00:00 [code = 55282] 03/28/2022 of Medicine (Approximate), Expires: 04/13/2022 Future Scheduled 2022-03-14 URINE Ordered: [facility] Test 16:58:29 CULTURE,COMPREHENSIV 03/14/2022 of Medi cine E [code = NOCPT] Future Scheduled 2022-03-14 PROTIME-INR [code = Ordered: [employer] Test 16:58:29 5902-2] 03/14/2022 of Medicine Future Scheduled 2022-03-14 APTT [code = Ordered: [facility] Test 16:58:29 22777-7] 03/14/2022 of Medicine Future Scheduled 2022-03-14 CBC W/AUTO DIFF WITH Ordered: [facility] [employer] Test 16:58:29 PLATELETS [code = 03/14/2022 of Medicin e 52750-1] Future Scheduled 2022-03-14 COMPREHENSIVE Ordered: [facility] Test 16:58:29 METABOLIC PANEL 03/14/2022 of Medicine [code = 14142-4] Future Scheduled 2022-03-14 MRI PROSTATE W/WO 1 Occurrences [employer] Test 16:58:29 CONTRAST [code = starting of Medicine 92266] 03/14/2022 until 03/14/2023 Future Scheduled 2022-03-14 Screening for [place] [facility] Test 16:55:33 malignant neoplasm of Medici ne of colon (procedure) [code = 819864362] Future Scheduled 2022-03-14 COVID-19 Vaccine [facility] Test 16:55:33 (#1) [code = of Medicine COVID-19 Vaccine (#1)] Future Scheduled 2022-03-14 Pneumococcal 65+ (1 [employer] Test 16:55:33 - PCV) [code = of Medicine Pneumococcal 65+ (1 - PCV)] Future Scheduled 2022-03-14 TETANUS SHOT (ADULT) [employer] Test 16:55:33 [code = TETANUS SHOT of Medi cine (ADULT)] Future Scheduled 2022-03-14 BMI Follow Up Plan [employer] Test 16:55:33 [code = BMI Follow of Medici ne Up Plan] Future Scheduled 2022-03-14 Hepatitis C [place] [facility] Test 16:55:33 screening of Medicine (procedure) [code = 382265443] Future Scheduled 2022-03-14 ZOSTER VACCINE (1 of [employer] Test 16:55:33 2) [code = ZOSTER of Medicin e VACCINE (1 of 2)] Future Scheduled 2022-03-14 Abdominal aortic [facility] Test 16:55:33 aneurysm screening of Medici ne (procedure) [code = 471137551] Future Scheduled 2022-03-14 Medicare Awv [facility] Test 16:55:33 (Initial) [code = of Medicin e Medicare Awv (Initial)] Future Scheduled 2022-03-14 Screening for [facility] Test 16:55:33 malignant neoplasm of Medici ne of lung (procedure) [code = 144956357] Future Scheduled 2022-03-14 Fall Screen [code = [employer] Test 16:55:33 Fall Screen] of Medicine Future [...] RISK Medical C enter SCREENING] Future Scheduled 2022-02-[address] [facility] Test 00:00:00 (12+) [code = Medical Center DEPRESSION SCREENING (12+)] Future Scheduled 2022-02-25 FALLS RISK SCREENING [facility] Test 00:00:00 [code = FALLS RISK Medical C enter SCREENING] Future Scheduled 2022-02-[address] [...] Test 01:38:25 screening Hospital (procedure) [code = 320394674] Future Scheduled 2021-12-28 SHINGLES VACCINES (1 [facility] (#1[facility] [code = [facility] Center INFLUENZA VACCINE (#1)] Future Scheduled 2020-12-09 COVID-19 VACCINE ([address] [facility] Test 00:00:00 - Moderna risk Medical Cente r series) [code = COVID-19 VACCINE (3 - Moderna risk series)] Future Scheduled 2020-12-09 COVID-19 VACCINE ([address] [facility] Test 00:00:00 - Moderna risk Medical Cente r series) [code = COVID-19 VACCINE (3 - Moderna risk series)] Future Scheduled 2020-12-09 COVID-19 VACCINE ([address] [facility] Test 00:00:00 - Moderna risk Medical Cente r series) [code = COVID-19 VACCINE (3 - Moderna risk series)] Future Scheduled 2015-11-[address] [facility] Test 00:00:00 WELLNESS (YEAR 2 or Medical Center FIRST YEAR if no IPPE) [code = MEDICARE ANNUAL WELLNESS (YEAR 2 or FIRST YEAR if no IPPE)] Future Scheduled 2015-11-[address] [facility] 00:00:00 WELLNESS (YEAR 2 or Medical Center FIRST YEAR if no IPPE) [code = MEDICARE ANNUAL WELLNESS (YEAR 2 or FIRST YEAR if no IPPE)] Future Scheduled [address] [facility] Test 00:00:00 aneurysm screening Medical C enter (procedure) [code = 444708437] Future Scheduled [address] [facility] Test 00:00:00 aneurysm screening Medical C enter (procedure) [code = 004581010] Future Scheduled [address] [facility] Test 00:00:00 aneurysm screening Medical C enter (procedure) [code = 591343034] Future Scheduled [address] [facility] Test 00:00:00 aneurysm screening Medical C enter (procedure) [code = 261282125] Future Scheduled 1999-12-[address] [facility] Test 00:00:00 malignant neoplasm Medical C enter of lung (procedure) [code = 264535660] Future Scheduled 1999-12-22 SHINGLES VACCINES ([address] [facility] Test 00:00:00 of 2) [code = Medical Center SHINGLES VACCINES (1 of 2)] Future Scheduled 1999-12-[address] [facility] Test 00:00:00 malignant neoplasm Medical C enter of lung (procedure) [code = 419238063] Future Scheduled 1999-12-22 SHINGLES VACCINES ([address] [facility] Test 00:00:00 of 2) [code = Medical Center SHINGLES VACCINES (1 of 2)] Future Scheduled 1999-12-[address] [facility] Test 00:00:00 malignant neoplasm Medical C enter of lung (procedure) [code = 358822437] Future Scheduled 1999-12-[address] [facility] Test 00:00:00 malignant neoplasm Medical C enter of lung (procedure) [code = 313393517] Future Scheduled 1968 DTAP/TDAP/TD [facility] Test 00[facility] VACCINES (1 - Tdap) Medical Center [code = DTAP/TDAP/TD VACCINES (1 - Tdap)] Future Scheduled 1968 DTAP/TDAP/TD [facility] Test 00:00:00 VACCINES (1 - Tdap) Medical Center [code = DTAP/TDAP/TD VACCINES (1 - Tdap)] Future Scheduled 1968 DTAP/TDAP/TD [facility] V[facility]ES (1 - Tdap) [facility] [code = DTAP/TDAP/TD VACCINES (1 - Tdap)] Future Scheduled 1968 SHINGLES VACCINES ([address] [facility] 00:00:00 of 2) [code = Medical Center SHINGLES VACCINES (1 of 2)] Future Scheduled 1968 DTAP/TDAP/TD [facility] VACCINES (1 - Tdap) [facility] [code = DTAP/TDAP/TD VACCINES (1 - Tdap)] Future Scheduled 1968 SHINGLES VACCINES ([address] [facility] 00:00:00 of 2) [code = Medical Center SHINGLES VACCINES (1 of 2)] Future Scheduled 1967-12-[address] [...] Cessation Counseling and Screening (12+)] Future Scheduled [address] [facility] 00:00:00 Counseling and Medical Cente r Screening (12+) [code = Tobacco Cessation Counseling and Screening (12+)] Future Scheduled [address] [...] C enter of colon (procedure) [code = 435247180] Future Scheduled [address] [facility] 00:[facility]:00 malignant neoplasm Medical C enter of colon (procedure) [code = 232825240] Future Scheduled [address] [facility] 00:00:00 malignant neoplasm Medical C enter of colon (procedure) [code = 675058060] Future Scheduled [address] [facility] 00:00:00 malignant neoplasm Medical C enter of colon (procedure) [code = 703093525] Future Scheduled 1949 Sigmoidoscopy [code [facility] 00:[facility]:00 = Sigmoidoscopy] Medical [facility] Future Scheduled [address] [facility] 00:00:00 (combo) [code = CT Medical C enter Colonography (combo)] Future Scheduled [address] [facility] 00:00:00 malignant neoplasm Medical C enter of colon (procedure) [code = 862953756] Future Scheduled [address] [facility] 00:00:00 malignant neoplasm Medical C enter of colon (procedure) [code = 844141144] Future Scheduled [address] [facility] 00:00:00 malignant neoplasm Medical C enter of colon (procedure) [code = 707071540] Future Scheduled [address] [facility] 00:00:00 malignant neoplasm Medical C enter of colon (procedure) [code = 674040556] Future Scheduled 1949 Sigmoidoscopy [code [facility] 00:00:00 = Sigmoidoscopy] Medical [facility] Future Scheduled [address] [facility] 00:00:00 (combo) [code = CT Medical C enter Colonography (combo)] Future Scheduled [address] [facility] 00:00:00 malignant neoplasm Medical C enter of colon (procedure) [code = 844947176] Future Scheduled [address] [facility] 00:00:00 malignant neoplasm Medical C enter of colon (procedure) [code = 491177848] Future Scheduled [address] [facility] 00:00:00 malignant neoplasm Medical C enter of colon (procedure) [code = 220445193] Future Scheduled [address] [facility] 00:00:00 malignant neoplasm Medical C enter of colon (procedure) [code = 127208309] Future Scheduled 1950 Sigmoidoscopy [code [facility] 00:00:00 = Sigmoidoscopy] Medical [facility] Future Scheduled [address] [facility] 00:00:00 (combo) [code = CT Medical C enter Colonography (combo)] Future Scheduled [address] [facility] 00:00:00 malignant neoplasm Medical C enter of colon (procedure) [code = 326886336] Future Scheduled [address] [facility] 00:00:00 malignant neoplasm Medical C enter of colon (procedure) [code = 506988861] Future Scheduled [address] [facility] 00:00:00 malignant neoplasm Medical C enter of colon (procedure) [code = 507634284] Future Scheduled [address] [facility] 00:00:00 malignant neoplasm Medical C enter of colon (procedure) [code = 385657337] Future Scheduled 1950 Sigmoidoscopy [code [facility] 00:00:00 = Sigmoidoscopy] Medical [facility] Future Scheduled SHINGLES VACCINES Method ist Test (#1) [code = Hospital SHINGLES VACCINES (#1)] Future Scheduled 65+ PNEUMOCOCCAL Methodi st Test VACCINE (1 of 1 - Hospital PPSV23) [code = 65+ PNEUMOCOCCAL [...] Type Clinicians Facility Department ID 2022-03-27 Outpatient [facility] Surgery [id number] SLE 11:08:11 [facility] 2022-03-16 [facility] [id number] SLE 15:40:33 [facility] 2021-08-30 [id number] 10:17:58 GWEN 2020-04-27 [facility] [id number] [facility] 12:26:00 KAYLEE bryan [facility] 2022-06-22 2022-06-22 [facility], 1.2.840.1 [id number] Methodi 06:10:00 15:30:00 Encounter Elyssa Arellano 50518.1.[address] 3.430.2.7 Hospit a .3.526601 l .8 2022-06-22 2022-06-22 Surgery Monona, 1.2.840.1 [id number] Methodi 07:30:00 08:55:00 Elyssa Arellano 23708.1.[address] 3.430.2.7 Hospit a .3.657594 l .8 2022-06-22 2022-06-22 Outpatient [facility] [id number] [place] 00:00:00 00:00:00 ELYSSA Darling [facility] 2022-06-22 2022-06-22 Travel 1.2.840.1 1.2.581.455 [id number] Methodi 00:00:00 00:00:[address] 3.430.2.7 0.2.7.3.698 spita .3.055240 084.8 l .8 2022-06-18 2022-06-18 Outpatient TAIWO PEREIRA [facility] [id number] [place] 11:58:00 11:58:00 [place] -[id number] [facility] 2022-05-22 2022-05-22 Outpatient YULI RAY SLE [id number] [facility]H 11:42:40 23:59:00 [facility] 2022-05-22 2022-05-22 [facility] [id number] 11:42:40 23:59:00 Encounter 1.5, [facility] Rickey [facility] 2022-05-22 2022-05-22 [facility] [id number] 11:42:40 23:59:00 Encounter 1.5, [facility] Rickey [facility] 2022-05-15 2022-05-15 [facility] [id number] 00:00:00 00:00:00 Orders [facility] 2022-05-15 2022-05-15 [facility] [id number] 00:00:00 00:00:00 Orders [facility] 2022-04-25 2022-04-25 Office CALVILLODEXTER 1.2.840.114 [id number] [facility] [place] 16:28:41 16:28:41 Visit PUNEET AMBULATOR 350.1.13.21 College Y 0.2.7.2.686 [id number] Medi efra 300 e 2022-04-02 2022-04-04 Outpatient TAIWO CALVILLO [facility] [id number] [facility] 08:18:00 18:22:00 [facility] 2022-04-02 2022-04-04 [facility] [id number] 08:18:00 18:22:00 Encounter [facility] 2022-04-02 2022-04-04 [facility] [id number] 08:18:00 18:22:00 Encounter [facility] 2022-04-03 2022-04-03 Anesthesia Jerry Rodriguez [facility] [id number] 13:04:00 14:45:00 Event Raegan Augustin [facility] 2022-04-03 2022-04-03 Anesthesia Jerry Rodriguez [facility] [id number] 13:04:00 14:45:00 Event Raegan Augustin [facility] 2022-04-03 2022-04-03 Surgery Scar [facility] [id number] 11:30:00 14:17:00 [facility] 2022-04-03 2022-04-03 Surgery Scar [facility] [id number] 11:30:00 14:17:00 [facility] 2022-04-02 2022-04-02 Clinical [facility] [id number] 07:15:00 07:30:00 Support SeymourEmiliano [facility] 2022-04-02 2022-04-02 Clinical Puneet Calvillo [facility] [id number] 07:15:00 07:30:00 Support JeffreyEmiliano [facility] 2022-04-02 2022-04-02 Outpatient EL SLE SLE [id number] [facility] 07:09:05 07:09:05 2022-04-02 2022-04-02 Travel [facility] [id number] [facility] 00:00:00 00:00:00 [facility] 2022-04-02 2022-04-02 Travel [facility] [id number] [facility] 00:00:00 00:00:00 [facility] 2022-03-27 2022-03-27 Anesthesia Ashwini [facility] [id number] 23:59:59 23:59:59 Event Jono [facility] 2022-03-27 2022-03-27 Anesthesia Maradiaga, [facility] [id number] 23:59:59 23:59:59 Event [facility] 2022-03-14 2022-03-14 Office CLAIRE CALVILLO 1.2.840.114 [id number] [facility] [place] 15:30:06 16:54:51 Visit PUNEET AMBULATOR 350.1.13.21 College Y 0.2.7.2.686 [id number] Medi efra 300 e 2021-12-29 2021-12-29 Outpatient YULI ACEVEDO SLE [id number] SLE 16:48:12 16:48:12 GW[facility] 2021-12-28 2021-12-28 Outpatient [facility] [id number] [facility] [place] 14:47:25 14:47:25 Colleg e of Medicin e 2021-12-14 2021-12-14 Office Eri, [facility] [id number] 13:30:00 14:00:00 Visit [facility] 2021-12-14 2021-12-14 Office Eri, [facility] [id number] 13:30:00 14:00:00 Visit [facility] 2021-12-14 2021-12-14 [facility] [id number] 11:00:00 11:00:00 Encounter [facility] 2021-12-14 2021-12-14 Outpatient YULI ACEVEDO SLE [id number] [facility] 00:00:00 00:00:00 [facility] 2021-12-14 2021-12-14 Orders Eri, [facility] [id number] 00:00:00 00:00:00 Only [facility] 2021-12-14 2021-12-14 Orders Eri, [facility] [id number] 00:00:00 00:00:00 Only [facility] 2021-10-18 2021-10-18 Outpatient CLAIRE CALVILLO [facility] [id number] [facility] [place] 09:52:56 13:45:27 PUNEET napolese of Medicin e 2021-10-18 2021-10-18 Outside [facility], [facility] [id number] 00:00:00 00:00:00 Orders [facility] 2021-10-18 2021-10-18 [facility], [facility] [id number] 00:00:00 00:00:00 Orders [facility] 2021-09-15 2021-09-15 Orders Eri, [facility] [id number] 00:00:00 00:00:00 Only [facility] 2021-09-15 2021-09-15 Orders Eri, [facility] [id number] 00:00:00 00:00:00 Only [facility] 2021-09-15 2021-09-15 Orders Eri, [facility] [id number] 00:00:00 00:00:00 Only [facility] 2021-09-15 2021-09-15 Orders Eri, [facility] [id number] 00:00:00 00:00:00 Only [facility] 2021-09-15 2021-09-15 Orders Eri, [facility] [id number] 00:00:00 00:00:00 Only [facility] 2021-09-15 2021-09-15 Orders Eri, [facility] [id number] 00:00:00 00:00:00 Only [facility] 2021-09-14 2021-09-14 Office Eri, [facility] [id number] 13:00:00 13:30:00 Visit [facility] 2021-09-14 2021-09-14 Office Eri, [facility] [id number] 13:00:00 13:30:00 Visit [facility] 2021-09-14 2021-09-14 Outpatient YULI ACEVEDO [facility] [id number] [facility] 12:40:51 12:40:51 GWEN 2021-09-05 2021-09-05 Orders Doctor AG 1.2.840.114 [id number] Univers 00:00:00 00:00:00 Only Unassigned, RUBEN 350.1.13.10 ity of [place] [facility] 4.2.7.2.686 Dylan as [id number] [place] [address] [address] 2021-09-03 2021-09-03 Telephone [facility] [id number] 00:00:00 00:00:00 [facility] 2021-09-03 2021-09-03 Telephone [facility] [id number] 00:00:00 00:00:00 [facility] 2021-08-30 2021-09-01 Inpatient YULI ROBLERO Surgery [id number] [facility] 15:08:00 16:25:00 CECILIA 2021-08-30 2021-09-01 [facility] Douglas Christensen [facility] [id number] [id number] 15:08:00 16:25:00 [facility] 2021-08-30 2021-09-01 [facility] Douglas Nevarez [facility] [id number] [id number] 15:08:00 16:25:00 Encounter [facility]ilia [facility] 2021-08-31 2021-08-31 [facility] [id number] 11:19:00 14:45:00 Event Girish Murphy [facility] 2021-08-31 2021-08-31 Anesthesia Luis E Mc [facility] [id number] 11:19:00 14:45:00 Event Girish Murphy [facility] 2021-08-31 2021-08-31 [facility] [id number] 11:15:00 14:38:00 [facility] 2021-08-31 2021-08-31 Surgery Eri, [facility] [id number] 11:15:00 14:38:00 [facility] 2021-08-30 2021-08-30 Outpatient [facility] [id number] [facility] [place] 15:08:00 23:59:00 Jas 2021-08-30 2021-08-30 Outpatient PEDRO HALL [facility] SLE [id number] [facility] 13:51:53 15:07:00 BEENA 2021-08-30 2021-08-30 [facility] [id number] 13:51:53 15:07:[address] [facility] 2021-08-30 2021-08-30 [facility] [id number] 13:51:53 15:07:[address] [facility] 2021-08-30 2021-08-30 [facility] [id number] 09:30:00 10:00:00 [facility] 2021-08-30 2021-08-30 [facility] [id number] 09:30:00 10:00:00 [facility] 2021-08-30 2021-08-30 Outpatient PEDRO HWANG SLEKiera [facility] [id number] [facility] 09:10:32 09:10:32 GWEN 2021-08-30 2021-08-30 Outpatient PEDRO HWANG [facility]H [id number] [facility] 00:00:00 00:00:00 GWEN 2021-08-30 2021-08-30 Orders [facility] [id number] 00:00[facility]00 [facility]00[facility] 2021-08-30 2021-08-30 Orders [facility] [id number] 00:00:00 00:00:00 Only [facility] 2021-03-06 2021-03-06 [facility], 1.2.840.1 [id number] Methodi 09:40:18 23:59:00 Encounter Danish 11017.1.[address] 3.430.2.7 Hospit a .3.465717 l .8 2021-03-06 2021-03-06 Travel 1.2.840.1 1.2.215.945 [id number] Methodi 00:00:00 00:00:[address] 3.430.2.7 0.2.7.3.698 Ho spita .3.730563 084.8 l .8 2021-02-23 2021-02-23 [facility], 1.2.840.1 [id number] Methodi 11:21:36 23:59:00 Encounter Danish 51276.1.[address] 3.430.2.7 Hospit a .3.917190 l .8 2021-02-23 2021-02-23 [facility], 1.2.840.1 [id number] Methodi 10:00:00 11:00:00 Visit Danish [address]9080.1.[address] 3.430.2.7 Hospit a .3.453915 l .8 2021-02-23 2021-02-23 Outpatient [facility] [id number] [place] 00:00:00 00:00:00 DANISH [address] 2021-02-23 2021-02-23 Travel 1.2.840.1 1.2.556.133 2091 [id number] Methodi 00:00:00 00:00:[address] 3.430.2.7 0.2.7.3.698 Ho spita .3.982843 084.8 l .8 2021-02-22 2021-02-22 Documentat Fito Hatfield 1.2.840.1 [id number] Methodi 00:00:00 00:00:00 ion Go 11092.1.[address] 3.430.2.7 Hospit a .3.409195 l .8 2021-02-13 2021-02-21 Office Shiv, 1.2.840.1 [id number] Methodi 14:15:00 09:34:12 Visit Peter 80081.1.[address] [place] 3.430.2.7 Hospit a .3.532246 l .8 2021-02-13 2021-02-13 Travel 1.2.840.1 1.2.534.160 [id number] Methodi 00:00:00 00:00:[address] 3.430.2.7 0.2.7.3.698 Ho spita .3.335714 084.8 l .8 2021-02-01 2021-02-01 Outpatient [facility], [facility] [id number] [facility] [place] 10:47:36 13:24:19 PUNEET de [place] of Medicin e 2020-12-02 2020-12-02 Outpatient SHIV, [facility] [id number] [place] 00:00:00 00:00:00 MAYRA 689 Method i 2020-12-02 2020-12-02 Outpatient SHIV, [facility] [id number] [place] 00:00:00 00:00:00 MAYRA 691 Method i 2020-11-18 2020-11-18 Outpatient SHIV, [facility] [id number] [place] 00:00:00 00:00:00 MAYRA 818 Method i 2020-11-18 2020-11-18 Outpatient SHIV, [facility] [id number] [place] 00:00:00 00:00:00 MAYRA [address] 2020-11-18 2020-11-18 Outpatient SHIV, [facility] [id number] [place] 00:00:00 00:00:00 MAYRA 756 Method i 2020-11-18 2020-11-18 Outpatient SHIV, [facility] [id number] [place] 00:00:00 00:00:00 MAYRA [address] 2020-09-08 2020-09-08 Outpatient KEHINDE, [facility] [id number] [facility] [place] 11:52:06 11:52:06 JAREN Colleg e of Medicin e 2020-09-01 2020-09-01 Outpatient KEHINDE [facility] [id number] [facility] [place] 11:51:06 16:51:45 JAREN Colleg e [facility] Medicin e 2020-08-25 2020-08-25 Outpatient KEHINDE [facility] [id number] [facility] [place] 11:46:42 14:30:58 JAREN Colleg e [facility] Medicin e 2020-08-17 2020-08-17 Outpatient SCAR [facility] [id number] [facility] [place] 13:16:39 16:40:55 PUNEET Kris ege of Medicin e 2020-06-02 2020-06-02 Emergency ER ABEL RODRIGEZ [facility] [id number] [place] 09:55:00 11:59:00 -[id number] [facility] 2020-04-29 2020-04-29 Transition Italo Baltazar 1.2.840.114 [id number] [facility] 00:00:00 00:00:00 of Care Constance Thompson 350.1.13.10 it [place] [id number] [facility] [address] 2020-04-29 2020-04-29 Transition Italo Baltazar 1.2.840.114 [id number] 00:00:00 00:00:00 of Care Constance Kennyy 350.1.13.10 [place] 4.2.7.2.686 [id number] 403 Results Test Description Test Time Test Comments Results Result [facility] e Comments MR, PELVIS, 2022-05-31 Unlisted WITHOUT / WITH IV 14:36:00 Reason for CONTRAST Exam - Click [facility] Yes and Enter [facility] Reason CENTERName: Barbara DASILVA->Shelli POSADA : sted Reason 1950 Sex: for M Exam->C67.9 FINAL REPORT MRI OF THE PROSTATE WITH AND WITHOUT CONTRAST CLINICAL HISTORY: Unlisted Reason for ExamC67.9PSA 1.63 ng/mL March 14, 2022 COMPARISON: None. TECHNIQUE: MRI of the pelvis was performed without and with intravenous contrast. A transabdominal phased array was used. Small field of view T2W high resolution images and diffusion weighted images with apparent diffusion coefficient map were obtained. Pre- and post-contrast axial dynamic T1-weighted images are acquired with intravenous administration of gadolinium contrast. Full field of view axial T1- and T2-weighted images through the pelvis were also acquired FINDINGS: Quality: Excellent The prostate measures 17 cc (3.7 x 3.2 x 2 point cm).PSA Density: 0.096 ng/mL/cc The background transition zone is small and T2 hypointense. The background peripheral zone is diffusely moderately T2 hypointense. The following appears suspicious (>= PI-RADS 3): Target #1 (T2 axial image #20)Location: left posterolateral peripheral zone midglandClock-face axial location: 4 o'clockCranio-caudal location: 50% of distance from apex to baseLongest diameter: 0.6 cmCapsular involvement: Barely abuts the capsuleT2 signal: oval moderately hypointense signal with circumscribed margins, 4/5 suspicionDiffusion-anna ghted imaging: focal isointense high B-value DWI and mildly hypointense ADC, 3/5 suspicionDynamic contrast-enhanced perfusion: positiveSuspicion for extracapsular extension: 1 (1 = very low suspicion, 2 = unlikely, 3 = intermediate suspicion, 4 = likely, 5 = definite)Suspicion for neurovascular bundle involvement: 1 (1 = none, 2 = possible, 3 = highly likely)Suspicion for seminal vesicle invasion: 1 (1 = very low suspicion, 2 = unlikely, 3 = intermediate suspicion, 4 = likely, 5 = definite)Overall PI-RADSv2.1 Score: 4/5 (1=very low suspicion, 5=very highly suspicious). There is no lymphadenopathy. No suspicious focal bone lesions are present. Circumferential bladder wall thickening and bladder wall trabeculations. Moderate amount of free fluid in the pelvis and a peritoneal dialysis catheter coiled in the right hemipelvis. A small fat-containing umbilical hernia. Left colonic diverticulosis. IMPRESSION: 1. Small PI-RADS 4 lesion in the left peripheral zone. 2. Capsular margin: Intact. 3. Diminutive diffusely T2 hypointense prostate gland, probably sequelae of chronic prostatitis and/or posttreatment changes. 4. Additional incidental findings as above including a moderate amount of free fluid in the pelvis and a peritoneal dialysis catheter. Overall PI-RADS Category: 4/5 Standardized reporting guidelines follow recommendations by ACR-ESUR PI-RADS v2.1 Signed: Adry Brown Verified Date/Time: 05/31/2022 14:36:09 Reading Location: [address] Consult Reading Room E CULTURE 2022-04-28 22:30:16 Test Item Value Reference Range Interpretation Comme nts URINE CULTURE (test code SPECIMEN NUMBER: [id number] CULTURE, URINE SPECIMEN = 630-4) NUMBER: [id number] SPECIMEN COMMENT: URINE SOURCE: URINE REPORT STATUS: FINAL FINAL REPORT: 023 10-50,000 CFU/ML UROGENIT AL CATE PRESENT NO COMM ON PATHOGENS Unless Otherwis e Indicated, All Testing Per formed At: [facility], [address] [place] [address] 4 Floor Attendant: Miriam Rojas [id number] [facility] [place] [id number] [facility] [id number] 00:00:00 Test Item Value Reference Range Interpretation Comments COLOR UA (test code = 5778-6) Margo YELLOW/STRAW CLARITY UA (test code = 18070-4) Cloudy CLEAR GLUCOSE UA (test code = 5792-7) Negative NEGATIVE BILIRUBIN UA (test code = 5770-3) Negative NEGATIVE KETONES UA (test code = 06890-8) Negative NEGATIVE SPECIFIC GRAVITY UA (test code = 1.010 1.005-1.035 5811-5) BLOOD UA (test code = 5794-3) Large 3+ NEGATIVE PH UA (test code = 5803-2) 8.5 5-9 PROTEIN UA (test code = 5804-0) 4+ NEGATIVE UROBILINOGEN UA (test code = 0.02 E.U/DL NORMAL MG/DL 5818-0) LEUKOCYTE ESTERASE UA (test code LARGE NEGATIVE = 5799-2) NITRITE UA (test code = 5802-4) 4+ NEGATIVE REDUCING SUBSTANCES URINE (test Negative NEGATIVE code = 27293-5) [facility] [id number] 20:11:29 Test Item Value Reference Range Interpretation Comments Case Report (test code Surgical Pathology = 104) Report Case: [id number] Authorizing Provider: Puneet Calvillo MD Collected: 04/03/2022 02:15 PM Ordering Location: [facility] PERIOPERATIVE Received: 04/03/2022 03:11 PM SERVICES Pathologist: Reena Lucio MD Specimen: Bladder Biopsy, Wall, Left posterior bladder wall DIAGNOSIS (test code = h0slyWHkRKZta5evFULcnPG 3220) uZzEwMzNcZnRuYmpcdWMxIH tccnRmMVxlcGljOTYwMlxhb eHxEYMjjIJiF6YeleoyGXdm GE5bHI4xuCxvaMCgpVRtDBC mGyQje5ubs468wGPec8xoJR IRsegazNz4cRwqK96xt6R7D syjO27tqXPrHER3AHMpJLLw kNKcVNGkGRF1FPWsqGYwR8i pWIVsCC6yuemrQTujRYavPX UxxOC5EUOhhPNoW8XeKEFfU BpiWPAotum6IyPjFe0vhYZn eTcyMFxwYXJkXHBsYWluXGZ zMjAgVVJJTkFSWSBCTEFERE ZMEWOKYYFXRNHSM6CEKhiVZ dNAWOuJWHNKQW9QI9xdkRPv ICAgICAgICAgICAgICAtTkV AFKPRR9RCTONhFAXKRo5NEJ xwYXIgICAgICAgICAgICAgI B7GJ5KGBEbDYHJIBvOYJJJy KJUZILxZRUzWXYIVADNQO7T nG5rZWMRVXKGIKpaZUInRDb iSDV2FVHyUMeBNBtCkpWGlI UWyJvLdSiLTS2QFBqFoRSUN CPnASKfMXHDADJAYH2EDXVG hciAgICAgICAgICAgICAgLU GMH8FBLZbZCBwRQK8ZROkDI msMCUiWBSrbJX2STZRJGX0Z PVIASYMDJOyKA0wGCFHwubX mIXZbUHQfYJSrHVUbUW2LJ8 NVTEFSSVMgUFJPUFJJQSBJR JWBVGmVQNNSFRTywa98CUZ4 CjXdi1P9FXX7EXZtSAQlx8s cZGVmbGFuZzEwMzNcZnRuYm rcaFBaNOUkCjYvq3xhq323p TRbe3gbARLyLtV7mXJuVDBb iKSnA449WWVhIXmib3qnm5W rRLZjaMPxs0E3SISPascykE m5jXudR88bv8V6PnueP6gxL TFhKJIsX9MnOW1vYSKdJpe4 JHA5OAW0CGQxFTHwI8YeSY5 rYRMmsTSaTTh1a5ibiNgrLY UyYPP2b8vuYQoiksHuEJ0hi r0ocXq9f7fgveEtWFEqQBVx jQYBCUFrA7FnsPfeFf9gwVc 5jIjjCqppDJG4Xwi6QF3peg 21jqo8rNsiAOGnhnjvTmV8R TywMNBploriJSu0AFedCHGj hVN7XQAbuCQnS0QvJMKlWJ0 hdic6BGH7ZUclQICiKhJ2KG JufDHxKVYcmKiwXSjoo081T BZ5ZlLzYF8nC7Otq6T0pA9i aXRcZGVmdGFiNzIwXGZvcm1 cqTIdVUrgg2WxCEY8bbP8kL NzrLWeZCMoNiG8QBdzHI4ew g64KQUdYVI6dc0aoWHokDpq svBcrDHrRQuoQ1UrUHQfh33 9EFRzF5ZsQWXdg3A8abYiYl DvRJMhnDL7qpV1DOTkUQ8gz zhfi5goWXjiKCrbBTYmyiV7 cdX2SUVrqBMpX1UcyT3vINK yUI7tnqozs7rlCVU6YZfhCF RsFIU2CpGpPNYak8Nwptp5T hEfp9GgdXKwGJxhP17wv184 IHAndgOcA4hddMGrnqsjhHQ rrykkTSrpsnU2ZRRgPPzlpo ltZCJgNXazK9heLvCwEVYhp XngZSymh1TmLLGxUKWiNvBc kENnOKFhAck9EQFkbFIlYIA lQxBqA3sebgbpJxZTQZZok6 kmO0zimOQSeENqJ5SkVYlly hKyUYzzGPpqMzZnXXz8HY40 QkNhMVEtok61 CPT Code(s) (test code y4xqsOKhBTOgjVC4TnIyLFO = 3357) gg5ckn5IoeHOjeXKnYTxzfL PxqiBwpb91wDL2tK22EI3sT NRuIiC5QDYgxjH5Efx2LDYf TTWltCIhO854u3kmb7nctbI foEF2lBdtSSIkteofMjF9YQ qrKGAwywxdOXk1CJdeIHTui FX4QQUdrTVrB6LbGLDsMN8q enu0AVO0VAumVZViMdI5XNV ioIZwGWXgxXfnNMnge366AU D0QiTnPWKhcnGooPpxvE7lR hWuZPE2JYXvZRH6PNQ6ZrA0 NCH6JAE5FxtbZLW0 CLINICAL HISTORY (test c9tpoRMcPPHybSS9FxFzUVO code = 3356) wp7vpq0YwfPRuqUTrPOyixP FlmgAihi67mPW8lM39FW3mE XYaOwV6BVSwroX8Fee3XUUt ZOCctPJlS361g9igi1ouyeY fdLF1LYBxDGYmR7XgEM9vGT EuiDHbN84xrILgPPI4KFTeT ERaxZHmAVGvLLA2GGKvhNVj I7xeFDQaIJ5ionrgDVdiIFb lTTSlkLZ7EBHhdQDxQ6ZnNE VbZEeiXKPnbyp4BaBpUt1ki GVyeTcyMFxwYXJkXHJpMVxw bGFpblxmczIwXGNmMSBNYWx qL28egnQfslAhdEbih12sz0 HvZiwhVYTiycU3WUugLPVtt n0= GROSS DESCRIPTION k9lsjYEaNPXxwSXWEIJzT2q (test code = izbAiPATtiOInF2FdlyifYS [id number]) ciOY8wGX6kiKhexBKzbIAgY Y1UDIBhHzQrSQBpsUQefwGb TtElXRWurHSvjWT3WYOvDB5 fzgjgVNswHLrhFQInouS1XE AvcWJwA7RvWAOoYO0diuenZ GJ8LBqteT7ytjBWFitjFh2i dHRibHtcZjFcZmNoYXJzZXQ zDLVimFwaVVKdDIv8aD4NBz aoHYP2KGLEDcqeLWCzEE8Jx 6gnLVKbtOUrBWX5QMisjCQl EZBgMBLkGBq4OFAmSKbauLN tKX4weQthDncofDexg5EtoS BcXGlkIDUxMDAyIFxcZGIgI R2CZkBhLSlvFDOzNuWlMPl7 XAp2UG3GPfRfOOClLuH6SIp 0JzEzJNm9IRctDF0CMSS8QP QdIdHuYYC7VGXfEAHfOLDxV iBcXGYgQXJpYWwgXFxmbCBc FU0uqFzyaFQlhmDAGiZRuLZ hEDVsQYFgk6EvvRqfR3VvxE 3ewLMgHJ3CNQHunOOZJBZ1V W0eBYWNDngacMAoZWGbxNdy MTabxS3jCY7DESq5kwHbALW eQgAfEvRvDTt8LBLbxV0aBk 6anEWsqM1eiSKpKVibONH3q ESfaLA5qRLnbFdyFW3uzZYp ZAPwF8Khy0dageQmvN7jDWE nLT5aCHCtQAD0PUAfg4Rcps lvciBibGFkZGVyIHdhbGwiI XazYELoXe2bBNaxKL9oFBhj ZO5iTBNeNDZuA2UuR3C6GYJ jEoX4ZU7gvpUsJqThcUT2yX NzdWUsIHdoaWNoIGlzIGZpb HRlcmVkIGFuZCBzdWJtaXR0 LCRwdL7qcV83uiNliqSOLE1 cbGluZSBcbGluZSBQaWxhci JOwzo6LXdvYPXoEJVQUQJKL CAoQVNDUCkNClxwbGFpblxl cGljTmVzdERvYzBccGxhaW5 2RXQgePOcRWK1JO1qYVPsqt ymLMGzZJZgYML3DIyydN58a BHiHQFsKFXopSEucY6WNQXw VEI1VHfhhE15yIRaJT4VJTO nGMK4MBRysRBfSRP9HX8auP 0KfQ== MICROSCOPIC s3ytxQTwODYhlLK4TaJuHKB DESCRIPTION (test code sd6xet3UyxTRcdGLdSMaqjA = 3371) PaymVhka98rYQ3iE02CH4rX OFcAvL6OHPkfaO7Rxe8TEIp WPHorBBeE622k5tnr7qoehD eyST0vEpgYSDaqcxqYsN1MK xgSDSsyzcdXHb2STyaCMTob NC4HDYirNHlP8YeBGHdPP7v mhk4FBB7AFidCCSxShL4YCE mwACqTZBzzDwsSAwnk403HT G3ViTtTWApgnTflAhxkJ8sW dGnEEMAEMA6lR0kbtVrCyX8 iOSvxTOrhBGer3T5LCEgl3H pq9VfwUSvaZ8hn6jkrXS6GM DceTc9eYXeCBXxrMKwOFFkd 2YgdXJvdGhlbGlhbCBtdWNv m3Yov3x9jHUww7KhcRl2GCZ snnTyBAWtcRBpzNnwiYi8tW 4gIFdoZXJlIHByZXNlbnQsI ZZrFSC6qj70gAWhsZPnPWUd j1lvYQShLOE6rEXqSEXyq1H zYJfeLXqfQ4utkrpexn3gCK TvDZCpTJnrHIspN1HtPGMmG WXgsFBlbqbxNKtiTyhtbW6s uDsepiOielK2fXZvqEKaaN0 cEVTnz7JroYWiWXUWnGEgXL XbhtTpLLPbC4UtTI3kLHIiq 1MoMNtnMOrvcBUni2IzKVkk xWqdj49sgIbdrAOcfHdimqT yrUIpZWOfJEUhyV02ST47D4 zeHMDrMBYwaFYgt1FmQKhvV zAamZijiZIdj8Rwb21uHzNy WUZKLDMkkmHbH0EAUZ0nCAt tiyGbuCOsZc2lbCIpEFZkeh OxtJajKCUyHOlfDJG6JnIrY XZzK8cbxrOnEDAmMEQvj1Vp tRz1GTOqc6PsDd17xLSfiVU umvKcONLYf0MtkRTyvGI1zE WqmgQkgDLyFAHvICGraqF6u XRoIGludGVzdGluYWwgbWV0 YXBsYXNpYSBpcyBzZWVuLiB LAONIJhP8UXMivHLjZw9ulT BbUMP5yPBoALCygSCqdTAlI DIfZYPmnpQzb1svUOEsLAVt aWdobGlnaHRzIHRoZSByZW1 vnH0fcybovBYcrNtofBv7zK 6aWD9iSS6msAstsfAwH7hph VQkjXIerbMtHenpWW1bqGFk fQ== SPECIAL STUDIES (test b8ivnDPgLMUem3erIWFllPB code = 3376) uZzEwMzNcZnRuYmpcdWMxIH szfaRsMZxlz2EgH3FhWqTdG FxhbnNpXGRlZmxhbmcxMDMz ZXO4kqXmKKVfEBvaJRElYVr eQv7nvTCosWpqTfMrYCOxd3 raouTWtliooSf4g0juGEKrT lZ0iRJmADjhU1ylovOxeNYt T6ZcdDMelKe7t4jbCrGoRvV 3nHXgKGbxN2behaDqjWGrQP BzVRa1bK27KOHubO0qwTTfV EhlsrTfOmQ9UUwjFUYtVlO9 VKUhdZDzTAGiG8vcRMUqTQl tRNJfUHcifUMkUXF0vYbpx8 T9vXGvzBXqwRssWhWpVoItF dBBp3UeMOc6nIjkB1MnORLg BjG9nPDgZJCgELrtFCBbOMD qdtI4uJjhvxElg54vlTDmOP YwXGZzMjBcbGkwXHJpMCBDb 1HvyRacRMI0tAy7fToaUhjq FQX5Baf9DS9uwb52rtn0oGq sWXUuhkncNgP0ZYvgAEOyvs jyBDe6OOweCWIyrWR0FKGbz GEfT8MfNBAfGZ4xnxj3OWV0 OKzvQWZtUvM1XYKepFCrABR ddBmnIGhot220CJB8YoEiSJ 4vC2Ddc3K8aK3dbDXtQFIra HDcSfIzQHGolu7nbZOuNJbn p0TyPFM7vzM9jFBffSCcEOD xYL37Wsuid4LsVvddb6DcO4 7vuIB0CHsnd8zaCE2lChJ1b vDkIEckd3cacW2gVxL9XYqk TI7rYO0aTPVlfR3nucyvHHT nYnJkcmhlYWRccGdicmRyZm 2chBgzGJB8JPzjN4tmsS6aA rK4HGzrU7veuA0yKXc0BWmb hNV4DZYnlN7rVG9xlnvfy7a oNLymDBzlEEOfrxR1tgZ6LY GzrHYvP5UkoB4fFLUpMJ2ws oopz0xaGMW5BYefOTSsNQR1 RfHhJVSsi1Qxord4DyTgk0F xhZHkKIgvU63iw596DUYndr PbA6xwnJJbidjjlIIspbmwK LwymxU5MCTvJJMkATndXYJa XGZzMjJcbGFuZzEwMzNcaGl jaFxmMVxkYmNoXGYxXGxvY2 mjQxEoD4RhOCUhUoYeTHrsG QfllZWktYFxgXY2mQ7aHG3x BSWptHGtF8UjRPGqpbRpbRA fNPW6aNLmxBVvMM9hBPjxeR Wxi3wrp9VhP7fxfKlqmFM0I S0yVQLlOHJnIQuas5UkdF0x LlxwbGFpblxmMVxmczIyXGx pbbrxHCRoBPmvM0csXzUzDB PtrCzbFZlfw7XiRZVlSJJoC pasgqCrHRj9dvEoWEYcmzum ELOqtUrszN3cJiPjGlWuUvp uLX2aVVNdA7vqgXIvCSXbOS SqB0xnMjUxqV0osWhzTQqiH qGgZeQjNgEDu081ph2eKNYp rGBegaXGsUVdjC6tGZcjZQg rQQowgOUbKZeuo5ccLLDhj9 g0uDCsPAGgedZni7voPMtsk mXaOAUniIFutFZeUONqu97q RRrlmCnisYnqEVJan0UqxWk hb2FxWbLvCUfyc4ShD91ygW JvbCBzbGlkZXMgcnVuIGFsb 97zv5vdOEFrPiQ6pBWmmDB9 jCFvjJCbg7AlbKsaDCYvp9m gKQNmby7abgymnKAvd7JknR 5pbmcuIEludGVybmFsIHBvc 5w6fSLlSAJaBOYkLUkkzBd2 HZVxe773js8vdeY6zGHeJYH 2YWlsYWJsZSBhcmUgZXZhbH VhdGVkXHBsYWluXGYxXGZzM jJcbGFuZzEwMzNcaGljaFxm SOyeRhXaHBOrMMyaV1rcCiK xQ5CfCUFuAqYjwJLgB3qjlY FyXHBsYWluXGYxXGZzMjJcb GFuZzEwMzNcaGljaFxmMVxk PyIvAAYzNGikR0pqOaXlV7T yXGZzMjIgIFxwbGFpblxmMV xmczIyXGxhbmcxMDMzXGhpY 6spQpZfEUHntLhiVJufv3Zf MRRyGLKnKblyynPzPYe9djT oXHBhclxwbGFpblxmMVxmcz ZoJTmkvupwVDLkHZdgH2xuC oHpQIIydDenYZczs9RaVASq VBLiJsbwukQuSPkzeXWqb0h fe4BsI4fjcDrdoIT5FZHdK4 qmiEKiaKR7JJY1oA5oQAiya iUbVMEtd7TbGUVcQMEoKlC2 qO2wTWO3MkRBzGypCAWaPLb uXGYxXGZzMjJcbGFuZzEwMz NcaGljaFxmMVxkYmNoXGYxX AayS0bcSiKrB4SmWYBbAsXf hVhxQMarISw5ZfmavYQeluv mMVxmczIyXGxhbmcxMDMzXG eaK8ffOyYsPEZrmMgzWGmwa 2NoXGYxXGNmMlxmczIyIHMg BWVxcAGioEPAOI63DPUvANY psOoonI0oeFVGZEMyeqN3f6 X8FKzoIPDiSDq3TNtjsdEhK IQitL7iPUQaTX6fUJp5ngFe CKVii7ZhCS8tTNKftYNoJSD 7YVFop0UnC2Wrc2HsIARhFC Iznj3bxwEgDjJZqCSmWNZnh q96NDMfSY5tE7zxPSMmGKHj bmIggSDhm1LqSCHjaGG3uZW eSN0YXnZCd60sSXPbVWARtu TgIVUswPggnDW9epL1eP3rV iBUaGUgRkRBIGhhcyBkZXRl ik3ybzGdVPKmTAVxi2XbjHJ qmRThwoBfV0Gdp2UeQRRpby 78LFynsJQoim09EU5mM8Gzn 6OaiG5bDQnpABOnx0HwjPYb oXEvHXNjd2UjF3ghgjqhXUd nvAGqbA7qIEVxQDa6PKMzv8 QkXCQxz3CvElQzwiCeXHZxZ WRwVBVioX65ZML2gYwqcHti zzBvFI3fYEZsazMtOZNwEQI nvE0dYHswhgOzPMFzgjK3l5 I4BBjdMSYolyKdWcixZXS0u lRtnzR1jVTcX5eszexdYZks INQlr9YchF6qfGUKeHJxk5Q hlLQryIOPwATxCN1giuUtRP 8lJEH6VBkmLLUAHSEaLGetY TBbHUL7QFgwLwmlXEW9qaSg RONox8LwSNyjO8aeC89qqHw xfVv7gTCpgFeqnJQkiANpWD EhoeC3y4X0SWTar8EuoldyP HBsYWluXGYyXGZzMjJcbGFu ZzEwMzNcaGljaFxmMlxkYmN aCNHhGNtdC1ykSkXeIaRhBb wgRBU1pZ== Gross assessment was [facility] performed at ([facility], code = 2777) Department of Pathology, [address] [place] [address], Technical component [facility] was performed at ([facility], code = 2778) Department of Pathology, [address] [place] [address], Professional component [facility] was performed at ([facility], code = 2779) Department of Pathology, [address] [place] [address], [id number] 20:11:29 Test Item Value Reference Range Interpretation Comments Case Report (test code Surgical Pathology = 104) Report Case: [id number] Authorizing Provider: Puneet Calvillo MD Collected: 04/03/2022 02:15 PM Ordering Location: [facility] PERI[facility] Received: 04/03/2022 03:11 PM SERVICES Pathologist: Reena Lucio MD Specimen: Bladder Biopsy, Wall, Left posterior bladder wall DIAGNOSIS (test code = [id number] 3220) uZzEwMzNcZnRuYmpcdWMxIH tccnRmMVxlcGljOTYwMlxhb fSoAFPrwPWuV9NplvejWBvw XW7bOS6fbDmxpZPpgOIxUBE mNkTmh1yli383ePUjw9xgLJ GAknillTi8zLoaZ04kf9M8G cpwX10qfXIzTPP2EEAvSNRf sMKzNGKmGOM4BXQgeYKmV4y nUDHmXW8xapogDFzdMWccER IgxNA3CSXpxIFxB7DgNMFeQ PcaTIXtqwj3HeYhBo8myKXu eTcyMFxwYXJkXHBsYWluXGZ zMjAgVVJJTkFSWSBCTEFERE ALEGKTSEVILYZNS9VMIcqRE pRUVTyDAITNVW0RM9vbpLAk ICAgICAgICAgICAgICAtTkV RAUSVQ1UGLTVoASKATc7BAJ xwYXIgICAgICAgICAgICAgI L6GP9COVIgVKHDWXqXXHZBu YMRXLGySSFbMXHOFRSMMH3L vR5kMQURVAYYHKhfUALqUXk eVXL9FOSmWNyCXIhCpeTEcL KHqAuUeZkIDT7ACQcZpUKLT AApCVPmKFAVJYUXWC7NEJJO hciAgICAgICAgICAgICAgLU RGU3VYAAwKKCjBKO8FVSfZN exZQNdMSZbuNI8ZTMPXSN2R SDXWQLHZBYrQN6fGDWNphkV pHSPjCLOyVWDkUFWwRI4NM6 NVTEFSSVMgUFJPUFJJQSBJR LUZCJyVEUBPUGDjgn05OLL9 IrDof1X7HBB2VAEjAZEdm1i cZGVmbGFuZzEwMzNcZnRuYm jquLAdAMFlThZwj9sgf717u YXkv1faULAsCnG9yHKpTYOc kHOnS148SHFlCXvjb0yul8A zHDDiuICwb5D4QKZOgoyimM k4pRztG26nd6S7ImmyB5enV AWsXGUaF5DxVU9vGPIoPww3 PFT7PCU7XSHcKCTkF7ZkVN7 rMVSorFEcYEc1q1ywtNoeVX KkZHG9f3smILctixJvQX1as t0ahBv7a1mcuvQrASLlPKWt rDWIHTRtK5EseXijNx8tmAy 3mUnlGywfRDB1Eef8CT5lhe 99rsu7sDjkYQLxnuqnFiB5D QmdIZNcqhkeJVw7LYcfRRUg rXK8GNSpoKBpX5LlOZFdAT9 jngt7UVP0ZVsxJJFzUlS7IS QnzZJoPFFygBpnYBfqp950L UB9DbHrMX7gS9Drx9O8oT9q aXRcZGVmdGFiNzIwXGZvcm1 jsABfRShpa9RrAJY3jdO3sF LsmRHuTUCoCnG8YRjdGU9ps o96EYWyQMQ8hc5wgQMhdKrk guJhkSIeHPbxU9PdMEUfh04 2IEVmD7BiPIPsm9F3beSpFu GgNFTahVQ4bjZ0IGYuZJ9vg lahr4huSTviQFswUFBdvdA4 frZ9PIHxsMGbM9XsoQ1oKYE mQF9qmxjse0huKJK1HXlvBS PqJAT6AyBoSUPcz0Mzhpx5I uIcr2CtyMXuEDlvW03ub615 UAQogoDtI5urcOKkqcgdzDN ycdfzXEojthS1XQTzNVzpfz ctXQMcLCqmK0fuGzDySJUgp OgqZEamg4VgWAPtTGMgRhBp uFQjFAHtAhm8VVSnmSWyFFA sMgYsK2nhxfuvCdIWUXWmn4 wyJ2scpMNAsIAoL2KxOUbsk jQwGJvmBOsmGwZxXFl8KB14 BkUsEERvyr55 CPT Code(s) (test code h7vdtZOcXEExcLE0BfAuYAA = 3357) ld3ola0DstOSvlCGsDZtdrQ TvzdLfky64aVG4pQ49HY6lO MPaXfC3CAKseqV5Uou0LIJg RFSsxGUtU513f9gqp6uidgJ bhPZ8tTgdJCVirdaoKkW1JU alMUQwiypuTOq8JPtiJQZaj YK2ODXukITdM5BsAAPyWR1m szi4FHB9PNifPKUtMyP0KAL hcKOnIBCgjSsmYVsoz800LQ F6GlVnPTNkufYypYeadB7sK uZvGDF7TFBzPDX2ERA9TpZ7 WLC8JTU5UlhnXJO6 CLINICAL HISTORY (test p8cvtYGdZQZrvEJ0LxWaFLQ code = 3356) yt4ojo3YhnPTymNJcBSnthO VuxmAsgx73pKK7dE48LW3mP CJgNdJ9XAIhywT3Dyl1NUWu VEXouTMxC835e4tyj9hkaeH etWJ1VAIvVUYgV2QiRO2pKR InuJDzA60bcRXdLFW8NQFiI GWudWBvBCBnGSU6MEKqcLJm Z9moISQpPC9tkovnZIdePKc sKJIljIV4KBDxnZVcD8WxVG RsARkiPAUmrbw0UgXwGc4ys GVyeTcyMFxwYXJkXHJpMVxw bGFpblxmczIwXGNmMSBNYWx cE73lbaUxakArsFutx83de6 WpBskqGQYskfM3ROwzUZDwh n0= GROSS DESCRIPTION k8nepIHsWAXnoABGSQQlX7s (test code = itjRfSFBryMJzU5ZdnicdIK 1300047888) qsYC2uNC8nbSpxkQOazWQjU I6SONAhRxEsIMTeoEZlwbKz WlCsXJWvmBIkoDG9NDMtXB5 nrmhlBVhfILbnAYKsptY6RE XnmDMdC5PtBAZbGC1lwckkX NS4XMqseK4ugzMPQqvkEw3n dHRibHtcZjFcZmNoYXJzZXQ gOTOniEdcTGNdIUb5yD4DNu txSBR9VQKDOtkvOWYmZR9Po 4ogALVczREsIJZ9XVonmWXn WVMwHMPmUFe5BXYzDVberGF vIN5ndAuxQcnbaVyeh9UhsS BcXGlkIDUxMDAyIFxcZGIgI M5DVzRrMSeqZFFmNyApGXa4 NGe3SB6KSwNeYPNvFvX1IJh 4LtFvXWp4PQqiNU3ELTB5DU TxWqThYHB3JAHnTMZrJSNdK iBcXGYgQXJpYWwgXFxmbCBc LU5vjEuzoRUcbmUNCuVQpZB bDRQeVJNnz4ObmWahK8OwaO 2ulCScAD5GOAKnbVFPSGA1U L8gQZDLAfhuqKDeUJEvjDxj ZBsqnN9xMN2YBVo3tjVwCYN tFkRcTeNeOGv4ZCTjuN0fAy 6qqZTmnE1kpOVtETawGHO2m OQkdSQ9lNCjiBckQI6cqMOv UGTpH5Cff6faznFzeB0xMVZ sFF4lYKTtYQN6UNMpa8Vmzn lvciBibGFkZGVyIHdhbGwiI XrcOFPfUh8kDKtgWZ0oQCdq FC1oFGNtJGHtA8KtE5B8PBU cFhO1FT9isuQjReHmzPG8tD NzdWUsIHdoaWNoIGlzIGZpb HRlcmVkIGFuZCBzdWJtaXR0 MOHcpP1prO15rjBgvrSLNZ3 cbGluZSBcbGluZSBQaWxhci ORoax8VNdeVAElHTTIFMMBR CAoQVNDUCkNClxwbGFpblxl cGljTmVzdERvYzBccGxhaW5 5JBDjgJSmSLA2OH9dQGCvjs bcJMOoZFKpSGH1ULeoeC10j WFwEOPgUPHmiYQzoK5QDQOh DUY8RTlyzK35dYLeAZ3WFXC jMFH2CTFenYLzFEY2RK1qvS 0KfQ== MICROSCOPIC r8jthUCiYWIfuGO0TuEuENC DESCRIPTION (test code xf3gzo3ClgZQsqDEqLLsunR = 3371) TmehWzxe33bTC9pL12PD2kX MZdOwJ2HVMqdpH4Yqr5PQVf JLYelOAzY158o0ctd2ssogK wxSD3hObbBCMqkldoKhL5CA kzPQSxteknDVh0WJnzGCWti MH2CEZbtGUnJ4IsWPGhBZ8m mtv4EMD1DEggFQGoRhL2JFQ ioGDoCJGraVbqLSqze855XU A9CtWbGVBrhrLyvJmxgC6bK pAvOSVVEFE7bM4zejJxVoU5 dABorTAiqBSut0U3LCEma2Q ts5KrfCCemR4sk5odbTF3QU RpiJr8hHGzPYPcuQWiFGOlx 2YgdXJvdGhlbGlhbCBtdWNv n5Nje3f3sHFbj1MvkDz4YAL xbyJyGQPhjUXreQelkVa8wA 4gIFdoZXJlIHByZXNlbnQsI FXoWMZ8mx50vMSzhKMdTOPc o9lfQFDhFKP5eIToBXYsj8A kPUgzQAboS9adwjytmt3sGS WoZMPlXMmqXOllS6XgEQUgI MEdlRNrgpcvHNarWbslyJ7a qBcqbiMfrbJ1xBWyzMQluK0 xJPZat9YfcHXbZCQMyJRxIH NludBzCGPeN7YnIH3kMMKvn 0HvIMynYHrrsCLnt7HfFZsy wCwcu56zgIlpdJAfoSzuoqH ccQXyHDOzZBBshN25CA02B5 kkYTTiQBTfiDCja1RcOLqyD bHkiIrbaRPwt7Hue66kStYj KJRCMTGjveKhC8LMNT7sWEb dveJboZFiCh9mlQIyEYGpjo LeoIipKTNsMBubSIS4DoNkP KFuJ3nphmLwHJVrYFXty2Vz vEq5JZTbu9QmFu30fNTxcAY oknWrOAXBq5FlaKZdlOE2tJ RohqNsmSFjCEIrRNWwnsP7k XRoIGludGVzdGluYWwgbWV0 YXBsYXNpYSBpcyBzZWVuLiB DKEFJJgS6CAYdiKAoWq4hdF DnLHL8xZBiSNIbdLQgiXHcS ONgAILdugLjp2qjRKGnGFTx aWdobGlnaHRzIHRoZSByZW1 foU1sbybyoCNskAvscKe3xB 7bCB3kLT7vsUdnhkSpH7rup BVgrOKrsaLrNnhyEZ3wfXBf fQ== SPECIAL STUDIES (test q6tjsTTuPDWmh2kkEYBbcJH code = 3376) uZzEwMzNcZnRuYmpcdWMxIH dbwsOrIDkzf6WcE2UkDbIhE FxhbnNpXGRlZmxhbmcxMDMz OMJ5efEaJEKcHWoaUASiGCz bXh7xsSKnyYulPzJcBFCsp5 gteiEZeinnyEi3z1fqEIBdM zU4bRMmNFfkC7rhwgVakSYs O2BbwZQtoLf2g2waSuOdKvM 8dWEhLHgwZ0xsbtVgiJEwHS SkDFp5fL50DNRaiX3uuGAeG ZafwrAxScZ5UNnqPMUfWfS9 MAGtaUGaZYAqZ2xqAJUeTUy lYTTmSQqvzCFqMFY8qLqrh7 P4lARqoYLnjMgcXaJdIgPyJ eLFh4VaNSu3wHseZ6EnUHHr SyC1kISbBMQvWEvwOUKuPSQ nfrW0nZrjbbAdt41drPCmJO YwXGZzMjBcbGkwXHJpMCBDb 8HsrUucPMU7gYf6eEolPveh APP4Fcg9MM4vjy62hib8kYr nBMGtwxmuDrY9ULecDBBxeh etDUc4GOceNLSvjPH2UFKtw RXgW3QiWGNuRI7vsow5WUZ6 JJllKKYgHnB1CWAogSOsGHA euOoaSUqba556XQO1RbZpJC 8aX6Rhc6V9wN8bgPMfBRYvi HAcZaRlAUIhjb0axCUnLVcp r5VzCUJ8cyX5sRHsoLFyYXX rTG69Fjnec5WjNimms8KoV3 1yxDK3UOglm0hwCN9zYtL0g lCcSPuaj4wfjV9eDkY7XBlu XT7gKF3uLYCjwO5gfxvlPKG nYnJkcmhlYWRccGdicmRyZm 0pvAnzKQQ8IYznT4qeeK7iG kF3TVwnZ1wqxO9mERm0VZye fRJ5CITjhQ8sWC4qviyrp8n qGNvqTWodQGHueqS3fqI2SD UhnYRpT0LmeS5iJUZuEW7ju rbqw4qlPFH4BLhnZITiEMR0 GpSuFWNtq5Cytnc0QgDew3J ndUMuEWblJ04mc471DVWqlq AsG2bomFRnteafqILpxtdzE FydndL8DTEkJQIpJFdiGDMp XGZzMjJcbGFuZzEwMzNcaGl jaFxmMVxkYmNoXGYxXGxvY2 vvXpQlX1ExPERpOrPnZXgyW BfdpBVuwCYhiZS1xV5sIN6u UXBbtYQsO0BySQXrzmIhpCY dXFX3yMPviDNsPK6sKHgdeX Rwx1nbp6AzL1hquYfbtJA7R Z8jBDHzRGDtQSski2VjnV6v LlxwbGFpblxmMVxmczIyXGx txdtuCVUcSUinV3xdMyAtDE QoxHjmYYkcn4FnYUWiHTXrD juznmSzNJs3bhFdNWSruauw KDQciYhryF8zMpCfChFgVdm nNO0lKFKuQ7ybwKVxTCLsKN PaC8udVyMyeD4hbLciUDvvS xArMkRvEmGUz529tc4fVBLr pOSyizVWwPIyfP3wSXlaRMb lFTymdRRlTTfbd7pyAWMna7 f5bLRyAAYpxmEml5pmBEzbv jVuQRPcoBCfaLBbHWWiq35t DKlayQvlpSghYJRgl5PqeTg nj4GlNyIqGFxev6SqG52aqU JvbCBzbGlkZXMgcnVuIGFsb 88bm0vvSXMnUrK8cIMvnCU6 eKUeuPSfj6QihTxaQADvn3q zTOLcxj4mndrmcULyh2PvfY 5pbmcuIEludGVybmFsIHBvc 2x3lWJdXEAaDIUjABawtKo7 TPHqw325ag2ogaX0wHYfUPJ 2YWlsYWJsZSBhcmUgZXZhbH VhdGVkXHBsYWluXGYxXGZzM jJcbGFuZzEwMzNcaGljaFxm URmmYsNzZHRcQDrpM6zhApK cC6VaDQXqYsMlsOZpC3uedS FyXHBsYWluXGYxXGZzMjJcb GFuZzEwMzNcaGljaFxmMVxk CdDyLXFtDEruQ7lkIdFuD6E yXGZzMjIgIFxwbGFpblxmMV xmczIyXGxhbmcxMDMzXGhpY 5zgUeMxMRLtrPpoKKpre0Wb LYSaWWChGbxhniKmFEc9gpR oXHBhclxwbGFpblxmMVxmcz NxADderbhxEEKaHSgaH1zpK iEtHKGijBjkUXtlh6KjERRh WKAoJkmbvmEqFUjsoIKjn3b ye9SnA9rxfIgvbYI9NCYnD2 fwhFVvmCB6VZO6lY1bAVoag tFkNIFrq6LsPUSuHWMzGzE6 rR4lRBY0EzEZoOhvCAVqOAx uXGYxXGZzMjJcbGFuZzEwMz NcaGljaFxmMVxkYmNoXGYxX CnsF7rbXiRcX4FgSUZpHfNh gSquWHxrYYh2SswgeLAxamp mMVxmczIyXGxhbmcxMDMzXG azM5mgCmYaYPPuyTeqXEacg 2NoXGYxXGNmMlxmczIyIHMg KFSznBMevUWUOD55SSOtEZN rxDeudZ8idSPXTFXhebM2r2 H8KJbwSBEpHHg1GBxrixQpK UIfdL6uXOLlZL6kLTq1fzAw TSRoj7XxBI9eCVKzfEVvFYF 9LOQai0YnV0Nei0NfQLXwAJ Hcra0usbVbZlABsXSjRBHfs a79VWLhZJ6xL2zwXUJcMZWs taKpjMEjy8QvZUDitWD5cXR vYM5GQnONv51bIPXpVQJJpu GqETWegLkekST9okE2yW7iE iBUaGUgRkRBIGhhcyBkZXRl jw2smdGyKQAiUAPdd9LnbXN lrRZmvqEmP6Plw5JrBGLxzw 18KJxtjDMbeg62II0lC2Lsa 3CjsT5lAFhnJKNlz9EslRSs yVAcKQBay6CwY0vwnjwoYHj nlOMbsW5fJLVjJIb0FQQwd9 XjKJKag4VdJhVpnuGvNADuF DTcKOZogE12BDP0eHueoXzi wbShBI3gSFVqiwRzGKVzSEY zuX4wDDmsxtAmODIpupG6x7 Q2AQtiXBPgneUkZbsbTFY7r sGawvK3jQGgX4jbmussRYhe XSXce9FdyJ0kmALHaYOae9F toDQydZGHoHHkDS3meuNmFZ 8wRLR3FCwzLEBCHNKdEKmqU OJcXPC3ZTccBtabQIE0lkTl DEMqt8JlPHnoN8tmA21rwBh mxKf0xTXchQnmwJBcpOCrCC BszsG1o4G0NVCxg6QsfbirH HBsYWluXGYyXGZzMjJcbGFu ZzEwMzNcaGljaFxmMlxkYmN vIONlVHiaP1kbYdCeIeKzTd rzJHF2yH== Gross assessment was [facility] performed at ([facility], code = 2777) Department of Pathology, [address] [place] [id number], Technical component [facility] was performed at ([facility], code = 2778) Department of Pathology, [address] [place] [phone], Professional component [facility] was performed at ([facility], code = 3213) Department of Pathology, [address] [place] [id number], [facility] [id number] 20:11:29 Test Item Value Reference Range Interpretation Comments Case Report (test code Surgical Pathology = 104) Report Case: [id number] Authorizing Provider: Puneet Calvillo MD Collected: 04/03/2022 02:15 PM Ordering Location: [facility] Received: 04/03/2022 03:11 PM SERVICES Pathologist: Reena Lucio MD Specimen: Bladder Biopsy, Wall, Left posterior bladder wall DIAGNOSIS (test code = j7ektNWoKNPzw0bwISHxhZK 3220) uZzEwMzNcZnRuYmpcdWMxIH tccnRmMVxlcGljOTYwMlxhb jRcYSEveBKaR7HlsvctUJfo XX7iGA1ptOixlLKzxJAoRKB fNyPao5rqp989rFYlr7ceJB UUkhzojVj2rOugJ97mp7V7J xayU38doYZcUJE6KXBnPHAy lVEnLOTbQEO3SJTuxUMvV3m eXWYeKO4wnwucVHitTShxPU WvkOM6PSTywDCcG6RaREHaH PypGORexam4UdWaXb9lyBSg eTcyMFxwYXJkXHBsYWluXGZ zMjAgVVJJTkFSWSBCTEFERE LWEXVPENMIHWAHH2SIWkdYD iPDKWlAPURWGD2AK0wurAKt ICAgICAgICAgICAgICAtTkV RTYUVI8WRSGFdMNMQPz8NRY xwYXIgICAgICAgICAgICAgI O3EU3CCNPeOQMRUWtGGSMGi UENQKFsIWEcWTPUWULLUQ2Z gT4jEBISCOAUFIzcBUJjLKs iWOE6CCSgMKjVFHjQjxUPgT TCvItBzZmRUL3MKTrCmZEZD JUkWFKhBUKFMUTTUG0BWUJU hciAgICAgICAgICAgICAgLU YUT6TMTJrYZKyYRN9EPQgQO ibABJgWLHwcYB7WCLJIGZ1P GLCIHFYTGWyRC4xINRJpduE jEXNuFTPoWURxENAsAJ6YH1 NVTEFSSVMgUFJPUFJJQSBJR AEIXXbKGROYQAQrum57QHP3 RhJip8A2TSR5JZAwAVPiy2l cZGVmbGFuZzEwMzNcZnRuYm hlzIAwHFGxSiLql2awj350t TQrl3slGOFmJtA2cNNuPGCc iHEfV234PXFlQTivb8ura7V vSFXwnFVqz5P5SFFZlapvhL c6qLsfN61ob8T7FwnoU9zsI BMuXUUnE4QgUP7lTRXxTxw1 UMD0LND1VTRnNHVfX3JcZK3 kXUKheJJaLYy1m0mjoSzqRE UiCTK9q7bvHVufqnAaZG6sa z7rqEo2p7dwzpXfBTZsXLGz oKGSYEVpB7JulGlfQa1lhTf 6sCpfEoguOKP2Wek2NE2rci 92tjy7vEauMNClviqfKeB6N SutEXGjywawAWy0NYktLARe kRD4DMKtbDTxQ0KfXELaQP7 gzei6YGI6QGhkLZLiKkB9TN JbuDHjICOobNrxZXapt167C KK5PaDiNR8jN4Myn5W3dU6x aXRcZGVmdGFiNzIwXGZvcm1 xrNTiUOvqp6JuSUI8fiP1aU TmjLIzNCHaHdM3JEufRY7ep k71QNWnLAA6xl9zjPTtkPwg obGezMWzQOxaD3WhGGIdm88 4FMPgR4XuTZAvz4K8uiHfOf CdTQCujPJ2zdZ6XPUtAI8uc nydk8zcNMspYCpyYBXpqjQ3 ryU3POXjrUKoY6ZajK9jPAZ sYZ0eiqwyd0ktCDW5FJzdCV JgYDE3TvPbQHUjp8Jyxur6K jBum8KqxEMpCAcaS42jw587 KKRtxlSxW5xvaIQflxuycUE snghxOOmcjeW6FCWoSOvqxx ioSMQnPQdnW0dcMwJqZIEtg KntCCxhe2YaZADjPHKhUvDm gAWvMUEzYxc9QBDvrCIoZRD iGhPoG4gdcbrnOxSLGLSjc6 naO4pynYDTpEKeO8MlNQjub xUiWUazFRewNdFgPRp2CN70 EcGvUHTteg47 CPT Code(s) (test code s3jlkGMeFUWegTG9ReGaDWP = 3357) jv7eve2GjzRFwwPIqXPtvoM HgxhDcps71xUB8hR34PN9zY UKlDyN5SHEimzN3Myz7ENZk KJXuvGIpS644n3zbt8chqtH rjRC8wFdxLZVcutiyUvG4NL ueJBSmgmfiWCt7TIybQZTpt TB2THNywOFvT6VhVVDzWK3v bvs1AJL8IYtbYPEdPnN7WWK maOEoERNrfLvhMQtre105IW L2CyWdJBPjroPunCjbdB0jU lVhGZA8CCRdZFD3BUI5XvB2 LVZ8HEL5ErpcXKB4 CLINICAL HISTORY (test q9dfrOItXGEiaZX3OdRxMRI code = 3356) js1xkc5MplYRdvPLqIZrfsI UzrnTmlw01hSZ0bS44BX6mS PGfYzI4TOXgtzS8Ace5TSXg JYNqyHWoJ099v1idg1gniwH jxDE5OBGtBCBqX9DyJX3eYX ShbHSdF13cdIRaMAF3UGSfR GEniVUnFUKqNPC4VUEsuWEk K8brEOVrGJ0qqvfpOEcbGMu aLKLcsTD5KPJmnYQpP0LhES DxLRsuFKNuuzn3GzHmUe3ly GVyeTcyMFxwYXJkXHJpMVxw bGFpblxmczIwXGNmMSBNYWx sF46zzbRqfrEdkQthb11en6 EtCzmnQRXxwmV8KLylKJBfp n0= GROSS DESCRIPTION d4kppXFlFYGwuEHIBVCtK9u (test code = imbLyPOPqtCUvF6DbytwrFI [id number]) laIE0nLU4jyJfwrXTydTVjS G8HUWDrFqVjUUDfeSYnybBz HoDqAHOhzAWgeZF6QDHgAX1 emkisCNtiGDdwVKUsynS1DM MhzSGfU0GyYGWfNR3hjqwkX VH1AGabrE4gobSRBnaaDl7s dHRibHtcZjFcZmNoYXJzZXQ dDWRdmQppEIXyDSj5iC5IFo niXCS2APZVQiydTVTfDD9Xe 6sdJUImzWUlVZS2EZmlpIGh VMQrDKMmZAe4ITZuIFjckYJ lBD0gtZbqEkmvqCmnr3QhmJ BcXGlkIDUxMDAyIFxcZGIgI J9MRcHjUBweGGMeXtQkTKj7 DPg0BL1SXwJvFGHzJiZ9DRp 0JcCjCBd0EDzvFI5NESE9PD AiFqVuRQJ8VXBsAOVyAMIyW iBcXGYgQXJpYWwgXFxmbCBc YY6nbVyykHYornBEBpLVzVO vVJScKNEdi3HigFvrL6UpgN 5coALxYM4HCTGdcKNXJET2X Y6gDDKYYhewhELyZTOigMzv VVcbbH8eLY2SVZo8dlWsSMX rSgHsLkOdIQz5RJBmeA7nRf 6yiSJnhD7ceIInPMjnABZ3s QFarBG4yKIebYkfKZ5qkCFp QXInZ9Jms7hqqxMxuR3gWDS sZL3fOWFpCAX5EMNof3Enny lvciBibGFkZGVyIHdhbGwiI NfmNJOkCj7vMVsvLR4fLXor YI9rBRAwMZKwT8UwV2S9SXX bKmI5JF2mffLxInSzzHK9eC NzdWUsIHdoaWNoIGlzIGZpb HRlcmVkIGFuZCBzdWJtaXR0 SMZfwL0fgJ56zjRxoxFLHO6 cbGluZSBcbGluZSBQaWxhci YDfch7EOgcPHQgPXMEAPOEM CAoQVNDUCkNClxwbGFpblxl cGljTmVzdERvYzBccGxhaW5 4SLAkwDMbDLT9HV6pSDSbfj dcWUJqMFOfNYX6QDlgrQ77k HIxLNAxDGTkvTEzaK4SNWLu UUH8KGhmhF90xOYiCP5CQUV nOLB0QZLwuCKhRYI1GC6krJ 0KfQ== MICROSCOPIC v9iieKUsMKRdqMI3AeZmZPS DESCRIPTION (test code gf7wes5RluIGryPCuJFeztC = 3371) InfdXpbb55vEJ3jQ96RL1lP QOcNtT3AOJrikU7Wfj9KFBc KXEunHOtQ070t6ghn0lxhbA lnNS9zFkuQHCkcajuNsE6ZB qoJOHprjosLDv4FVxjMOAfn GZ1GOGkoSQwU7HjQNKsZR7j gkv8SDK0KZzbRPIcSzI8NHA pxGQeGHVcsJfrHCscu856VC A7NvHyYEOknmXsfPkezF9qK oUxAGUFAPY7fY3mjuYrYmL8 tPMwcBGlbCMgs0W3KJFgy6Z dm0WzsCSucH8mq3ncpQN0JA OgqQy0uUAnNEPrdTYbBZSdk 2YgdXJvdGhlbGlhbCBtdWNv k7Dvy8p5rULuh4FabVb1JSM ilcOuKHLdmCYxqGwulEt7qF 4gIFdoZXJlIHByZXNlbnQsI ECxOMN2dv84gGXcuCNoKXXn z0nmQTCzKTU0iGKyYAGbt4C eAYsuJIwuL4oraxanpn4jSV AwODUxKBbiMNxrB6ByCSVoT JRxaDNesixgGSpcNmqgiI8t lBbxxqAvctP7xWDpuFBpzP1 aSYPmr7McoKLfIARNnAMnFS TkiiWpYLOnZ8XhXA3mWBIth 6CuBXjrGZotzJNws7ZgIDcv bRnys21smHnlwEXbzSpkguO tbPLzPYGfWNVphO39CQ71F5 uyZIIvRMKzuVXfl0MnKIhrF jEsvTosbUFde1Nxj54tPkQa EQYBTAMkfbEaM4NNYK1eFUq nosLnxGHeWn5mpTXiMQNqlg IwrXpaBJTpOBseGOG7GeUwE AViH8odikStNBOpCRHlz8Pk eDg6QZDaa5KdDy31kMEbvWQ bllDnUVCPd0LkpVGxeNV4mU UjvhCljZKmQZHbLYTjudV9a XRoIGludGVzdGluYWwgbWV0 YXBsYXNpYSBpcyBzZWVuLiB FNTILQgG3IEHatBSgOn7xrS WeTLD8rIOvNJNqfUMdgKUpW BJmXEBizqEkn9ljZGJaVIKm aWdobGlnaHRzIHRoZSByZW1 neY3iignzwWNcqAslsOn7wB 3tKT8zZT1cyGknwlTqD3kfs PFqmFKkxxJdJtbkAQ1ilJLp fQ== SPECIAL STUDIES (test x9xtfQWpEQFtx0hmRDQxoVF code = 3376) uZzEwMzNcZnRuYmpcdWMxIH nkatMdHDifp9PzT3KvEaDyG FxhbnNpXGRlZmxhbmcxMDMz ZTA0keMpRBMmRSzjLUBoGXg fTz4gjPQirJohYyPtHLBdx3 aievCIpjlueWc8w3xvIGBeP wG7qPJiRMbfH5kfjzDdnZPs V2BlyHZmxZx3t0sjCwPxWdC 9yRZyUDppI5tnbxHudGIbKM BhKWc3aU89CLFnzO0feTVyC YrgpnFoHrW8STuzVGBcKwZ3 BRJmcXIgJKWuM7xsUBXpNPz tYGXnRArbaMBhZBB2qZydo1 M9jTHjbNRwzVrkGbCwUfFcW sQAm0KsJFa5gBivN0VxNQVh TcK8gKKcHXJpNXyuJWJrQZO tokA5hMuwawZav41niMMmNA YwXGZzMjBcbGkwXHJpMCBDb 6BydDmuGMZ6sFx5qHxkTouv KYZ7Lce4AB8xfz69xnj8vEm jVOSnrvpwYuW9ALruESIbol xpWOb4KXykMCQtgTG9YNBtq TWoN0UlQEAfXJ3iucn5ZXL5 XZsfRPNsNcT6SFEsnYOsGIO ejKsaTHqaw306OTK3LdLiGV 7vM5Vgh7A9tN5wvVMmDCInr IPuDuTdSABiyv7qqFZbNIms z2JzXCD2hzP6mRQdpABaQZU iMS04Zkteg3ZwWfuqa1FcP6 3wsDL1IHsco2vsPW3mUjG3c ySzLZqfn1vagZ0pIcZ1DSei UG1jDM3zXBHesU9imowgVSA nYnJkcmhlYWRccGdicmRyZm 5qzXmxGVC7BAqjW2qlrJ7dO vF0VSkwU9orhQ5mZNj9ETea xRV6LFNhvU5ePM3cpumzs9u xCMpcQQqnFKNeshW0opE3EH XrgUJbC9UlsZ6qJZYuJH4pf uzdc0yzYOK8NHnuWKWtVZA6 HzFxHVTpv6Fiqib4FdStl2A ywVMlQHoyS86fx108DASzzh GzK7hffNLmtyrikCPykifwG SfclkR2XOVdEDFkUTigSSXq XGZzMjJcbGFuZzEwMzNcaGl jaFxmMVxkYmNoXGYxXGxvY2 ouKhSvL4LdECDbLnBbUHbnJ VhkqUAbyHWbqYC6zF0mFR5u ZRQcvZAyD5KgVOQtheDedNH pSWT0cDCuoOIgWT2xOJqvwQ Qfl3lfo8IuH9ontRysxXT5R U6tZNOcJJIpLPaqy6DriV5d LlxwbGFpblxmMVxmczIyXGx evslsFQSgGAgqH4qtAvRsWV EilLgqXBerm1QbTQItJUQyR zxojrYvJJg0lqUqUDWegpvn XKUaaNneaG5oQvQcQmAnZnm kUO5yGLQcN9herVFrPDOlHB UoM6mcBiAlxG4jmCehZVwfB mDrSxNmCcPQo591az5rDYGg iZBozcRCaJCrhO2zYJesDYr uSGzvqMXlLGvyh4piQICaa7 s5iKDvJOIakoOxt4ckCCjju gTtQWUipTBclXUtRLRqj66t ZQsnkGqxkZxjCNBca4QrnOg hs0JqPrMrPUlyk3LvT31iqL JvbCBzbGlkZXMgcnVuIGFsb 48aa5uxTXUsGxM9wEGqcTQ0 jXPjwZTdz8ThhMjwJYAvi2x fTNRacc8hxvqvbMQfu0HzvF 5pbmcuIEludGVybmFsIHBvc 9j8zCLtRIBgERYjUYkhrWa4 UZSub179ow5xtlP9wTPuMYP 2YWlsYWJsZSBhcmUgZXZhbH VhdGVkXHBsYWluXGYxXGZzM jJcbGFuZzEwMzNcaGljaFxm IFfcCtSoRQSdBYmvS5urAaP mU2CrQUWiYjTzjHFpK7xpnU FyXHBsYWluXGYxXGZzMjJcb GFuZzEwMzNcaGljaFxmMVxk LpInCBEyIHxiN8syKePwT9K yXGZzMjIgIFxwbGFpblxmMV xmczIyXGxhbmcxMDMzXGhpY 8hhUnObEAIhlVfoHYnqd9As FYDsXVKlEwzrduSlGIm3dmX oXHBhclxwbGFpblxmMVxmcz IlDNowtnvuKPMiMEzwZ8zvO iTlFRMxcGyiJSfmz1TaIDKs DPReHquxwaYtJAqjjVGkm1f yx9QnW7ptiBnktDX5XIWoZ4 mslEPykBH4AXD6hH9iXDrif bYpSFRdm6NvJITvTFDaCiR6 jH8yXDM0BiKTkXnlKLFbEZs uXGYxXGZzMjJcbGFuZzEwMz NcaGljaFxmMVxkYmNoXGYxX LnbE0vhRoNtQ9ZtGUHzBkIk fTbtQJjcDIu3YvvdoCLpoix mMVxmczIyXGxhbmcxMDMzXG xlG2nmHiZjCPAtcYjiWAtwx 2NoXGYxXGNmMlxmczIyIHMg KORfdXLmaQSBHA17ETHoLFV bhDfspY2lmLAVJJHtbuO9h0 U3ZQrwHJUcDUv5RBorpyVaS YRgbP5hLGXhAF6hROk9ybOz RULjd4QfSM5yMMVurPAoSZM 0AWOrm3KtP8Bzc2NwAHPdFZ Vdjk7lafRzKkIDwFYkXUKuv i26UPDwSA1mP9upRAYaOIRz wyFjqIYoz0LhHTMrcON9fPK iCY4FSgUAh84nSBEoXEUHgy WsWDTqmAresDD3wtX4zC3tC iBUaGUgRkRBIGhhcyBkZXRl lg7gczRhJSHiCUVrd2MauFS hzNSqasKxL9Ruq7HwOAYhtx 45SYfndAZswc07ZW2vO5Nkj 2PfqL7xADwaRMLso0MneUSy rGFaXJMfg4KdC1vxwuqwCAi jwEXxdM3oXHEaAHx7WTKvc4 VdTYMhx3QvJbAnuwAgLFSlM DNiXOBmeJ16MNZ9tTlxwPsd xbHrHJ0tOBNnflUnTNMxOJP aqL7zYYfmbxVjQGMjezF3r5 L8XKnnULSzxaXnNvlzUKQ5v lUbfkA4nUUlA3dhzupmWPms GZWqc7OciS5foTBMlEHqg1P skMQmrEIWnXQjXJ6zlfWnNO 7rYZF7QUqyKRNVCCViIVjrD VFcHFR4EUorIlblVGZ8kzAd EQXdm6UrSTfdO3byT21ebFa baAq5iUIkfVuxiPYxfCCiAG OpkmO1b9P4JLCeh9XpvbozH HBsYWluXGYyXGZzMjJcbGFu ZzEwMzNcaGljaFxmMlxkYmN fVXMtHCcuM2ynIkXhGyZtMx gfOKF3oU== Gross assessment was [facility] performed at ([facility], code = 2777) Department of Pathology, [address] [place] [address], Technical component [facility] was performed at ([facility], code = 2778) Department of Pathology, [address] [place] [address], Professional component [facility] was performed at ([facility], code = 2779) Department of Pathology, [address] [place] [address], [facility] Center[facility] [id number] 20:11:29Surgical Pathology Report Case: [id number] Authorizing Provider: Puneet Calvillo MD Collected: 04/03/2022 02:15 PM Ordering Location: [facility] PERIOPERATIVE Received: 04/03/2022 03:11 PM SERVICES Pathologist: Reena Lucio MD Specimen: Bladder Biopsy, Wall, Left posterior bladder wall URINARY BLADDER, LEFT POSTERIOR WALL, BIOPSY -NEPHROGENIC ADENOMA -FOCALLY DENUDED UROTHELIAL MUCOSA WITH CHRONIC INFLA MMATION AND REACTIVE UROTHELIAL CHANGES -CYSTITIS GLANDULARIS WITH INTESTINAL METAPLASIA -MUSCULARISPROPRIA IDENTIFIED Signing Pathologist Direct Phone Line: [phone] signed by Reena Lucio MD on 04/10/2022 at 8:11 [id number] neoplasm of bladder wallA. Bladder Biopsy, Wall.Received in formalin labeled the patient's name, accession number and "left posterior bladder wall" is a 2.3 x 1.2 x 0.3 cm aggregate of arnold rubbery tissue, which is filtered and submitted in toto in A1.KANU Carlson, HT (ASCP)Sections of the left posterior wall [...] malignancy is identified.The interpretation of this case included the use of immunohistochemistry or special stains.Control Slides Examined: In-house known positive controls were evaluated along with the test tissue. These control slides run alongside of the patients sample show appropriate staining. Internal positive and negative controls when available are evaluated Immunohistochemistry technical testing was performed at [facility], Pathology Laboratory where it was developed and [...] qualified to perform high complexity clinical laboratory testing.[facility], Department of Pathology, [address] [place] [address], [facility], [facility] of [facility], [address] [place] [address], [facility], Department of Pathology, [address] [place] [address], Prprg [id number] 11:36:29 Test Item Value Reference Range Interpretation Comments Result (test code = 20-29,000 col/mL skin 6463-4) cate [facility] CenterUrine [id number] 11:36:29 Test Item Value Reference Range Interpretation Comments Result (test code = 20-29,000 col/mL skin 6463-4) cate [facility] Center[facility] [id number] 11:36:29 Test Item Value Reference Range Interpretation Comments Result (test code = 20-29,000 col/mL skin 6463-4) cate [facility] CenterBASIC METABOLIC [id number] 06:26:27 Test Item Value Reference Range Interpretation [...] not appl icable for dialysis patien ts [employer] Manager ID - DAVID [id number] 06:25:36 Test Item Value Reference Range Interpretation Comments MAGNESIUM (BEAKER) (test code = 1.7 mg/dL 1.6-2.6 627) [employer] Manager ID - DAVID [id number] 06:25:36 Test Item Value Reference Range Interpretation Comments PHOSPHORUS (BEAKER) (test code = 5.1 mg/dL 2.3-4.7 H 604) [employer] Manager ID - DAVID GCBC W/PLT COUNT & AUTO [id number] 05:44:16 Test Item Value Reference Range Interpretation [...] (BEAKER) (test code = 2801) BASIC METABOLIC [id number] 06:15:16 Test Item Value Reference Range Interpretation [...] G3b Moderately to s everely 30-44 G4 Sever ly decreased 15-29 G5 Kidney failure <15Repo rted eGFR is based on the CKD-EPI 2020 equation t hat does not use a race coefficientEsti mated GFR is not as accur ate as Creatinine Cristin arizmendi in predicting glom erular filtration rate . Estimated GFR is not appl icable for dialysis patien ts [employer] Manager ID - BSLIPID [id number] 06:11:06 Test Item Value Reference Range Interpretation [...] Borderline 130-159 High 160-189 Very High >=190 [employer] Manager ID - [id number] 06:11:05 Test Item Value Reference Range Interpretation Comments MAGNESIUM (BEAKER) (test code = 1.8 mg/dL 1.6-2.6 627) [employer] Manager ID - [id number] 06:11:05 Test Item Value Reference Range Interpretation Comments PHOSPHORUS (BEAKER) (test code = 5.9 mg/dL 2.3-4.7 H 604) [employer] Manager ID - BSCBC W/PLT COUNT & AUTO [id number] 05:18:40 Test Item Value Reference Range Interpretation [...] = 2801) Urinalysis w/Microscopic + Reflex to [id number] 23:30:13 Test Item Value Reference Range Interpretation Comments Color, UA (test code Yellow = 5778-6) Clarity, UA (test Clear code = 5767-9) Specific Thomson, UA 1.018 1.001-1.035 (test code = 5811-5) pH, UA (test code = 7.5 5.0-8.0 5803-2) Protein, UA (test 300 mg/dL Negative A code = 01321-2) Glucose, UA (test 100 mg/dL Negative A code = 365) Ketones, UA (test Negative Negative code = 2514-8) Bilirubin, UA (test Negative Negative code = 11794-6) Blood, UA (test code Negative Negative = 26704-2) Nitrite, UA (test Negative Negative code = 5802-4) Leukocytes, UA (test Small Negative A code = 5799-2) Urobilinogen, UA 0.2 0.2-1.0 (test code = 88232-8) RBC, UA (test code = 1 See_Comment [Autom ated 47746-4) message] The system which generated this result [...] 1 See_Comment [Automate d (test code = 36870-2) messag e] The system which generated this result transmit altagracia reference range : /HPF. The reference range was not used to interpret this result as normal/abnormal . Yeast (test code = Rare 28018-8) Specimen Source (test code = 2795) LUIS ARMANDO (test code = LUIS ARMANDO) [employer] Manager ID - [auto]Agric[employer] C[employer] Manager ID - tech Lab Interpretation Abnormal (test code = 41870-3) [facility]/Microscopic + Reflex to Culture 2022-04-02 23:30:13 Test Item Value Reference Range Interpretation Comments Color, UA (test code Yellow = 5778-6) Clarity, UA (test Clear code = 5767-9) Specific Thomson, UA 1.018 1.001-1.035 (test code = 5811-5) pH, UA (test code = 7.5 5.0-8.0 5803-2) Protein, UA (test 300 mg/dL Negative A code = 75307-0) Glucose, UA (test 100 mg/dL Negative A code = 365) Ketones, UA (test Negative Negative code = 2514-8) Bilirubin, UA (test Negative Negative code = 90179-2) Blood, UA (test code Negative Negative = 86000-3) Nitrite, UA (test Negative Negative code = 5802-4) Leukocytes, UA (test Small Negative A code = 5799-2) Urobilinogen, UA 0.2 0.2-1.0 (test code = 74287-0) RBC, UA (test code = 1 See_Comment [Autom ated 26852-0) message] The system which generated this result [...] 1 See_Comment [Automate d (test code = 52917-7) messag e] The system which generated this result transmit altagracia reference range : /HPF. The reference range was not used to interpret this result as normal/abnormal . Yeast (test code = Rare 47613-2) Specimen Source (test code = 2795) LUIS ARMANDO (test code = LUIS ARMANDO) [employer] Manager ID - [auto]Agricultural C[employer] Farm Manager ID - tech Lab Interpretation Abnormal (test code = 77662-3) [facility] w/Microscopic + Reflex to Culture 2022-04-02 23:30:13 Test Item Value Reference Range Interpretation Comments Color, UA (test code Yellow = 5778-6) Clarity, UA (test Clear code = 5767-9) Specific Thomson, UA 1.018 1.001-1.035 (test code = 5811-5) pH, UA (test code = 7.5 5.0-8.0 5803-2) Protein, UA (test 300 mg/dL Negative A code = 38901-4) Glucose, UA (test 100 mg/dL Negative A code = 365) Ketones, UA (test Negative Negative code = 2514-8) Bilirubin, UA (test Negative Negative code = 54241-3) Blood, UA (test code Negative Negative = 29153-2) Nitrite, UA (test Negative Negative code = 5802-4) Leukocytes, UA (test Small Negative A code = 5799-2) Urobilinogen, UA 0.2 0.2-1.0 (test code = 34646-9) RBC, UA (test code = 1 See_Comment [Autom ated 82338-1) message] The system which generated this result [...] 1 See_Comment [Automate d (test code = 58514-2) messag e] The system which generated this result transmit altagracia reference range : /HPF. The reference range was not used to interpret this result as normal/abnormal . Yeast (test code = Rare 17640-6) Specimen Source (test code = 2795) LUIS ARMANDO (test code = LUIS ARMANDO) [employer] Manager ID - [auto]Agric[employer] C[employer] Manager ID - tech Lab Interpretation Abnormal (test code = 37162-4) [facility]/ REFLEX URINE [id number] 23:30:13 Test Item Value Reference Range Interpretation [...] 1585) Rare SOURCE(BEAKER) (test code = 2795) [employer] Manager ID - [auto]Agric[employer] C[employer] Manager ID - tech2D Echo W/Doppler(CW/PW/Color)2022-04-02 17:09:24Ejection FractionSLEH ECHO HEARTLAB [facility]2D Echo W/Doppler(CW/PW/Color)2022-04-02 17:09:24Ejection FractionSLEH ECHO HEARTLAB [facility] W/Doppler(CW/PW/Color)2022-04-02 17:09:24Ejection FractionSLEH ECHO HEARTLAB [facility] CenterPT/[id number] 16:35:56 Test Item Value Reference Range Interpretation [...] for patients with mechanical heart valves.BASIC METABOLIC [id number] 16:29:26 Test Item Value Reference Range Interpretation [...] De scription 1092) sq m Result G1 Norm al or high >=90 G2 Mildly decreased 60-89 G3a Mildl y to moderately 45-5 9 G3b Moderately to s everely 30-44 G4 Severl y decreased 15-29 G5 Kidne y failure <15Reported eGF R is based on the CKD-EPI 2021 equation that d oes not use a race coefficientEsti mated GFR is not as accur ate as Creatinine Cristin kyleigh in predicting glom erular filtration rate . Estimated GFR is not appl icable for dialysis patien ts [employer] Manager ID - [id number] 16:25:56 Test Item Value Reference Range Interpretation Comments PHOSPHORUS (BEAKER) (test code = 5.7 mg/dL 2.3-4.7 H 604) [employer] Manager ID - [id number] 16:25:55 Test Item Value Reference Range Interpretation Comments MAGNESIUM (BEAKER) (test code = 1.8 mg/dL 1.6-2.6 627) [employer] Manager ID - BSCBC W/PLT COUNT & AUTO [id number] 16:04:53 Test Item Value Reference Range Interpretation [...] PERCENT (BEAKER) (test code = 2801) SARS-CoV2/RT-PCR ([facility])2022-04-02 09:33:31 Test Item Value Reference Interpretation Comments Range SARS-COV2/RT-PCR Positive Negative AA The SARS-Co V-2 (test code = target nucleic 79614-0) acids are detec altagracia in this specime [...] revoked sooner. Fact Sheet for Healthcare Providers: https://www.Confer/Documents/Xp ert%20Xpress%20SAR S%20CoV-2/Fact%20S heets/302-3802%20S ARS-COV-2%20HEALTH CARE%20PROVIDERS%2 0FACT%20SHEET.pdf Fact Sheet for Healthcare Patients: https://www.Confer/Documents/Xp ert%20Xpress%20SAR S%20CoV-2/Fact%20S heets/302-3801%20S ARS-COV-2%20PATIEN T%20FACT%20SHEET.p df Lab Interpretation Abnormal (test code = 49642-0) [facility])2022-04-02 09:33:31 Test Item Value Reference Interpretation Comments Range SARS-COV2/RT-PCR Positive Negative AA The SARS-Co V-2 (test code = target nucleic 36547-2) acids are detec altagracia in this specime [...] revoked sooner. Fact Sheet for Healthcare Providers: https://www.Confer/Documents/Xp ert%20Xpress%20SAR S%20CoV-2/Fact%20S heets/302-3802%20S ARS-COV-2%20HEALTH CARE%20PROVIDERS%2 0FACT%20SHEET.pdf Fact Sheet for Healthcare Patients: https://www.Confer/Documents/Xp ert%20Xpress%20SAR S%20CoV-2/Fact%20S heets/302-3801%20S ARS-COV-2%20PATIEN T%20FACT%20SHEET.p df Lab Interpretation Abnormal (test code = 00727-7) [facility])2022-04-02 09:33:31 Test Item Value Reference Interpretation Comments Range SARS-COV2/RT-PCR Positive Negative AA The SARS-Co V-2 (test code = target nucleic 55280-2) acids are detec altagracia in this specime [...] revoked sooner. Fact Sheet for Healthcare Providers: https://www.Confer/Documents/Xp ert%20Xpress%20SAR S%20CoV-2/Fact%20S heets/302-3802%20S ARS-COV-2%20HEALTH CARE%20PROVIDERS%2 0FACT%20SHEET.pdf Fact Sheet for Healthcare Patients: https://www.Confer/Documents/Xp ert%20Xpress%20SAR S%20CoV-2/Fact%20S heets/302-3801%20S ARS-COV-2%20PATIEN T%20FACT%20SHEET.p df Lab Interpretation Abnormal (test code = 62483-2) [facility])2022-04-02 09:33:31 Test Item Value Reference Range Interpretation Comments SARS-COV2/RT-PCR Positive Negative AA The SARS-Co V-2 target (test code = nucleic acids a re detected ) in this specime n. The presence SARS-C [...] virus is pre sent at levels below th e analytical limit of detect ion. This SARS CoV-2 test is a rapid, real-time RT-PC R test intended for th e qualitative detection of nu cleic acid from SARS-CoV-2 in a nasopharyngeal swab specimen collected from individuals suspected of CO VID-19 [facility]. Results from th e Xpert Xpress SARS-CoV -2 test should [...] revoked sooner. Fact Sheet for Healthcare Providers: https://www.SnapRetail m/Documents/Xpert%20Xpress%20SARS%20CoV-2/Fact%20Sheets/081-0516%59UQXQ-BWO-9%20 HEALTHCARE%20PROVIDERS%20FACT%20SHEET.pdf Fact Sheet for Healthcare Patients: https://www.BookingBug/Documents/Xpert%20Xp ress%20SARS%20CoV-2/Fact%20Sheets/973-3580%44YRAY-HQV-9%20PATIENT%20FACT%20SHEET .pdfPOCT URINALYSIS [id number] 00:00:00 Test Item Value Reference Range Interpretation Comments COLOR UA (test code = 5778-6) Margo YELLOW/STRAW CLARITY UA (test code = 93127-0) Clear CLEAR GLUCOSE UA (test code = 5792-7) Negative NEGATIVE BILIRUBIN UA (test code = 5770-3) Negative NEGATIVE KETONES UA (test code = 91835-3) Negative NEGATIVE SPECIFIC GRAVITY UA (test code [...] SUBSTANCES URINE (test Negative NEGATIVE code = 92948-8) [facility] CenterCarotid doppler [id number] 17:45:28Ejection FractionSLEH ECHO HEARTLAB [facility] [id number] 17:45:28Ejection FractionSLEH ECHO HEARTLAB [facility] [id number] 17:45:28Ejection FractionSLEH ECHO HEARTLAB [facility] [id number] 17:45:28Ejection FractionSLEH ECHO HEARTLAB [facility] CenterTissue [id number] 10:48:08 Test Item Value Reference Range Interpretation Comments Case Report (test code Surgical Pathology = 104) Report Case: [id number] Authorizing Provider: Gwen Hwang MD Collected: 08/31/2021 12:29 PM Ordering Location: [facility] Received: 08/31/2021 02:30 PM PERIOPERATIVE SERVICES Pathologist: Raegan Man MD Specimen: Plaque, Left Carotid Plaque DIAGNOSIS (test code = a1erpMFmAHJfy8xoGDKwnDF 3220) uZzEwMzNcZnRuYmpcdWMxIH tccnRmMVxlcGljOTYwMlxhb iVuIBYxvGGkD5DnupxbMXga ZH5pTD4bsRfovQPowRYaRBL iZzKrf1onu135kRAib2gyVN VKehbtwEe7pEcuV10dr2J7C ksoN43dmNXkAEU0JSIaMFIo iXTmBGQwUSG5RBUfrZNyR3m lJKGyNZ2snnabXNkuTGiyUX AjbTY2MVXobYEmM3KkSGXcL HdnXVJslpc7SgHsAw8clMBm eTcyMFxwYXJkXHBsYWluXGZ zMjAgTEVGVCBDQVJPVElEIF MGCGQQOUmfGJ0KDLTRMXWBP 5EPOEv0LZaiyjWsEE2jC4VM D1qHYDMUVHZFHAWET39BMN8 VUyBQTEFRVUVccGFyfXtccn IgUQpye3WuWCjlHFDkCM8zl UquZXPnPS6oQLFkM0ssqI7k rpi7KmDaSVLeNaT9HCCnpnJ 1Bup3GHHlNExvl2iua7ZgPK SsDJh2wViwChFbHZCxu4zsq yBcZmNoYXJzZXQwIEFyaWFs U288x0pbv1hgtlLqwBD9XRS pVHI2JNfqkcTavsY5ODzpnB ClNhN2OOfxugVgMDzsjlIrg iJsWuw5WPNgK568GBG5nUps g3bkQES2BCZyFGBhTsXzFz5 pqWDyX849AZLvSDMOIBCzvU h5JUVvsqIfjkGcnQTXf531A 158v8lwJMCqqnRewQtVxhgg f6bbE347JILfxDOtzeHlYgN eMJTktDNcrYF4QIDnAW9vzu btDLryWTymPRVguyU2DJRnq GElN7FlICIqZH9yxqzyDKY4 BDfpFXAqSRC9AeRiYJYtq4I yuym1HuUkwv4tuw42WZV9h6 FwtErgLUM4JYG6JdMcZf7mf WZwOOVtJQ9sHrDztMCgFFHj pg29uYszWOduOET8MYExucN vq9Wfs3aaEyHummEvX8mmK5 JyZHJoZWFkXHBnYnJkcmZvb 0Tbg6KsnYGykBl7u3nzNGNq RYVjwRcno1qzRXU9IDBwrTE oJ5nnuS2fCBXkEF4enzfuq2 ouAWavUKdxAHGmrVC5dnK4W PAtoQTiA7WwjA5wQFAuGHqw LIBdrar5BoDaHi9mdPIaeZa yMFxzYmtwYWdlXHBnbmNvbn RccGduZGVjXHBsYWluXHBsY WluXGYwXGZzMjRccWxcbGFu ZzEwMzNcaGljaFxmMVxkYmN xRCIzMCsjR2vdSjUuQyPrYa m8RRHwmXZdIMJyWls3XAQct ATeJHKEwRuvsW2gTUMjzTla kC9sqIX0ATOlwcKtaRTHaT4 eYOUQcL0sJyT0ONWnYen8BP I6FfMedXDjlW0= CPT Code(s) (test code p4mlxKNqUCMqeEP4WtBaHNO = 3357) eg5grq8FnhAAjuHHrQStueH IqseDxsa32xBV1mG77UD1aX WKwBkF7DTTjjoT5Kvv3CBNk DKTonHVcC270g4nuc6ibusW hdLA3uZukLYWjgdyyEqH4FR wzBEQvjujpTCt4DHcqHBHtc HS5TKQkkJShR3IhZXPuZU4i her4WDG4WBalPSVtHoY3KRM qeLIhAAAxsJpeTBfws350QL J3NmZpDTRqnpHtuAeuwP7bK rTrZPQ8MENzMZdbLIamTFFc cGFyfQ== CLINICAL HISTORY (test h9pesVWeQXEreCX4YoOhXJL code = 3356) gd4gyf8CjvGCuxCEcZGgmqR WvvqOotp10iTS2mR69RE0dA MMsApV2WTYxvrJ0Dtf8VXPv CTPhyRIhI584h9npp1jtxcS hoGU9gTtbNTIemyjlPeZ0GU rpAXCottfhCVf5MIogDKToe TZ8RQIuxXBjE1VwMJLyBP3z qyi9MEA4AQmmRYGmUfW7NOD waVIcQNSldQjxKYwwo846FL K9BlGgUPTnlgMboDsejJ0gP nFxZSMZJJZ5OZBjpx32qTHm z8Evuh8kbLXekWAgvH== SPECIMEN SOURCE (test z7ksdPPtTHMxeUV8RoPgAHN code = 3377) ah5tyk9UrtUZauWAlKGtleA GtboAktd30dVU3zU45US3iR FSyUlD9ZDBhzgI3Mij7HFHa VFDjzZIkM783h8yvw4asolE pnOT8dKjgCKZwmwvpFsY1UK vpJKWusgxvZLw4CImuYZRmj CV0SCBwjUCmY1MwHBVaHP0j cah3UJJ8LJmwAUYpKpR5SOK xuZEsBEVqyOwdWAodk144YT A1UpLjIFNvxgLxpXbxpN1cW uWiXCACEYZ2DVFvhl80tYGm cGxhcXVlXHBhcn0= GROSS DESCRIPTION k9yzuAZxFEYmiBPKCAJhH3a (test code = aedYsJBJsgQElD9VqktojBN [id number]) viXG5yGR7eePtboKPdaTNnB W9IALWgQfAeFXYybMWxvaIy FsZlNXKxoVJuqWD7ZOAgWE5 rczgiIRxmVBmzUAQwjrJ2SY CedIYrP1ZdFGJiWL8cxwbfM XW6VGpebG0sqnCZRelyRh6d dHRibHtcZjFcZmNoYXJzZXQ lMHFrjLhpUIBuITr3dY9FBl mxZ97vb8M5Fjr1YDJnBTGnN 0TgFH3xEWXffMVbU76OSlvk AWR8HJPLJblpQBOeIO5Hc9d bQNRuoBBtIQG3NFkwcOXpWE JqHQToYBq5ZENtGZwmnLVaM Y1qkHjvXcmqdFitb4PjcTFb XGlkIDUxMDAyIFxcZGIgIE9 EMpUjDUD8Vht9XcJlGIu6TI m8ME1TDlEzGPUnQGYyXYAyF yKcKEp7JNxxQH9VJWH8Dbs2 FjNqINJ2AVTaLJUmOAOjCxP cXGYgQXJpYWwgXFxmbCBcXG 5jfVxwbGFpbiBBLiBQbGFxd WUuXHBhciANClxlcGljTmVz dERvYzEgDQpcbHRycGFyXGx pbjBccmluMCANClxsdHJjaF xjZjFcZnMyMCBSZWNlaXZlZ CBmcmVzaCBsYWJlbGVkIHdp iOmihYbbXPOqdMpeczLnZ7Y 6hdNhYT3qJMJKWc3hXJ5xDL JwbGFxdWUiIGlzIGEgcHJld byzkYMstARbapVqz8FgKJF2 CaFtBPJjmJ5cdQmrntVjTsB 8IAbzo9nuyyHbUZGuTFP4TR TfXHCnbLGwmcsdGv2sKQtiW W1gOWblMD28ZUFhRyy+IFRo HFOrkUQnwF4ragHowvSjKAG yVPooiRLvPDO5tG4xBBPfjM 1wksL9WAMsFGNjyKDnOeebE LFvy87eOM3dHYV1ydaoJiI6 kDN6yzLmLiSiG69mrY7ltQp pN5ejUJKtNyn+IFJlcHJlc2 GkdVL7hRPuXGFqY8Xtj43xS UEeNKYnyMWxeUJ5UTYpkL1s KNLmXPHdgUenw8gpCxVxPVI thEQhPgsjOBRwz40pWTKmlw YUQfpaSTDfMCseS5UsIDTsM cBwKQegCBMSZOK1uGWlniLv JIphfFvssS6sNLShC94pc4Z Og3OiIJPlFHurn0tngKeus6 VjdGVuZFxwYXJccGFyZFxzb H9gLjGuv1nrrXz7VGanlwC3 QXSmti1JRwokkC0tNeCfd8q tkJr6GTAYOpecgeW8u5ohsB ewx1QerPOiRU9HIz0= MICROSCOPIC o4gnwDCbPFNdxNL5VoUoFVM DESCRIPTION (test code qv1dmh0IvkOZayQHtRKlmuJ = 3371) WlwxEffj10oAF9xQ58JJ8vN TGcSaN7TXEdqcN2Inf5AZNq ZXKkjCBnS324n4bst3wptmH uuMR9qGxdIWSrzcawXnJ5NO vlYCDcetukEUf3ESxtXEHno FG1QHBcvXHnS2WuMODfWO8j cbp0GEU7WNonAVTfGcU9UIB sgNBdUBKjbFhlILmxd786JK M1VeMnGNFawoVbyKjyxL5iN kYnFFWRLSMqd3VqQEDcmGFd fQ== Gross assessment was [facility]. ke's performed at ([facility], code = 2777) Department of Pathology, [address] [place] [address], [place] [address], [address] [facility] was performed at ([facility], code = 2778) Department of Pathology, [address] [place] [address], Professional component [facility]. [place] was performed at ([facility], code = 2779) Department of Pathology, [address] [place] [address], [facility] [id number] 10:48:08Surgical Pathology Report Case: [id number] Authorizing Provider: Gwen Hwang MD Collected: 08/31/2021 12:29 PM Ordering Location: [facility] Received: 08/31/2021 02:30 PM PERIOPERATIVESERVICES Pathologist: Raegan Man MD Specimen: Plaque, Left Carotid Plaque LEFT CAROTID PLAQUE, ENDARTERECTOMY: - CALCIFIED ATHEROMATOUS PLAQUE Signing Pathologist Direct Phone Line: [phone], [phone] carotid stenosisLeft carotid plaqueA. Plaque.Received fresh labeled with the patient's name, MRN and "plaque" bry previously incised tubular portion of yellow-red plaque measuring 3.0 x 1.2 x 0.9 cm. The specimenis serially sectioned to reveal calcifications measuring up to 0.4 cm in thickness. Associate Financial Advisor sections are submitted in A1, following decalcification.KANU PATEL Student [facility]Ba[facility], Department of Pathology, [address] [place], [place] [id number], [facility], Department of Pathology, [address] [place] [address], [facility], Department of Pathology, [address] [place] [address], QUMQX METABOLIC PANEL 2021-09-01 08:03:24 Test Item Value [...] S NOT APPLICABLE FOR DIALYSIS PATIEN TS. Agricultural Crop Farm Manager ID - ABE [id number] 07:48:51 Test Item Value Reference Range Interpretation Comments MAGNESIUM (BEAKER) (test code = 1.8 mg/dL 1.6-2.6 627) Agricultural Crop Farm Manager ID - ABE MCBC W/PLT COUNT & AUTO [id number] 07:13:26 Test Item Value Reference Range Interpretation [...] (BEAKER) (test code = 2801) HGB/HCT (H&H)-Stat [id number] 15:10:00 Test Item Value Reference Range Interpretation Comments Hemoglobin (test code = 11.5 See_Comment L [Au tomated message] 786-4) The system [facility] generated this result transmitted ref erence range: 13.0 - 1 6.8 GM/DL. The refe rence range was not u sed to interpret this result as normal/abnor mal. Hematocrit (test code = 34.0 % 40.0-50.0 L 4544-3) Lab Interpretation (test Abnormal code = 47738-0) [facility] [id number] 15:10:00 Test Item Value Reference Range Interpretation Comments Glucose (test code = 2345-7) 119 mg/dL 70-110 H Lab Interpretation (test code = Abnormal 10394-2) [facility] ([facility]&H[facility]Stat [id number] 15:10:00 Test Item Value Reference Range Interpretation Comments Hemoglobin (test code = 11.5 See_Comment L [Au tomated message] 786-4) The system [facility] generated this result transmitted ref erence range: 13.0 - 1 6.8 GM/DL. The refe rence range was not u sed to interpret this result as normal/abnor mal. Hematocrit (test code = 34.0 % 40.0-50.0 L 4544-3) Lab Interpretation (test Abnormal code = 22524-2) [facility] [id number] 15:10:00 Test Item Value Reference Range Interpretation Comments Glucose (test code = 2345-7) 119 mg/dL 70-110 H Lab Interpretation (test code = Abnormal 75675-1) [facility]Stat [id number] 15:10:00 Test Item Value Reference Range Interpretation Comments Hemoglobin (test code = 11.5 See_Comment L [Au tomated message] 786-4) The system [facility] generated this result transmitted ref erence range: 13.0 - 1 6.8 GM/DL. The refe rence range was not u sed to interpret this result as normal/abnor mal. Hematocrit (test code = 34.0 % 40.0-50.0 L 4544-3) Lab Interpretation (test Abnormal code = 20761-0) [facility] [id number] 15:10:00 Test Item Value Reference Range Interpretation Comments Glucose (test code = 2345-7) 119 mg/dL 70-110 H Lab Interpretation (test code = Abnormal 13125-9) [facility] [id number] 15:10:00 Test Item Value Reference Range Interpretation Comments Hemoglobin (test code = 11.5 See_Comment L [Au tomated message] 786-4) The system [facility] generated this result transmitted ref erence range: 13.0 - 1 6.8 GM/DL. The refe rence range was not u sed to interpret this result as normal/abnor mal. Hematocrit (test code = 34.0 % 40.0-50.0 L 4544-3) Lab Interpretation (test Abnormal code = 64056-0) [facility] [id number] 15:10:00 Test Item Value Reference Range Interpretation Comments Glucose (test code = 2345-7) 119 mg/dL 70-110 H Lab Interpretation (test code = Abnormal 90650-5) [facility], [id number] 15:10:00 Test Item Value Reference Range Interpretation Comments CALCIUM IONIZED (BEAKER) (test 1.04 mmol/L 1.12-1.27 L code = 698) PH, BLOOD (BEAKER) (test code = 7.31 1810) GLUCOSE-STAT [id number] 15:10:00 Test Item Value Reference Range Interpretation Comments GLUCOSE RANDOM (BEAKER) (test code 119 mg/dL 70-110 H = 652) HGB/HCT (H&H) - STAT [id number] 15:10:00 Test Item Value Reference Range Interpretation Comments HEMOGLOBIN (BEAKER) (test code = 11.5 GM/DL 13.0-16.8 L 410) HEMATOCRIT (BEAKER) (test code = 34.0 % 40.0-50.0 L 411) Sodium Na-Stat [id number] 15:09:21 Test Item Value Reference Range Interpretation Comments Sodium (test code = 2951-2) 138 meq/L 136-145 Lab Interpretation (test code = Normal 92230-4) [facility] [id number] 15:09:21 Test Item Value Reference Range Interpretation Comments Potassium (test code = 2823-3) 3.8 meq/L 3.6-5.5 Lab Interpretation (test code = Normal 97756-9) [facility] [id number] 15:09:21 Test Item Value Reference Range Interpretation Comments Sodium (test code = 2951-2) 138 meq/L 136-145 Lab Interpretation (test code = Normal 07048-9) [facility] [id number] 15:09:21 Test Item Value Reference Range Interpretation Comments Potassium (test code = 2823-3) 3.8 meq/L 3.6-5.5 Lab Interpretation (test code = Normal 08869-6) [facility] [id number] 15:09:21 Test Item Value Reference Range Interpretation Comments Sodium (test code = 2951-2) 138 meq/L 136-145 Lab Interpretation (test code = Normal 38144-0) [facility] [id number] 15:09:21 Test Item Value Reference Range Interpretation Comments Potassium (test code = 2823-3) 3.8 meq/L 3.6-5.5 Lab Interpretation (test code = Normal 04482-6) [facility] [id number] 15:09:21 Test Item Value Reference Range Interpretation Comments Sodium (test code = 2951-2) 138 meq/L 136-145 Lab Interpretation (test code = Normal 76075-0) [facility] [id number] 15:09:21 Test Item Value Reference Range Interpretation Comments Potassium (test code = 2823-3) 3.8 meq/L 3.6-5.5 Lab Interpretation (test code = Normal 43735-0) [facility]STAT [id number] 15:09:21 Test Item Value Reference Range Interpretation Comments SODIUM (BEAKER) (test code = 381) 138 meq/L 136-145 POTASSIUM-STAT [id number] 15:09:21 Test Item Value Reference Range Interpretation Comments POTASSIUM (BEAKER) (test code = 3.8 meq/L 3.6-5.5 379) T4, [id number] 07:52:33 Test Item Value Reference Range Interpretation Comments FREE T4 (BEAKER) (test code = 655) 0.84 ng/dL 0.70-1.48 [employer] ID - PIAYA LBASIC METABOLIC [id number] 07:07:41 Test Item Value Reference Range Interpretation [...] S NOT APPLICABLE FOR DIALYSIS PATIEN TS. [employer] Manager ID - DARLYN [id number] 07:04:02 Test Item Value Reference Range Interpretation Comments PHOSPHORUS (BEAKER) (test code = 6.3 mg/dL 2.3-4.7 H 604) [employer] Manager ID - DARLYN [id number] 07:04:01 Test Item Value Reference Range Interpretation Comments MAGNESIUM (BEAKER) (test code = 1.9 mg/dL 1.6-2.6 627) [employer] Manager ID - DARLYN LTSH/FREE T4 IF [id number] 06:52:38 Test Item Value Reference Range Interpretation Comments THYROID STIMULATING HORMONE 20.818 uIU/mL 0.350-4.940 H (BEAKER) (test code = 772) [employer] Manager ID - DARLYN LCBC W/PLT COUNT & AUTO [id number] 06:12:32 Test Item Value Reference Range Interpretation [...] PERCENT (BEAKER) (test code = 2801) SARS-CoV2/RT-PCR ([facility])2021-08-30 14:03:43 Test Item Value Reference Interpretation Comments Range SARS-COV2/RT-PCR Negative Negative The SARS-Co V-2 (test code = target nucleic 12538-1) acids are not detected in thi s [...] om SARS-CoV-2 in a nasopharyngeal swab specimen colle altagracia from individual s suspected of COVID-19 [...] revoked sooner. Fact Sheet for Healthcare Providers: https://www.Confer/Documents/Xp ert%20Xpress%20SAR S%20CoV-2/Fact%20S heets/302-3802%20S ARS-COV-2%20HEALTH CARE%20PROVIDERS%2 0FACT%20SHEET.pdf Fact Sheet for Healthcare Patients: https://www.Confer/Documents/Xp ert%20Xpress%20SAR S%20CoV-2/Fact%20S heets/302-3801%20S ARS-COV-2%20PATIEN T%20FACT%20SHEET.p df Lab Interpretation Normal (test code = 14303-6) [facility])2021-08-30 14:03:43 Test Item Value Reference Range Interpretation Comments SARS-COV2/RT-PCR Negative Negative The SARS-Co V-2 target (test code = nucleic acids a re not 3545266) detected in thi s specimen. Negative result [...] revoked sooner. Fact Sheet for Healthcare Providers: https://www.[employer]/Documents/Xpert%20Xpress%20SARS%20CoV-2/Fact%20Sheets/302-3802%49UVAF-GDS-2%20 HEALTHCARE%20PROVIDERS%20FACT%20SHEET.pdf Fact Sheet for Healthcare Patients: https://www.BookingBug/Documents/Xpert%20Xp ress%20SARS%20CoV-2/Fact%20Sheets/3023801%83SZWU-TCU-7%20PATIENT%20FACT%20SHEET .pdfBASI METABOLIC [id number] 11:13:22 Test Item Value Reference Range Interpretation [...] S NOT APPLICABLE FOR DIALYSIS PATIEN TS. [employer] Manager ID - PIAYA LPROTHROMBIN TIME/[id number] 10:43:35 Test Item Value Reference Range Interpretation Comments PROTIME (BEAKER) 13.9 seconds 11.9-14.2 (test code = 759) INR (BEAKER) (test 1.09 See_Comment [Automat ed message] code = 370) The system [facility] generated this result transmitted ref erence range: <=5.90. The reference range was not used to int erpret this result as normal/abnormal . RECOMMENDED COUMADIN/WARFARIN INR THERAPY RANGESSTANDARD DOSE: 2.0 - 3.0 Includes: PROPHYLAXIS for venous thrombosis, systemic embolization; TREATMENT for venous thrombosis and/or pulmonary embolus.HIGH RISK: Target INR is 2.5-3.5 for patients with mechanical heart valves.CBC W/PLT COUNT & AUTO [id number] 10:40:47 Test Item Value Reference Range Interpretation [...] PERCENT (BEAKER) (test code = 2801) CT, [id number] 15:15:00FINAL REPORT ABDOMINAL AND PELVIS CT DATED [...] MDReport Verified Date/Time: 02/03/2019 15:15:07 Reading Location: [address] Radiology Reading Room [id number] 11:56:00 Test Item Value Reference Range Interpretation Comments POC-CREATININE 4.0 mg/dL 0.6-1.3 H [facility] (test [place] M[place]OVER[place] code = 1859) [address] POC-EGFR (BEAKER) 15 mL/min/1.73M2 (test code = 1860) TISSUE [id number] 17:04:00Surgical Pathology Report Case: [id number] Authorizing Provider: Puneet Calvillo MD Collected: 10/02/2017 1123 Ordering Location: [facility] PERIOPERATIVE Received: 10/02/2017 1403 SERVICES Pathologist: Girish [...] UROTHELIUM IDENTIFIED. Signing Pathologist Direct Phone Line: [phone] signed by Girish Whiteside MD on 10/03/2017 at 5:04 [id number], [id number] in situ of bladder A. Posterior wall [...] soft tissue submitted in B1. CG/ew A-B. Performed.[place], BOAT FINISHER IN OR/30 MINUTE INCREMENTS 2017-10-02 14:44:00Reason for exam:->Intraoperative UseFINAL REPORT Fluoroscopy 70 views intraoperative 10/02/2017 2:43 PM CLINICAL HISTO RY: Instrument localization COMPARISON: None available IMPRESSION: Please correlate imaging report findings with the procedure note prepared by Dr. aClvillo, as an intra-procedure imaging consultation wasnot requested. Reported fluoroscopy time: 96 seconds. Signed: Rodolfo Ramirez Verified Date/ Time: 10/02/2017 14:44:28 Reading Location: [facility] C013V Neuro Reading Room
[2022-07-09 00:50] LABS: Absolute Lymphocytes (CBC) 2.8 K/uL (0.7-4.9); Hematocrit 33.4 % (39.6-49.0); Lymphocytes % 22.5 % (15.3-44.8); MPV 8.4 fL (7.6-11.3); RBC Red Blood Cell Count 3.41 M/uL (4.33-5.43)
[2022-07-09] MEDS ORDERED: ONDANSETRON 4 MG/2 ML VIAL ONE (00:51)
[2022-07-09] MEDS ORDERED: MORPHINE 2 MG/ML SYR ONE (00:51)
[2022-07-09] MEDS ORDERED: DIGOXIN 0.25 MG/ML AMP ONE (00:52)
[2022-07-09] MEDS ORDERED: NA CHLORIDE 0.9% 1,000 ML ONE (00:52)
[2022-07-09] MEDS ORDERED: ALBUMIN HUMAN 25% 100 ML IV ONE ×2 (00:52→03:09)
[2022-07-09] MEDS ORDERED: ATROPINE SULF 1 MG/10 ML SYR IV ONE (00:52)
[2022-07-09 01:05] LABS: Protime INR 1.01
[2022-07-09 01:13] LABS: Potassium 3.4 mEq/L (3.5-5.1)
[2022-07-09 01:29] LABS: Troponin High Sensitivity 227.6 pg/mL (<58.9)
--- NOTE | 2022-07-09 02:57 | ER ---
Nurse's Notes [facility] Name: Grady Dasilva Age: 71 yrs Sex: Male : 1950 Arrival Date: 07/08/2022 Time: 23:54 Bed 7 Private MD: Diagnosis: Acute NSTEMI, syncope and collapse. End-stage renal disease on peritoneal dialysis, hypotensive episode;Syncope with hypotension and collapse Presentation: 07/09 00:16 Chief complaint: EMS states: family states pt got up to use restroom. vomited and lg3 passed out. on EMS arrival, PT unresponsive, hypotensive and bradycardic. PT HX of bladder and prostate cancer and ESRD with nightly peritoneal dialysis. 1800ML infused but not removed. Coronavirus screen: Client denies travel out of the [place] in the last 14 days. At this time, the client does not indicate any symptoms associated with coronavirus-19. Ebola Screen: No symptoms or risks identified at this time. Initial Sepsis Screen: Does the patient meet any 2 criteria? No. Patient's initial sepsis screen is negative. Does the patient have a suspected source of infection? No. Patient's initial sepsis screen is negative. Risk Assessment: Do you want to hurt yourself or someone else? Patient reports no desire to harm self or others. Onset of symptoms was July 09, 2022. 00:16 Method Of Arrival: EMS: [facility] lg3 00:16 Acuity: MADI 2 lg3 Triage Assessment: 00:16 General: Appears distressed, Behavior is flat. Pain: Denies pain. EENT: No deficits lg3 noted. No signs and/or symptoms were reported regarding the EENT system. Neuro: Level of Consciousness is lethargic, listless, Oriented to person, place. Cardiovascular: Rhythm is sinus bradycardia with Mobitz II. Respiratory: Airway is patent Respiratory effort is shallow, Respiratory pattern is hypoventilation snoring. GI: No deficits noted. Abdomen is flat, non-distended. : No deficits noted. No signs and/or symptoms were reported regarding the genitourinary system. Derm: Skin is intact, is thin, Skin is diaphoretic, Skin is pale, Skin temperature is cool. Musculoskeletal: Circulation, motion, and sensation intact. Historical: - Allergies: 00:08 Codeine; lg3 00:08 PENICILLINS; lg3 00:08 Sulfa (Sulfonamide Antibiotics); lg3 - PMHx: 00:08 Bladder cancer; Chronic obstructive lung disease; Hypertensive disorder; Prostate lg3 Cancer; 00:08 ESRD; lg3 - PSHx: 00:08 HD cathater placement; PD dialysis cather placement; cardiac stent x 2; lg3 - Immunization history:: Adult Immunizations up to date. - Social history:: Patient/guardian denies using alcohol, street drugs, IV drugs, caffeine, over the counter diet medications, tobacco products, Smoking status: unknown. - Family history:: not pertinent. Screenin:[facility] ED Fall Risk Assessment (Adult) History of falling in the last 3 months, lg3 including since admission No falls in past 3 months (0 pts). Abuse screen: Denies threats or abuse. Denies injuries from another. Nutritional screening: No deficits noted. Tuberculosis screening: No symptoms or risk factors identified. Assessment: 00:28 General: see triage assessment . lg3 01:14 Reassessment: Patient appears in no apparent distress at this time. No changes from lg3 previously documented assessment. Patient and/or family updated on plan of care and expected duration. Pain level reassessed. Patient is alert, oriented x 3, equal unlabored respirations, skin warm/dry/pink. Patient states symptoms have improved. 01:56 General: Appears in no apparent distress. comfortable, Behavior is calm, cooperative. lg3 Pain: Complains of pain in back. Neuro: No deficits noted. Vazquez Agitation-Sedation Scale (RASS): 0 - Alert and Calm Level of Consciousness is awake, alert, obeys commands, Oriented to person, place, time, situation. Cardiovascular: Denies chest pain, Capillary refill < 3 seconds Clubbing of nail beds is absent. Respiratory: No deficits noted. Airway is patent Respiratory effort is even, unlabored, Respiratory pattern is regular, symmetrical. GI: No deficits noted. No signs and/or symptoms were reported involving the gastrointestinal system. : No deficits noted. No signs and/or symptoms were reported regarding the genitourinary system. EENT: No deficits noted. No signs and/or symptoms were reported regarding the EENT system. Derm: Skin is intact, Skin is clammy, Skin is pale, Skin temperature is cool. Musculoskeletal: Circulation, motion, and sensation intact. Range of motion: intact in all extremities. 04:28 Reassessment: Patient appears in no apparent distress at this time. No changes from lg3 previously documented assessment. Patient and/or family updated on plan of care and expected duration. Pain level reassessed. Patient is alert, oriented x 3, equal unlabored respirations, skin warm/dry/pink. Patient states feeling better. Patient states symptoms have improved. Vital Signs: 00:16 BP 72 / 57; Pulse 36; Resp 9; Temp 97.1(TE); Pulse Ox 100% on 2 lpm NC; lg3 01:15 BP 168 / 72; Pulse 59; Resp 13 S; Pulse Ox 96% on 3 lpm NC; lg3 01:56 BP 156 / 64; Pulse 80; Resp 14 S; Pulse Ox 98% on R/A; lg3 02:30 BP 138 / 56; Pulse 65; Resp 14 S; Pulse Ox 100% on R/A; lg3 04:28 BP 171 / 72; Pulse 93; Resp 15 S; Pulse Ox 97% on R/A; lg3 ED Course: 00:05 Patient arrived in ED. rv1 00:14 Landon Collins MD is Attending Physician. sp4 00:15 Eliana Candelaria, MOUNA is Primary Nurse. lg3 00:16 Arm band placed on right wrist. lg3 00:22 XRAY Chest (1 view) In Process Unspecified. EDMS 00:24 Triage completed. lg3 00:28 Patient has correct armband on for positive identification. Placed in gown. Bed in low lg3 position. Call light in reach. Side rails up X2. Client placed on continuous cardiac and pulse oximetry monitoring. NIBP monitoring applied. vehicle monitor technician on. Door closed. Noise minimized. Warm blanket given. Family accompanied patient. 00:28 Maintain EMS IV. Dressing intact. Good blood return noted. Site clean \T\ dry. Gauge \T\ lg 3 site: 18 RAC. IV is patent. Oxygen administration via nasal cannula \T\ 2L/min. 04:08 COVID-19 SARS RT PCR Sent. lg3 05:18 No provider procedures requiring assistance completed. Patient transferred, IV remains lg3 in place. intact, No redness/swelling at site. Administered Medications: 05:10 Discontinued: NS 0.9% IV 1000 ml IV at 125 ml/hr continuous lg3 01:01 Drug: Atropine IVP 1 mg Route: IVP; Site: right antecubital; lg3 05:08 Follow up: Response: No adverse reaction lg3 01:02 Drug: morphine IVP or IV 2 mg Route: IVP; Infused Over: 4 mins; Site: right antecubital;lg3 05:10 Follow up: Response: No adverse reaction lg3 01:02 Drug: Albumin IVPB 25 grams Volume: 100 ml; Route: IVPB; Site: right antecubital; lg3 05:10 Follow up: Response: No adverse reaction; IV Status: Completed infusion; IV Intake: lg3 100ml 01:02 Drug: NS 0.9% IV 1000 ml Route: IV; Rate: 125 ml/hr; Site: right antecubital; lg3 01:02 Drug: Ondansetron IVP 2 mg Route: IVP; Site: right antecubital; lg3 05:09 Follow up: Response: No adverse reaction lg3 01:02 Drug: Digoxin IVP 0.5 mg Route: IVP; Site: right antecubital; lg3 05:09 Follow up: Response: No adverse reaction lg3 04:08 Drug: Albumin IVPB 25 grams Volume: 100 ml; Route: IVPB; Site: right antecubital; lg3 05:08 Follow up: Response: No adverse reaction; IV Status: Completed infusion; IV Intake: lg3 100ml 04:08 Drug: Heparin ([place] Drip) - (D5W IV 500 ml, [place] [address] units) 12 units/kg/hr lg3 {Co-Signature: vc1 (Jessenia Tran RN).} Route: IV; Rate: calculated rate; Site: right antecubital; 05:08 Follow up: IV Status: Infusion continued upon transfer lg3 04:09 Drug: HEParin IV 4000 units {Co-Signature: vc1 (Jessenia Tran RN).} Route: IV; Rate: lg3 bolus; Site: right antecubital; 05:08 Follow up: Response: No adverse reaction; IV Status: Completed infusion lg3 Medication: 05:18 VIS not applicable for this client. lg3 Intake: 05:08 IV: 100ml; Total: 100ml. lg3 05:10 IV: 100ml; Total: 200ml. lg3 Outcome: 02:56 ER care complete, transfer ordered by . sp4 05:18 Transferred by ground EMS to [facility], Transfer form lg3 completed. 05:18 Condition: stable 05:18 Instructed on the need for transfer, Demonstrated understanding of instructions. 05:18 Patient left the ED. lg3 Signatures: Dispatcher [employer] EDEliana Mandel RN RN lg3 Yesica Orozco Sergey, MD MD sp4 Jessenia Tran RN vc1
--- NOTE | 2022-07-09 02:58 | EDPHYS ---
Physician Documentation [facility] Name: Grady Dasilva Age: 71 yrs Sex: Male : 1950 Arrival Date: 07/08/2022 Time: 23:54 Bed 7 Private MD: ED Physician Landon Collins HPI: 07/09 00:16 This 71 yrs old Male presents to ER via Unassigned with complaints of chest sp4 pain, syncope. 00:17 This is a very unfortunate 71-year-old male with history of end-stage cancer, end-stage sp4 renal disease on peritoneal dialysis at home, 3 of coronary artery disease status post 2 stents 1 week ago. Presents with EMS for syncopal episode at home found unresponsive, diaphoretic, and on arrival EMS was able to wake up patient patient has reported some chest pain. On arrival patient is hypertensive, bradycardic, diaphoretic, pale toxic-appearing. Patient is not able to provide any coherent history. EKG revealed acute inferior MA with ST elevations leads III and aVF with ST depression in aVL. Patient's spouse presented on arrival reports that patient has DNR and DNI out of hospital. Also patient's spouse and primary decision-maker has advised us that she does not wish any invasive measures such as central line or IV Levophed or any other vasopressors. Patient's would prefer that patient is assessed provided medications for comfort until further decision can be made. . We acknowledged that patient is DNR and DNI, patient is in critical condition, patient is acutely diaphoretic signs of hypoperfusion hypertensive at this time with acute STEMI. Based on patient's spouse decision at this time but will not proceed with aggressive resuscitation measures, but we will proceed with a comfort care measures. . 02:45 Patient's last admission to this hospital 06/06/2022 through 06/10/2022. Patient was sp4 admitted for syncope, orthostatic hypotension, acute encephalopathy, acute CVA, end-stage renal disease on peritoneal dialysis, chronic anemia, end-stage renal disease, history of bladder cancer, history of prostate cancer, labile hypertension, hyperlipidemia, benign prostatic hypertrophy, hypothyroidism, and legally blind. . 05:19 Stents were done by Dr. Pereira on 06/22/2022 at [facility] . sp4 Historical: - Allergies: 00:08 Codeine; lg3 00:08 PENICILLINS; lg3 00:08 Sulfa (Sulfonamide Antibiotics); lg3 - PMHx: 00:08 Bladder cancer; Chronic obstructive lung disease; Hypertensive disorder; Prostate lg3 Cancer; 00:08 ESRD; lg3 - PSHx: 00:08 HD cathater placement; PD dialysis cather placement; cardiac stent x 2; lg3 - Immunization history:: Adult Immunizations up to date. - Social history:: Patient/guardian denies using alcohol, street drugs, IV drugs, caffeine, over the counter diet medications, tobacco products, Smoking status: unknown. - Family history:: not pertinent. ROS: 00:17 Constitutional: Negative for fever, chills, and weight loss, further review of systems sp4 unavailable secondary to hypotensive patient and obtunded patient, positive for syncope, positive for chest pain 00:17 Unable to obtain ROS due to altered mental status. Exam: 00:17 Constitutional: This is a well developed, pale, acute distress, diaphoretic, sp4 bradycardic, peripheral cyanosis, hypotensive on monitor, bradycardic. Head/Face: Normocephalic, atraumatic. Eyes: Pupils equal round and reactive to light, extra-ocular motions intact. Lids and lashes normal. Conjunctiva and sclera are not injected. Cornea within normal limits. Periorbital areas with no swelling, redness, or edema. ENT: Nares patent. No nasal discharge, no septal abnormalities noted. Tympanic membranes are normal and external auditory canals are clear. Oropharynx with no redness, swelling, or masses, exudates, or evidence of obstruction, uvula midline. Mucous membranes moist. Neck: Trachea midline, no thyromegaly or masses palpated, and no cervical lymphadenopathy. Supple, full range of motion without nuchal rigidity, or vertebral point tenderness. No Meningismus. Chest/axilla: Normal chest wall appearance and motion. Nontender with no deformity. No lesions are appreciated. Cardiovascular: Irregular rhythm, poor peripheral perfusion, pallor, bradycardia, peripheral cyanosis Respiratory: Lungs have equal breath sounds bilaterally, bilateral crackles on exam, tachypnea Abdomen/GI: Soft, non-tender, with normal bowel sounds. No distension or tympany. No guarding or rebound. No evidence of tenderness throughout. There is left lower quadrant abdominal peritoneal dialysis catheter. Back: No spinal tenderness. No costovertebral tenderness. Male : Normal genitalia with no discharge or lesions. Skin: Warm, dry with normal turgor. Normal color with no rashes, no lesions, and no evidence of cellulitis. Right upper thigh hematoma consistent with recent PCI. MS/ Extremity: Pulses equal, pulses are thready, central pulses are present, there is peripheral cyanosis, generalized pallor, no deformities Neuro: Patient is somnolent, oriented to self, responsive to painful stimuli, additional exam is difficult secondary to hypotension 00:17 ECG was reviewed by the Attending Physician. EKG time 0009 07/09/2022, sinus bradycardia at the rate of 50, ST elevation in lead III and aVF, ST depression in aVL consistent with acute STEMI, there is incomplete right bundle branch block, first-degree AV block, prolonged QT, no ectopy. 02:53 Repeat EKG at 0 2:46 AM reveals sinus rhythm at the rate of 75, no ST elevation or sp4 depression, inverted T waves lead V2, no atrial or ventricular ectopy. Previous ST elevation in lead V3 and aVF has resolved. Vital Signs: 00:16 BP 72 / 57; Pulse 36; Resp 9; Temp 97.1(TE); Pulse Ox 100% on 2 lpm NC; lg3 01:15 BP 168 / 72; Pulse 59; Resp 13 S; Pulse Ox 96% on 3 lpm NC; lg3 01:56 BP 156 / 64; Pulse 80; Resp 14 S; Pulse Ox 98% on R/A; lg3 02:30 BP 138 / 56; Pulse 65; Resp 14 S; Pulse Ox 100% on R/A; lg3 04:28 BP 171 / 72; Pulse 93; Resp 15 S; Pulse Ox 97% on R/A; lg3 MDM: 00:33 Patient medically screened. snw 02:51 Differential Diagnosis altered mental status, sepsis, flu. Data reviewed: vital signs, sp4 nurses notes, EMS record, old medical records, lab test result(s), EKG, radiologic studies, plain films. ED course: Patient was given atropine, digoxin, some albumin as well, and blood pressure has improved to 159/76. Repeat EKG reveals no sign of ST elevations, it has revealed sinus rhythm at rate of 75, first-degree AV block, without signs of acute ST elevated MA,. ED course: Patient's mental status has improved and at this time patient desires to stay in hospital to be managed for syncope associated with acute MA. [facility] at [facility] declined transfer secondary to the fact that patient capacity does not allow it, as states that patient was recently at [facility] in [place] and received 2 stents via right groin percutaneous intervention by Dr. Pereira with Cardiology.. ED course: We will attempt to transfer to [facility] at . 02:54 ED course: Patient has highly elevated troponin, also mild hypokalemia potassium 3.4, sp4 troponin is 227.6. Patient will be given heparin bolus and infusion in anticipation prior to transfer. . 03:19 ED course: Patient was discussed with accepting forestry tree pruner at [facility]. Patient was also sp4 discussed with forestry tree pruner here at [facility]. Filler Sifter Helper here advised emergent transfer for heart cath. Filler Sifter Helper at [facility] has accepted patient and requested IV heparin bolus and infusion. Patient at this time has no active chest pain and he is feeling much. Pressure is markedly improved. We will pursue transfer by ground EMS to [facility] for further evaluation and possible left heart cath. Patient and his family report that he has status DNR/DNI. . 07/09 00:07 Order name: Basic Metabolic Panel; Complete Time: 02:28 07/09 00:07 Order name: CBC with Diff; Complete Time: :28 [facility] 07/09 00:07 Order name: Troponin HS; Complete Time: 01:30 [facility] 07/09 00:15 Order name: Ptt, Activated; Complete Time: :28 07/09 00:15 Order name: PT-INR; Complete Time: 01:28 07/09 02:39 Order name: Hepatic Function; Complete Time: 05:18 [facility] 07/09 02:53 Order name: COVID-19 SARS RT PCR [facility] 07/09 00:07 Order name: XRAY Chest (1 view) [facility] 07/09 00:07 Order name: EKG; Complete Time: 00:08 [facility] 07/09 02:44 Order name: EKG; Complete Time: 02:45 [facility] 07/09 00:07 Order name: Cardiac monitoring; Complete Time: 00:16 lg07/09 00:07 Order name: EKG - Nurse/Tech; Complete Time: 00: 07/09 00:07 Order name: IV Saline Lock; Complete Time: : 07/09 00:07 Order name: Labs collected and sent; Complete Time: : 07/09 00:07 Order name: O2 Per Protocol; Complete Time: : 07/09 00:07 Order name: O2 Sat Monitoring; Complete Time: : EC:17 Rate is 50 beats/min. Rhythm is regular, Sinus bradycardia. ST Segment is elevated in sp4 leads III, aVF. Clinical impression: Acute MA. Interpreted by me. Administered Medications: 05:10 Discontinued: NS 0.9% IV 1000 ml IV at 125 ml/hr continuous lg3 01:01 Drug: Atropine IVP 1 mg Route: IVP; Site: right antecubital; lg3 05:08 Follow up: Response: No adverse reaction lg3 01:02 Drug: morphine IVP or IV 2 mg Route: IVP; Infused Over: 4 mins; Site: right antecubital;lg3 05:10 Follow up: Response: No adverse reaction lg3 01:02 Drug: Albumin IVPB 25 grams Volume: 100 ml; Route: IVPB; Site: right antecubital; lg3 05:10 Follow up: Response: No adverse reaction; IV Status: Completed infusion; IV Intake: lg3 100ml 01:02 Drug: NS 0.9% IV 1000 ml Route: IV; Rate: 125 ml/hr; Site: right antecubital; lg3 01:02 Drug: Ondansetron IVP 2 mg Route: IVP; Site: right antecubital; lg3 05:09 Follow up: Response: No adverse reaction lg3 01:02 Drug: Digoxin IVP 0.5 mg Route: IVP; Site: right antecubital; lg3 05:09 Follow up: Response: No adverse reaction lg3 04:08 Drug: Albumin IVPB 25 grams Volume: 100 ml; Route: IVPB; Site: right antecubital; lg3 05:08 Follow up: Response: No adverse reaction; IV Status: Completed infusion; IV Intake: lg3 100ml 04:08 Drug: Heparin (MA Drip) - (D5W IV 500 ml, [place] [address] units) 12 units/kg/hr lg3 {Co-Signature: vc1 (Jessenia Tran RN).} Route: IV; Rate: calculated rate; Site: right antecubital; 05:08 Follow up: IV Status: Infusion continued upon transfer lg3 04:09 Drug: HEParin IV 4000 units {Co-Signature: vc1 (Jessenia Tran RN).} Route: IV; Rate: lg3 bolus; Site: right antecubital; 05:08 Follow up: Response: No adverse reaction; IV Status: Completed infusion lg3 Disposition Summary: 07/09/22 02:56 Transfer Ordered Reason: Higher level of care sp4 Condition: Serious sp4 Problem: new sp4 Symptoms: have improved sp4 Transfer Location: [facility](07/09/22 03:21) sp4 Accepting Physician: Accepting MD Roni GANNON(07/09/22 05:18) lg3 Diagnosis - Acute NSTEMI, syncope and collapse. End-stage renal disease on peritoneal sp4 dialysis, hypotensive episode - Syncope with hypotension and collapse sp4 Forms: - Medication Reconciliation Form sp4 - SBAR form sp4 Critical care time excluding procedures: 02:55 Critical care time: Bedside Care: 36 minutes, Consultation: 12 minutes, Family sp4 Intervention: 12 minutes. Total time: 60 minutes Signatures: Dispatcher [employer] EDMS Annette Lindsay FNP-C FNP-Csnw Liu Su FNP-C FNP-Cla1 Eliana Candelaria RN RN lg3 Landon Collins MD MD sp4 Jessenia Tran RN vc1 Corrections: (The following items were deleted from the chart) 03:21 02:56 Accepting sp4 sp4 03:21 02:56 [facility] sp4 sp4 05:18 03:21 Accepting MD Roni GANNON sp4 lg3
[2022-07-09] MEDS ORDERED: HEPARIN 5000 UNIT/ML 1 ML VIAL ONE (03:55)
[2022-07-09] MEDS ORDERED: HEPARIN/D5W 25,000 UNIT/500 ML BAG IV ONE (03:56)
[2022-07-09 04:57] LABS: ALT/SGPT 20 U/L (16-61); AST/SGOT 26 U/L (15-37); Albumin 2.2 g/dL (3.4-5.0); Alkaline Phosphatase 103 U/L (45-117); Bilirubin Total 0.2 mg/dL (0.2-1.0); Protein, Total 7.3 g/dL (6.4-8.2)
[2022-07-09 05:13] LABS: Bilirubin Direct < 0.1 mg/dL (0-0.2); Bilirubin Indirect, Calculated ND mg/dL (0.2-0.8)
[2022-07-09 05:25] VITALS: TEMP 97.1
[2022-07-09 05:30] VITALS: BP 171/72; O2SAT 97
--- NOTE | 2022-07-09 11:42 | EKG ---
Test Date: 2022-07-09 Test Time: 00:09:56 Supervisor Wall Mirror Department: RV MEASUREMENT RESULTS: Intervals: Rate: 50 LA: 368 QRSD: 116 QT: 536 QTc: 488 [place]: P: 51 LA: 368 QRS: 24 T: 90 INTERPRETIVE STATEMENTS: Sinus bradycardia with 1st degree AV block Incomplete right bundle branch block ST elevation, consider inferior injury or acute infarct Prolonged QT ACUTE [place] / STEMI Consider right ventricular involvement in acute inferior infarct Abnormal ECG Compared to ECG 07/09/2022 00:03:17 Prolonged QT interval now present Prolonged QT interval now present ST (T wave) deviation still present Myocardial infarct finding still present Electronically Signed On 07-09-22 11:41:22 CDT by Rajinder Teran
--- NOTE | 2022-07-09 11:42 | EKG ---
Test Date: 2022-07-09 Test Time: 02:46:51 Valve Pipe Irrigator: BLUE MEASUREMENT RESULTS: Intervals: Rate: 75 MI: 212 QRSD: 96 QT: 428 QTc: 477 [place]: P: 49 MI: 212 QRS: 5 T: 86 INTERPRETIVE STATEMENTS: Sinus rhythm with 1st degree AV block Nonspecific ST and T wave abnormality Abnormal ECG Compared to ECG 07/09/2022 00:03:17 Sinus bradycardia no longer present Incomplete right bundle-branch block no longer present Myocardial infarct finding no longer present Myocardial infarct finding no longer present ST (T wave) deviation still present Electronically Signed On 07-09-22 11:41:20 CDT by Rajinder Teran
--- NOTE | 2022-07-09 11:42 | EKG ---
Test Date: 2022-07-09 Test Time: 00:03:17 Automobile Upholsterer: RV MEASUREMENT RESULTS: Intervals: Rate: 51 ND: 310 QRSD: 112 QT: 494 QTc: 455 [place]: P: 28 ND: 310 QRS: 37 T: 97 INTERPRETIVE STATEMENTS: Sinus bradycardia with 1st degree AV block Incomplete right bundle branch block ST elevation, consider inferior injury or acute infarct ACUTE [place] / STEMI Consider right ventricular involvement in acute inferior infarct Abnormal ECG Compared to ECG 06/06/2022 13:17:41 First degree AV block now present Incomplete right bundle-branch block now present ST (T wave) deviation now present Myocardial infarct finding now present Myocardial infarct finding now present Prolonged QT interval no longer present Electronically Signed On 07-09-22 11:41:23 CDT by Rajinder Teran
--- NOTE | 2022-07-10 15:20 | RAD REPORT ---
EXAM DESCRIPTION: RAD - Chest Single View - 07/09/2022 12:20 am CLINICAL HISTORY: 71 years Male, CHEST PAIN TECHNIQUE: 1 view (Single frontal view of the chest) COMPARISON: None. FINDINGS: Shallow inspiratory effort limiting evaluation of lung bases. LINES AND TUBES: None. CARDIOVASCULAR STRUCTURES: Cardiomegaly. Mild diffuse increased interstitial opacities. LUNGS: No confluent areas of acute consolidation. PLEURA: No layering pleural effusions. No pneumothorax. BONES: No acute osseous abnormality of the thorax. IMPRESSION: 1. Mild diffuse increased interstitial opacities which may be secondary to edema versu s chronic change. 2. Cardiomegaly. 3. Suboptimal evaluation of lung bases as described. Bibasilar atelectasis/consolidation plus or mi nus small effusions cannot be entirely excluded. Electronically signed by: Dami Coleman MD 07/09/2022 12:32 AM CDT Due to temporary technical issues with the PACS/Fluency reporting system, reports are being signed by the in house radiologist without review as a courtesy to ensure prompt reporting. The interpreting r adiologist is fully responsible for the content of the report.
== END 2022-07-09 05:18 | disposition short-term general hospital (02) ==
LOC: ER 23:54
DX: I21.4 Non-ST elevation (NSTEMI) myocardial infarction (principal); I12.0 Hypertensive chronic kidney disease with stage 5 chronic kidney disease or end stage renal disease; N18.6 End stage renal disease; Z99.2 Dependence on renal dialysis; I95.9 Hypotension, unspecified; J44.9 Chronic obstructive pulmonary disease, unspecified; Z95.5 Presence of coronary angioplasty implant and graft; Z88.0 Allergy status to penicillin; Z88.2 Allergy status to sulfonamides; Z88.5 Allergy status to narcotic agent; Z85.46 Personal history of malignant neoplasm of prostate; Z85.51 Personal history of malignant neoplasm of bladder
CPT/HCPCS: 96365; 93005 ×3; 85025; 80048; 36415; 85610; 80076; 85730; 84484; 71045; 96375; 99285; 96366; U0003; J1644; P9047 ×2; J1160; J0461; J2270; J2405; J7030